=== PATIENT | female | born 1940 | race Caucasian/White ===

== ENCOUNTER → 2021-02-06 12:49 | Outpatient (CLI) | payer MEDICARE, SELFPAY ==
--- NOTE | 2021-02-06 12:55 | CT_ITS ---
STUDY: RIGHT LOWER EXTREMITY CT SCAN REASON FOR EXAM: Female, 80 years old. PRE OP RADIATION DOSAGE (If Supplied By Facility): CTDIvol = ( 18.76 ) mGy, DLP = ( 2234.48 ) mGycm. Individualized dose optimization techniques were used for this CT.? TECHNIQUE: Axial multidetector CT scan of the right lower extremity. Coronal and sagittal reformatted images. LINDSAY technique. COMPARISON: None. FINDINGS: Right hip: Moderate right hip osteoarthritis predominating superiolaterally. Moderate/severe pubic symphysis arthrosis. Mild sacroiliac joint arthrosis. Distended urinary bladder. Gluteus medius/minimus muscle atrophy. No significant soft tissue swelling. Right knee: Severe medial compartment arthrosis. Mild lateral compartment arthrosis. Mild/moderate patellofemoral arthrosis. Small volume joint effusion. Moderate-sized popliteal cyst. Mild anterior swelling. No muscle abnormality. Right ankle: Mild tibiotalar joint arthrosis. Minimal subtalar joint arthrosis. Moderate talonavicular arthrosis. Mild soft tissue swelling. No muscle abnormality. Vascular calcifications. CT/Extremity Lower without Contra IMPRESSION: Right knee moderate/severe osteoarthritis Right knee small joint effusion and popliteal cyst with mild swelling Right hip and ankle mild/moderate osteoarthritis Electronically Signed: Turner Marina DO at 12:05 EDT Tel , Service support ,
== END ==
PROVIDERS: PCP Internal Medicine; Referring Provider Specialist; Visit Provider Specialist
DX: M21.161 Varus deformity, not elsewhere classified, right knee (principal)
CPT/HCPCS: 73700

== ENCOUNTER 2021-02-20 15:22 | Observation (INO) | payer MEDICARE, SELFPAY ==
--- NOTE | 2021-01-30 21:55 | HP.PCM_ITS ---
History and Physical History and Physical [facility] Patient Name: Niki Castellanos : 1940 From: YOUNG GRIMALDO PA-C DATE OF SURGERY: 02/20/2021 SCHEDULED PROCEDURE: right unicompartmental knee replacement versus total knee arthroplasty HISTORY OF PRESENT ILLNESS: Preoperative history and physical exam was performed on January 30, 2021. This is a 80-year-old female who is had ongoing pain in the right knee for over 5 years. Patient has had pain in both knees but the right knee is greater than the left. Pain is located over the posterior and medial aspect of the knee. Her pain has been aching, sharp, stabbing, sore. Pain is increased with going up and down stairs and walking. Pain can reach his high as an 8-9/10. Patient has difficulty with activities of daily living including bathing/showering, housework, and shopping. She feels unsafe walking and shopping due to the pain. Patient has tried conservative measures including heat with no relief in symptoms. She has had minimal relief with rest, elevation, and previous corticosteroid injection. She has had previous Euflexxa injection with minimal relief. She has tried oral medications including Tylenol and Advil. She has been through physical therapy with minimal relief. Patient denies previous surgery on the right knee in the past. She has been using a cane over the past several weeks. Patient currently denies any chest pain, shortness of breath, fevers chills, recent infections. She has medical history pertinent for anxiety, sleep apnea, and hypertension. We are obtaining surgical clearance from the primary care physician Dr. Nguyen. After failing conservative measures and discussing treatment options with Dr. Rom Hampton, the patient does wish to proceed with a right unicompartmental knee replacement versus total knee arthroplasty. REVIEW OF SYSTEMS: ROS: Const: Denies anorexia, anxiety, change in appetite, fever and weight change,hard of hearing, and vision problems. Eyes: Wears glasses. CV: Denies chest pain, heart murmur, irregular heartbeat and peripheral vascular disease. Resp: Denies asthma, cough, pneumonia, sleep apnea, shortness of breath, tuberculosis and wheezing. GI: Reports heartburn, but denies constipation, diarrhea, nausea, bloody stools and vomiting, and difficulty swallowing. : Denies female genital problems. Denies incontinence. Musculo: Reports trouble walking and weakness, but denies leg swelling and limp. Skin: Denies Raynaud's, history of shingles and tattoo. Neuro: Denies ambulatory dysfunction, dizziness, numbness/tingling and tremor. Psych: Denies anxiety, depression, insomnia, mental illness and stress. Deejay/Lymph: Denies anemia, bleeding/bruising tendency and past transfusion. Reviewed, no changes. PAST MEDICAL HISTORY: Advance Care Plan: No Advance Directives Effective Date: 11/05/2018 PMH: Medical Problems: Arthritis, High Blood Pressure, Hypercholesterolemia, Anxiety, Reflux Accidents: None Surgical Hx: Foot Nerve Hip Replacement - (07/30/2006) LT THR, DR. HOPKINS, [facility] Anesthesia Complications: None Assistive Devices: None Reviewed and updated. SOCIAL HISTORY: SH: Marital: .Occupation: Retired - [employer].Work Status: Retired.Hand Dominance: Ambidextrous. Personal Habits: Tobacco Use: Patient has never smoked.Cigarette Use: Never.Alcohol: Denies use.Drug Use: Denies Use.Enjoy Exercising: Exercises 1-3 X/Week. Reviewed and updated. VITALS: Ht: 63.5 Wt: 181lb Wt k.102 BMI: 31.6 BP: 130/76 Pulse: 64 Resp: 14 T: 96.6 T: 35.9C Pain Level: 0 ALLERGIES: No Known Drug Allergy MEDICATIONS: Lisinopril 40 mg 1 po BID, Zyrtec 10 mg 1 po qday, Calcium daily, Multivitamin 1 po qdAY, Fluticasone Nasal [place] 2 sprays each nostril. one time a day., Advil 200 mg prn pain, Hydralazine HCL 50 mg take 1 tablet by mouth twice a day, Spironolactone 25 mg take 1 tablet by mouth once daily, Lorazepam 0.5 mg take 1/2 tablet by mouth once daily if needed for anxiety, Famotidine 40 mg 1po qday, Metoprolol Succinate ER 100 mg, Atorvastatin Calcium 20 mg take 1 tablet by mouth once daily PRE-OP EXAM: General appearance:NORMAL Other: Eyes: Conjunctivae and lids: NORMAL Pupils: ERR Ears, Nose, Mouth, and Throat: NORMAL Other: Inspection of lips, teeth and gums: NORMAL Other: Neck: Examination of neck: no masses noted. Respiratory: Assessment of respiratory effort: NORMAL Other: Auscultation of lungs: clear to auscultation no wheezes, rhonchi or rales. Cardiovascular: Auscultation of heart: regular rate and rhythm, no murmurs, gallops or rubs. PHYSICAL EXAMINATION: Patient does walk with an antalgic gait. Right knee is cool to touch without erythema or signs of infection. She does have moderate effusion. There is tenderness to palpation along the medial joint line. She has varus alignment which is correctable on exam. Range of motion: 0 extension 115 flexion. She does have increased pain with range of motion. Stable to varus/valgus stress test, stable to anterior/posterior drawer. IMAGING STUDIES: Previous x-rays of the right knee reveal varus alignment with medial joint space narrowing, subchondral sclerosis, osteophyte formation consistent with severe stage IV osteoarthritis IMPRESSION: 1. Severe right knee osteoarthritis 2. Severe left knee osteoarthritis 3. Hypertension 4. Hypercholesterolemia 5. Anxiety 6. Gastroesophageal reflux disease PLAN: Dr. Rom Hampton did discuss and review with the patient all treatment options including surgical versus nonsurgical options. Patient does wish to proceed with the above-stated procedure. Potential risks, benefits, and complications of the procedure were discussed in detail including but not limited to , infection, nerve and blood vessel damage, persistent pain, numbness, tingling, paresthesias, blood clot, pulmonary embolism, and requirement for possible further surgery. The patient expressed full understanding and has no further questions for the doctor. Patient does agree to proceed with the above-stated procedure and has signed the surgery consent form. We discussed the current risks associated with COVID 19. This does include the risk of exposure while in the hospital. Patient was reassured local hospitals have low infection rates and are taking all necessary precautions to avoid exposure to patients. In addition, we discussed strategies that can be used to help limit exposure including those that limit the patient's time in the hospital. Also using strategies to limit the patient's need for continued inpatient services after being discharged from the hospital. Patient was notified that we will need to comply with any screening or testing the hospital wishes to perform or that surgery may be delayed for any positive results. This dictation was created using voice recognition software. Phonetic and/or grammatical errors may exist. ___ I have re-examined the patient. There are no clinical changes since date of exam. ___ See progress notes for changes. ___ Dictated on admission Date: Time: Signature:
[2021-02-04 14:45] LABS: Absolute Lymphocyte Count 1.59 X10^3/uL (0.83-4.51); Absolute Neutrophil Count 5.5 X10^3/uL (2.0-7.7); Basophil# 0.04 X10^3/uL; Basophil% 0.5 % (0-1); Eosinophil# 0.17 X10^3/uL; Eosinophils% 2.1 % (0-5); Hematocrit 40.7 % (37-47); Hemoglobin 13.9 g/dL (12.0-15.0); Lymphocyte # 1.59 X10^3/ul (0.83-4.51); Lymphocyte % 19.6 % (19-41); Mean Corp Hgb Conc 34.2 g/dL (32-36); Mean Corpuscular Hgb 32.1 pg (27.0-32.0); Mean Platelet Vol. 10.6 fl (6.2-12.0); Monocyte# 0.78 X10^3/uL; Monocyte% 9.6 % (0-10); NRBC Flagged by Analyzer 0 % (0-5); Neutrophil # 5.51 X10^3/uL (2.7-7.7); Platelet Count 229 K/mm3 (150-450); RBC Distribution Width CV 12.2 % (11.6-14.6); RBC Distribution Width SD 42.1 fl (35.1-43.9); Red Blood Count 4.33 M/mm3 (4.2-5.4); White Blood Count 8.1 K/mm3 (4.4-11.0)
[2021-02-04 15:11] LABS: Albumin, Serum 3.7 g/dL (3.2-5.0); Anion Gap 8 (5-15); BUN 26 mg/dL (7-18); BUN/Creat Ratio 26.3 RATIO (10-20); Calcium,Total 9.3 mg/dL (8.5-10.1); Chloride 108 mmol/L (98-107); Creatinine, Serum 0.99 mg/dL (0.55-1.02); EST Glomerular Filtration Rate 57 mL/min (>60); Est Glom Filt Rate - Afr Amer 69 mL/min (>60); Glucose 99 mg/dL (74-106); Potassium 4.3 mmol/L (3.5-5.1); Sodium Level 141 mmol/L (136-145)
[2021-02-20] VITALS (15 sets, daily range): BP systolic 120–158; BP diastolic 47–108; PULSE 40–78; RESP 16–18; TEMP 35.8–36.6; O2SAT 92–100; BMI 31.4; BMI 32.5
--- NOTE | 2021-02-20 07:00 | RAD_ITS ---
STUDY: X-RAY - RIGHT KNEE REASON FOR EXAM: Female, 80 years old. Post op -- AP and Lateral xray of operative knee in PACU TECHNIQUE: 2 view(s) of the knee. COMPARISON: None. FINDINGS: The patient is status post medial hemiarthroplasty. There is good alignment. Postoperative soft tissue changes. RAD/Knee 1 or 2 Views IMPRESSION: Status post medial hemiarthroplasty. There is good alignment. Postoperative soft tissue changes. Electronically Signed: Pradeep Barba MD at 12:30 EDT , Service support ,
--- NOTE | 2021-02-20 07:03 | OP.PCM_ITS ---
Report of Operation Date of Procedure: 02/20/21 Pre-Operative Diagnosis: Right knee primary osteoarthritis Post-Operative Diagnosis: Right knee primary osteoarthritis Surgery/Procedure Performed:: Right medial unicompartmental knee replacement Description of Surgical Findings:: Patellofemoral and lateral compartments were appropriate with minimal wear. Stable knee. Surgeon: Rom Hampton cardroom drawing runner: Ralph Norman Type of Anesthesia: General Anesthesiologist: Tay Swenson Special Medications: 2 g Ancef, 1 g TXA at incision, 1 g TXA closure, 10 mg Decadron, joint cocktail (5 mg Duramorph, 30 mL of 0.5% Ropivicaine, 1000 units of epinephrine, 30 mg of Toradol) Specimen's removed: Bony cuts Estimated Blood Loss (mL): 45 Fluids Replaced: 1200 ml Description of Procedure: Implants used: 1. Josef size 4 femur 2. Josef size 3 tibia 3. Josef 10 mm polyethylene component Brief history operative indications: 80-year-old f with history of R knee anterior medial varus osteoarthritis with radiographic findings with loss of joint space, osteophyte formation and subchondral sclerosis. Failed conservative measures as mentioned in the H&P. Discussion of total knee arthroplasty as well as risk and benefits were discussed the patient including but not limited to blood loss, DVTs, PEs, neurovascular damage, general risk of anesthesia including loss of life, and stiffness or instability were discussed with patient. Patient demonstrated understanding and was able to sign informed consent. Procedure: On the date of procedure patient's R lower extremity was marked in the preope rative area. The patient was then taken back to the operating room where the patient was placed on the table in the supine position. All bony prominences were identified a well-padded. Anesthesia assumed control of the C-spine and airway and remained controlled throughout the remainder of the procedure. A tourniquet was placed on the R upper thigh and the leg was prepped in a sterile fashion. The surgeon then scrubbed at this time. Upon reentering the room R lower extremity was draped in a standard orthopedic fashion. A timeout was then called and everyone agreed upon the side, the site, the procedure to be performed, patient's identity and antibiotics given. Esmarch bandage was used to exsanguinate the extremity and the tourniquet was placed up to 250 mmHg with the knee in flexion. A midline skin incision was made and sharp dissection was taken down through skin subcutaneous tissue and fat. The standard medial parapatellar incision was made and the patella was subluxed medially. The standard minimal MCL release was done and a minimal fat pad for visualization. At this time we directed our attention towards the placement of the robotic navigation pins. 2 pins were placed in the tibia handbreadth below the tibial tubercle and 2 pins were placed in the femur with the patella in the trochlear groove 1 handbreadth above the patella. Bicortical fixation was obtained on all 4 pins. Once these pins were placed the arrays and checkpoints were placed and the femur and tibia were registered. After registering the bony landmarks bone spurs were removed and the soft tissues were tensioned and this intraoperative information was used to make intraoperative adjustments to implant position and balance the knee. The robotic arm was brought in and our attention was then directed towards the femur at this time based on our preoperative and intraoperative planning the size 4 femoral component was burred appropriately to the distal femur. Once we had appropriately burred the distal femur the pegs and he will were also burred. Next our attention was directed to the tibia. Where using our preoperative plan we buried the proximal tibia for a size 3 tibial component and then a ppropriately burred the pegs. Once we had burred the femur and the tibia all excess osteophytes were again removed. The trial components were placed in the tibial trial component was used to press the posterior keel. The knee was taken through range of motion and balancing was verified using the robotic navigation. Once we were happy with our components trial components were removed and the bone was repaired reaming the distal femur and using the toothbrush saw to slot the proximal tibia. Once the bone was adequately prepared the knee was scoped. Out normal saline and 40 mL of joint cocktail was injected in the posterior medial knee. The bone ends were appropriately dried and once the cement was ready the final components were cemented into place with the trial polyethylene and held at 20? flexion. Once the cement had adequately cured and all cement was removed and the final 10 millimeter polyethylene was put into place and the final knee showed is good patella tracking and well-balanced knee without overcorrection. It should be noted that throughout the procedure the MCL was protected during all bony cuts by my finance assistant. Once the final components were placed a the wound was copiously irrigated with 500 mL dilute Betadine solution followed by 1 L of normal saline solution and the periarticular injection was given. The wound was closed in a layer washburn fashion using #1 vicryl interrupted sutures for the arthrotomy, 2-0 interrupted Vicryl suture for the subcuticular layer and juan for final skin closure. A sterile compressive dressing was then placed. The patient was then awakened from anesthesia, transferred to the [facility] and transferred to the PACU for recovery. Post op plan DVT ppx: ASA 81mg BID for six weeks, thigh high compression stockings for 2 week s Follow up: in office in 2 weeks for wound check PT: to start POD #0 at hospital, outpatient PT should be arranged. During the course of the procedure the physician patient admitting representative (PE) played a vital ro le. Their intimate knowledge of my steps in the procedure aided in safe and expedient completion of the procedure. The PE played a vital rolls in positioning particularly in obtaining the appropriate positioning of the sacral bump. The PE was also vital in the retraction of soft tissues during the exposure and especially the femoral work as this is a vital part of the procedure to prevent complications and fractures. The PE was also vital and protecting soft tissues during times of bony cuts and reaming. He also played a vital role in closure with my direct supervision. The PE was also important during reduction and dislocation of the joint and trials intraoperatively. Admit VTE Documentation VTE Present on Admission: No VTE Mechan Device Prophylaxis: SCD's and Thigh High CALVIN Hose VTE Pharm Prophylaxis ordered?: Yes
[2021-02-20] MEDS: Lactated Ringers 1,000 ML 999 ML IV ×2 (08:31→11:57)
[2021-02-20] MEDS: Gabapentin 600 MG Tablet PO (08:31)
[2021-02-20] MEDS: Lactated Ringers 1,000 ML 75 ML IV (08:31)
[2021-02-20] MEDS: Celecoxib 200 MG Capsule 400 MG PO (08:32)
[2021-02-20 09:10] LABS: Bedside Glucose 112 mg/dL (70-110)
[2021-02-20] MEDS: Cefazolin 2 GM in 0.9% Normal Saline 100 ML IV (10:12)
[2021-02-20] MEDS: dexAMETHasone 10 MG/ML Vial IV (10:29)
[2021-02-20] MEDS: Lactated Ringers 1,000 ML 125 ML IV (11:57)
--- NOTE | 2021-02-20 14:18 | PCM.PN.HOSP ---
Subjective Subjective Mrs. Castellanos is an 80-year-old white female who presented to the [facility] on 02/20/2021 for a right medial unicompartmental knee replacement. The patient had unfortunately been having ongoing right knee pain for approximately 5 years. She has been complaining of bilateral knee pain but the right is greater than left. The pain was noted to be over the posterior and medial aspects of the right knee. She reports the pain as being aching, sharp, stabbing, and sore. The pain increases with going up and down stairs as well as walking. Her pain complaints are reported as 8-9 out of 10 and she has difficulties with ADLs and IADLs and feels unsafe walking and shopping due to her pain levels. She had tried conservative measures including heat, rest, steroid injections, Euflexxa injections, NSAIDs and Tylenol, as well as physical therapy without any lasting relief. We have been consulted in the postoperative management of her medical issues. The patient is currently denying any significant pain in despite having her nerve block not take appropriately. She appears well and had no postoperative issues thus far. Objective Data Objective Data Vital Signs: Vital Signs Temp Pulse Resp BP Pulse Ox 96.5 F L 77 16 147/47 H 95 02/20/21 14:03 02/20/21 14:03 02/20/21 14:03 02/20/21 14:03 02/20/21 14:03 Oxygen Flow Rate (L/min) 4 Oxygen Delivery Method Room Air Weight: 82.9 kg Body Mass Index (BMI) 31.4 Intake & Output: Intake and Output for Last 24 Hours 02/18/21 02/19/21 02/20/21 23:59 23:59 23:59 Intake Total 3435 / 3435 Balance 3435 / 3435 Lab / Micro Data Result Diagrams: 02/04/21 14:18 02/04/21 14:18 Labs: Laboratory Results - last 24 hr 02/20/21 08:14: POC Glucose 112 H Micro: Microbiology 02/04/21 14:18 Swab (Method) Nasal Screen MRSA/MSSA - Final Radiography Diagnostic Testing: Radiology Impression Knee X-Ray 02/20/21 07:00 IMPRESSION: Status post medial hemiarthroplasty. There is good alignment. Postoperative soft tissue changes. Electronically Signed: Pradeep Barba MD at 12:30 EDT , Service support , Physical Exam Const alert, oriented x3, no apparent distress and healthy appearing Constitutional Narrative: Elderly obese white female, sitting up in bed, nursing is at bedside, nontoxic, daughter at bedside, very pleasant Exam Limitations: no limitations Nutritional Appearance: obese HEENT head/scalp atraumatic Head and Scalp: normocephalic Mouth: dry mucous membranes Resp normal respiratory effort, no retractions, no use of accessory muscles and clear to auscultation bilaterally Auscultation: Negative for crackles, rales, rhonchi or wheezes Cardio regular rate, regular rhythm, S1 normal heart sound, S2 normal heart sound, no murmurs, no rub, no gallops, no clicks and no JVD GI normal to inspection, nondistended, normoactive bowel sounds, soft to palpation, non-tender and non-distended Extremity no clubbing, cyanosis or edema Extremity Narrative: Right lower extremity with CALVIN hose and polar ice in place, left lower extremity with CALVIN hose in place Peripheral Pulses: Yes pulses 2+ throughout Neuro oriented x3 and moves all extremities Sensorium / Orientation: awake and alert Speech: speech normal Assessment & Plan Assessment/Plan (1) Osteoarthritis: (2) Right knee pain: (3) Status post unicompartmental knee replacement: PLAN: Right knee pain secondary to osteoarthritis status post right unicompartmental knee replacement -Medial compartment replaced -Postop day 0 -Pain management per primary -Bowel regimen -PT/OT consultation Hypertension -Continue home lisinopril 20 mg twice daily -Continue metoprolol 100 mg daily -Continue Aldactone 12 point milligrams twice daily Hyperlipidemia -Continue atorvastatin 20 mg daily Generalized anxiety disorder -Continue home as needed Ativan 0.5 mg twice daily GERD -Continue famotidine 40 mg daily CKD stage II -Serum creatinine was at baseline on preoperative labs -Monitor closely -Avoid nephrotoxins as able Obesity -BMI is 31.4 -Recommend weight loss -Complicates treatment, prognosis, outcomes DVT prophylaxis -Per primary service with baby aspirin 81 mg twice daily -SCDs Charges/Coding Visit Charges OBSV E&M: 80909 Initial observation care L2
[2021-02-20] MEDS: Cefazolin 1 GM/50 ML BAG IV (17:29)
[2021-02-20] MEDS: Aspirin 81 MG TAB.CHEW PO (17:30)
--- NOTE | 2021-02-20 21:56 | EKG12_ITS ---
Test Reason : DYSRHYTHMIA Blood Pressure : / mmHG Vent. Rate : 041 BPM Atrial Rate : 041 BPM P-R Int : 256 ms QRS Dur : 088 ms QT Int : 480 ms P-R-T Axes : 000 -07 028 degrees QTc Int : 396 ms Sinus bradycardia with type I 3degree AV block Low voltage QRS Septal infarct (cited on or before 24-AUG-2015) Abnormal ECG When compared with ECG of 25-AUG-2015 05:55, MN interval has increased Vent. rate has decreased BY 33 BPM Questionable change in initial forces of Septal leads QT has shortened Confirmed by CHRISTOPHER MA, SUSAN ([id number]), commercial production editor KIRIT STRONG ([id number]) on 02/26/2021 12:31:44 P M Referred By: Rom Hampton Confirmed By:SAILAJA WHITE MD
[2021-02-20] MEDS: Senna/Docusate Sodium 1 Tablet 2 TABLET PO (22:01)
[2021-02-20] MEDS: Atorvastatin Calcium 20 MG Tablet PO (22:01)
[2021-02-20] MEDS: Acetaminophen 500 MG Tablet 1000 MG PO (22:02)
[2021-02-21] MEDS: Cefazolin 1 GM/50 ML BAG IV (01:56)
[2021-02-21 02:01] VITALS: BP 149/93; PULSE 51; RESP 18; TEMP 36.4; O2SAT 95
[2021-02-21] MEDS: Acetaminophen 500 MG Tablet 1000 MG PO ×2 (05:10→13:25)
[2021-02-21 05:45] LABS: Hematocrit 35.8 % (37-47); Hemoglobin 12.1 g/dL (12.0-15.0); Mean Corp Hgb Conc 33.8 g/dL (32-36); Mean Corpuscular Hgb 32.1 pg (27.0-32.0); Mean Platelet Vol. 10.4 fl (6.2-12.0); Platelet Count 212 K/mm3 (150-450); RBC Distribution Width CV 12.1 % (11.6-14.6); Red Blood Count 3.77 M/mm3 (4.2-5.4); White Blood Count 10.6 K/mm3 (4.4-11.0)
[2021-02-21 06:08] LABS: Anion Gap 8 (5-15); BUN 21 mg/dL (7-18); BUN/Creat Ratio 20.6 RATIO (10-20); Calcium,Total 8.8 mg/dL (8.5-10.1); Chloride 107 mmol/L (98-107); Creatinine, Serum 1.02 mg/dL (0.55-1.02); EST Glomerular Filtration Rate 55 mL/min (>60); Est Glom Filt Rate - Afr Amer 67 mL/min (>60); Estimated Creatinine Clearance 37.99 ml/min; Glucose 112 mg/dL (74-106); Potassium 4.4 mmol/L (3.5-5.1); Sodium Level 139 mmol/L (136-145)
[2021-02-21 08:13] VITALS: BP 141/55; PULSE 42; RESP 16; TEMP 36.4; O2SAT 95
[2021-02-21] MEDS: Aspirin 81 MG TAB.CHEW PO (08:43)
[2021-02-21] MEDS: Lisinopril 20 MG Tablet PO (08:44)
[2021-02-21] MEDS: Famotidine 20 MG Tablet 40 MG PO (08:44)
[2021-02-21] MEDS: Calcium Carb/Vitamin D 1 TABLET Tablet 2 TABLET PO (08:44)
[2021-02-21] MEDS: Senna/Docusate Sodium 1 Tablet 2 TABLET PO (08:44)
[2021-02-21] MEDS: Multivitamins,Therapeutic Tablet 1 TABLET PO (08:45)
[2021-02-21] MEDS: Spironolactone 25 MG Tablet 12.5 MG PO (08:45)
[2021-02-21] MEDS: Ensure Surgery 237 ML LIQUID PO ×2 (08:47→11:31)
--- NOTE | 2021-02-21 08:50 | PN.HOSP_ITS ---
Subjective Subjective Follow-up on postop medical management for right medial unicompartmental knee replacement: Patient was seen and examined. Her pain is fairly controlled. She was noted to be bradycardic. Heart rate was in the 40s. EKG shows sinus bradycardia with first-degree AV block. Patient blood pressure is fairly stable. Patient stated that she is always been bradycardic. She is asymptomatic from the bradycardia. Objective Data Objective Data Vital Signs: Vital Signs Temp Pulse Resp BP Pulse Ox 97.5 F L 42 L 16 141/55 H 95 02/21/21 08:13 02/21/21 08:13 02/21/21 08:13 02/21/21 08:13 02/21/21 08:13 Oxygen Flow Rate (L/min) 4 Oxygen Delivery Method Room Air Weight: 86 kg Body Mass Index (BMI) 32.5 Intake & Output: Intake and Output for Last 24 Hours 02/19/21 02/20/21 02/21/21 23:59 23:59 23:59 Intake Total 4591.08 / 4591.08 50 / 50 Balance 4591.08 / 4591.08 50 / 50 Lab / Micro Data Result Diagrams: 02/21/21 05:18 02/21/21 05:18 Labs: Laboratory Results - last 24 hr 02/20/21 08:14: POC Glucose 112 H 02/21/21 05:18: WBC 10.6, RBC 3.77 L, Hgb 12.1, Hct 35.8 L, MCV 95.0, MCH 32.1 H , MCHC 33.8, RDW Std Deviation 42.0, RDW Coeff of Mari 12.1, Plt Count 212, MPV 10.4 02/21/21 05:18: Sodium 139, Potassium 4.4, Chloride 107, Carbon Dioxide 24.0, Anion Gap 8, BUN 21 H, Creatinine 1.02, Estim Creat Clear Calc 37.99, Est GFR (MDRD) Af Amer 67, Est GFR (MDRD) Non-Af 55 L, BUN/Creatinine Ratio 20.6 H, Glucose 112 H, Calcium 8.8 Micro: Microbiology 02/04/21 14:18 Swab (Method) Nasal Screen MRSA/MSSA - Final Radiography Diagnostic Testing: Radiology Impression Knee X-Ray 02/20/21 07:00 IMPRESSION: Status post medial hemiarthroplasty. There is good alignment. Postoperative soft tissue changes. Electronically Signed: Pradeep Barba MD at 12:30 EDT , Service support , Physical Exam Narrative Physical exam: General: Alert, Oriented x3, Cooperative, No apparent distress, Well developed HEENT: Atraumatic Oral: Moist Mucosa Neck: Supple Lungs: Clear to auscultation Cardiovascular: HS I+II, regular, no murmurs Abdomen: Bowel Sounds Present, Soft, Non Tender Extremities: Bilateral CALVIN hoses, right anterior knee dressing in place, intact Assessment & Plan Assessment/Plan (1) Osteoarthritis: QUALIFIERS: Osteoarthritis location: knee Osteoarthritis type: p rimary Laterality: right Qualified Code(s): M17.11 - Unilateral primary osteoarthritis, right knee (2) Right knee pain: QUALIFIERS: Chronicity: chronic Qualified Code(s): M25.561 - Pain in right knee; G89.29 - Other chronic pain (3) Status post unicompartmental knee replacement: PLAN: 1. Postop day #1 status post right medial unicompartmental knee replacement Pain is controlled, PT and OT consulted Follow-up per orthopedics recommendations 2. Sinus bradycardia, EKG shows first-degree AV block, heart rate in the 40s Asymptomatic Patient is on metoprolol 100 mg daily, will decrease metoprolol to 50 mg daily, will recommend resumption of metoprolol from tomorrow Patient is recommended to follow-up with her primary care doctor within a week 3. Hypertension, fairly controlled for age, continue lisinopril 20 twice daily, Aldactone 12.5 mg twice daily Patient asked to keep a log of blood pressures At doctor may need to be increased 4. Rest of her chronic medical conditions including hyperlipidemia/generalized anxiety disorder/GERD/CKD stage II/obesity all remained stable Home meds reviewed Charges/Coding Visit Charges Inpatient E&M: 57811 Subs Hosp L2
--- NOTE | 2021-02-21 08:52 | PN.ORTHO_ITS ---
Subjective Subjective The patient was sitting in bedside chair upon examination. Patient denies any chest pain, shortness of breath, dizziness, lightheadedness, nausea or vomiting, or calf pain. Pain is controlled on medications. No adverse overnight events. Patient postoperatively has been bradycardic. She is currently asymptomatic. Patient does report her heart rate does run low normally. She is on blood pressure medications that have been held. She currently denies any chest pain, shortness of breath, dizziness, lightheadedness. She has been up walking with no difficulties. Orthopedically she is doing very well with very well pain control. Objective Data Objective Data Vital Signs: Vital Signs Temp Pulse Resp BP Pulse Ox 97.5 F L 42 L 16 141/55 H 95 02/21/21 08:13 02/21/21 08:13 02/21/21 08:13 02/21/21 08:13 02/21/21 08:13 Oxygen Flow Rate (L/min) 4 Oxygen Delivery Method Room Air Weight: 86 kg Body Mass Index (BMI) 32.5 Intake & Output: Intake and Output for Last 24 Hours 02/19/21 02/20/21 02/21/21 23:59 23:59 23:59 Intake Total 4591.08 / 4591.08 50 / 50 Balance 4591.08 / 4591.08 50 / 50 Lab / Micro Data Result Diagrams: 02/21/21 05:18 02/21/21 05:18 Labs: Laboratory Results - last 24 hr 02/20/21 08:14: POC Glucose 112 H 02/21/21 05:18: WBC 10.6, RBC 3.77 L, Hgb 12.1, Hct 35.8 L, MCV 95.0, MCH 32.1 H , MCHC 33.8, RDW Std Deviation 42.0, RDW Coeff of Mari 12.1, Plt Count 212, MPV 10.4 02/21/21 05:18: Sodium 139, Potassium 4.4, Chloride 107, Carbon Dioxide 24.0, Anion Gap 8, BUN 21 H, Creatinine 1.02, Estim Creat Clear Calc 37.99, Est GFR (MDRD) Af Amer 67, Est GFR (MDRD) Non-Af 55 L, BUN/Creatinine Ratio 20.6 H, Glucose 112 H, Calcium 8.8 Micro: Microbiology 02/04/21 14:18 Swab (Method) Nasal Screen MRSA/MSSA - Final Radiography Diagnostic Testing: Radiology Impression Knee X-Ray 02/20/21 07:00 IMPRESSION: Status post medial hemiarthroplasty. There is good alignment. Postoperative soft tissue changes. Electronically Signed: Pradeep Barba MD at 12:30 EDT , Service support , Physical Exam Narrative Vital signs stable and afebrile. Patient is able to plantarflex and dorsiflex actively. Sensation is intact to light touch to saphenous, sural, superficial and deep peroneal, and tibial distribution. Main dressing is clean dry and intact. Distal pin site dressing moderate discharge Negative Homans bilaterally, negative signs and symptoms of DVT. Const alert, oriented x3 and no apparent distress Assessment & Plan Assessment/Plan (1) Status post unicompartmental knee replacement: PLAN: 1. S/P right medial unicompartmental knee replacement POD #1 2. Continue Pain Medications: Tylenol, meloxicam, oxycodone 3. DVT Prophylaxis: Take 81 mg aspirin twice daily for 4 weeks postoperatively for DVT prophylaxis 4. PT/OT: Weightbearing as tolerated with walker 5. H & H: 12.1/35.8, asymptomatic. Postoperative anemia secondary to acute blood loss from surgery without any intra operative complications. 6. Encouraged Incentive Spirometry 7. Continue postoperative medical management per medicine: Case was discussed in detail with the hospitalist. Hospitalist has also talked with patient's primary care physician. At this time patient will hold the metoprolol today and begin tomorrow. They will decrease the metoprolol to 50 mg daily. She will follow-up with her primary care physician in 1 week. Continue to monitor her blood pressure and pulse when at home. Hospitalist is okay with discharge home today. 7. Disposition: Plan will be for discharge home today. Patient did have bradycardia postoperatively and plan is in place. This was discussed with the patient and hospitalist. Patient will continue with pain medications and DVT prophylaxis. Prescriptions will be E scribed to [facility] in [facility]. She will follow-up per postop instructions. Patient does have outpatient physical therapy established. Patient will also need follow-up in 1 week with her primary care physician. Continue to monitor her blood pressure and pulse when at home. I have reviewed the [place] Automated Rx Reporting System (OARRS) report for this patient for refill pattern and other prescriber involvement as part of the appropriate surveillance for the provision of acute and chronic controlled medications. The report was requested and reviewed on the date of this entry and was considered in the prescribing process.
[2021-02-21 08:53] VITALS: O2SAT 95
[2021-02-21 10:17] VITALS: O2SAT 98
--- NOTE | 2021-02-21 10:28 | DCINST_ITS ---
Discharge Instructions Diet Discharge Diet: No restrictions Activity Discharge Activity: May Not Drive (while taking narcotic pain medications.) May shower in (days): 1 (Please turn dressing away from water. Okay to get wet as long as dressing is intact to skin.) Ice area for (Minutes): 20 (Every 1-2 hours while awake[address] Please place barrier between the skin and ice pack.) Weight Bearing Status: Weight bearing as tolerated Keep extremity elevated above heart level: Operative Extremity Additional Activity Instructions:: No driving for 6 weeks postoperatively. Dressing / Incision Call your doctor if your incision/area has: Continuous Slow Oozing, Sudden Increased Bleeding, Increased Pain/ Swelling, Increased Redness and Foul Smelling Discharge Call your doctor if you observe: Fever of 101 or Higher, Coldness, Increased Pain, Numbness or Tingling, Change in Color, Shortness of breath, Chest pain, Calf discomfort and Uncontrolled pain Remove Dressing in: 4 days (Okay to remove dressing on February 25, 2021) Additional Dressing/Incision Instructions:: Follow [facility] Post-op Instructions. Once postoperative dressing has been removed only use gentle soap and water over the incision. Do not use any ointments, Neosporin, salves, alcohol pads over the incision for 6 weeks postoperatively. Do not submerge underwater for 6 weeks postoperatively. Continue with CALVIN hose/elastic stockings for 2 weeks postoperatively. May remove at nighttime but needs to be placed back on the leg during the day. Do NOT use alcohol with narcotic pain medication. Do NOT make important decisions while taking narcotic medication. If you have problems with taking your medication (rash, itching, nausea, etc.) call the office at once. Follow Up Care Test Results: Test results from this visit will be discussed in further detail at your follow-up appointment, if applicable. Discharge Plan Admission Admit Date/Time: 02/20/21 15:22 Attending Provider: Elizabeth Schultz Primary Care Provider: Tye Duncan Consulting Providers: Deena Calzada Instructions Additional Instructions / Restrictions: Take note of changes to your medications. Take your blood pressures 2 times a day?in the morning and at lunchtime and record them. Let your primary care doctor know if your blood pressures are persistently above 160/80s. Discharge Orders/Prescriptions Prescriptions: New metoprolol succinate 50 mg Tablet Extended Release 24 Hr 50 mg PO DAILY 30 Days Qty: 30 RF: 0 acetaminophen 500 mg Tablet 1,000 mg PO Q8 Qty: 100 RF: 0 aspirin [Adult Aspirin Regimen] 81 mg tablet,delayed release (DR/EC) 81 mg PO BIDCM Qty: 60 RF: 0 meloxicam 7.5 mg Tablet 7.5 mg PO BID Qty: 60 RF: 0 oxycodone 5 mg Tablet 2.5 mg PO Q4H PRN PRN (Reason: Pain Score 4-10) 7 Days Qty: 14 RF: 0 sennosides-docusate sodium [Stool Softener-Stimulant Laxat] 8.6-50 mg Tablet 2 tab PO BID Qty: 14 RF: 0 Continued atorvastatin 20 MG tablet 20 mg PO DAILY RF: 0 lisinopril 20 MG tablet 20 mg PO BID RF: 0 lorazepam 0.5 MG tablet 0.5 mg PO BID PRN PRN (Reason: Anxiety) RF: 0 multivitamin Tablet 1 tab PO DAILY RF: 0 famotidine 40 mg tablet 40 mg PO DAILY RF: 0 spironolactone 25 mg tablet 12.5 mg PO BID RF: 0 calcium carbonate-vitamin D3 500 mg(1,250mg) -125 unit Tablet 2 tab PO DAILY RF: 0 Discontinued metoprolol succinate 100 MG tablet 100 mg PO DAILY RF: 0 No Action zinc 50 mg Tablet 50 mg PO DAILY RF: 0 Referrals / Follow Up: Physical,Therapy [Other] - 02/25/21 5:30 pm Tye Duncan MD [Primary Care Provider] - Within 1 Week Ralph Norman PA-C [PHYSICIAN CHIROPRACTOR SOLE PRACTITIONER] - 03/07/21 4:00 pm Disposition Disposition (needs filled in before D/C Order can be placed): Home, Self Care
--- NOTE | 2021-02-21 11:30 | CASEMGMT ---
Addendum entered by Miguelina Rivera 02/21/21 12:49: [facility] form explained re: Observation status for treatment of right medial unicompartmental knee replacement. Explained hospitalization will be paid per her insurance policy for Outpatient billing and condition will continue to be evaluated for Inpt necessity. Also let pt know that [facility] sends paper in the billing packet with their phone number if questions arise. Discussed Pharmacy section of [facility] form and self administered medication guideline. Pt verbalizes understanding and does not have further questions. Form signed, copy made and placed in chart, and original given to pt. Original Note: RN CM ANESTHESIOLOGIST CM to room to meet with patient for initial transition planning/care coordination assessment. RN ROXY introduced self and role at [facility]. Pt voices understanding and consents to assessment at this time. Pt sitting up in chair in room in no distress at this time. Pt is A/O at this time and answers all questions appropriately. Care providers, pharmacy, and demographics verified/updated at this time. PCP: Dr Duncan Specialists: Dr Hampton--ortho Preferred Pharmacy: [facility] Retail Insurance:[employer] Prescription Benefit: Yes Living Will/HPOA: Pt does not currently have LW/HCPOA LNOK: Dtr, Laura Perez. Pt also has 60-yr-old son w/MRDD. Living Arrangements: Lives in a one-story home w/2 steps to enter w/handrails. Independent prior. Pt's 60-yr-old son w/MRDD lives w/her and pt helps to care of him. Son goes to [employer] [facility] [employer]. Dtr, Laura, is staying w/pt's son until pt returns home. Transportation: Pt drove prior to surgery. Dtr will take pt home @ d/c and will assist w/getting groceries for pt and take her to appts, when available. DME: States has the following DME: shower chair, cane, grab bars, walker, BP machine Pt states no need for further DME at this time. HHC/SNF:No hx of either. Pt wishes to return home and would like HHC, instead of OP therapy. Pt has an appt scheduled for OP PT @ [facility] for Feb 25. Pt voiced concern re: transportation to/from OP therapy. She states her daughter lives in [place] and works and would not be able to provide transportation. RN ROXY informed pt there is free van transportation services through [facility] for [employer], if she wishes to go there. Pt states she still wishes to do HHC instead of OP therapy. Pt was provided with list of HHC providers including quality and resource use data and consistent with the patient's preferred geographic region, medical needs, and insurance network. The pt's preferred provider is [facility]. FAVIO Quezada, in room w/pt and this RN ROXY during discussion re: therapy and he was made aware pt wishes to do HHC for therapy. Ralph informed pt he does recommended doing OP therapy vs HHC, but pt states she still wishes to do HHC initially and then may change to OP therapy later @ [facility] and would utilize [facility] van transportation at that time, if she is still unable to drive. DOTTY RAMSEY placed call to [facility] and appt cancelled per pt request. Pt has been scheduled to see COMMUNITY SERVICES OFFICER, Alanis Eric, @ Dr Duncan's office Mar 08. Per FAVIO Rosas, he would prefer pt be seen earlier for monitoring of BP and HR. DOTTY RAMSEY placed call to Dr Duncan's office and spoke w/Rebeca, nurse. She was made aware of bradycardia post-op and hypertension and request for pt to have f/u appt w/in a week of d/c from [facility]. She states she will submit request for same and someone from Dr Duncan's will contact pt if an earlier appt is available. Pt states has been wanting to switch to a different PCP. Pt offered/provided list of local PCP's. Pt's daughter, Laura, arrived while DOTTY RAMSEY talking w/pt. She was updated on HHC, option for OP therapy @ [employer] w/[facility] van transportation, and appt's as noted above. Recommended to pt to keep log of BP/HR to take to f/u appt @ PCP's office. CM to follow for any further discharge planning/needs. Pt/dtr voice no further concerns/needs at this time. Plan: Home w/[facility] HHC: PT Moshe ABBASI RN, CM
[2021-02-21 14:09] VITALS: BP 133/50; PULSE 42; RESP 16; TEMP 36.8; O2SAT 95
== END 2021-02-21 15:07 | disposition home health service (06) ==
LOC: SDC 15:22 → MS3 15:22
PROVIDERS: Admitting Provider Specialist; PCP Internal Medicine; Referring Provider Specialist; Visit Provider Internal Medicine
PROC: 0SRC0JZ Replacement of Right Knee Joint with Synthetic Substitute, Open Approach (ICD-10-PCS; CPT 27447; principal; 2021-02-20 09:30)
DX: M17.11 Unilateral primary osteoarthritis, right knee (principal); I12.9 Hypertensive chronic kidney disease with stage 1 through stage 4 chronic kidney disease, or unspecified chronic kidney disease; F41.1 Generalized anxiety disorder; G47.30 Sleep apnea, unspecified; K21.9 Gastro-esophageal reflux disease without esophagitis; N18.2 Chronic kidney disease, stage 2 (mild); E78.5 Hyperlipidemia, unspecified; Z79.899 Other long term (current) drug therapy; E66.9 Obesity, unspecified; Z68.31 Body mass index [BMI] 31.0-31.9, adult
CPT/HCPCS: 01400; 27446; 64447; S2900; 36415; 73560; 80048; 82040; 82962; 83735; 85025; 85027; 87081; 93005; 96365; 96366; 97110; 97162; 97166; 97530; 99218; 99251; C1776; J7120; A4216; G0378; G0463; J2405

== ENCOUNTER 2021-05-29 12:41 | Emergency (ER) | payer MEDICARE, SELFPAY ==
[2021-05-29] VITALS (10 sets, daily range): BP systolic 128–203; BP diastolic 50–158; PULSE 33–53; RESP 14–18; TEMP 36.5; O2SAT 25–99; BMI 33.9
--- NOTE | 2021-05-29 12:49 | EX.ED.DYSGE1 ---
HPI History of Present Illness Chief Complaint: Fall Informant: patient Narrative Narrative: 80-year-old female presenting to the emergency room with chief complaint of left hip dislocation. Patient states that it has been several decades since she had the replacement. She reports that the hip replacement was done by Dr. Carty. She did have a hip dislocation around 26 years ago but has been doing well since. She states that today she was cutting her toenails and bent over at a wrong angle. EMS administered fentanyl and Zofran. The patient denies any prior problems with anesthesia. She last ate approximately 4 to 5 hours ago. She does note significant nausea. [facility] Medical History (Updated 05/29/21 @ 15:[address] Fredo Carroll, DO) Ambulates with cane Anxiety disorder Arthritis High cholesterol Hip dislocation, left History of edema History of pain when walking History of stress test Hypertension Hypertension, essential Non-smoker Shortness of breath on exertion Wears glasses Home Medications atorvastatin 20 mg PO DAILY 08/24/15 [History Last Taken 02/19/21] lisinopril 20 mg PO BID 08/24/15 [History Last Taken 02/20/21 05:30] lorazepam 0.5 mg PO BID PRN PRN 08/24/15 [History Last Taken 02/19/21] calcium carbonate-vitamin D3 2 tab PO DAILY 02/01/21 [History Last Taken 02/19/21] famotidine 40 mg PO DAILY 02/01/21 [History Last Taken 02/19/21] multivitamin 1 tab PO DAILY 02/01/21 [History Last Taken 02/19/21] spironolactone 12.5 mg PO BID 02/01/21 [History Last Taken 02/19/21] zinc 50 mg PO DAILY 02/01/21 [History Last Taken Unknown] acetaminophen 1,000 mg PO Q8 #100 tab 02/21/21 [Rx Last Taken Unknown] aspirin [Adult Aspirin Regimen] 81 mg PO BIDCM #60 tab 02/21/21 [Rx Last Taken Unknown] meloxicam 7.5 mg PO BID #60 tab 02/21/21 [Rx Last Taken Unknown] metoprolol succinate 50 mg PO DAILY 30 Days #30 tab 02/21/21 [Rx Last Taken Unknown] oxycodone 2.5 mg PO Q4H PRN PRN 7 Days #14 tab 02/21/21 [Rx Last Taken Unknown] sennosides-docusate sodium [Stool Softener-Stimulant Laxat] 2 tab PO BID #14 tab 02/21/21 [Rx Last Taken Unknown] oxycodone-acetaminophen [Percocet] 1 tab PO Q6H PRN 3 Days #12 tab 05/29/21 [Rx Last Taken Unknown] Allergy/AdvReac Type Severity Reaction Status Date / Time No Known Allergies Allergy Verified 05/29/21 12:42 Surgical History (Updated 05/29/21 @ 14:[address] Fredo Carroll DO) History of right knee joint replacement Hx of colonoscopy Hx of foot surgery Hx of total hip arthroplasty Hx of tubal ligation Social History current gender identity: female Smoking Status: Never smoker substance use type: does not use ROS ROS ED Constitutional Constitutional ED: Denies chills, fever(s) or weight loss Eyes Eyes: Denies change in vision or diplopia ENT ENT ED: Denies ear pain, rhinorrhea or sore throat Cardiovascular Cardiovascular: Denies chest pain, orthopnea, palpitations or racing heartbeat Respiratory/Chest Respiratory/Chest: Denies cough, dyspnea or orthopnea Gastrointestinal Gastrointestinal: Reports nausea; Denies abdominal pain, diarrhea or vomiting Genitourinary Genitourinary ED: Denies dysuria, hematuria or urinary frequency Musculoskeletal Musculoskeletal: Reports other Details: Left hip pain ; Denies arthralgias or myalgias Integumentary Denies abscess or rash Neurologic Neurologic: Denies headache(s) or weakness Psychiatric Psychiatric: Denies anxiety, depression, suicidal ideation or suicidal thoughts Endocrine Endocrinology: Denies polydipsia, polyphagia or polyuria Allergic/Immunologic Allergic/Immunologic ED: Denies mouth swelling, tongue swelling or urticaria EXAM Physical Exam Const Vital Signs: 05/29/21 12:42 05/29/21 12:45 05/29/21 13:01 Temperature 97.7 F L Temperature Source Temporal Pulse Rate 43 L 43 L 42 L Pulse Rate [1 (Initial Baseline)] Pulse Rate [2] Respiratory Rate 16 16 14 Respiratory Rate [1 (Initial Baseline)] Respiratory Rate [2] Respiratory Effort Normal Respiratory Depth Normal Respiratory Pattern Normal Blood Pressure 178/158 H 178/158 H 179/50 H Blood Pressure [1 (Initial Baseline)] Blood Pressure [2] Blood Pressure Mean 164 164 Pulse Ox 95 95 95 Oxygen Delivery Method Room Air Room Air Room Air Oxygen Delivery Method [1 (Initial Baseline)] Oxygen Delivery Method [2] Oxygen Flow Rate (L/min) Oxygen Flow Rate (L/min) [1 (Initial Baseline)] Oxygen Flow Rate (L/min) [2] 05/29/21 13:43 05/29/21 13:55 05/29/21 14:00 Temperature Temperature Source Pulse Rate 45 L 41 L Pulse Rate [1 (Initial Baseline)] 41 L Pulse Rate [2] 53 L Respiratory Rate 15 17 Respiratory Rate [1 (Initial Baseline)] 14 Respiratory Rate [2] 18 Respiratory Effort Respiratory Depth Respiratory Pattern Blood Pressure 181/82 H 203/66 H Blood Pressure [1 (Initial Baseline)] 128/103 H Blood Pressure [2] 148/54 H Blood Pressure Mean Pulse Ox 99 95 Oxygen Delivery Method Non-Rebreather Nasal Cannula Oxygen Delivery Method [1 (Initial Baseline)] Nasal Cannula Oxygen Delivery Method [2] Non-Rebreather Oxygen Flow Rate (L/min) 15 Oxygen Flow Rate (L/min) [1 (Initial Baseline)] 2 Oxygen Flow Rate (L/min) [2] 15 05/29/21 14:03 05/29/21 14:05 05/29/21 15:15 Temperature Temperature Source Pulse Rate 41 L 37 L 33 L Pulse Rate [1 (Initial Baseline)] Pulse Rate [2] Respiratory Rate 18 17 14 Respiratory Rate [1 (Initial Baseline)] Respiratory Rate [2] Respiratory Effort Respiratory Depth Respiratory Pattern Blood Pressure 203/66 H 190/68 H 152/56 H Blood Pressure [1 (Initial Baseline)] Blood Pressure [2] Blood Pressure Mean 111 88 Pulse Ox 97 99 97 Oxygen Delivery Method Nasal Cannula Nasal Cannula Room Air Oxygen Delivery Method [1 (Initial Baseline)] Oxygen Delivery Method [2] Oxygen Flow Rate (L/min) 2 2 Oxygen Flow Rate (L/min) [1 (Initial Baseline)] Oxygen Flow Rate (L/min) [2] Positive well nourished, well developed and obese General Appearance ED: well developed Nutritional Appearance: obese HEENT Reports normocephalic, head/scalp atraumatic, TM's clear and moist mucous membranes Negative for trauma Tympanic Membrane ED: Yes TM's clear Eyes PERRL and EOMs intact bilaterally Neck no lymphadenopathy, supple and no JVD Resp normal respiratory effort and clear to auscultation bilaterally Cardio regular rate, regular rhythm and no murmurs GI normal to inspection, nondistended, normoactive bowel sounds and non-tender Palpation: soft Back/Spine no CVA tenderness and normal ROM Extremity Extremity Narrative: Tender palpation of the left hip. She is laying on her left side with her legs bent since difficult to assess leg length. Neurovascular she appears intact. General Extremety ED: Negative for edema General Extremity: Negative for edema Neuro oriented x3 and CN's II-XII intact bilaterally Sensorium / Orientation: alert Motor Exam: strength 5/5 throughout Psych mental status grossly normal Mood & Affect: Negative for depressed or tearful Skin no rashes or lesions noted and no wounds MDM MDM MDM Narrative Medical decision making narrative: EMS administered fentanyl and Zofran. Patient was very nauseous and still significant pain so we gave her additional Zofran and fentanyl. My interpretation of the plain films of the pelvis is a cephalad dislocation of the left hip. Patient provided informed consent for procedural sedation using etomidate for closed reduction of the hip dislocation. Patient was placed on the monitor and given supplemental oxygen. End-tidal CO2 was monitored. Etomidate 14 mg was administered by this physician. Myself and and another physician performed the reduction. Patient was allowed to recover. During the 9 minutes of procedural sedation she did have brief episode of hypoxemia. She recovered and was very nauseous afterwards of additional Zofran was given. She continued to be nauseated and Reglan was given and she felt significantly better. Postreduction films were obtained and on my interpretation shows satisfactory reduction of the hip. She was placed in a knee immobilizer. Patient was noted to be bradycardic in the 30s in the 40s. Patient states that that is not unusual for her. She is currently taking 50 mg of metoprolol once a day. I advised her that she should probably discontinue this and monitor her heart rate. She is to follow-up with her doctor for the bradycardia. She will follow up with [facility] for the hip dislocation. The patient's daughters come to the emergency room. She will be staying with her. 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 Electronically Signed: Pradeep Barba MD at 13:46 EST , Hip X-Ray 05/29/21 14:06 IMPRESSION: Satisfactory reduction of the prosthetic left hip joint. Electronically Signed: Pradeep Barba MD at 14:31 EST , Discharge Plan Triage Chief Complaint: Fall ED Provider: Fredo Carroll Dx/Rx/DC Orders Clinical Impression: Dislocation of left hip, Bradycardia, sinus Instructions: ED Hip Replace Dislocation Reduc Prescriptions: New oxycodone-acetaminophen [Percocet] 5-325 mg tablet 1 tab PO Q6H PRN (Reason: pain) 3 Days Qty: 12 RF: 0 No Action atorvastatin 20 MG tablet 20 mg PO DAILY RF: 0 lisinopril 20 MG tablet 20 mg PO BID RF: 0 lorazepam 0.5 MG tablet 0.5 mg PO BID PRN PRN (Reason: Anxiety) RF: 0 multivitamin Tablet 1 tab PO DAILY RF: 0 famotidine 40 mg tablet 40 mg PO DAILY RF: 0 spironolactone 25 mg tablet 12.5 mg PO BID RF: 0 zinc 50 mg Tablet 50 mg PO DAILY RF: 0 calcium carbonate-vitamin D3 500 mg(1,250mg) -125 unit Tablet 2 tab PO DAILY RF: 0 metoprolol succinate 50 mg Tablet Extended Release 24 Hr 50 mg PO DAILY 30 Days Qty: 30 RF: 0 acetaminophen 500 mg Tablet 1,000 mg PO Q8 Qty: 100 RF: 0 aspirin [Adult Aspirin Regimen] 81 mg tablet,delayed release (DR/EC) 81 mg PO BIDCM Qty: 60 RF: 0 meloxicam 7.5 mg Tablet 7.5 mg PO BID Qty: 60 RF: 0 oxycodone 5 mg Tablet 2.5 mg PO Q4H PRN PRN (Reason: Pain Score 4-10) 7 Days Qty: 14 RF: 0 sennosides-docusate sodium [Stool Softener-Stimulant Laxat] 8.6-50 mg Tablet 2 tab PO BID Qty: 14 RF: 0 Primary Care Provider: Tye Duncan Referrals: Doroteo Burr DO [STAFF PHYSICIAN] - As soon as possible Tye Duncan MD [Primary Care Provider] - Activity Restrictions/Additional Instructions: Please discontinue your metoprolol and follow-up with your primary care doctor regarding your heart rate. Please follow-up with [facility] regarding the hip dislocation. Disposition Disposition: Home, Self Care
[2021-05-29] MEDS: Ondansetron 4 MG/2 ML Vial IV ×2 (13:07→14:05)
[2021-05-29] MEDS: fentaNYL 100 MCG/2 ML Ampul 50 MCG IV (13:07)
--- NOTE | 2021-05-29 13:25 | RAD_ITS ---
STUDY: X-RAY - PELVIS REASON FOR EXAM: Female, 80 years old. Left hip dislocation TECHNIQUE: One view of the pelvis was obtained. COMPARISON: None. FINDINGS: The patient is status post left hip replacement. There is cranial dislocation of the left prosthetic hip joint. Normal visualized right femoral head. There is osteoarthritic spur formation of the right acetabular rim. There is mild articular joint space narrowing of the left hip. 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 Electronically Signed: Pradeep Barba MD at 13:46 EST ,
[2021-05-29] MEDS: Etomidate 20 MG/10 ML Vial 14 MG IV (13:46)
--- NOTE | 2021-05-29 14:06 | RAD_ITS ---
STUDY: X-RAY - PELVIS AND LEFT HIP REASON FOR EXAM: Female, 80 years old. Reduction TECHNIQUE: 2 views of the pelvis and hip. COMPARISON: Comparison is made with prior examination done earlier today. FINDINGS: There is satisfactory reduction of the prosthetic left hip joint. RAD/Hip Min 2 Views (Portable) IMPRESSION: Satisfactory reduction of the prosthetic left hip joint. Electronically Signed: Pradeep Barba MD at 14:31 EST ,
[2021-05-29] MEDS: Metoclopramide 10 MG/2 ML Vial 5 MG IV (15:10)
--- NOTE | 2021-05-29 15:25 | CM.ED ---
Social Work Consult: Resources Referral source: Nursing staff Met with patient and patient daughter in room. Introduced self and manager social services role. Patient agreeable to speak with this manager social services. Patient daughter with questions about medical alert system for patient. This manager social services provided list of medical alert systems as possible options for patient. Patient to discharge to home where patient daughter plans to stay with patient for the next few days. Patient/patient daughter deny any other concerns on returning to community. Lilli BUTLER, ELIZABETH-S
--- NOTE | 2021-05-29 16:02 | ED.RN ---
PT GIVEN WRITTEN AND VERBAL DISCHARGE INSTRUCTIONS AND HOME GOING PRESCRIPTIONS. PT DAUGHTER AT BEDSIDE ALSO EDUCATED ON D/C INSTRUCTIONS, TRANSFERRING, USE OF KNEE IMMOBILIZER AND WALKER AT HOME. PT AND DAUGHTER VERBALIZE UNDERSTANDING AND DENIES ANY FURTHER QUESTIONS. IV D/C AND COVERED WITH 2X2 GAUZE AND PAPER TAPE.
== END 2021-05-29 16:04 | disposition home or self-care (01) ==
PROVIDERS: Emergency Provider Emergency Medicine; PCP Internal Medicine; Visit Provider Emergency Medicine
DX: S73.005A Unspecified dislocation of left hip, initial encounter (principal); R00.1 Bradycardia, unspecified; E66.9 Obesity, unspecified; E78.00 Pure hypercholesterolemia, unspecified; I10 Essential (primary) hypertension; W19.XXXA Unspecified fall, initial encounter; Z79.899 Other long term (current) drug therapy
CPT/HCPCS: 72170; 73502; 96374; 96375; 96376; 99285; A4216; J2405

== ENCOUNTER 2021-08-03 16:14 | Emergency (ER) | payer MEDICARE, SELFPAY ==
[2021-08-03 16:15] VITALS: BP 167/82; PULSE 62; RESP 16; TEMP 36.3; O2SAT 96; BMI 31.3
--- NOTE | 2021-08-03 16:25 | EDS_ITS ---
HPI History of Present Illness Chief Complaint: Lower Extremity Injury Informant: patient Onset/Context/Timing Context: Sudden Onset Timing: Continuous Location: post R knee Worsened by: use, movement, touch Associated Symptoms Associated Symptoms: none Narrative Narrative: Patient was in her kitchen earlier today. Twisting and she felt something pop behind her right knee. She complains of pain to the area, worse with use, movement, and touch. No falls or injuries. No other pain. She has a history of an partial knee replacement to the right knee last year by Dr. Hampton. No blood thinners. No history of DVT or Aleman's cyst. Prior similar symptoms: No Recent Illness/Hospitalization: No PFSH PFS Medical History Ambulates with cane Anxiety disorder Arthritis High cholesterol Hip dislocation, left History of edema History of pain when walking History of stress test Hypertension Hypertension, essential Non-smoker Shortness of breath on exertion Wears glasses Home Medications atorvastatin 20 mg PO DAILY 08/24/15 [History Last Taken 02/19/21] lisinopril 20 mg PO BID 08/24/15 [History Last Taken 02/20/21 05:30] lorazepam 0.5 mg PO BID PRN PRN 08/24/15 [History Last Taken 02/19/21] calcium carbonate-vitamin D3 2 tab PO DAILY 02/01/21 [History Last Taken 02/19/21] famotidine 40 mg PO DAILY 02/01/21 [History Last Taken 02/19/21] multivitamin 1 tab PO DAILY 02/01/21 [History Last Taken 02/19/21] spironolactone 12.5 mg PO BID 02/01/21 [History Last Taken 02/19/21] zinc 50 mg PO DAILY 02/01/21 [History Last Taken Unknown] acetaminophen 1,000 mg PO Q8 #100 tab 02/21/21 [Rx Last Taken Unknown] meloxicam 7.5 mg PO BID #60 tab 02/21/21 [Rx Last Taken Unknown] metoprolol succinate 50 mg PO DAILY 30 Days #30 tab 02/21/21 [Rx Last Taken Unknown] oxycodone 2.5 mg PO Q4H PRN PRN 7 Days #14 tab 02/21/21 [Rx Last Taken Unknown] sennosides-docusate sodium [Stool Softener-Stimulant Laxat] 2 tab PO BID #14 tab 02/21/21 [Rx Last Taken Unknown] oxycodone-acetaminophen [Percocet] 1 tab PO Q6H PRN 3 Days #12 tab 05/29/21 [Rx Last Taken Unknown] oxycodone-acetaminophen [Percocet] 1 tab PO Q6H PRN 3 Days #12 tab 08/03/21 [Rx Last Taken Unknown] Allergy/AdvReac Type Severity Reaction Status Date / Time No Known Allergies Allergy Verified 08/03/21 16:19 Surgical History History of right knee joint replacement Hx of colonoscopy Hx of foot surgery Hx of total hip arthroplasty Hx of tubal ligation Social History Smoking Status: Never smoker substance use type: does not use ROS ROS ED Constitutional Constitutional ED: Denies fever(s) Eyes Eyes: Denies change in vision ENT ENT ED: Denies ear pain Cardiovascular Cardiovascular: Denies chest pain Respiratory/Chest Respiratory/Chest: Denies dyspnea Gastrointestinal Gastrointestinal: Denies abdominal pain Genitourinary Genitourinary ED: Denies dysuria Musculoskeletal Musculoskeletal: Reports arthralgias; Denies myalgias Integumentary Denies rash Neurologic Neurologic: Denies paresthesias or weakness Psychiatric Psychiatric: Denies depression Endocrine Endocrinology: Denies polyuria Allergic/Immunologic Allergic/Immunologic ED: Denies urticaria EXAM Physical Exam Const Vital Signs: 08/03/21 16:15 Temperature 97.4 F L Temperature Source Oral Pulse Rate 62 Respiratory Rate 16 Blood Pressure 167/82 H Blood Pressure Mean 110 Pulse Ox 96 Oxygen Delivery Method Room Air Positive well nourished and well developed General Appearance ED: well developed HEENT Negative for trauma Eyes EOMs intact bilaterally Neck supple Resp normal respiratory effort Cardio regular rate Extremity normal to inspection Extremity Narrative: Tenderness to palpation of the posterior right knee. No deformity or laxity. Skin is intact. Neurovascular intact distally. Range of motion intact. No swelling, edema, or redness General Extremety ED: Yes tenderness; Negative for edema General Extremity: Negative for edema Neuro oriented x3 and no sensory deficits noted Sensorium / Orientation: alert Motor Exam: strength 5/5 throughout Psych mental status grossly normal Skin no rashes or lesions noted MDM MDM MDM Narrative Medical decision making narrative: Patient was treated with pain medicine while awaiting results. X-rays were obtained. They were reviewed by myself and the radiologist. She has postoperative changes but no acute fracture or other abnormality. I suspect the patient has soft tissue/myofascial pain. Kenneth wrap was applied. Rest, ice, elevate. She has a walker at home. We did a trial ambulation with a walker here. She will follow-up with her orthopedist in 1 to 2 weeks for recheck. Impression #1 right knee pain Impression #2 postop right knee arthroplasty Disposition discharge home. Patient has some trouble bending her knee and is concerned that she may have difficulty getting around and using the restroom at home. I advised that we cannot get an MRI for this emergently. If she has concerns about functioning at home, we can admit her and have therapy see her. She may require placement and she still may not get an MRI emergently. Plus, there are risks of admission. After further consideration, the patient would like to try to go home and will return if worse. She will follow-up with her orthopedist. Radiography Diagnostic Testing: Clinical Impression(s) from Imaging Studies Knee X-Ray 08/03/21 16:33 IMPRESSION: Stable medial compartment hemiarthroplasty. Electronically Signed: Manuel Garica MD (Brooks) at 17:07 EDT Reading Location ID and State: [facility] / [place] , Service support , Discharge Plan Triage Chief Complaint: Lower Extremity Injury ED Provider: Fredo Gutierrez/Rx/DC Orders Instructions: ED Knee Pain of Uncertain Cause Prescriptions: New oxycodone-acetaminophen [Percocet] 5-325 mg tablet 1 tab PO Q6H PRN (Reason: pain) 3 Days Qty: 12 RF: 0 No Action atorvastatin 20 MG tablet 20 mg PO DAILY RF: 0 lisinopril 20 MG tablet 20 mg PO BID RF: 0 lorazepam 0.5 MG tablet 0.5 mg PO BID PRN PRN (Reason: Anxiety) RF: 0 multivitamin Tablet 1 tab PO DAILY RF: 0 famotidine 40 mg tablet 40 mg PO DAILY RF: 0 spironolactone 25 mg tablet 12.5 mg PO BID RF: 0 zinc 50 mg Tablet 50 mg PO DAILY RF: 0 calcium carbonate-vitamin D3 500 mg(1,250mg) -125 unit Tablet 2 tab PO DAILY RF: 0 metoprolol succinate 50 mg Tablet Extended Release 24 Hr 50 mg PO DAILY 30 Days Qty: 30 RF: 0 acetaminophen 500 mg Tablet 1,000 mg PO Q8 Qty: 100 RF: 0 meloxicam 7.5 mg Tablet 7.5 mg PO BID Qty: 60 RF: 0 oxycodone 5 mg Tablet 2.5 mg PO Q4H PRN PRN (Reason: Pain Score 4-10) 7 Days Qty: 14 RF: 0 sennosides-docusate sodium [Stool Softener-Stimulant Laxat] 8.6-50 mg Tablet 2 tab PO BID Qty: 14 RF: 0 oxycodone-acetaminophen [Percocet] 5-325 mg tablet 1 tab PO Q6H PRN (Reason: pain) 3 Days Qty: 12 RF: 0 Primary Care Provider: Tye Duncan Referrals: Rom Hampton MD [STAFF PHYSICIAN] - (1 week) Disposition Disposition: Home, Self Care
[2021-08-03] MEDS: HYDROcodone Bitartrate/Apap 5/325 Tablet PO (16:30)
--- NOTE | 2021-08-03 16:33 | RAD_ITS ---
STUDY: X-RAY - RIGHT KNEE REASON FOR EXAM: Female, 81 years old. pain TECHNIQUE: 4 view(s) of the knee. COMPARISON: 02/20/2021 FINDINGS: For lucent defects of the distal femur on AP view only stable. Normal visualized proximal tibia and fibula. Normal proximal tibiofibular articulation. Hemiarthroplasty of the medial femorotibial compartment. Normal lateral femorotibial compartment. Normal patellofemoral articulation. There is no demonstrated joint effusion. There are atherosclerotic calcifications. RAD/Knee 4 or More Views IMPRESSION: Stable medial compartment hemiarthroplasty. Electronically Signed: Manuel Garcia MD (Brooks) at 17:07 EDT Reading Location ID and State: [facility] / [place] , Service support ,
--- NOTE | 2021-08-03 17:45 | ED.RN ---
PT AMBULATED BY THIS RN WITH A STANDARD WHEELED WALKER THAT PT STATES SHE HAS SAME ONE AT HOME. PT ABLE TO SWING HER LEGS OUT OF BED INDEPENDENTLY BUT SLOWLY. PT AMBULATES INDEPENDENTLY WITH WALKER BUT STATES IT IS PAINFUL AND SHE IN UNABLE TO BEND HER KNEE. HAS CONCERNS TO HOW TO WILL USE THE BATHROOM AT HOME AND DAUGHTER EXPRESSES CONCERN TO HER BEING BY HERSELF WITH NOT BEING ABLE TO TOLERATE AMBULATION. THIS RN INFORMED OF PATIENT'S CONCERNS. BACK TO PATIENTS ROOM TO DISCUSS OPTIONS WITH PATIENT
[2021-08-03 17:54] VITALS: PULSE 60; RESP 16
== END 2021-08-03 17:54 | disposition home or self-care (01) ==
PROVIDERS: Emergency Provider Emergency Medicine; PCP Internal Medicine; Visit Provider Emergency Medicine
DX: M25.561 Pain in right knee (principal); I10 Essential (primary) hypertension; E78.00 Pure hypercholesterolemia, unspecified; Z96.651 Presence of right artificial knee joint; Z79.899 Other long term (current) drug therapy
CPT/HCPCS: 73564; 99284

== ENCOUNTER 2022-07-18 19:20 | Inpatient (IN) | payer MEDICARE, SELFPAY ==
[2022-07-18 19:22] VITALS: BP 222/73; PULSE 41; RESP 16; TEMP 36.8; O2SAT 98; BMI 34.3
--- NOTE | 2022-07-18 19:32 | EKG12_ITS ---
Test Reason : DYSRHYTHMIA Blood Pressure : / mmHG Vent. Rate : 039 BPM Atrial Rate : 039 BPM P-R Int : 256 ms QRS Dur : 092 ms QT Int : 496 ms P-R-T Axes : 078 012 072 degrees QTc Int : 399 ms Marked sinus bradycardia with 2:1 AV block Septal infarct (cited on or before 24-AUG-2015) Abnormal ECG Confirmed by KENDELL MA, NADEEM ([id number]), manager editorial KIRIT STRONG ([id number]) on 07/21/2022 2:19:53 PM Referred By: ELANA Confirmed By:NADEEM RDZ MD
--- NOTE | 2022-07-18 19:50 | RAD_ITS ---
STUDY: X-RAY CHEST REASON FOR EXAM: Female, 82 years old. Chest pain. Generalized weakness for 2 days. heart rate. TECHNIQUE: PA and lateral views of the chest. COMPARISON: August 24, 2015. FINDINGS: Lungs well expanded. There is chronic interstitial coarsening without new infiltrate or mass. There is no demonstrated pleural abnormality. Stable cardiomegaly. Normal mediastinum and tonja. Normal visualized pulmonary arteries. There is atherosclerotic calcification of the aortic arch with tortuosity. There is demineralization of the osseous structures. There is degenerative osteoarthritis of the bilateral shoulders. Retrocardiac hiatal hernia. RAD/Chest PA and Lateral IMPRESSION: 1. Stable cardiomegaly. There is no acute pulmonary disease or major interval change. Electronically Signed: Abiodun Velazquez DO at 20:08 EDT ,
[2022-07-18 19:52] LABS: Absolute Lymphocyte Count 1.65 X10^3/uL (0.83-4.51); Absolute Neutrophil Count 3.2 X10^3/uL (2.0-7.7); Basophil# 0.03 X10^3/uL; Basophil% 0.5 % (0-1); Eosinophil# 0.16 X10^3/uL; Eosinophils% 2.8 % (0-5); Hematocrit 38.6 % (37-47); Hemoglobin 12.3 g/dL (12.0-15.0); Lymphocyte # 1.65 X10^3/ul (0.83-4.51); Lymphocyte % 29.2 % (19-41); Mean Corp Hgb Conc 31.9 g/dL (32-36); Mean Corpuscular Hgb 32.5 pg (27.0-32.0); Mean Corpuscular Volume 101.8 fL (81-99); Mean Platelet Vol. 10.9 fl (6.2-12.0); Monocyte# 0.65 X10^3/uL; Monocyte% 11.5 % (0-10); NRBC Flagged by Analyzer 0 % (0-5); Neutrophil # 3.16 X10^3/uL (2.7-7.7); Neutrophil % 55.8 % (47-70); Platelet Count 181 K/mm3 (150-450); RBC Distribution Width CV 11.9 % (11.6-14.6); RBC Distribution Width SD 44.6 fl (35.1-43.9); Red Blood Count 3.79 M/mm3 (4.2-5.4); White Blood Count 5.7 K/mm3 (4.4-11.0)
[2022-07-18 20:12] LABS: ALB/GLOB Ratio 1.1 RATIO (0.9-2.4); AST(SGOT) 14 U/L (15-37); Alanine Aminotransfer ALT/SGPT 19 U/L (13-56); Albumin, Serum 3.5 g/dL (3.2-5.0); Alkaline Phosphatase 73 U/L (45-117); Anion Gap 9 (5-15); BNP,B-Type NATRIURETIC PEPTIDE 429.7 pg/mL (0-100); BUN 25 mg/dL (7-18); BUN/Creat Ratio 22.5 RATIO (10-20); Calcium,Total 8.8 mg/dL (8.5-10.1); Chloride 113 mmol/L (98-107); Creatinine, Serum 1.11 mg/dL (0.55-1.02); EST Glomerular Filtration Rate 50 mL/min (>60); Est Glom Filt Rate - Afr Amer 61 mL/min (>60); Estimated Creatinine Clearance 35.16 ml/min; Globulin 3.1 g/dL (2.2-4.2); Glucose 152 mg/dL (74-106); Potassium 4.1 mmol/L (3.5-5.1); Protein, Total 6.6 g/dL (6.4-8.2); Sodium Level 143 mmol/L (136-145); Troponin-I HS (w/2H Reflex) 9 pg/mL (3.0-54.0)
--- NOTE | 2022-07-18 20:37 | EDS_ITS ---
HPI History of Present Illness Chief Complaint: Chest Pain Informant: patient Narrative Narrative: Patient is an 82-year-old female with history of bradycardia, hypertension, anxiety and hyperlipidemia presenting for an episode of chest discomfort. Patient states she had a cold for the past few days and is has not been feeling well. She had a cough. She is been taking generic brand of Mucinex all-in-one as well as some type of cough syrup. She last had a dose around 430 this evening. She states she was washing dishes and sweaty and then had a pins and needle sensation. She thought maybe she was having a panic attack and took her lorazepam. She sat down. She states she just did not feel right and had a vague tightness in her chest. Her symptoms did not go away which normally would have occurred if she was having a panic attack and she came to the ER for further evaluation. She denies any fever. Denies any difficulty breathing. She is never had anything completely like this before. No other complaints at this time. Denies any swelling of her legs. [facility] Medical History (Updated 07/18/22 @ 23:[address] Blossom Trivedi, ) Ambulates with cane Anxiety disorder Arthritis Chronic sinus bradycardia High cholesterol Hip dislocation, left Hypertension Wears glasses Home Medications atorvastatin 20 mg tablet 20 mg PO DAILY 08/24/15 [History Last Taken 02/19/21] lisinopril 20 mg tablet 20 mg PO BID 08/24/15 [History Last Taken 02/20/21 05:30] lorazepam 0.5 mg tablet 0.5 mg PO BID PRN PRN Anxiety 08/24/15 [History Last Taken 02/19/21] calcium carbonate 500 mg-vitamin D3 3.125 mcg (125 unit) tablet 2 tab PO DAILY 02/01/21 [History Last Taken 02/19/21] famotidine 40 mg tablet 40 mg PO DAILY 02/01/21 [History Last Taken 02/19/21] multivitamin 1 tab PO DAILY 02/01/21 [History Last Taken 02/19/21] spironolactone 25 mg tablet 12.5 mg PO BID 02/01/21 [History Last Taken 02/19/21] zinc 50 mg tablet 50 mg PO DAILY 02/01/21 [History Last Taken Unknown] acetaminophen 500 mg tablet 1,000 mg PO Q8 #100 tabs 02/21/21 [Rx Last Taken Unknown] metoprolol succinate 50 mg tablet,extended release 24 hr 50 mg PO DAILY 30 days #30 tabs 02/21/21 [Rx Last Taken Unknown] oxycodone 5 mg tablet 2.5 mg PO Q4H PRN PRN Pain Score 4-10 7 days #14 tabs 02/21/21 [Rx Last Taken Unknown] sennosides 8.6 mg-docusate sodium 50 mg tablet (Stool Softener-Stimulant Laxative) 2 tab PO BID #14 tabs 02/21/21 [Rx Last Taken Unknown] oxycodone-acetaminophen 5 mg-325 mg tablet (Percocet) 1 tab PO Q6H PRN pain 3 days #12 tabs 05/29/21 [Rx Last Taken Unknown] oxycodone-acetaminophen 5 mg-325 mg tablet (Percocet) 1 tab PO Q6H PRN pain 3 days #12 tabs 08/03/21 [Rx Last Taken Unknown] doxazosin 1 mg tablet 1 mg PO QHS 07/18/22 [History Last Taken Unknown] Allergy/AdvReac Type Severity Reaction Status Date / Time No Known Allergies Allergy Verified 07/18/22 19:21 Family History (Updated 07/18/22 @ 23:[address] Harika Townsend MD) Mother Heart disease Surgical History History of right knee joint replacement Hx of colonoscopy Hx of foot surgery Hx of total hip arthroplasty Hx of tubal ligation Social History (Updated 07/18/22 @ 22:[address] Harika Townsend MD) household members: none Smoking Status: Never smoker alcohol intake: never substance use type: does not use ROS ROS ED Constitutional Constitutional ED: Reports sweats; Denies chills or fever(s) Eyes Eyes: Denies blurry vision or change in vision ENT ENT ED: Denies sore throat Cardiovascular Cardiovascular: Reports as per HPI and chest pain; Denies palpitations Respiratory/Chest Respiratory/Chest: Denies cough or dyspnea Gastrointestinal Gastrointestinal: Denies abdominal pain, nausea or vomiting Musculoskeletal Musculoskeletal: Denies arthralgias or myalgias Neurologic Neurologic: Reports paresthesias RUE and LUE; Denies headache(s) Psychiatric Psychiatric: Reports anxiety; Denies depression Hematologic/Lymphatic Hematologic/Lymphatic: Denies easy bleeding or easy bruising EXAM Physical Exam Const Vital Signs: 07/18/22 19:22 07/18/22 19:26 07/18/22 21:04 Temperature 98.3 F Temperature Source Temporal Pulse Rate 41 L 40 L Respiratory Rate 16 27 H Respiratory Effort Short of Breath Respiratory Depth Respiratory Pattern Blood Pressure 222/73 H 156/43 H Blood Pressure Mean 122 80 Pulse Ox 98 94 Oxygen Delivery Method Room Air Room Air 07/18/22 22:34 07/18/22 22:34 Temperature Temperature Source Pulse Rate 44 L Respiratory Rate 20 H 24 H Respiratory Effort Normal Non-Labored Short of Breath Respiratory Depth Shallow Respiratory Pattern Normal Tachypnea Blood Pressure Blood Pressure Mean Pulse Ox 94 Oxygen Delivery Method Room Air Positive well nourished and well developed General Appearance ED: well developed and NAD HEENT Reports dry mucous membranes normocephalic and atraumatic Mouth ED: Yes dry mucous membranes Mouth: dry mucous membranes Eyes PERRL and EOMs intact bilaterally Neck supple and no JVD Chest Wall inspection of chest normal and palpation of chest normal Resp normal respiratory effort and clear to auscultation bilaterally Auscultation: Negative for rhonchi or wheezes Cardio regular rhythm and no murmurs Rate: bradycardia Peripheral Pulses: pulses 2+ throughout GI normal to inspection, nondistended, normoactive bowel sounds and soft to palpat ion Back/Spine no CVA tenderness Extremity normal to inspection General Extremety ED: Yes edema General Extremity: edema bilateral Neuro oriented x3 Sensorium / Orientation: awake and alert Motor Exam: Negative for general weakness Psych mental status grossly normal Skin no rashes or lesions noted Skin Narrative: Mild erythema of the bilateral lower legs consistent with venous stasis MDM MDM MDM Narrative Medical decision making narrative: Patient is an 82-year-old female presenting with an episode of [id number] sensation and sweating in her hands and then chest discomfort. Patient notes she had some cold symptoms for the past few days and has been coughing and taking cold medicine. Upon arrival patient is quite hypertensive and bradycardic. Bradycardia is chronic. Cardiac work-up is largely negative including normal high-sensitivity troponins x2 and nonischemic EKG. Patient does not have a leukocytosis or fever while in the emergency room. Clinically she appears dehydrated is given a small fluid bolus. She does have a mildly elevated BNP but I do not have a comparison. She is some chronic leg edema however she does not feel it is any worse than normal. I really do not think this is an acute exacerbation of CHF based on her HPI. Patient is pretty dyspneic with minimal exertion and ambulated and dropped down to 88%. She feels that she needs a breathing treatment even though she is not wheezing on exam. She is given a DuoNeb for comfort. CT is added on as I do not have a good cause of her hypoxia and I do not want to miss a pulmonary emboli. This is negative we will clinically treat for pneumonia with Rocephin and azithromycin. Patient require admission for further evaluation of her hypoxia. Patient agreeable this plan of care. She remains hemodynamically stable in the ER. She does have mild improvement of her blood pressure without intervention in the emergency room Lab Data Attestation: I reviewed the patient's lab results. Labs: Laboratory Results - last 24 hr 07/18/22 07/18/22 07/18/22 19:30 19:30 19:30 WBC 5.7 RBC 3.79 L Hgb 12.3 Hct 38.6 MCV 101.8 H MCH 32.5 H MCHC 31.9 L RDW Std Deviation 44.6 H RDW Coeff of Mari 11.9 Plt Count 181 MPV 10.9 Immature Gran % (Auto) 0.200 Neut % (Auto) 55.8 Lymph % (Auto) 29.2 Gordon % (Auto) 11.5 H Eos % (Auto) 2.8 Baso % (Auto) 0.5 Absolute Neuts (auto) 3.2 Absolute Lymphs (auto) 1.65 Nucleated RBC % 0 Sodium 143 Potassium 4.1 Chloride 113 H Carbon Dioxide 21.0 Anion Gap 9 BUN 25 H Creatinine 1.11 H Estim Creat Clear Calc 35.16 Est GFR (MDRD) Af Amer 61 Est GFR (MDRD) Non-Af 50 L BUN/Creatinine Ratio 22.5 H Glucose 152 H Calcium 8.8 Total Bilirubin 0.70 AST 14 L ALT 19 Alkaline Phosphatase 73 Troponin I High Sens 9 B-Natriuretic Peptide 429.7 H Total Protein 6.6 Albumin 3.5 Globulin 3.1 Albumin/Globulin Ratio 1.1 Urine Color Urine Clarity Urine pH Ur Specific [place] Urine Protein Urine Glucose (UA) Urine Ketones Urine Occult Blood Urine Nitrite Urine Bilirubin Urine Urobilinogen Ur Leukocyte Esterase Urine RBC Urine WBC Ur Squamous Epith Cells Urine Bacteria Urine Mucus 07/18/22 07/18/22 21:05 21:59 WBC RBC Hgb Hct MCV MCH MCHC RDW Std Deviation RDW Coeff of Mari Plt Count MPV Immature Gran % (Auto) Neut % (Auto) Lymph % (Auto) Gordon % (Auto) Eos % (Auto) Baso % (Auto) Absolute Neuts (auto) Absolute Lymphs (auto) Nucleated RBC % Sodium Potassium Chloride Carbon Dioxide Anion Gap BUN Creatinine Estim Creat Clear Calc Est GFR (MDRD) Af Amer Est GFR (MDRD) Non-Af BUN/Creatinine Ratio Glucose Calcium Total Bilirubin AST ALT Alkaline Phosphatase Troponin I High Sens 12 B-Natriuretic Peptide Total Protein Albumin Globulin Albumin/Globulin Ratio Urine Color Yellow Urine Clarity Clear Urine pH 6.0 Ur Specific [place] 1.010 Urine Protein 15 H Urine Glucose (UA) Normal Urine Ketones Negative Urine Occult Blood Negative Urine Nitrite Negative Urine Bilirubin Negative Urine Urobilinogen Normal Ur Leukocyte Esterase 25 H Urine RBC 0 SEEN Urine WBC 0-5 SEEN Ur Squamous Epith Cells 0-5 SEEN Urine Bacteria 0 SEEN Urine Mucus 0 SEEN Radiography Chest X-Ray - ED: 2 View, Read by ED Physician, Read by Radiologist, No Acute Disease and Cardiomegaly Diagnostic Testing: Clinical Impression(s) from Imaging Studies Chest X-Ray 07/18/22 19:50 IMPRESSION: 1. Stable cardiomegaly. There is no acute pulmonary disease or major interval change. Electronically Signed: Abiodun Velazquez DO at 20:08 EDT Reading Location ID and State: [address] [place] [address] Tel [phone], Service support , Rhythm Strip Rhythm Strip: Bradycardia Rate: 39 Ectopy: None EKG Initial EKG: Attestation: I personally reviewed and interpreted this EKG as follows: Interpretation: Sinus Bradycardia Comments: Sinus bradycardia at a rate of 39 bpm with first-degree AV block OK interval 256 Normal axis Normal QRS and QTc Normal ST segments Prior EKG tracings: available for review Prior: Unchanged Management Discussion w/another healthcare provider: Hospitalist Discharge Plan Triage Chief Complaint: Chest Pain Other Complaint: General Illness ED Provider: Blossom Trivedi Dx/Rx/DC Orders Clinical Impression: Hypoxia, CAP (community acquired pneumonia) Prescriptions: No Action atorvastatin 20 MG tablet 20 mg PO DAILY Label Comments: cholesterol lowering lisinopril 20 MG tablet 20 mg PO BID Label Comments: BLOOD PRESSURE lorazepam 0.5 MG tablet 0.5 mg PO BID PRN PRN (Reason: Anxiety) Label Comments: anxiety multivitamin Tablet 1 tab PO DAILY famotidine 40 mg tablet 40 mg PO DAILY Label Comments: take 1 tablet by mouth once daily spironolactone 25 mg tablet 12.5 mg PO BID Label Comments: take 1 tablet by mouth once daily zinc 50 mg Tablet 50 mg PO DAILY calcium carbonate-vitamin D3 500 mg(1,250mg) -125 unit Tablet 2 tab PO DAILY metoprolol succinate 50 mg Tablet Extended Release 24 Hr 50 mg PO DAILY 30 Days Qty: 30 0RF acetaminophen 500 mg Tablet 1,000 mg PO Q8 Qty: 100 0RF Rx Instructions: Do not take more than 3000 mg Tylenol in a 24-hour period. oxycodone 5 mg Tablet 2.5 mg PO Q4H PRN PRN (Reason: Pain Score 4-10) 7 Days Qty: 14 0RF sennosides-docusate sodium [Stool Softener-Stimulant Laxat] 8.6-50 mg Tablet 2 tab PO BID Qty: 14 0RF Rx Instructions: Take until first bowel movement, then as needed oxycodone-acetaminophen [Percocet] 5-325 mg tablet 1 tab PO Q6H PRN (Reason: pain) 3 Days Qty: 12 0RF oxycodone-acetaminophen [Percocet] 5-325 mg tablet 1 tab PO Q6H PRN (Reason: pain) 3 Days Qty: 12 0RF doxazosin 1 mg tablet 1 mg PO QHS Primary Care Provider: Tye Duncan Referrals: Tye Duncan MD [Primary Care Provider] - Disposition Disposition: Acute Care Hospital [facility]
[2022-07-18 21:04] VITALS: BP 156/43; PULSE 40; RESP 27; O2SAT 94
[2022-07-18 21:14] LABS: Bacteria 0 SEEN /hpf (None Seen); Mucous, Urine 0 SEEN /hpf (<or=2+); Red Blood Cells-Urine 0 SEEN /hpf (0-5)
[2022-07-18 21:18] LABS: Color, Urine Yellow (Yellow); Glucose, Dipstick Normal (Normal); Ketone-Dipstick Negative (Negative); Leukocyte Esterase-Dipstick 25 /ul (Negative); Nitrite-Dipstick Negative (Negative); Occult Blood-Urine Negative /ul (Negative); Protein-Dipstick 15 mg/dl (Negative); Urine Bilirubin Dipstick Negative (Negative); Urine Clarity Clear (Clear); Urine Urobilinogen Normal (Normal)
[2022-07-18 21:27] LABS: Squamous Epithelial Cells - UA 0-5 SEEN /hpf (5-10); White Blood Cells 0-5 SEEN /hpf (0-5)
[2022-07-18 21:44] LABS: Reflex Troponin-HS? (from REC) Y
[2022-07-18 22:00] VITALS: BP 187/70; PULSE 42; RESP 19; O2SAT 94
[2022-07-18 22:06] VITALS: O2SAT 94
[2022-07-18 22:22] LABS: Troponin-I HS 12 pg/mL (3.0-54.0)
--- NOTE | 2022-07-18 22:22 | CT_ITS ---
STUDY: CTA CHEST REASON FOR EXAM: Female, 82 years old. Redness of breath. Hypoxia. RADIATION DOSAGE (If Supplied By Facility): CTDIvol = ( 14.29 ) mGy, DLP = ( 486.90 ) mGycm TECHNIQUE: The examination was performed with the intravenous administration of IV 100mL [id number]. Post-processing of the angiographic images was performed, with multiplanar reformation and 3D reconstruction. Individualized dose optimization techniques were used for this CT. COMPARISON: Chest, July 18, 2022. CTA of the chest, August 24, 2015. FINDINGS: Normal enhancement of the main pulmonary artery and right and left pulmonary arteries. Normal enhancement of the bilateral peripheral pulmonary arteries. There is no demonstrated pulmonary embolism. Atherosclerotic changes of the thoracic aorta without aneurysm. There is no demonstrated aortic dissection. The heart is enlarged. Normal pericardium. Mild coronary artery calcifications. Nonspecific subcentimeter mediastinal lymphadenopathy. Normal hilar regions. Normal visualized trachea and bronchi. The lungs are well expanded. Dependent changes at the left lung base with small pleural effusion. The lung are otherwise clear. Normal chest wall structures. There are degenerative changes of thoracic spine. Retrocardiac hiatal hernia. There is a cyst in the upper pole of the left kidney. The abdomen appears otherwise unremarkable CT/CTA Chest W/WO Contrast IMPRESSION: 1. No evidence of pulmonary embolus. 2. No aortic dissection or aneurysm. 3. Cardiomegaly. 4. Small right pleural effusion with subsegmental atelectasis. The lungs are otherwise clear. 5. Hiatal hernia. [employer] was utilized to assist in identifying pertinent positive findings in this case. Electronically Signed: Abiodun Velazquez DO at 23:16 EDT ,
[2022-07-18 22:34] VITALS: PULSE 44; RESP 20; RESP 24; O2SAT 94
[2022-07-18] MEDS: Ipratropium/Albuterol Sulfate 3 ML AMPUL.NEB INHALATION (22:34)
--- NOTE | 2022-07-18 22:43 | ED.RN ---
Pt walked back from bathroom and was extremely short of breath. Pt 86% on RA, placed on 3L NC. Dr. Trivedi aware. Pt received breathing treatment from respiratory and taken off oxygen. Resting at 95% on RA in bed.
[2022-07-18 23:00] VITALS: BP 170/57; PULSE 41; RESP 19; O2SAT 94
--- NOTE | 2022-07-18 23:45 | PCM.HP.STD ---
HPI - General General Date of Admission: 07/18/22 Date of Service: 07/18/22 Chief Complaint: Recent URI, diaphoresis, chest tightness. HPI Narrative The patient is an 82 y/o F w/ PMHx: CKD stage III unclear subtype, Chronic bradycardia, Obesity, OA, Anxiety/Panic attachs, HTN, HLD, OA who presents to the [facility] ED on 07/18/22 with history of increased fatigue, malaise with upper respiratory type infection over the last several days with self administration of Mucinex as well as cough syrup [id number] (does have phenylephrine) with last dose at approximately 4:30 pm on day of presentation and while she was in the kitchen washing dishes she became extremely diaphoretic with sensation of potentially a panic attack prompting her to self administer Ativan and rest but she felt unwell still with vague tightness in her chest without any resolution of the symptoms prompting ED evaluation. He states over the last 3 to 4 days she has had congestion, cough with nonproductive sputum, chills without any fevers, decreased appetite and dyspnea. She does state that several of her neighbors have recently been ill over the last couple weeks with COVID but she is attempted to stay away from these individuals. She notes her daughter dropped off groceries once weekly but she has not been ill. She denies any recent significant lower extremity swelling above her chronic baseline nor any orthopnea. Work-up in the ED included T98.3, heart rate 44, BP initially 222/73 with most recent repeat 156/43, respiratory rate 27, 94% on room air however upon walking back from the bathroom patient extremely dyspneic with oxygen assessment 86% on room air transition to 3 L nasal cannula and eventually improved when at rest and transition back to room air noted to be 95%, CBC with WBC 5.7, hemoglobin 12.3, platelet 181 without marked shift, CMP with chloride 113, BUN/creatinine 25/1.11, glucose 152, unremarkable hepatic profile, BNP 429.7, initial troponin 9 with repeat delta 12, respiratory SARS COVID and influenza antigens negative, chest x-ray with stable cardiomegaly with no acute cardiopulmonary finding, urinalysis unremarkable, EKG with SB without acute evidence of ischemia, CTPA obtained per ED physician and pending upon requested evaluation of patient. In the ED patient ministered DuoNeb therapy, rocephin, azithromycin. [facility]LY [facility] Medical History Ambulates with cane Anxiety disorder Arthritis Chronic sinus bradycardia High cholesterol Hip dislocation, left Hypertension Wears glasses Home Medications atorvastatin 20 mg tablet 20 mg PO DAILY 08/24/15 [History Last Taken 02/19/21] lisinopril 20 mg tablet 20 mg PO BID 08/24/15 [History Last Taken 02/20/21 05:30] lorazepam 0.5 mg tablet 0.5 mg PO BID PRN PRN Anxiety 08/24/15 [History Last Taken 02/19/21] calcium carbonate 500 mg-vitamin D3 3.125 mcg (125 unit) tablet 2 tab PO DAILY 02/01/21 [History Last Taken 02/19/21] famotidine 40 mg tablet 40 mg PO DAILY 02/01/21 [History Last Taken 02/19/21] multivitamin 1 tab PO DAILY 02/01/21 [History Last Taken 02/19/21] spironolactone 25 mg tablet 12.5 mg PO BID 02/01/21 [History Last Taken 02/19/21] zinc 50 mg tablet 50 mg PO DAILY 02/01/21 [History Last Taken Unknown] acetaminophen 500 mg tablet 1,000 mg PO Q8 #100 tabs 02/21/21 [Rx Last Taken Unknown] metoprolol succinate 50 mg tablet,extended release 24 hr 50 mg PO DAILY 30 days #30 tabs 02/21/21 [Rx Last Taken Unknown] oxycodone 5 mg tablet 2.5 mg PO Q4H PRN PRN Pain Score 4-10 7 days #14 tabs 02/21/21 [Rx Last Taken Unknown] sennosides 8.6 mg-docusate sodium 50 mg tablet (Stool Softener-Stimulant Laxative) 2 tab PO BID #14 tabs 02/21/21 [Rx Last Taken Unknown] oxycodone-acetaminophen 5 mg-325 mg tablet (Percocet) 1 tab PO Q6H PRN pain 3 days #12 tabs 05/29/21 [Rx Last Taken Unknown] oxycodone-acetaminophen 5 mg-325 mg tablet (Percocet) 1 tab PO Q6H PRN pain 3 days #12 tabs 08/03/21 [Rx Last Taken Unknown] doxazosin 1 mg tablet 1 mg PO QHS 07/18/22 [History Last Taken Unknown] Allergy/AdvReac Type Severity Reaction Status Date / Time No Known Allergies Allergy Verified 07/18/22 19:21 Family History (Updated 07/18/22 @ 23:[address] Harika Townsend MD) Mother Heart disease Hypertension Father CVA (cerebral vascular accident) Hypertension Surgical History History of right knee joint replacement Hx of colonoscopy Hx of foot surgery Hx of total hip arthroplasty Hx of tubal ligation Social History household members: none Smoking Status: Never smoker alcohol intake: never substance use type: does not use ROS ROS Narrative Admission Review of Systems: CONSTITUTIONAL: No weight loss, fever, + chills, weakness or fatigue. HEENT: + Congestion, rhinorrhea, mild sore throat. Eyes: No visual loss, blurred vision, double vision or yellow sclerae. Ears, Nose, Throat: No hearing loss, sneezing. SKIN: + BL LE chronic stasis skin changes. CARDIOVASCULAR: + Atypical chest tightness, discomfort, no palpitations, edema, orthopnea, syncopal events. RESPIRATORY: + shortness of breath, cough without marked sputum, wheezing, No hemoptysis. GASTROINTESTINAL: + anorexia, No nausea, vomiting or diarrhea, abdominal pain, melena, BRBPR. GENITOURINARY: No dysuria, frequency, urgency or retention. NEUROLOGICAL: No headache, dizziness, syncope, paralysis, ataxia, numbness or tingling in the extremities, focal weakness, change in bowel or bladder control, seizure. MUSCULOSKELETAL: + muscle, back pain, joint pain or stiffness. HEMATOLOGIC: + Easy bleeding or bruising. LYMPHATICS: No enlarged nodes. No history of splenectomy. PSYCHIATRIC: + history of anxiety. ENDOCRINOLOGIC: + reports of sweating, cold or heat intolerance. No polyuria or polydipsia. ALLERGIES: No history of asthma, hives, eczema or rhinitis. Vital Signs Vital Signs Vital Signs: 07/18/22 19:22 07/18/22 19:26 07/18/22 21:04 Temperature 98.3 F Temperature Source Temporal Pulse Rate 41 L 40 L Respiratory Rate 16 27 H Respiratory Effort Short of Breath Respiratory Depth Respiratory Pattern Blood Pressure 222/73 H 156/43 H Blood Pressure Mean 122 80 Pulse Ox 98 94 Oxygen Delivery Method Room Air Room Air 07/18/22 22:34 07/18/22 22:34 07/18/22 22:00 Temperature Temperature Source Pulse Rate 44 L 42 L Respiratory Rate 20 H 24 H 19 H Respiratory Effort Normal Non-Labored Short of Breath Respiratory Depth Shallow Respiratory Pattern Normal Tachypnea Blood Pressure 187/70 H Blood Pressure Mean 109 Pulse Ox 94 94 Oxygen Delivery Method Room Air Room Air 07/18/22 23:00 Temperature Temperature Source Pulse Rate 41 L Respiratory Rate 19 H Respiratory Effort Respiratory Depth Respiratory Pattern Blood Pressure 170/57 H Blood Pressure Mean 94 Pulse Ox 94 Oxygen Delivery Method Room Air Weight Weight: 206 lb 9.17 oz Body Mass Index (BMI) 34.3 Physical Exam Narrative Physical Examination: General: Awake, alert, oriented x 3 and cooperative, seated upright in the ED bed, fatigued appearing. Skin: Normal color, normal turgor, no icterus, no cyanosis except for notable bilateral lower extremities venous stasis skin changes HEENT: AT/NC, EOMI, PERRLA, dry MM, no carotid bruits or JVD noted. Lungs: Bilaterally diminished, greater bases, mildly increased respiratory rate but no distress, very decreased but no specific wheezing, no rales or rhonchi. Heart: Notable bradycardia with regular rhythm with patient reporting baseline heart rate often 30-40 range; no gallop, rub audible. Abdomen: Soft, obese, NTTP, ND, mildly hyperactive BS, no HSM. Extremities: No cyanosis, no clubbing, see skin, distal 1-2+ pitting edema which she reports is chronic Neurological: Patient awake, alert, oriented as noted, cognitive function intact; pupils equally reactive to light and accommodation, cranial nerves II-XII grossly normal, moving all 4 extremities, no focal deficits, strength moderately to severely global decrease secondary to acute presentation and illness. Psychiatric: Affect appears flat, fatigued, no acute evidence of depressive or anxiety feelings but does have underlying history of anxiety and panic attacks. Results Lab / Micro Data Result Diagrams: 07/18/22 19:30 07/18/22 19:30 Labs: Laboratory Results - last 24 hr 07/18/22 19:30: WBC 5.7, RBC 3.79 L, Hgb 12.3, Hct 38.6, MCV 101.8 H, MCH 32.5 H, MCHC 31.9 L, RDW Std Deviation 44.6 H, RDW Coeff of Mari 11.9, Plt Count 181, MPV 10.9, Immature Gran % (Auto) 0.200, Neut % (Auto) 55.8, Lymph % (Auto) 29.2, [place] % (Auto) 11.5 H, Eos % (Auto) 2.8, Baso % (Auto) 0.5, Absolute Neuts (auto) 3.2, Absolute Lymphs (auto) 1.65, Nucleated RBC % 0 07/18/22 19:30: Sodium 143, Potassium 4.1, Chloride 113 H, Carbon Dioxide 21.0, Anion Gap 9, BUN 25 H, Creatinine 1.11 H, Estim Creat Clear Calc 35.16, Est GFR (MDRD) Af Amer 61, Est GFR (MDRD) Non-Af 50 L, BUN/Creatinine Ratio 22.5 H, Glucose 152 H, Calcium 8.8, Total Bilirubin 0.70, AST 14 L, ALT 19, Alkaline Phosphatase 73, Troponin I High Sens 9, Total Protein 6.6, Albumin 3.5, Globulin 3.1, Albumin/Globulin Ratio 1.1 07/18/22 19:30: B-Natriuretic Peptide 429.7 H 07/18/22 21:05: Urine Color Yellow, Urine Clarity Clear, Urine pH 6.0, Ur Specific [place] 1.010, Urine Protein 15 H, Urine Glucose (UA) Normal, Urine Ketones Negative, Urine Occult Blood Negative, Urine Nitrite Negative, Urine Bilirubin Negative, Urine Urobilinogen Normal, Ur Leukocyte Esterase 25 H, Urine RBC 0 SEEN, Urine WBC 0-5 SEEN, Ur Squamous Epith Cells 0-5 SEEN, Urine Bacteria 0 SEEN, Urine Mucus 0 SEEN 07/18/22 21:59: Troponin I High Sens 12 Micro: Microbiology 07/18/22 19:37 Nasal Secretion SARS-CoV-2 & FLU Antigen (Rapid) - Final Radiology Impression Chest X-Ray 07/18/22 19:50 IMPRESSION: 1. Stable cardiomegaly. There is no acute pulmonary disease or major interval change. Electronically Signed: Abiodun Velazquez DO at 20:08 EDT Reading Location ID and State: [facility] / [place] Tel [phone], Service support , Assessment & Plan Assessment/Plan (1) Hypoxia: PLAN: Plan The patient is an 82 y/o F w/ PMHx: CKD stage III unclear subtype, Chronic bradycardia, Obesity, OA, Anxiety/Panic attachs, HTN, HLD, OA who presents to the [facility] ED on 07/18/22 with history of increased fatigue, malaise with upper respiratory type infection over the last several days with self administration of Mucinex as well as cough syrup [id number] (does have phenylephrine) with last dose at approximately 4:30 pm on day of presentation and while she was in the kitchen washing dishes she became extremely diaphoretic with sensation of potentially a panic attack prompting her to self administer Ativan and rest but she felt unwell still with vague tightness in her chest without any resolution of the symptoms prompting ED evaluation. #1. Acute Hypoxia secondary to Acute Viral Syndrome, possible Viral PNA, possible concurrent superimposed bacterial although lower suspicion: Of note CTPA is pending upon evaluation. Will admit to PCU given concurrent atypical chest pain but suspect is related to this presentation, will maintain on oxygen with wean as tolerated to room air, continue ATC budesonide, PRN albuterol, maintained on IV Rocephin and Azithromycin pending resp panel/COVID PCR/procalcitonin and de-escalate if appears primarily viral mediated, HOB, IS parameters w/ pending sputum cultures, full respiratory panel, COVID PCR and urine antigens, procalcitonin pending, if CTPA shows alternate etiology for presentation will alter treatment course as needed. PT/OT/case management consultation for discharge planning. #2. Atypical chest pain, suspected secondary to #1 w/ ischemia: EKG in ED with SB without acute evidence of ischemia, CXR w/ stable cardiomegaly with no acute cardiopulmonary findings, initial trop 9 with repeat delta 12. Will place on a monitored bed to assure no acute myocardial infarction with serial cardiac enzymes and AM repeat EKG given notable bradycardia with BB hold. Magnesium level requested. ASA, NG. #3. Hyperglycemia: Admission glucose 152, no diabetic history, will obtain hemoglobin A1c to be cautious. #4. Chronic bradycardia: Patient with significant chronic bradycardia although reports asymptomatic, heart rate in the 40s currently but has noted previously been in that same range, will continue to closely monitor on monitor, atropine if symptomatic. Given heart rate range we will hold metoprolol at this time although patient from review of prior notes has continued to take this despite her heart rate chronically in the low 30 in 40s. #5. Hypertension: Continue home regimen including lisinopril, spironolactone, PRN hydralazine. Holding metoprolol as noted. #6. Hyperlipidemia: Continue home statin regimen. #7. Chronic Kidney Disease Stage III, unclear subtype: Admission BUN/Cr 25/1.11, baseline renal function primarily 0.9-1.0, repeat BMP in AM. #8. Obesity: Weight loss and lifestyle changes encouraged. #9. Anxiety with history of panic attacks: We will continue patient home low-dose Ativan regimen. #10. GERD: We will continue patient on famotidine regimen. #11. DVT prophylaxis: Lovenox. #12. CODE status: Patient ZAHEER is her daughter Laura and living will is currently in place. Discussed CODE status at length including difference between FULL code, DNR-CCA and DNR-CC status. Following discussions about the differences in these status, requested Full Code status. Advanced Care Planning Face to Face Time: 16 minutes. Admission Evaluation Time spent evaluating chart, patient history, patient evaluation, care planning and discussion with specialists: 76 minutes. Charges/Coding Visit Charges Inpatient E&M: 83782 Init Hosp L3 Procedures Hospitalists Procedures: 22149 Advncd Care Plan 30 Min
[2022-07-18 23:51] LABS: Magnesium 1.9 mg/dL (1.6-2.6)
[2022-07-19] VITALS (18 sets, daily range): BP systolic 111–182; BP diastolic 37–87; PULSE 33–66; RESP 15–19; TEMP 36.3–37.2; O2SAT 93–97; BMI 35.2; BMI 34.9
[2022-07-19 00:15] LABS: Procalcitonin < 0.01 ng/mL (0.00-0.09)
--- NOTE | 2022-07-19 00:45 | NURSING ---
emergency documentation in place
[2022-07-19 02:15] LABS: Probe Check PASS; Specimen Processing Control PASS
[2022-07-19 02:39] LABS: Absolute Lymphocyte Count 1.26 X10^3/uL (0.83-4.51); Absolute Neutrophil Count 5.3 X10^3/uL (2.0-7.7); Basophil# 0.02 X10^3/uL; Basophil% 0.3 % (0-1); Eosinophil# 0.14 X10^3/uL; Eosinophils% 1.9 % (0-5); Hematocrit 35.5 % (37-47); Hemoglobin 11.4 g/dL (12.0-15.0); Lymphocyte # 1.26 X10^3/ul (0.83-4.51); Lymphocyte % 16.9 % (19-41); Mean Corp Hgb Conc 32.1 g/dL (32-36); Mean Corpuscular Hgb 32.9 pg (27.0-32.0); Mean Corpuscular Volume 102.3 fL (81-99); Mean Platelet Vol. 10.6 fl (6.2-12.0); Monocyte# 0.71 X10^3/uL; Monocyte% 9.5 % (0-10); NRBC Flagged by Analyzer 0 % (0-5); Platelet Count 175 K/mm3 (150-450); RBC Distribution Width CV 11.9 % (11.6-14.6); Red Blood Count 3.47 M/mm3 (4.2-5.4); White Blood Count 7.5 K/mm3 (4.4-11.0)
[2022-07-19 03:19] LABS: Troponin-I HS 14 pg/mL (3.0-54.0)
[2022-07-19 03:22] LABS: ALB/GLOB Ratio 1.2 RATIO (0.9-2.4); AST(SGOT) 16 U/L (15-37); Alanine Aminotransfer ALT/SGPT 16 U/L (13-56); Albumin, Serum 3.2 g/dL (3.2-5.0); Alkaline Phosphatase 65 U/L (45-117); Anion Gap 5 (5-15); BUN 19 mg/dL (7-18); BUN/Creat Ratio 19.1 RATIO (10-20); Calcium,Total 8.5 mg/dL (8.5-10.1); Chloride 115 mmol/L (98-107); EST Glomerular Filtration Rate 57 mL/min (>60); Est Glom Filt Rate - Afr Amer 69 mL/min (>60); Estimated Creatinine Clearance 37.45 ml/min; Globulin 2.6 g/dL (2.2-4.2); Glucose 116 mg/dL (74-106); Potassium 4.3 mmol/L (3.5-5.1); Protein, Total 5.8 g/dL (6.4-8.2); Sodium Level 143 mmol/L (136-145)
[2022-07-19] MEDS: guaiFENesin 10 ML UDC (200MG/10ML) 20 ML PO (03:28)
[2022-07-19] MEDS: Budesonide Respules 0.5 MG/2 ML AMPUL.NEB. INHALATION ×2 (07:12→19:12)
[2022-07-19] MEDS: Acetaminophen 325 MG Tablet 650 MG PO ×3 (07:41→23:05)
--- NOTE | 2022-07-19 08:00 | EKG12_ITS ---
Test Reason : MORNING EKG Blood Pressure : / mmHG Vent. Rate : 095 BPM Atrial Rate : 000 BPM P-R Int : 000 ms QRS Dur : 090 ms QT Int : 374 ms P-R-T Axes : 000 020 095 degrees QTc Int : 469 ms Atrial fibrillation with premature ventricular or aberrantly conducted complexes Low voltage QRS Septal infarct , age undetermined ST & T wave abnormality, consider lateral ischemia Abnormal ECG When compared with ECG of 20-JUL-2022 04:59, MANUAL COMPARISON REQUIRED, DATA IS UNCONFIRMED Confirmed by KENDELL MA, NADEEM ([id number]), supervising film or videotape editor KIRIT STRONG ([id number]) on 07/22/2022 9:03:49 AM Referred By: MARY LOU Confirmed By:NADEEM RDZ MD
--- NOTE | 2022-07-19 08:14 | PN.HOSP_ITS ---
Reason for Visit Reason for Visit: Diagnoses Hypoxemia (07/18/22) Follow-up for mild hypoxia along with symptoms of viral bronchitis. Objective Data Objective Data Vital Signs: Vital Signs Temp Pulse Resp BP Pulse Ox O2 Del Method 98.4 F 43 L 18 139/50 H 93 Room Air 07/19/22 04:06 07/19/22 04:06 07/19/22 04:06 07/19/22 04:06 07/19/22 04:06 07/19/22 07:32 Oxygen Delivery Method Room Air Weight: 204 lb 11.2 oz Body Mass Index (BMI) 34.9 Intake & Output: Intake and Output for Last 24 Hours 07/17/22 07/18/22 07/19/22 23:59 23:59 23:59 Intake Total 500 / 500 305 / 305 Balance 500 / 500 305 / 305 Lab / Micro Data Result Diagrams: 07/19/22 02:15 07/19/22 02:15 Labs: Laboratory Results - last 24 hr 07/18/22 19:30: WBC 5.7, RBC 3.79 L, Hgb 12.3, Hct 38.6, MCV 101.8 H, MCH 32.5 H , MCHC 31.9 L, RDW Std Deviation 44.6 H, RDW Coeff of Mari 11.9, Plt Count 181, MPV 10.9, Immature Gran % (Auto) 0.200, Neut % (Auto) 55.8, Lymph % (Auto) 29.2, [place] % (Auto) 11.5 H, Eos % (Auto) 2.8, Baso % (Auto) 0.5, Absolute Neuts (auto) 3.2, Absolute Lymphs (auto) 1.65, Nucleated RBC % 0 07/18/22 19:30: Sodium 143, Potassium 4.1, Chloride 113 H, Carbon Dioxide 21.0, Anion Gap 9, BUN 25 H, Creatinine 1.11 H, Estim Creat Clear Calc 35.16, Est GFR (MDRD) Af Amer 61, Est GFR (MDRD) Non-Af 50 L, BUN/Creatinine Ratio 22.5 H, Glucose 152 H, Calcium 8.8, Total Bilirubin 0.70, AST 14 L, ALT 19, Alkaline Phosphatase 73, Troponin I High Sens 9, Total Protein 6.6, Albumin 3.5, Globulin 3.1, Albumin/Globulin Ratio 1.1 07/18/22 19:30: B-Natriuretic Peptide 429.7 H 07/18/22 19:30: Procalcitonin < 0.01 07/18/22 21:05: Urine Color Yellow, Urine Clarity Clear, Urine pH 6.0, Ur Specific [place] 1.010, Urine Protein 15 H, Urine Glucose (UA) Normal, Urine Ketones Negative, Urine Occult Blood Negative, Urine Nitrite Negative, Urine Bilirubin Negative, Urine Urobilinogen Normal, Ur Leukocyte Esterase 25 H, Urine RBC 0 SEEN, Urine WBC 0-5 SEEN, Ur Squamous Epith Cells 0-5 SEEN, Urine Bacteria 0 SEEN, Urine Mucus 0 SEEN 07/18/22 21:59: Troponin I High Sens 12 07/18/22 21:59: Magnesium 1.9 07/18/22 23:30: COVID-19 (SERGO) Negative 07/19/22 02:15: WBC 7.5, RBC 3.47 L, Hgb 11.4 L, Hct 35.5 L, MCV 102.3 H, MCH 32.9 H, MCHC 32.1, RDW Std Deviation 45.0 H, RDW Coeff of Mari 11.9, Plt Count 175, MPV 10.6, Immature Gran % (Auto) 0.400, Neut % (Auto) 71.0 H, Lymph % (Auto) 16.9 L, [place] % (Auto) 9.5, Eos % (Auto) 1.9, Baso % (Auto) 0.3, Absolute Neuts (auto) 5.3, Absolute Lymphs (auto) 1.26, Nucleated RBC % 0 07/19/22 02:15: Sodium 143, Potassium 4.3, Chloride 115 H, Carbon Dioxide 23.0, Anion Gap 5, BUN 19 H, Creatinine 1.00, Estim Creat Clear Calc 37.45, Est GFR (MDRD) Af Amer 69, Est GFR (MDRD) Non-Af 57 L, BUN/Creatinine Ratio 19.1, Glucose 116 H, Calcium 8.5, Total Bilirubin 0.50, AST 16, ALT 16, Alkaline Phosphatase 65, Total Protein 5.8 L, Albumin 3.2, Globulin 2.6, Albumin/Globulin Ratio 1.2 07/19/22 02:15: Troponin I High Sens 14 Micro: Microbiology 07/19/22 05:30 Urine, Clean Catch Legionella Antigen - Final 07/19/22 05:30 Urine, Clean Catch Streptococcus pneumoniae Antigen (M - Final 07/18/22 23:30 Mucosa - Nasopharyngeal Respiratory Panel (PCR) - Final 07/18/22 19:37 Nasal Secretion SARS-CoV-2 & FLU Antigen (Rapid) - Final Radiography Diagnostic Testing: Radiology Impression Chest X-Ray 07/18/22 19:50 IMPRESSION: 1. Stable cardiomegaly. There is no acute pulmonary disease or major interval change. Electronically Signed: Abiodun Velazquez DO at 20:08 EDT Reading Location ID and State: [facility] / [place] Tel [phone], Service support , Chest CTA 07/18/22 22:22 IMPRESSION: 1. No evidence of pulmonary embolus. 2. No aortic dissection or aneurysm. 3. Cardiomegaly. 4. Small right pleural effusion with subsegmental atelectasis. The lungs are otherwise clear. 5. Hiatal hernia. AIDOC was utilized to assist in identifying pertinent positive findings in this case. Electronically Signed: Abiodun Velazquez DO at 23:16 EDT Reading Location ID and State: [facility] / [place] Tel [phone], Service support , Rhythm Strip Rhythm Strip: Bradycardia Rate: 39 Ectopy: None Physical Exam Narrative Seen and examined. No fever but dry cough for last few days along with wheezing. Physical exam General: Alert, Oriented x3, Cooperative HEENT: Atraumatic, PERRLA, EOMI, Normocephalic Oral: Oral mucosa dry. No Gingival or Mucosal Lesions/ Ulcerations Neck: Supple, No JVD, Negative Carotid Bruits Lungs: Air entry diminished in bilateral lung bases. Mild expiratory rhonchi and wheezing. Cardiovascular: Regular rate, Regular Rhythm, Normal S1, Normal S2, No murmurs Abdomen: Bowel Sounds Present, Soft, Non Tender, Non-Distended : No renal angle tenderness. No suprapubic tenderness. Extremities: No edema, Capillary Refill Less than 3 Seconds Skin: No rashes, No breakdown Musculoskeletal: No Tenderness to Palpation of Joints or Extremities ROM full and adequate. Neurological: Cranial nerves II-XII grossly intact, DTR 2+/4 and Symmetrical, Neuro grossly intact Psych/Mental Status: Normal Affect, Appropriate. Assessment & Plan Assessment/Plan (1) Hypoxia: PLAN: Plan The patient is an 82 y/o F is being admitted for further management of cough cold URI symptoms for the past few days along with chest tightness vague symptoms of pain and needles and sweating and hand. She has chronic bilateral lower leg edema and bradycardia. #1. Acute Hypoxia secondary to Acute Viral Syndrome, possible Viral PNA, low suspicion of bacterial superimposed pneumonia: CTPA was done which did not show PE or pneumonia but a small right effusion. Lungs are clear. Urinary antigens are negative. Respiratory panel negative. SARS-CoV-2 and rapid flu antigens are negative. Patient does not have history of COPD or on chronic inhalers. DuoNeb, incentive spirometry, Mucinex. Monitor clinically. #2. Atypical chest tightness, ACS ruled out: EKG in ED sinus bradycardia without acute evidence of ischemia. Scan as mentioned above. Serial troponins are negative therefore ACS ruled out. Might be from panic attack or acute bronchitis #3. Hyperglycemia: Admission glucose 152, no diabetic history, will obtain hemoglobin A1c #4. Chronic bradycardia: Patient with significant chronic bradycardia although reports asymptomatic, heart rate in the 40s currently #5. Hypertension: Continue home regimen including lisinopril, spironolactone, PRN hydralazine. Holding metoprolol as noted. #6. Hyperlipidemia: Continue home statin regimen. #7. Chronic Kidney Disease Stage III, unclear subtype: Admission BUN/Cr 25/1.11, baseline renal function primarily 0.9-1.0, repeat BMP in AM. #8. Obesity: Weight loss and lifestyle changes encouraged. #9. Anxiety with history of panic attacks: We will continue patient home low- dose Ativan regimen. #10. GERD: We will continue patient on famotidine regimen. #11. DVT prophylaxis: Lovenox. #12. CODE status: Patient ZAHEER is her daughter Laura and living will is currently in place. Discussed CODE status at length including difference between FULL code, DNR-CCA and DNR-CC status. Following discussions about the differences in these status, requested Full Code status. Charges/Coding Visit Charges Inpatient E&M: 20381 Subs Hosp L2
[2022-07-19] MEDS: Spironolactone 25 MG Tablet 12.5 MG PO (10:05)
[2022-07-19] MEDS: Enoxaparin 40 MG/0.4 ML Syringe SC (10:06)
[2022-07-19] MEDS: Multivitamins,Therapeutic Tablet 1 TABLET PO (10:06)
[2022-07-19] MEDS: guaiFENesin/D-Methorphan TAB.SR.12H 2 TABLET PO ×2 (10:06→23:01)
[2022-07-19] MEDS: Senna/Docusate Sodium 1 Tablet 2 TABLET PO ×2 (10:06→23:02)
[2022-07-19] MEDS: Famotidine 20 MG Tablet 40 MG PO (10:07)
[2022-07-19] MEDS: Aspirin 81 MG TAB.CHEW PO (10:07)
[2022-07-19] MEDS: Lisinopril 20 MG Tablet PO ×2 (10:07→23:02)
--- NOTE | 2022-07-19 11:33 | EKG12_ITS ---
Test Reason : AM EKG Blood Pressure : / mmHG Vent. Rate : 047 BPM Atrial Rate : 047 BPM P-R Int : 174 ms QRS Dur : 086 ms QT Int : 442 ms P-R-T Axes : -10 011 138 degrees QTc Int : 391 ms Sinus bradycardia with 2:1 AV block Low voltage QRS Septal infarct , age undetermined ST & T wave abnormality, consider lateral ischemia Abnormal ECG When compared with ECG of 19-JUL-2022 15:50, MANUAL COMPARISON REQUIRED, DATA IS UNCONFIRMED Confirmed by KENDELL MA, NADEEM ([id number]), food expeditor KIRIT STRONG ([id number]) on 07/22/2022 9:06:09 AM Referred By: Confirmed By:NADEEM RDZ MD
--- NOTE | 2022-07-19 14:32 | ECHOD_ITS ---
Reason For Study: Bradycardia, Heart block Procedure This was a 2D Doppler, Color Flow transthoracic echocardiogram. Exam performed portable in patient room. Left Ventricle Normal LV size. Mild concentric left ventricular hypertrophy. Left ventricular systolic function is normal. The estimated ejection fraction is 60 %. No regional wall motion abnormalities noted. Right Ventricle Normal RV size. Normal systolic function. Atria Normal left atrium. Normal right atrium. Mitral Valve Normal mitral valve. Tricuspid Valve Normal tricuspid valve. Aortic Valve Normal aortic valve. Trisinus/trileaflet aortic valve. Pulmonic Valve Normal pulmonic valve. Great Vessels Normal aortic root. The pulmonary artery is normal size. Normal inferior vena cava. Pericardium/Pleural No pericardial effusion. MMode/2D Measurements & Calculations LVIDd: 4.3 cm IVSd: 1.3 cm Ao root diam: 3.2 cm LVIDs: 2.6 cm LVPWd: 1.3 cm RVDd: 3.4 cm FS: 40.4 % LAV(MOD-sp4): 61.9 ml LVAd ap4: 28.0 cm2 LVAd ap2: 21.0 cm2 LVLd ap4: 7.6 cm LVLd ap2: 6.4 cm EDV(MOD-sp4): 83.3 ml EDV(MOD-sp2): 58.0 ml EDV(sp4-el): 87.3 ml EDV(sp2-el): 58.8 ml LVAs ap4: 12.4 cm2 LVAs ap2: 13.8 cm2 LVLs ap4: 6.3 cm LVLs ap2: 6.6 cm ESV(MOD-sp4): 21.9 ml ESV(MOD-sp2): 26.3 ml ESV(sp4-el): 20.6 ml ESV(sp2-el): 24.2 ml EF(MOD-sp4): 73.6 % EF(MOD-sp2): 54.7 % EF(sp4-el): 76.4 % SV(MOD-sp4): 61.3 ml SV(MOD-sp2): 31.7 ml SV(sp4-el): 66.7 ml LA dimension(2D): 3.6 cm LA A4 area: 24.4 cm2 RA A4 area: 15.3 cm2 Doppler Measurements & Calculations MV E max zaria: 125.3 cm/sec Ao V2 max: 183.4 cm/sec LV V1 max: 119.2 cm/sec Ao max P.6 mmHg LV V1 max P.7 mmHg Ao V2 mean: 128.4 cm/sec LV V1 mean P.2 mmHg Ao mean P.6 mmHg LV V1 mean: 83.2 cm/sec Ao V2 VTI: 36.2 cm LV V1 VTI: 25.2 cm AV (velocity ratio): 0.70 PA V2 max: 110.8 cm/sec PA V2 mean: 79.1 cm/sec ECHO/Echo Complete Interpretation Summary Normal LV size. Left ventricular systolic function is normal. The estimated ejection fraction is 60 %. Mild concentric left ventricular hypertrophy. Structurally normal valves. Ordering Physician: Aric Wray Referring Physician: Tye Duncan M.D. Performed By: Natalya Liao RCS
--- NOTE | 2022-07-19 14:35 | CASEMGMT ---
DOTTY RAMSEY DC Planning Assessment: Face to Face with patient for initial transition planning/care coordination assessment.?DOTTY RAMSEY introduced self and role at [facility], pt voices understanding and is agreeable to participating in assessment with swati Sanchez at bedside.? Care providers, pharmacy,?and demographics verified. ? Admitting dx: hypoxia, pneumonia, bradycardia PCP: [place] Specialists: Colton (pain) Preferred Pharm[facility]: [facility] Benef[facility]:?yes Living Will/HPOA: yes, HPOA swati Sanchez LNOK: swati Sanchez Living Arrangements: Pt lives alone in a single story home with a ramp entrance. Pt states she is independent with all ADLs including self care and household tasks such as cooking and laundry. Pt has a operations vice president for cleaning. Transportation: Pt drives and friends are able to assist if needed DME: cane, medical alert, shower chair, grab bars, hand held shower, raised toilet seat, lift chair. SNF/HHC: denies ? Plan: Pt states she plans to return home at discharge. Will continue to monitor and assist with DC needs as they are identified. Adan Clayton RN CM
[2022-07-19] MEDS: hydrALAZINE 20 MG/ML Vial 10 MG IV (15:08)
--- NOTE | 2022-07-19 15:22 | PCM.CONS.C ---
Assessment & Plan Assessment/Plan (1) CAP (community acquired pneumonia): (2) History of right knee joint replacement: (3) Osteoarthritis: QUALIFIERS: Osteoarthritis location: knee Osteoarthritis type: primary Laterality: right Qualified Code(s): M17.11 - Unilateral primary osteoarthritis, right knee (4) Hypoxia: (5) Mobitz (type) II atrioventricular block: PLAN: 82-year-old patient lives by herself And admitted with mild bronchitis and hypoxia Noted on quality assurance monitor chassis she had slow heart rate in the range of series and stable hemodynamically She has type II AV block On review of the chart in 2020 she had a similar Mobitz type II AV block Patient has been on beta-triny which is discontinued now. He had symptoms of lightheadedness and dizziness Denied any syncopal episode Cardiac exam essentially showed S1-S2 is irregular there is no systolic or diastolic murmur. Cardiac care plan recommendations; 1. Patient has a symptomatic bradycardia with type II AV block Underlying sick sinus syndrome 2. Beta-triny has been on hold 3. We will repeat EKG tomorrow and also will evaluate by echocardiogram on Thursday I did discuss the need for permanent pacemaker DDDR. due to symptomatic bradycardia patient having dizziness lightheadedness and risk of fall. I explained in detail the cardiac care plan to the patient as well as to her daughter,And nursing staff HPI Consult Data Date of Consult: 07/19/22 HPI Narrative Reason for Consultation: Symptomatic bradycardia with Mobitz type II AV block HPI Narrative: CAROLINA DOMINIQUE, is a 82 F who presents [facility] Medical History Ambulates with cane Anxiety disorder Arthritis Chronic sinus bradycardia High cholesterol Hip dislocation, left Hypertension Wears glasses Home Medications atorvastatin 20 mg tablet 20 mg PO DAILY 08/24/15 [History Last Taken 02/19/21] lisinopril 20 mg tablet 20 mg PO BID 08/24/15 [History Last Taken 02/20/21 05:30] lorazepam 0.5 mg tablet 0.5 mg PO BID PRN PRN Anxiety 08/24/15 [History Last Taken 02/19/21] calcium carbonate 500 mg-vitamin D3 3.125 mcg (125 unit) tablet 2 tab PO DAILY 02/01/21 [History Last Taken 02/19/21] famotidine 40 mg tablet 40 mg PO DAILY 02/01/21 [History Last Taken 02/19/21] multivitamin 1 tab PO DAILY 02/01/21 [History Last Taken 02/19/21] spironolactone 25 mg tablet 12.5 mg PO BID 02/01/21 [History Last Taken 02/19/21] zinc 50 mg tablet 50 mg PO DAILY 02/01/21 [History Last Taken Unknown] acetaminophen 500 mg tablet 1,000 mg PO Q8 #100 tabs 02/21/21 [Rx Last Taken Unknown] metoprolol succinate 50 mg tablet,extended release 24 hr 50 mg PO DAILY 30 days #30 tabs 02/21/21 [Rx Last Taken Unknown] oxycodone 5 mg tablet 2.5 mg PO Q4H PRN PRN Pain Score 4-10 7 days #14 tabs 02/21/21 [Rx Last Taken Unknown] sennosides 8.6 mg-docusate sodium 50 mg tablet (Stool Softener-Stimulant Laxative) 2 tab PO BID #14 tabs 02/21/21 [Rx Last Taken Unknown] oxycodone-acetaminophen 5 mg-325 mg tablet (Percocet) 1 tab PO Q6H PRN pain 3 days #12 tabs 05/29/21 [Rx Last Taken Unknown] oxycodone-acetaminophen 5 mg-325 mg tablet (Percocet) 1 tab PO Q6H PRN pain 3 days #12 tabs 08/03/21 [Rx Last Taken Unknown] doxazosin 1 mg tablet 1 mg PO QHS 07/18/22 [History Last Taken Unknown] Allergy/AdvReac Type Severity Reaction Status Date / Time No Known Allergies Allergy Verified 07/18/22 19:21 Family History (Updated 07/18/22 @ 23:[address] Harika Townsend MD) Mother Heart disease Hypertension Father CVA (cerebral vascular accident) Hypertension Surgical History History of right knee joint replacement Hx of colonoscopy Hx of foot surgery Hx of total hip arthroplasty Hx of tubal ligation Social History household members: none Smoking Status: Never smoker alcohol intake: never substance use type: does not use Physical Exam Cardio Cardio Narrative: Seen and evaluated today at bedside along with the nursing staff Daughter at bedside Patient sitting comfortably in chair does not have any active chest pain Review of the EKG on the cardiac telemetry showed evidence of Mobitz type II AV block She been stable hemodynamically Cardiovascular exam S1-S2 irregular Chest examination clear to auscultation bilateral Examination lower extremity no clubbing no cyanosis no lower extremity edema Risk Stratification Risk Stratification Applicable: No Objective Data Vital Signs: Vital Signs Temp Pulse Resp BP Pulse Ox O2 Del Method 97.4 F L 40 L 18 182/74 H 95 Room Air 07/19/22 15:04 07/19/22 15:08 07/19/22 15:04 07/19/22 15:08 07/19/22 15:04 07/19/22 15:04 Oxygen Delivery Method Room Air Weight: 204 lb 11.2 oz Body Mass Index (BMI) 34.9 Intake & Output: Intake and Output for Last 24 Hours 07/17/22 07/18/22 07/19/22 23:59 23:59 23:59 Intake Total 500 / 500 805 / 805 Balance 500 / 500 805 / 805 Lab / Micro Data Result Diagrams: 07/19/22 02:15 07/19/22 02:15 Labs: Laboratory Results - last 24 hr 07/18/22 19:30: WBC 5.7, RBC 3.79 L, Hgb 12.3, Hct 38.6, MCV 101.8 H, MCH 32.5 H, MCHC 31.9 L, RDW Std Deviation 44.6 H, RDW Coeff of Mari 11.9, Plt Count 181, MPV 10.9, Immature Gran % (Auto) 0.200, Neut % (Auto) 55.8, Lymph % (Auto) 29.2, [place] % (Auto) 11.5 H, Eos % (Auto) 2.8, Baso % (Auto) 0.5, Absolute Neuts (auto) 3.2, Absolute Lymphs (auto) 1.65, Nucleated RBC % 0 07/18/22 19:30: Sodium 143, Potassium 4.1, Chloride 113 H, Carbon Dioxide 21.0, Anion Gap 9, BUN 25 H, Creatinine 1.11 H, Estim Creat Clear Calc 35.16, Est GFR (MDRD) Af Amer 61, Est GFR (MDRD) Non-Af 50 L, BUN/Creatinine Ratio 22.5 H, Glucose 152 H, Calcium 8.8, Total Bilirubin 0.70, AST 14 L, ALT 19, Alkaline Phosphatase 73, Troponin I High Sens 9, Total Protein 6.6, Albumin 3.5, Globulin 3.1, Albumin/Globulin Ratio 1.1 07/18/22 19:30: B-Natriuretic Peptide 429.7 H 07/18/22 19:30: Procalcitonin < 0.01 07/18/22 21:05: Urine Color Yellow, Urine Clarity Clear, Urine pH 6.0, Ur Specific [place] 1.010, Urine Protein 15 H, Urine Glucose (UA) Normal, Urine Ketones Negative, Urine Occult Blood Negative, Urine Nitrite Negative, Urine Bilirubin Negative, Urine Urobilinogen Normal, Ur Leukocyte Esterase 25 H, Urine RBC 0 SEEN, Urine WBC 0-5 SEEN, Ur Squamous Epith Cells 0-5 SEEN, Urine Bacteria 0 SEEN, Urine Mucus 0 SEEN 07/18/22 21:59: Troponin I High Sens 12 07/18/22 21:59: Magnesium 1.9 07/18/22 23:30: COVID-19 (SERGO) Negative 07/19/22 02:15: WBC 7.5, RBC 3.47 L, Hgb 11.4 L, Hct 35.5 L, MCV 102.3 H, MCH 32.9 H, MCHC 32.1, RDW Std Deviation 45.0 H, RDW Coeff of Mari 11.9, Plt Count 175, MPV 10.6, Immature Gran % (Auto) 0.400, Neut % (Auto) 71.0 H, Lymph % (Auto) 16.9 L, [place] % (Auto) 9.5, Eos % (Auto) 1.9, Baso % (Auto) 0.3, Absolute Neuts (auto) 5.3, Absolute Lymphs (auto) 1.26, Nucleated RBC % 0 07/19/22 02:15: Sodium 143, Potassium 4.3, Chloride 115 H, Carbon Dioxide 23.0, Anion Gap 5, BUN 19 H, Creatinine 1.00, Estim Creat Clear Calc 37.45, Est GFR (MDRD) Af Amer 69, Est GFR (MDRD) Non-Af 57 L, BUN/Creatinine Ratio 19.1, Glucose 116 H, Calcium 8.5, Total Bilirubin 0.50, AST 16, ALT 16, Alkaline Phosphatase 65, Total Protein 5.8 L, Albumin 3.2, Globulin 2.6, Albumin/Globulin Ratio 1.2 07/19/22 02:15: Troponin I High Sens 14 Micro: Microbiology 07/19/22 05:30 Urine, Clean Catch Legionella Antigen - Final 07/19/22 05:30 Urine, Clean Catch Streptococcus pneumoniae Antigen (M - Final 07/18/22 23:30 Mucosa - Nasopharyngeal Respiratory Panel (PCR) - Final 07/18/22 19:37 Nasal Secretion SARS-CoV-2 & FLU Antigen (Rapid) - Final Rhythm Strip Rhythm Strip: Bradycardia Rate: 39 Ectopy: None Cardiology Labs/Tests 07/18/22 19:30: WBC 5.7, RBC 3.79 L, Hgb 12.3, Hct 38.6, MCV 101.8 H, MCH 32.5 H, MCHC 31.9 L, Plt Count 181, MPV 10.9, Immature Gran % (Auto) 0.200, Neut % (Auto) 55.8, Lymph % (Auto) 29.2, [place] % (Auto) 11.5 H, Eos % (Auto) 2.8, Baso % (Auto) 0.5, Absolute Neuts (auto) 3.2, Nucleated RBC % 0 07/18/22 19:30: Sodium 143, Potassium 4.1, Chloride 113 H, Carbon Dioxide 21.0, Anion Gap 9, BUN 25 H, Creatinine 1.11 H, Est GFR (MDRD) Af Amer 61, Est GFR (MDRD) Non-Af 50 L, BUN/Creatinine Ratio 22.5 H, Glucose 152 H, Calcium 8.8, Total Bilirubin 0.70 07/18/22 19:30: B-Natriuretic Peptide 429.7 H 07/18/22 21:05: Urine Color Yellow, Urine Clarity Clear, Urine pH 6.0, Ur Specific [place] 1.010, Urine Protein 15 H, Urine Glucose (UA) Normal, Urine Ketones Negative, Urine Occult Blood Negative, Urine Nitrite Negative, Urine Bilirubin Negative, Urine Urobilinogen Normal, Ur Leukocyte Esterase 25 H, Urine RBC 0 SEEN, Urine WBC 0-5 SEEN 07/18/22 21:59: Magnesium 1.9 07/19/22 02:15: WBC 7.5, RBC 3.47 L, Hgb 11.4 L, Hct 35.5 L, MCV 102.3 H, MCH 32.9 H, MCHC 32.1, Plt Count 175, MPV 10.6, Immature Gran % (Auto) 0.400, Neut % (Auto) 71.0 H, Lymph % (Auto) 16.9 L, [place] % (Auto) 9.5, Eos % (Auto) 1.9, Baso % (Auto) 0.3, Absolute Neuts (auto) 5.3, Nucleated RBC % 0 07/19/22 02:15: Sodium 143, Potassium 4.3, Chloride 115 H, Carbon Dioxide 23.0, Anion Gap 5, BUN 19 H, Creatinine 1.00, Est GFR (MDRD) Af Amer 69, Est GFR (MDRD) Non-Af 57 L, BUN/Creatinine Ratio 19.1, Glucose 116 H, Calcium 8.5, Total Bilirubin 0.50 Rhythm: EKG: ECHO: Stress Test: Cardiac Cath: PCI: CT Surgery: Holter monitor: EPS: PPM: CXR: Chest CT Scan: Radiography Diagnostic Testing: Radiology Impression Chest X-Ray 07/18/22 19:50 IMPRESSION: 1. Stable cardiomegaly. There is no acute pulmonary disease or major interval change. Electronically Signed: Abiodun Velazquez DO at 20:08 EDT Reading Location ID and State: [address] [place] [address] Tel [phone], Service support , Chest CTA 07/18/22 22:22 IMPRESSION: 1. No evidence of pulmonary embolus. 2. No aortic dissection or aneurysm. 3. Cardiomegaly. 4. Small right pleural effusion with subsegmental atelectasis. The lungs are otherwise clear. 5. Hiatal hernia. AIDOC was utilized to assist in identifying pertinent positive findings in this case. Electronically Signed: Abiodun Velazquez DO at 23:16 EDT Reading Location ID and State: [address] [place] [address] Tel [phone], Service support ,
--- NOTE | 2022-07-19 15:45 | EKG12_ITS ---
Test Reason : Blood Pressure : / mmHG Vent. Rate : 045 BPM Atrial Rate : 045 BPM P-R Int : 216 ms QRS Dur : 082 ms QT Int : 468 ms P-R-T Axes : 082 038 072 degrees QTc Int : 404 ms Sinus bradycardia with 2:1 AV block Septal infarct , age undetermined Abnormal ECG When compared with ECG of 19-JUL-2022 11:38, MANUAL COMPARISON REQUIRED, DATA IS UNCONFIRMED Confirmed by KENDELL MA, NADEEM ([id number]), manager editorial KIRIT STRONG ([id number]) on 07/22/2022 9:06:30 AM Referred By: SOTERO Confirmed By:NADEEM DRZ MD
[2022-07-19] MEDS: hydroCHLOROthiazide 25 MG Tablet PO (16:08)
[2022-07-19 16:52] LABS: Troponin-I HS 15 pg/mL (3.0-54.0)
[2022-07-19] MEDS: Nitroglycerin Infusion 250 ML 3 MG CONT INF (17:20)
[2022-07-19 18:36] LABS: Troponin-I HS 16 pg/mL (3.0-54.0)
[2022-07-19] MEDS: Ipratropium/Albuterol Sulfate 3 ML AMPUL.NEB INHALATION (19:12)
[2022-07-19] MEDS: Ceftriaxone 1 GM/50 ML BAG IV (22:59)
[2022-07-19] MEDS: Atorvastatin Calcium 20 MG Tablet PO (23:01)
[2022-07-20] VITALS (14 sets, daily range): BP systolic 150–204; BP diastolic 50–71; PULSE 39–76; RESP 16–18; TEMP 36.4–36.9; O2SAT 94–97; BMI 34.7
[2022-07-20] MEDS: 0.9% Saline Lock 10 ML Syringe IV ×2 (05:52→20:38)
[2022-07-20] MEDS: hydrALAZINE 20 MG/ML Vial 10 MG IV (05:52)
--- NOTE | 2022-07-20 06:00 | EKG12_ITS ---
Test Reason : Blood Pressure : / mmHG Vent. Rate : 038 BPM Atrial Rate : 038 BPM P-R Int : 240 ms QRS Dur : 088 ms QT Int : 516 ms P-R-T Axes : 047 000 068 degrees QTc Int : 410 ms Sinus bradycardia with 2:1 block Low voltage QRS Septal infarct , age undetermined Abnormal ECG When compared with ECG of 19-JUL-2022 07:48, MANUAL COMPARISON REQUIRED, DATA IS UNCONFIRMED Confirmed by KENDELL MA, NADEEM ([id number]), staff editor KIRIT STRONG ([id number]) on 07/22/2022 9:07:03 AM Referred By: SOTERO Confirmed By:NADEEM RDZ MD
[2022-07-20 06:36] LABS: Absolute Lymphocyte Count 1.27 X10^3/uL (0.83-4.51); Absolute Neutrophil Count 4.8 X10^3/uL (2.0-7.7); Basophil# 0.02 X10^3/uL; Basophil% 0.3 % (0-1); Eosinophil# 0.16 X10^3/uL; Eosinophils% 2.2 % (0-5); Hematocrit 36.6 % (37-47); Hemoglobin 12.1 g/dL (12.0-15.0); Lymphocyte # 1.27 X10^3/ul (0.83-4.51); Lymphocyte % 17.6 % (19-41); Mean Corp Hgb Conc 33.1 g/dL (32-36); Mean Corpuscular Volume 99.7 fL (81-99); Mean Platelet Vol. 10.2 fl (6.2-12.0); Monocyte# 0.89 X10^3/uL; Monocyte% 12.4 % (0-10); NRBC Flagged by Analyzer 0 % (0-5); Neutrophil # 4.84 X10^3/uL (2.7-7.7); Neutrophil % 67.2 % (47-70); Platelet Count 173 K/mm3 (150-450); RBC Distribution Width SD 43.9 fl (35.1-43.9); Red Blood Count 3.67 M/mm3 (4.2-5.4); White Blood Count 7.2 K/mm3 (4.4-11.0)
[2022-07-20] MEDS: Budesonide Respules 0.5 MG/2 ML AMPUL.NEB. INHALATION ×2 (07:02→19:07)
[2022-07-20] MEDS: Ipratropium/Albuterol Sulfate 3 ML AMPUL.NEB INHALATION ×3 (07:02→19:07)
[2022-07-20 07:06] LABS: Anion Gap 6 (5-15); BUN 14 mg/dL (7-18); BUN/Creat Ratio 16.1 RATIO (10-20); Calcium,Total 9.3 mg/dL (8.5-10.1); Chloride 113 mmol/L (98-107); Creatinine, Serum 0.87 mg/dL (0.55-1.02); EST Glomerular Filtration Rate 66 mL/min (>60); Est Glom Filt Rate - Afr Amer 80 mL/min (>60); Estimated Creatinine Clearance 43.05 ml/min; Glucose 105 mg/dL (74-106); Magnesium 1.6 mg/dL (1.6-2.6); Phosphorus 3.8 mg/dL (2.5-4.9); Potassium 3.7 mmol/L (3.5-5.1); Sodium Level 140 mmol/L (136-145)
--- NOTE | 2022-07-20 07:55 | PN.HOSP_ITS ---
Reason for Visit Reason for Visit: Diagnoses Atrioventricular block, second degree (07/18/22) Pneumonia, unspecified organism (07/18/22) Unilateral primary osteoarthritis, right knee (07/18/22) Hypoxemia (07/18/22) Presence of right artificial knee joint (07/18/22) Follow-up for hypertensive urgency and irregular heartbeat/severe bradycardia. Viral bronchitis. Objective Data Objective Data Vital Signs: Vital Signs Temp Pulse Resp BP Pulse Ox O2 Del Method 98.3 F 39 L 18 150/59 H 94 Room Air 07/20/22 04:00 07/20/22 05:56 07/20/22 04:00 07/20/22 06:35 07/20/22 04:00 07/20/22 04:00 Oxygen Delivery Method Room Air Weight: 203 lb 7.787 oz Body Mass Index (BMI) 34.7 Intake & Output: Intake and Output for Last 24 Hours 07/18/22 07/19/22 07/20/22 23:59 23:59 23:59 Intake Total 500 / 500 1429.50 / 1429.50 365 / 365 Balance 500 / 500 1429.50 / 1429.50 365 / 365 Lab / Micro Data Result Diagrams: 07/20/22 06:30 07/20/22 06:30 Labs: Laboratory Results - last 24 hr 07/19/22 16:20: Troponin I High Sens 15 07/19/22 17:58: Troponin I High Sens 16 07/20/22 06:30: WBC 7.2, RBC 3.67 L, Hgb 12.1, Hct 36.6 L, MCV 99.7 H, MCH 33.0 H, MCHC 33.1, RDW Std Deviation 43.9, RDW Coeff of Mari 12.0, Plt Count 173, MPV 10.2, Immature Gran % (Auto) 0.300, Neut % (Auto) 67.2, Lymph % (Auto) 17.6 L, [place] % (Auto) 12.4 H, Eos % (Auto) 2.2, Baso % (Auto) 0.3, Absolute Neuts (auto) 4.8, Absolute Lymphs (auto) 1.27, Nucleated RBC % 0 07/20/22 06:30: Sodium 140, Potassium 3.7, Chloride 113 H, Carbon Dioxide 21.0, Anion Gap 6, BUN 14, Creatinine 0.87, Estim Creat Clear Calc 43.05, Est GFR (MDRD) Af Amer 80, Est GFR (MDRD) Non-Af 66, BUN/Creatinine Ratio 16.1, Glucose 105, Calcium 9.3, Phosphorus 3.8, Magnesium 1.6 Micro: Microbiology 07/19/22 05:30 Urine, Clean Catch Legionella Antigen - Final 07/19/22 05:30 Urine, Clean Catch Streptococcus pneumoniae Antigen (M - Final 07/18/22 23:30 Mucosa - Nasopharyngeal Respiratory Panel (PCR) - Final 07/18/22 19:37 Nasal Secretion SARS-CoV-2 & FLU Antigen (Rapid) - Final Rhythm Strip Rhythm Strip: Bradycardia Rate: 39 Ectopy: None Physical Exam Narrative Seen and examined. Patient BP was very high yesterday, 200/70 and prior to that 180 and 190 systolic. Heart rate has been in 30s to 40s per med, irregular, PVCs and sometimes type II AV block Cough and wheezing is much improved. She felt shaking, dry, overall not good after HCTZ 25 mg therefore dose decreased. Physical exam General: Alert, Oriented x3, Cooperative HEENT: Atraumatic, PERRLA, EOMI, Normocephalic Oral: Oral mucosa No Gingival or Mucosal Lesions/ Ulcerations Neck: Supple, No JVD, Negative Carotid Bruits Lungs: Air entry diminished in bilateral lung bases. No crepitation/rhonchi. Cardiovascular: Irregular rhythm with PVCs, Mixtard., Severe bradycardia., Normal S1, Normal S2, No murmurs Abdomen: Bowel Sounds Present, Soft, Non Tender, Non-Distended : No renal angle tenderness. No suprapubic tenderness. Extremities: No edema, Capillary Refill Less than 3 Seconds Skin: No rashes, No breakdown Musculoskeletal: No Tenderness to Palpation of Joints or Extremities ROM full and adequate. Neurological: Cranial nerves II-XII grossly intact, DTR 2+/4 and Symmetrical, Neuro grossly intact Psych/Mental Status: Normal Affect, Appropriate. Assessment & Plan Assessment/Plan (1) Hypoxia: PLAN: Plan The patient is an 82 y/o F is being admitted for further management of cough cold URI symptoms for the past few days along with chest tightness vague symptoms of pain and needles and sweating and hand. She has chronic bilateral lower leg edema and bradycardia. #1. Acute Hypoxia secondary to Acute Viral Syndrome, possible Viral PNA, low suspicion of bacterial superimposed pneumonia: CTPA was done which did not show PE or pneumonia but a small right effusion. Lungs are clear. Urinary antigens are negative. Respiratory panel negative. SARS-CoV-2 and rapid flu antigens are negative. Patient does not have history of COPD or on chronic inhalers. DuoNeb, incentive spirometry, Mucinex. Monitor clinically. 07/20: Hypoxia has resolved. URI symptoms have improved. #2. Atypical chest tightness, ACS ruled out: EKG in ED sinus bradycardia without acute evidence of ischemia. Scan as mentioned above. Serial troponins are negative therefore ACS ruled out. Might be from panic attack or acute bronchitis 07/20: Patient yesterday had chest pain which seemed more like pleuritic in nature. 2 serial troponin was done and negative. EKG did not show any specific ST-T changes therefore ACS ruled out. #3. Hyperglycemia: Admission glucose 152, no diabetic history, #4. Chronic bradycardia with possible type II second-degree AV block: Patient with significant chronic bradycardia although reports asymptomatic, heart rate in the 40s currently 07/20: Possible type II second-degree AV block: cardiac monitor technician shows type II block with sometimes PVCs irregular heartbeat and missed heartbeat. Twelve-lead EKG type II, second-degree heart block.? Brand Recorder was consulted on 07/19. Discussed with cardiology and plan for loop recorder tomorrow and may be pacemaker in future. She will follow-up with Dr. Fowler. Serum magnesium 1.6, phosphorus 3.8. Magnesium 2 g IV ordered as patient has mild hypomagnesemia optimize magnesium around 2.0 and K4.0. Twelve-lead EKG ordered. #5. Hypertensive urgency: Continue home regimen including lisinopril, spironolactone, PRN hydralazine. Holding metoprolol as noted. 07/20: Started on HCTZ 25 mg daily yesterday decreased to 12.5 mg daily because of mild side effects. Started on oral hydralazine 25 mg 3 times daily. Monitor blood pressure. Blood pressure profile is better than yesterday. #6. Hyperlipidemia: Continue home statin regimen. #7. Chronic Kidney Disease Stage III, unclear subtype: Admission BUN/Cr 25/1.11, baseline renal function primarily 0.9-1.0, repeat BMP in AM. #8. Obesity: Weight loss and lifestyle changes encouraged. #9. Anxiety with history of panic attacks: We will continue patient home low- dose Ativan regimen. #10. GERD: We will continue patient on famotidine regimen. #11. DVT prophylaxis: Lovenox. #12. CODE status: Patient ZAHEER is her daughter Laura and living will is currently in place. Discussed CODE status at length including difference between FULL code, DNR-CCA and DNR-CC status. Following discussions about the differences in these status, requested Full Code status. Total time of the visit including total time spent in counseling or coordination of care, (more than 50% of the total time, spent in obtaining medical information from nurses and other ancillary care providers,explaining to the patient about labs, imaging, diagnosis and management of active complex medical conditions), question with will call order clerk, management of multiple active medical problems, review of labs and imaging is 50 minutes. Charges/Coding Visit Charges Inpatient E&M: 00022 Subs Hosp L3
--- NOTE | 2022-07-20 08:17 | PCM.PN.CARD ---
Subjective Subjective Patient seen and evaluated today at bedside Complaining of dry mouth and shakiness She does not have any active chest pain. Objective Data Vital Signs: Vital Signs Temp Pulse Resp BP Pulse Ox O2 Del Method 98.3 F 39 L 18 150/59 H 94 Room Air 07/20/22 04:00 07/20/22 05:56 07/20/22 04:00 07/20/22 06:35 07/20/22 04:00 07/20/22 04:00 Oxygen Delivery Method Room Air Weight: 203 lb 7.787 oz Body Mass Index (BMI) 34.7 Intake & Output: Intake and Output for Last 24 Hours 07/18/22 07/19/22 07/20/22 23:59 23:59 23:59 Intake Total 500 / 500 1429.50 / 1429.50 365 / 365 Balance 500 / 500 1429.50 / 1429.50 365 / 365 Lab / Micro Data Result Diagrams: 07/20/22 06:30 07/20/22 06:30 Labs: Laboratory Results - last 24 hr 07/19/22 16:20: Troponin I High Sens 15 07/19/22 17:58: Troponin I High Sens 16 07/20/22 06:30: WBC 7.2, RBC 3.67 L, Hgb 12.1, Hct 36.6 L, MCV 99.7 H, MCH 33.0 H, MCHC 33.1, RDW Std Deviation 43.9, RDW Coeff of Mari 12.0, Plt Count 173, MPV 10.2, Immature Gran % (Auto) 0.300, Neut % (Auto) 67.2, Lymph % (Auto) 17.6 L, Ralls % (Auto) 12.4 H, Eos % (Auto) 2.2, Baso % (Auto) 0.3, Absolute Neuts (auto) 4.8, Absolute Lymphs (auto) 1.27, Nucleated RBC % 0 07/20/22 06:30: Sodium 140, Potassium 3.7, Chloride 113 H, Carbon Dioxide 21.0, Anion Gap 6, BUN 14, Creatinine 0.87, Estim Creat Clear Calc 43.05, Est GFR (MDRD) Af Amer 80, Est GFR (MDRD) Non-Af 66, BUN/Creatinine Ratio 16.1, Glucose 105, Calcium 9.3, Phosphorus 3.8, Magnesium 1.6 Micro: Microbiology 07/19/22 05:30 Urine, Clean Catch Legionella Antigen - Final 07/19/22 05:30 Urine, Clean Catch Streptococcus pneumoniae Antigen (M - Final Rhythm Strip Rhythm Strip: Bradycardia Rate: 39 Ectopy: None Cardiology Labs/Tests 07/20/22 06:30: WBC 7.2, RBC 3.67 L, Hgb 12.1, Hct 36.6 L, MCV 99.7 H, MCH 33.0 H, MCHC 33.1, Plt Count 173, MPV 10.2, Immature Gran % (Auto) 0.300, Neut % (Auto) 67.2, Lymph % (Auto) 17.6 L, Ralls % (Auto) 12.4 H, Eos % (Auto) 2.2, Baso % (Auto) 0.3, Absolute Neuts (auto) 4.8, Nucleated RBC % 0 07/20/22 06:30: Sodium 140, Potassium 3.7, Chloride 113 H, Carbon Dioxide 21.0, Anion Gap 6, BUN 14, Creatinine 0.87, Est GFR (MDRD) Af Amer 80, Est GFR (MDRD) Non-Af 66, BUN/Creatinine Ratio 16.1, Glucose 105, Calcium 9.3, Phosphorus 3.8, Magnesium 1.6 Rhythm: EKG: ECHO: Stress Test: Cardiac Cath: PCI: CT Surgery: Holter monitor: EPS: PPM: CXR: Chest CT Scan: Physical Exam Cardio Cardio Narrative: Review of the color television console monitor showed Mobitz type I/type II AV block Stable hemodynamically Cardiac exam S1-S2 is irregular Chest exam is clear to auscultation bilateral. Assessment & Plan Assessment/Plan (1) CAP (community acquired pneumonia): (2) Osteoarthritis: QUALIFIERS: Osteoarthritis location: knee Osteoarthritis type: primary Laterality: right Qualified Code(s): M17.11 - Unilateral primary osteoarthritis, right knee (3) Mobitz (type) II atrioventricular block: (4) Hypoxia: PLAN: 82-year-old patient who was admitted with respiratory symptoms and cardiac consultation requested because she had a conduction abnormality with Mobitz type II AV block Today she was still have dry mouth shaking does not have any active chest pain She actually had 2 sets of cardiac enzymes with high sensitive troponin were negative And on color television console monitor she still had the AV conduction abnormality and she has been symptomatic according to history from patient and daughter she had lightheadedness dizziness but she did not have any syncopal episode Cardiac care plan; 1. Review all the current medication and beta-triny has been on hold 2. She is still having respiratory symptoms and we will wait for the pacemaker at this point we will plan for loop recorder implant . And monitor and follow-up clinically as an outpatient patient stable hemodynamically. I discussed cardiac care plan with the patient, daughter, nursing staff and the medical team
--- NOTE | 2022-07-20 08:32 | EKG12_ITS ---
Test Reason : Blood Pressure : / mmHG Vent. Rate : 044 BPM Atrial Rate : 080 BPM P-R Int : 000 ms QRS Dur : 082 ms QT Int : 500 ms P-R-T Axes : 084 031 067 degrees QTc Int : 427 ms Sinus rhythm with 2nd degree A-V block (Mobitz I) with 2:1 A-V conduction Low voltage QRS Abnormal ECG When compared with ECG of 18-JUL-2022 19:31, MANUAL COMPARISON REQUIRED, DATA IS UNCONFIRMED Confirmed by KENDELL MA, NADEEM ([id number]), multimedia editor KIRIT STRONG ([id number]) on 07/22/2022 9:08:06 AM Referred By: MARY LOU Confirmed By:NADEEM RDZ MD
[2022-07-20] MEDS: Famotidine 20 MG Tablet 40 MG PO (09:05)
[2022-07-20] MEDS: Aspirin 81 MG TAB.CHEW PO (09:05)
[2022-07-20] MEDS: Spironolactone 25 MG Tablet PO (09:06)
[2022-07-20] MEDS: guaiFENesin/D-Methorphan TAB.SR.12H 2 TABLET PO ×2 (09:06→20:34)
[2022-07-20] MEDS: Multivitamins,Therapeutic Tablet 1 TABLET PO (09:06)
[2022-07-20] MEDS: Lisinopril 20 MG Tablet PO ×2 (09:06→20:33)
[2022-07-20] MEDS: Enoxaparin 40 MG/0.4 ML Syringe SC (09:07)
[2022-07-20] MEDS: Calcium Carb/Vitamin D 1 TABLET Tablet 2 TABLET PO (09:09)
[2022-07-20] MEDS: hydroCHLOROthiazide 12.5mg 12.5 MG PO (09:38)
[2022-07-20] MEDS: Potassium Chloride Oral Tablet 20 MEQ 40 MEQ PO (09:38)
[2022-07-20] MEDS: hydrALAZINE 25 MG Tablet PO (15:24)
[2022-07-20] MEDS: Acetaminophen 325 MG Tablet 650 MG PO ×2 (15:25→21:52)
[2022-07-20 18:44] LABS: Hemoglobin A1c 5.1 % (3.8-5.6)
[2022-07-20] MEDS: Atorvastatin Calcium 20 MG Tablet PO (20:34)
[2022-07-20] MEDS: hydrALAZINE 50 MG Tablet PO (20:36)
[2022-07-20] MEDS: Ceftriaxone 1 GM/50 ML BAG IV (20:37)
[2022-07-21] VITALS (18 sets, daily range): BP systolic 94–172; BP diastolic 48–82; PULSE 62–117; RESP 14–22; TEMP 36.5–36.8; O2SAT 94–97; BMI 34.5
[2022-07-21] MEDS: 0.9% Normal Saline 1,000 ML 15 ML IV (05:12)
[2022-07-21] MEDS: hydrALAZINE 50 MG Tablet PO ×3 (05:14→22:21)
[2022-07-21 06:37] LABS: Anion Gap 8 (5-15); BUN 12 mg/dL (7-18); BUN/Creat Ratio 13.5 RATIO (10-20); Calcium,Total 9.4 mg/dL (8.5-10.1); Chloride 111 mmol/L (98-107); Creatinine, Serum 0.89 mg/dL (0.55-1.02); EST Glomerular Filtration Rate 65 mL/min (>60); Est Glom Filt Rate - Afr Amer 78 mL/min (>60); Estimated Creatinine Clearance 42.08 ml/min; Glucose 118 mg/dL (74-106); Magnesium 1.8 mg/dL (1.6-2.6); Sodium Level 140 mmol/L (136-145)
--- NOTE | 2022-07-21 07:04 | EKG12_ITS ---
Test Reason : CHANGE RHYTHM Blood Pressure : / mmHG Vent. Rate : 080 BPM Atrial Rate : 075 BPM P-R Int : 000 ms QRS Dur : 142 ms QT Int : 430 ms P-R-T Axes : 000 -79 097 degrees QTc Int : 495 ms Ventricular-paced rhythm Abnormal ECG When compared with ECG of 21-JUL-2022 08:04, Electronic ventricular pacemaker has replaced Atrial fibrillation Confirmed by KENDELL MA, NADEEM ([id number]), news videotape editor KIRIT STRONG ([id number]) on 07/24/2022 9:24:23 AM Referred By: Confirmed By:NADEEM RDZ MD
[2022-07-21] MEDS: Budesonide Respules 0.5 MG/2 ML AMPUL.NEB. INHALATION ×2 (07:06→18:58)
[2022-07-21] MEDS: Ipratropium/Albuterol Sulfate 3 ML AMPUL.NEB INHALATION (07:06)
--- NOTE | 2022-07-21 08:27 | PN.HOSP_ITS ---
Reason for Visit Reason for Visit: Diagnoses Atrioventricular block, second degree (07/18/22) Pneumonia, unspecified organism (07/18/22) Unilateral primary osteoarthritis, right knee (07/18/22) Hypoxemia (07/18/22) Presence of right artificial knee joint (07/18/22) Subjective Subjective Breathing ok. No events overnight. Objective Data Objective Data Vital Signs: Vital Signs Temp Pulse Resp BP Pulse Ox O2 Del Method 36.8 C 82 16 172/81 H 97 Room Air 07/21/22 02:20 07/21/22 07:08 07/21/22 07:08 07/21/22 05:14 07/21/22 07:08 07/21/22 07:08 Oxygen Delivery Method Room Air Weight: 91.3 kg Body Mass Index (BMI) 34.5 Intake & Output: Intake and Output for Last 24 Hours 07/19/22 07/20/22 07/21/22 23:59 23:59 23:59 Intake Total 1429.50 / 1429.50 1774 / 1774 Balance 1429.50 / 1429.50 1774 / 1774 Lab / Micro Data Result Diagrams: 07/20/22 06:30 07/21/22 05:40 Labs: Laboratory Results - last 24 hr 07/19/22 02:15: Hemoglobin A1c 5.1 07/21/22 05:40: Sodium 140, Potassium 4.0, Chloride 111 H, Carbon Dioxide 21.0, Anion Gap 8, BUN 12, Creatinine 0.89, Estim Creat Clear Calc 42.08, Est GFR (MDR D) Af Amer 78, Est GFR (MDRD) Non-Af 65, BUN/Creatinine Ratio 13.5, Glucose 118 H, Calcium 9.4, Magnesium 1.8 Micro: Microbiology 07/19/22 05:30 Urine, Clean Catch Legionella Antigen - Final 07/19/22 05:30 Urine, Clean Catch Streptococcus pneumoniae Antigen (M - Final 07/18/22 23:30 Mucosa - Nasopharyngeal Respiratory Panel (PCR) - Final 07/18/22 19:37 Nasal Secretion SARS-CoV-2 & FLU Antigen (Rapid) - Final Rhythm Strip Rhythm Strip: Bradycardia Rate: 39 Ectopy: None Physical Exam Narrative - Physical Exam General: Alert, Oriented x3, Cooperative HEENT: Atraumatic, PERRLA, EOMI, Normocephalic Oral: Moist Mucosa, No Gingival or Mucosal Lesions/ Ulcerations Neck: Supple, No JVD, Negative Carotid Bruits Lungs: Clear to auscultation, Normal air movement Cardiovascular: Regular rate, Normal S1, Normal S2, No murmurs Abdomen: Bowel Sounds Present, Soft, Non Tender, Non-Distended, No Hepato- splenomegaly Extremities: No clubbing, No cyanosis, No edema, Capillary Refill Less than 3 Seconds Skin: No rashes, No breakdown Musculoskeletal: No Tenderness to Palpation of Joints or Extremities Neurological: Neuro grossly intact Psych/Mental Status: Normal Affect, Appropriate Assessment & Plan Assessment/Plan (1) Hypoxia: PLAN: Acute Hypoxia secondary to Acute Viral Syndrome, possible Viral PNA, low suspicion of bacterial superimposed pneumonia: CTPA was done which did not show PE or pneumonia but a small right effusion. Lungs are clear. Urinary antigens are negative. Respiratory panel negative. SARS-CoV-2 and rapid flu antigens ar e negative. Patient does not have history of COPD or on chronic inhalers. DuoNeb, incentive spirometry, Mucinex. Monitor clinically. 07/20: Hypoxia has resolved. URI symptoms have improved. (2) Chest tightness: PLAN: Atypical chest tightness, ACS ruled out: EKG in ED sinus bradycardia without acute evidence of ischemia. Scan as mentioned above. Serial troponins are negative therefore ACS ruled out. Might be from panic attack or acute bronchitis 07/20: Patient yesterday had chest pain which seemed more like pleuritic in nature. 2 serial troponin was done and negative. EKG did not show any specific ST-T changes therefore ACS ruled out. (3) Bradycardia: PLAN: Chronic bradycardia with possible type II second-degree AV block: Patient with significant chronic bradycardia although reports asymptomatic, heart rate in the 40s currently 07/20: Possible type II second-degree AV block: unit manager shows type II block with sometimes PVCs irregular heartbeat and missed heartbeat. Twelve-lead EKG type II, second-degree heart block.? [employer] Service Director was consulted on 07/19. Discussed with cardiology and plan for loop recorder tomorrow and may be pacemaker in future. She will follow-up with Dr. Fowler. Serum magnesium 1.6, phosphorus 3.8. Magnesium 2 g IV ordered as patient has mild hypomagnesemia optimize magnesium around 2.0 and K4.0. Twelve-lead EKG ordered. (4) Hypertensive urgency: PLAN: #5. Hypertensive urgency: Continue home regimen including lisinopril, spironolactone, PRN hydralazine. Holding metoprolol as noted. 07/20: Started on HCTZ 25 mg daily yesterday decreased to 12.5 mg daily because of mild side effects. Started on oral hydralazine 25 mg 3 times daily. Monitor blood pressure. Blood pressure profile is better than yesterday. PLAN: Plan Hyperglycemia: Admission glucose 152, no diabetic history, a1c 5.1 Chronic conditions: * Hyperlipidemia: Continue home statin regimen. * Chronic Kidney Disease Stage III, unclear subtype: Admission BUN/Cr 25/1.11, baseline renal function primarily 0.9-1.0, repeat BMP in AM. * Obesity: Weight loss and lifestyle changes encouraged. * Anxiety with history of panic attacks: We will continue patient home low-dose Ativan regimen. * GERD: We will continue patient on famotidine regimen. DVT prophylaxis: Lovenox. CODE status: Full Charges/Coding Visit Charges Inpatient E&M: 93177 Subs Hosp L2
[2022-07-21] MEDS: Famotidine 20 MG Tablet 40 MG PO (08:40)
[2022-07-21] MEDS: hydroCHLOROthiazide 12.5mg 12.5 MG PO (08:41)
[2022-07-21] MEDS: Lisinopril 20 MG Tablet PO ×2 (08:42→22:21)
[2022-07-21] MEDS: guaiFENesin/D-Methorphan TAB.SR.12H 2 TABLET PO ×2 (08:42→22:21)
--- NOTE | 2022-07-21 14:19 | CL.IE_ITS ---
Patient: CAROLINA DOMINIQUE Study Date: 07/21/2022 Performing: Sudhir Fowler MD : 1940 Age: 82 Gender: female PROCEDURES PERFORMED [id number])INITIAL PACER INSERT+DUAL LEADS INDICATIONS Atrioventricular (AV) block PROCEDURE DETAILS The patient was brought to the Catheterization Lab in the postabsorptive nonsedated state. Informed consent was obtained prior to the procedure. Local anesthetic was given subcutaneously to the left upper chest area with Lidocaine 2%. Access was achieved and a guidewire was advanced into the left subclavian vein. Incision was made to the left upper chest. A peel-away sheath was inserted into the left subclavian vein. PPM ventricular lead was inserted / positioned to right ventricular. The sheath was then removed. PPM ventricular lead testing performed. PPM ventricular lead testing performed. A peel-away sheath was inserted into the left subclavian vein. PPM atrial lead was inserted / positioned to the right atrial appendage. The sheath was then removed. PPM atrial lead testing performed. The Atrial lead sutured in place with 2-0 Silk. The Ventricular PM lead sutured in place with 2-0 Silk. Device pocket was irrigated with antibiotic-ANCEF. PPM generator was attached to the lead(s) and inserted into the pocket. Subcutaneous closure was completed with 3-0 Vicryl. Skin closure was completed with 4-0 Vicryl. The patient tolerated the procedure well. Estimated Blood Loss: 20 ml's IMPLANTED / EX-PLANTED DEVICES IMPLANTED DEVICE(S): PPM Atrial lead - Moose Hunter: [employer], Model # [id number] , Serial # [id number] PPM Ventricular lead - [employer]ose Hunter: [employer], Model # 2088TC , Serial # [id number] PPM Generator - Moose Hunter: [employer], Model # [id number] , Serial # [id number] DEVICE PARAMETERS ATRIAL LEAD PARAMETERS: P wave- 2.2 (mV) threshold- 1.0 (V) impedence- 590 (OHMS) 10V test, no diaphragmatic capture VENTRICULAR LEAD PARAMETERS: R wave- 10 (mV) threshold- 1.4 (V) impedence- 1842 (OHMS) 10V test, no diaphragmatic capture DEVICE PARAMETERS: Mode- DDDR Lower rate- 60 Upper rate- 120 CONCLUSIONS / RECOMMENDATIONS Device Conclusions: Successful implantation of a dual chamber pacemaker Device Recommendations: Follow up with Primary Care Physician PROCEDURE MEDICATIONS Versed 1 mg IV Fentanyl 50 mcg IV Versed 1 mg IV Versed 1 mg IV Fentanyl 25 mcg IV Fentanyl 25 mcg IV Oxygen: 2 L/min via nasal cannula Antibiotic given in appropriate timeframe. Ancef 2 Gm IV @ 07/21/2022 12:39:57 Signed By Sudhir Fowler MD On 07/21/2022 14:19:18 Sudhir Fowler MD
[2022-07-21] MEDS: Ceftriaxone 1 GM/50 ML BAG IV (22:16)
[2022-07-21] MEDS: Atorvastatin Calcium 20 MG Tablet PO (22:20)
[2022-07-22] VITALS (11 sets, daily range): BP systolic 128–141; BP diastolic 64–91; PULSE 80–100; RESP 14–18; TEMP 36.7–36.9; O2SAT 95–97; BMI 34.8
[2022-07-22] MEDS: Acetaminophen 325 MG Tablet 650 MG PO (04:55)
[2022-07-22] MEDS: 0.9% Saline Lock 10 ML Syringe IV (04:56)
--- NOTE | 2022-07-22 05:55 | RAD_ITS ---
EXAM: XR CHEST, 3 VIEWS CLINICAL INDICATION: Post permanant ICD/Pacemaker -- inspiration/expiration. Arms Down. Wet read to MD Post permanant ICD/Pacemaker -- inspiration/expiration. Arms Down. Wet read to MD TECHNIQUE: Frontal, lateral and one additional view of the chest. This report was created using [employer] report generation technology. COMPARISON: CTA chest 07/18/2022. Chest x-ray 07/18/2022. FINDINGS: LUNGS AND PLEURAL SPACES: There are small bilateral pleural effusions with overlying atelectasis in the lung bases. No pneumothorax. HEART: The heart is enlarged. MEDIASTINUM: There is a large hiatal hernia. BONES/JOINTS: Unremarkable. SOFT TISSUES: Unremarkable. VASCULATURE: There is atherosclerotic calcification of the aortic arch. TUBES, LINES AND DEVICES: There is an atrioventricular pacemaker inserted via left subclavian approach. Wires appear to be intact. RAD/Chest 3 View IMPRESSION: 1. Status post AV pacemaker placement. No demonstrated pneumothorax. 2. Cardiomegaly. 3. Small pleural effusions with overlying atelectasis in the lung bases. Redemonstrated acute pulmonary infiltrates. 4. Large hiatal hernia. Electronically Signed: Esdras Edmonds MD at 5:04 EDT Reading Location ID and State: [facility] / [place] , Service support ,
--- NOTE | 2022-07-22 06:02 | PN.CARD_ITS ---
Subjective Subjective Patient seen and evaluated. Doing better this morning. No complaints. Objective Data Vital Signs: Vital Signs Temp Pulse Resp BP Pulse Ox O2 Del Method 98.1 F 94 18 141/78 H 97 Room Air 07/22/22 04:40 07/22/22 04:40 07/22/22 04:40 07/22/22 04:40 07/22/22 04:40 07/22/22 04:40 Oxygen Delivery Method Room Air Weight: 201 lb 4.513 oz Body Mass Index (BMI) 34.5 Intake & Output: Intake and Output for Last 24 Hours 07/20/22 07/21/22 07/22/22 23:59 23:59 23:59 Intake Total 1774 / 1774 371.5 / 371.5 310.75 / 310.75 Output Total 1900 / 1900 Balance 1774 / 1774 -1528.5 / -1528.5 310.75 / 310.75 Lab / Micro Data Result Diagrams: 07/20/22 06:30 07/21/22 05:40 Labs: Laboratory Results - last 24 hr 07/21/22 05:40: Sodium 140, Potassium 4.0, Chloride 111 H, Carbon Dioxide 21.0, Anion Gap 8, BUN 12, Creatinine 0.89, Estim Creat Clear Calc 42.08, Est GFR (MDRD) Af Amer 78, Est GFR (MDRD) Non-Af 65, BUN/Creatinine Ratio 13.5, Glucose 118 H, Calcium 9.4, Magnesium 1.8 Rhythm Strip Rhythm Strip: Bradycardia Rate: 39 Ectopy: None Cardiology Labs/Tests 07/21/22 05:40: Sodium 140, Potassium 4.0, Chloride 111 H, Carbon Dioxide 21.0, Anion Gap 8, BUN 12, Creatinine 0.89, Est GFR (MDRD) Af Amer 78, Est GFR (MDRD) Non-Af 65, BUN/Creatinine Ratio 13.5, Glucose 118 H, Calcium 9.4, Magnesium 1.8 Rhythm: EKG: ECHO: Stress Test: Cardiac Cath: PCI: CT Surgery: Holter monitor: EPS: PPM: CXR: Chest CT Scan: Radiography Diagnostic Testing: Radiology Impression Echocardiogram 07/19/22 14:32 Interpretation Summary Normal LV size. Left ventricular systolic function is normal. The estimated ejection fraction is 60 %. Mild concentric left ventricular hypertrophy. Structurally normal valves. Ordering Physician: Aric Wray Referring Physician: Tye Duncan M.D. Performed By: Natalya Liao RCS Chest X-Ray 07/22/22 05:55 IMPRESSION: 1. Status post AV pacemaker placement. No demonstrated pneumothorax. 2. Cardiomegaly. 3. Small pleural effusions with overlying atelectasis in the lung bases. Redemonstrated acute pulmonary infiltrates. 4. Large hiatal hernia. Electronically Signed: Esdras Edmonds MD at 5:04 EDT Reading Location ID and State: [facility] / [place] , Service support , Physical Exam Const alert, oriented x3 and no apparent distress General Appearance: cooperative HEENT hearing grossly normal bilaterally Head and Scalp: atraumatic Eyes EOMs intact bilaterally Neck General: normal visual inspection Chest inspection of chest normal and palpation of chest normal Resp normal respiratory effort Auscultation: clear to auscultation bilaterally Cardio regular rate, regular rhythm, S1 normal heart sound and S2 normal heart sound Jugular Venous Distention: JVD GI normal to inspection, nondistended, normoactive bowel sounds Extremity normal capillary refill and no pedal edema Peripheral Pulses: Yes pulses 2+ throughout and femoral pulses present Skin no rashes or lesions noted Neuro oriented x3 and CN's II-XII intact bilaterally Psych Appearance: grossly normal and appropriate Assessment & Plan Assessment/Plan (1) Mobitz (type) II atrioventricular block: PLAN: Patient is status post permanent pacemaker implantation for Mobitz type II AV block. Pacemaker will be interrogated today and if it is noted to be functioning well the plan was to discharge for outpatient follow-up. (2) Hypertensive urgency: PLAN: Blood pressure under much better control at this particular time I would not recommend we make any changes. Thank you for allowing me to participate in the care of your patient. Please don't hesitate to call if any issues arise.
[2022-07-22] MEDS: hydrALAZINE 50 MG Tablet PO ×3 (06:17→22:29)
[2022-07-22] MEDS: Budesonide Respules 0.5 MG/2 ML AMPUL.NEB. INHALATION (06:46)
[2022-07-22 06:52] LABS: Anion Gap 8 (5-15); BUN 12 mg/dL (7-18); BUN/Creat Ratio 14.1 RATIO (10-20); Calcium,Total 8.8 mg/dL (8.5-10.1); Chloride 110 mmol/L (98-107); Creatinine, Serum 0.85 mg/dL (0.55-1.02); EST Glomerular Filtration Rate 68 mL/min (>60); Est Glom Filt Rate - Afr Amer 82 mL/min (>60); Estimated Creatinine Clearance 44.06 ml/min; Glucose 105 mg/dL (74-106); Potassium 3.8 mmol/L (3.5-5.1); Sodium Level 139 mmol/L (136-145)
--- NOTE | 2022-07-22 08:03 | PN.HOSP_ITS ---
Reason for Visit Reason for Visit: Diagnoses Hypertensive urgency (07/18/22) Atrioventricular block, second degree (07/18/22) Pneumonia, unspecified organism (07/18/22) Unilateral primary osteoarthritis, right knee (07/18/22) Bradycardia, unspecified (07/18/22) Other chest pain (07/18/22) Hypoxemia (07/18/22) Presence of right artificial knee joint (07/18/22) Subjective Subjective Did not feel well after receiving her AM meds. Later, complained of left foot pain. Objective Data Objective Data Vital Signs: Vital Signs Temp Pulse Resp BP Pulse Ox O2 Del Method 36.7 C 100 18 141/78 H 95 Room Air 07/22/22 04:40 07/22/22 06:47 07/22/22 06:47 07/22/22 04:40 07/22/22 06:47 07/22/22 06:47 Oxygen Delivery Method Room Air Weight: 92.1 kg Body Mass Index (BMI) 34.8 Intake & Output: Intake and Output for Last 24 Hours 07/20/22 07/21/22 07/22/22 23:59 23:59 23:59 Intake Total 1774 / 1774 371.5 / 371.5 314.75 / 314.75 Output Total 1900 / 1900 0 / 0 Balance 1774 / 1774 -1528.5 / -1528.5 314.75 / 314.75 Lab / Micro Data Result Diagrams: 07/20/22 06:30 07/22/22 04:45 Labs: Laboratory Results - last 24 hr 07/22/22 04:45: Sodium 139, Potassium 3.8, Chloride 110 H, Carbon Dioxide 21.0, Anion Gap 8, BUN 12, Creatinine 0.85, Estim Creat Clear Calc 44.06, Est GFR (MDRD) Af Amer 82, Est GFR (MDRD) Non-Af 68, BUN/Creatinine Ratio 14.1, Glucose 105, Calcium 8.8 Micro: Microbiology 07/19/22 05:30 Urine, Clean Catch Legionella Antigen - Final 07/19/22 05:30 Urine, Clean Catch Streptococcus pneumoniae Antigen (M - Final 07/18/22 23:30 Mucosa - Nasopharyngeal Respiratory Panel (PCR) - Final 07/18/22 19:37 Nasal Secretion SARS-CoV-2 & FLU Antigen (Rapid) - Final Radiography Diagnostic Testing: Radiology Impression Echocardiogram 07/19/22 14:32 Interpretation Summary Normal LV size. Left ventricular systolic function is normal. The estimated ejection fraction is 60 %. Mild concentric left ventricular hypertrophy. Structurally normal valves. Ordering Physician: Aric Wray Referring Physician: Tye Duncan M.D. Performed By: Natalya Liao RCS Chest X-Ray 07/22/22 05:55 IMPRESSION: 1. Status post AV pacemaker placement. No demonstrated pneumothorax. 2. Cardiomegaly. 3. Small pleural effusions with overlying atelectasis in the lung bases. Redemonstrated acute pulmonary infiltrates. 4. Large hiatal hernia. Electronically Signed: Esdras Edmonds MD at 5:04 EDT Reading Location ID and State: [facility] / [place] , Service support , Rhythm Strip Rhythm Strip: Bradycardia Rate: 39 Ectopy: None Physical Exam Const alert and no apparent distress HEENT head/scalp atraumatic and moist oral mucous membranes Resp normal respiratory effort, no retractions, no use of accessory muscles and clear to auscultation bilaterally Cardio regular rate, regular rhythm, S1 normal heart sound and S2 normal heart sound GI normal to inspection, nondistended, normoactive bowel sounds, soft to palpation, non-tender and non-distended Extremity normal to inspection and full ROM Assessment & Plan Assessment/Plan (1) Hypoxia: PLAN: Acute Hypoxia secondary to Acute Viral Syndrome, possible Viral PNA, low suspicion of bacterial superimposed pneumonia: CTPA was done which did not show PE or pneumonia but a small right effusion. Lungs are clear. Urinary antigens are negative. Respiratory panel negative. SARS-CoV-2 and rapid flu antigens are negative. Patient does not have history of COPD or on chronic inhalers. Catie incentive spirometry, Mucinex. Monitor clinically. 07/20: Hypoxia has resolved. URI symptoms have improved. (2) Chest tightness: PLAN: Atypical chest tightness, ACS ruled out: EKG in ED sinus bradycardia without acute evidence of ischemia. Scan as mentioned above. Serial troponins are negative therefore ACS ruled out. Might be from panic attack or acute bronchitis 07/20: Patient yesterday had chest pain which seemed more like pleuritic in nature. 2 serial troponin was done and negative. EKG did not show any specific ST-T changes therefore ACS ruled out. (3) Bradycardia: PLAN: Chronic bradycardia with possible type II second-degree AV block: Patient with significant chronic bradycardia although reports asymptomatic, heart rate in the 40s currently 07/20: Possible type II second-degree AV block: cobol programmer shows type II block with sometimes PVCs irregular heartbeat and missed heartbeat. Twelve-lead EKG type II, second-degree heart block.? Collections Technician was consulted on 07/19. Discussed with cardiology and plan for loop recorder tomorrow and may be pacemaker in future. She will follow-up with Dr. Fowler. Serum magnesium 1.6, phosphorus 3.8. Magnesium 2 g IV ordered as patient has mild hypomagnesemia optimize magnesium around 2.0 and K4.0. Twelve-lead EKG ordered. Pacemaker placed 07/21. Follow up with cardiology (4) Hypertensive urgency: PLAN: Hypertensive urgency: Continue home regimen including lisinopril, spironolactone, PRN hydralazine. Holding metoprolol as noted. 07/20: Started on HCTZ 25 mg daily yesterday decreased to 12.5 mg daily because of mild side effects. Started on oral hydralazine 25 mg 3 times daily. Monitor blood pressure. Blood pressure profile is better than yesterday. PLAN: Plan Hyperglycemia: Admission glucose 152, no diabetic history, a1c 5.1 Chronic conditions: * Hyperlipidemia: Continue home statin regimen. * Chronic Kidney Disease Stage III, unclear subtype: Admission BUN/Cr 25/1.11, baseline renal function primarily 0.9-1.0, repeat BMP in AM. * Obesity: Weight loss and lifestyle changes encouraged. * Anxiety with history of panic attacks: We will continue patient home low-dose Ativan regimen. * GERD: We will continue patient on famotidine regimen. DVT prophylaxis: Lovenox. CODE status: Full Disposition: did not do well with PT. May need SNF. Reeval 07/23. Charges/Coding Visit Charges Inpatient E&M: 78862 Subs Hosp L2
--- NOTE | 2022-07-22 09:23 | DCINST_ITS ---
Discharge Instructions Diet Discharge Diet: No restrictions Activity Discharge Activity: May Not Drive Additional Activity Instructions:: May shower or bathe on [day 3]. Do not scrub the incision or soak in the tub. Just wash with soap and let the water run over the incision. Gently pat dry with towel. Medications: Take your pain medication as directed. Refer to your discharge instruction sheet for a list of medications you are to take. Dressing / Incision Call your doctor if your incision/area has: Continuous Slow Oozing, Sudden Increased Bleeding, Increased Pain/ Swelling, Increased Redness, Foul Smelling Discharge and Swelling at the incision site Call your doctor if you observe: Fever of 101 or Higher, Shortness of breath, Dizziness, Fainting spells, Swelling in the ankles, Chest pain, Prolonged hiccupping and Increased palpitations (irregular heartbeat) Suture Line Care: Avoid Pulling/Pushing and Avoid Pinching/Bending Additional Dressing/Incision Instructions:: When dressing is removed, wash and dry incision. Keep covered with a light bandage if it is rubbing against your clothing. Do not cover the incision with an airtight bandage. Change the bandage daily. Do not remove steri strips. The strips will fall off on their own. Follow Up Care Please Follow Up With: Sudhir Fowler MD When: Pacer follow up on July 28 at 10am Test Results: Test results from this visit will be discussed in further detail at your follow- up appointment, if applicable. Discharge Plan Admission Admit Date/Time: 07/18/22 23:12 Attending Provider: Turner Ga Primary Care Provider: Tye Duncan Consulting Providers: Harika Townsend ; María Villalobos ; Aric Wray Discharge Orders/Prescriptions Prescriptions: No Action atorvastatin 20 MG tablet 20 mg PO DAILY Label Comments: cholesterol lowering lisinopril 20 MG tablet 20 mg PO BID Label Comments: BLOOD PRESSURE lorazepam 0.5 MG tablet 0.5 mg PO BID PRN PRN (Reason: Anxiety) Label Comments: anxiety multivitamin Tablet 1 tab PO DAILY famotidine 40 mg tablet 40 mg PO DAILY Label Comments: take 1 tablet by mouth once daily spironolactone 25 mg tablet 12.5 mg PO BID Label Comments: take 1 tablet by mouth once daily zinc 50 mg Tablet 50 mg PO DAILY calcium carbonate-vitamin D3 500 mg(1,250mg) -125 unit Tablet 2 tab PO DAILY metoprolol succinate 50 mg Tablet Extended Release 24 Hr 50 mg PO DAILY 30 Days Qty: 30 0RF acetaminophen 500 mg Tablet 1,000 mg PO Q8 Qty: 100 0RF Rx Instructions: Do not take more than 3000 mg Tylenol in a 24-hour period. oxycodone 5 mg Tablet 2.5 mg PO Q4H PRN PRN (Reason: Pain Score 4-10) 7 Days Qty: 14 0RF sennosides-docusate sodium [Stool Softener-Stimulant Laxat] 8.6-50 mg Tablet 2 tab PO BID Qty: 14 0RF Rx Instructions: Take until first bowel movement, then as needed oxycodone-acetaminophen [Percocet] 5-325 mg tablet 1 tab PO Q6H PRN (Reason: pain) 3 Days Qty: 12 0RF oxycodone-acetaminophen [Percocet] 5-325 mg tablet 1 tab PO Q6H PRN (Reason: pain) 3 Days Qty: 12 0RF doxazosin 1 mg tablet 1 mg PO QHS Referrals / Follow Up: Sabine Lipscomb [Registered Nurse] - 07/28/22 10:00 am (Wound Check with Pina STORM. ) Tye Duncan MD [Primary Care Provider] -
[2022-07-22] MEDS: Calcium Carb/Vitamin D 1 TABLET Tablet 2 TABLET PO (09:32)
[2022-07-22] MEDS: Aspirin 81 MG TAB.CHEW PO (09:32)
[2022-07-22] MEDS: guaiFENesin/D-Methorphan TAB.SR.12H 2 TABLET PO ×2 (09:32→22:29)
[2022-07-22] MEDS: Famotidine 20 MG Tablet 40 MG PO (09:32)
[2022-07-22] MEDS: hydroCHLOROthiazide 12.5mg 12.5 MG PO (09:33)
[2022-07-22] MEDS: Multivitamins,Therapeutic Tablet 1 TABLET PO (09:33)
[2022-07-22] MEDS: Spironolactone 25 MG Tablet PO (09:33)
[2022-07-22] MEDS: Enoxaparin 40 MG/0.4 ML Syringe SC (09:34)
[2022-07-22] MEDS: Lisinopril 20 MG Tablet PO ×2 (09:34→22:29)
--- NOTE | 2022-07-22 15:32 | CASEMGMT ---
SW gave patient a list of SNF providers including quality and resource use data and consistent with patient?s preferred geographic region, medical needs, and insurance network were provided from the [facility] Guide. Serena Daniel MSW, CUSTOMER RELATIONS ADVISOR
[2022-07-22] MEDS: Metoprolol(XL)Succ 50 MG Tablet PO (17:36)
[2022-07-22] MEDS: Ceftriaxone 1 GM/50 ML BAG IV (22:27)
[2022-07-22] MEDS: Atorvastatin Calcium 20 MG Tablet PO (22:29)
[2022-07-23] VITALS (10 sets, daily range): BP systolic 111–142; BP diastolic 50–64; PULSE 61–72; RESP 16–18; TEMP 36.8–36.9; O2SAT 94–97; BMI 34.8
[2022-07-23] MEDS: Acetaminophen 325 MG Tablet 650 MG PO (00:24)
[2022-07-23] MEDS: hydrALAZINE 50 MG Tablet PO ×3 (06:14→21:43)
--- NOTE | 2022-07-23 07:51 | PN.HOSP_ITS ---
Reason for Visit Reason for Visit: Diagnoses Hypertensive urgency (07/18/22) Atrioventricular block, second degree (07/18/22) Pneumonia, unspecified organism (07/18/22) Unilateral primary osteoarthritis, right knee (07/18/22) Bradycardia, unspecified (07/18/22) Other chest pain (07/18/22) Hypoxemia (07/18/22) Presence of right artificial knee joint (07/18/22) Subjective Subjective No new events. Objective Data Objective Data Vital Signs: Vital Signs Temp Pulse Resp BP Pulse Ox O2 Del Method 36.9 C 72 16 124/59 H 96 Room Air 07/23/22 06:09 07/23/22 06:14 07/23/22 06:09 07/23/22 06:14 07/23/22 06:09 07/23/22 06:15 Oxygen Delivery Method Room Air Weight: 92 kg Body Mass Index (BMI) 34.8 Intake & Output: Intake and Output for Last 24 Hours 07/21/22 07/22/22 07/23/22 23:59 23:59 23:59 Intake Total 371.5 / 371.5 1197.25 / 1597.25 782.5 / 782.5 Output Total 1900 / 1900 0 / 0 Balance -1528.5 / -1528.5 1197.25 / 1597.25 782.5 / 782.5 Lab / Micro Data Result Diagrams: 07/20/22 06:30 07/22/22 04:45 Micro: Microbiology 07/19/22 05:30 Urine, Clean Catch Legionella Antigen - Final 07/19/22 05:30 Urine, Clean Catch Streptococcus pneumoniae Antigen (M - Final 07/18/22 23:30 Mucosa - Nasopharyngeal Respiratory Panel (PCR) - Final 07/18/22 19:37 Nasal Secretion SARS-CoV-2 & FLU Antigen (Rapid) - Final Rhythm Strip Rhythm Strip: Bradycardia Rate: 39 Ectopy: None Physical Exam Const alert and no apparent distress HEENT head/scalp atraumatic, moist oral mucous membranes and oropharynx normal Resp normal respiratory effort, no retractions, no use of accessory muscles and clear to auscultation bilaterally Cardio regular rate, regular rhythm, S1 normal heart sound and S2 normal heart sound GI normal to inspection, nondistended, normoactive bowel sounds, soft to palpation, non-tender and non-distended Extremity Extremity Narrative: left arm in sling. Assessment & Plan Assessment/Plan (1) Hypoxia: PLAN: Acute Hypoxia secondary to Acute Viral Syndrome, possible Viral PNA, low suspicion of bacterial superimposed pneumonia: CTPA was done which did not show PE or pneumonia but a small right effusion. Lungs are clear. Urinary antigens are negative. Respiratory panel negative. SARS-CoV-2 and rapid flu antigens are negative. Patient does not have history of COPD or on chronic inhalers. DuoNeb, incentive spirometry, Mucinex. Monitor clinically. 07/20: Hypoxia has resolved. URI symptoms have improved. (2) Chest tightness: PLAN: Atypical chest tightness, ACS ruled out: EKG in ED sinus bradycardia without acute evidence of ischemia. Scan as mentioned above. Serial troponins are negative therefore ACS ruled out. Might be from panic attack or acute bronchitis 07/20: Patient yesterday had chest pain which seemed more like pleuritic in nature. 2 serial troponin was done and negative. EKG did not show any specific ST-T changes therefore ACS ruled out. 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 Twelve-lead EKG type II, second-degree heart block.? Mattress Finisher was consulted on 07/19. Discussed with cardiology and plan for loop recorder tomorrow and may be p acemaker in future. She will follow-up with Dr. Fowler. Serum magnesium 1.6, phosphorus 3.8. Magnesium 2 g IV ordered as patient has mild hypomagnesemia optimize magnesium around 2.0 and K4.0. Twelve-lead EKG ordered. Pacemaker placed 07/21. Follow up with cardiology (4) Hypertensive urgency: PLAN: Hypertensive urgency: Continue home regimen including lisinopril, spirono lactone, PRN hydralazine. Holding metoprolol as noted. 07/20: Started on HCTZ 25 mg daily yesterday decreased to 12.5 mg daily because of mild side effects. Started on oral hydralazine 25 mg 3 times daily. Monitor blood pressure. Blood pressure profile is better than yesterday. (5) Atrial flutter: PLAN: [id number] PLAN: Plan Hyperglycemia: Admission glucose 152, no diabetic history, a1c 5.1 Chronic conditions: * Hyperlipidemia: Continue home statin regimen. * Chronic Kidney Disease Stage III, unclear subtype: Admission BUN/Cr 25/1.11, baseline renal function primarily 0.9-1.0, repeat BMP in AM. * Obesity: Weight loss and lifestyle changes encouraged. * Anxiety with history of panic attacks: We will continue patient home low-dose Ativan regimen. * GERD: We will continue patient on famotidine regimen. DVT prophylaxis: Lovenox. CODE status: Full Disposition: did not do well with PT. May need SNF. Reeval 07/23. Charges/Coding Visit Charges Inpatient E&M: 28254 Subs Hosp L2
[2022-07-23] MEDS: Multivitamins,Therapeutic Tablet 1 TABLET PO (09:19)
[2022-07-23] MEDS: Calcium Carb/Vitamin D 1 TABLET Tablet 2 TABLET PO (09:19)
[2022-07-23] MEDS: Spironolactone 25 MG Tablet PO (09:19)
[2022-07-23] MEDS: Famotidine 20 MG Tablet 40 MG PO (09:20)
[2022-07-23] MEDS: Enoxaparin 40 MG/0.4 ML Syringe SC (09:20)
[2022-07-23] MEDS: hydroCHLOROthiazide 12.5mg 12.5 MG PO (09:20)
[2022-07-23] MEDS: Aspirin 81 MG TAB.CHEW PO (09:20)
[2022-07-23] MEDS: guaiFENesin/D-Methorphan TAB.SR.12H 2 TABLET PO ×2 (09:20→21:43)
[2022-07-23] MEDS: Metoprolol(XL)Succ 50 MG Tablet PO (09:21)
[2022-07-23] MEDS: Lisinopril 20 MG Tablet PO ×2 (09:21→21:47)
--- NOTE | 2022-07-23 10:25 | CASEMGMT ---
SW spoke with patient and her choices for residential would be [facility]. Referrals were sent via [facility]. Ashley JOHNSON
--- NOTE | 2022-07-23 12:20 | CASEMGMT ---
[facility] said they can take patient. Ashley Gardiner CONSTRUCTION TRADES CONTRACTOR ELIZABETH
--- NOTE | 2022-07-23 13:15 | CASEMGMT ---
This MARGE and MARGE Lyons met with patient to discuss placement. Patient asked if she could go to [facility]. MARGE told her we can check on bed availability, but if TCU cannot take her [facility] is able to take patient. SW checked with TCU and they would be able to take patient. MARGE Lyons notified patient that TCU can take her at discharge. Radha started the pre-cert process. MARGE notified [facility] that patient was going to a different facility. Plan: d/c to [facility]. Ashley JOHNSON
[2022-07-23] MEDS: Acetaminophen 325 MG Tablet PO (19:44)
[2022-07-23] MEDS: Ceftriaxone 1 GM/50 ML BAG IV (21:38)
[2022-07-23] MEDS: 0.9% Saline Lock 10 ML Syringe IV (21:42)
[2022-07-23] MEDS: Atorvastatin Calcium 20 MG Tablet PO (21:44)
[2022-07-23] MEDS: Senna/Docusate Sodium 1 Tablet 2 TABLET PO (21:46)
[2022-07-24] VITALS (13 sets, daily range): BP systolic 126–157; BP diastolic 50–114; PULSE 61–77; RESP 16–18; TEMP 36.6–36.7; O2SAT 95–97; BMI 34.9
[2022-07-24] MEDS: hydrALAZINE 50 MG Tablet PO ×3 (06:26→23:02)
[2022-07-24] MEDS: Aspirin 81 MG TAB.CHEW PO (08:11)
[2022-07-24] MEDS: Famotidine 20 MG Tablet 40 MG PO (08:11)
[2022-07-24] MEDS: Acetaminophen 325 MG Tablet 650 MG PO (08:11)
[2022-07-24] MEDS: Spironolactone 25 MG Tablet PO (08:12)
[2022-07-24] MEDS: Calcium Carb/Vitamin D 1 TABLET Tablet 2 TABLET PO (08:12)
[2022-07-24] MEDS: Metoprolol(XL)Succ 50 MG Tablet PO (08:12)
[2022-07-24] MEDS: Multivitamins,Therapeutic Tablet 1 TABLET PO (08:12)
[2022-07-24] MEDS: Lisinopril 20 MG Tablet PO ×2 (08:12→23:03)
[2022-07-24] MEDS: guaiFENesin/D-Methorphan TAB.SR.12H 2 TABLET PO ×2 (08:13→23:03)
[2022-07-24] MEDS: hydroCHLOROthiazide 12.5mg 12.5 MG PO (08:13)
--- NOTE | 2022-07-24 08:42 | PN.HOSP_ITS ---
Reason for Visit Reason for Visit: Diagnoses Hypertensive urgency (07/18/22) Atrioventricular block, second degree (07/18/22) Unspecified atrial flutter (07/18/22) Pneumonia, unspecified organism (07/18/22) Unilateral primary osteoarthritis, right knee (07/18/22) Bradycardia, unspecified (07/18/22) Other chest pain (07/18/22) Hypoxemia (07/18/22) Presence of right artificial knee joint (07/18/22) Subjective Subjective Last night, patient saw tubing on blood pressure machine and thought it was a snake. She turn on lights and saw that it was just simply tubing but was very concerned as snakes could be anywhere. Acknowledges that she has a long-term fear of snakes. Complains of watery eye, dry mouth, numbness in her right hand and feeling swelling on the bottom of her left foot. Objective Data Objective Data Vital Signs: Vital Signs Temp Pulse Resp BP Pulse Ox O2 Del Method 36.7 C 67 16 128/50 H 95 Room Air 07/24/22 08:10 07/24/22 08:12 07/24/22 08:10 07/24/22 08:12 07/24/22 08:19 07/24/22 08:19 Oxygen Delivery Method Room Air Weight: 92.5 kg Body Mass Index (BMI) 34.9 Intake & Output: Intake and Output for Last 24 Hours 07/22/22 07/23/22 07/24/22 23:59 23:59 23:59 Intake Total 1197.25 / 1597.25 1687.5 / 1687.5 Output Total 0 / 0 Balance 1197.25 / 1597.25 1687.5 / 1687.5 Lab / Micro Data Result Diagrams: 07/20/22 06:30 07/22/22 04:45 Micro: Microbiology 07/19/22 05:30 Urine, Clean Catch Legionella Antigen - Final 07/19/22 05:30 Urine, Clean Catch Streptococcus pneumoniae Antigen (M - Final 07/18/22 23:30 Mucosa - Nasopharyngeal Respiratory Panel (PCR) - Final 07/18/22 19:37 Nasal Secretion SARS-CoV-2 & FLU Antigen (Rapid) - Final Rhythm Strip Rhythm Strip: Bradycardia Rate: 39 Ectopy: None Physical Exam Const Constitutional Narrative: Up in chair. Anxious. Afebrile. No respiratory distress. No conversational dyspnea. HEENT head/scalp atraumatic and moist oral mucous membranes Extremity Extremity Narrative: Lower extremity edema Neuro oriented x3, moves all extremities, no focal motor deficits and no sensory deficits noted Sensorium / Orientation: awake and alert Assessment & Plan Assessment/Plan (1) Hypoxia: PLAN: Acute Hypoxia secondary to Acute Viral Syndrome, possible Viral PNA, low suspicion of bacterial superimposed pneumonia: CTPA was done which did not show PE or pneumonia but a small right effusion. Lungs are clear. Urinary antigens are negative. Respiratory panel negative. SARS-CoV-2 and rapid flu antigens are negative. Patient does not have history of COPD or on chronic inhalers. DuoNeb, incentive spirometry, Mucinex. Monitor clinically. 07/20: Hypoxia has resolved. URI symptoms have improved. (2) Chest tightness: PLAN: Atypical chest tightness, ACS ruled out: EKG in ED sinus bradycardia without acute evidence of ischemia. Scan as mentioned above. Serial troponins are negative therefore ACS ruled out. Might be from panic attack or acute bronchitis 07/20: Patient yesterday had chest pain which seemed more like pleuritic in nature. 2 serial troponin was done and negative. EKG did not show any specific ST-T changes therefore ACS ruled out. 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 Twelve-lead EKG type II, second-degree heart block.? Senior Merchandiser was consulted on 07/19. Discussed with cardiology and plan for loop recorder tomorrow and may be pacemaker in future. She will follow-up with Dr. Fowler. Serum magnesium 1.6, phosphorus 3.8. Magnesium 2 g IV ordered as patient has mild hypomagnesemia optimize magnesium around 2.0 and K4.0. Twelve-lead EKG ordered. Pacemaker placed 07/21. Follow up with cardiology (4) Hypertensive urgency: PLAN: Hypertensive urgency: Continue home regimen including lisinopril, spironolactone, PRN hydralazine. Holding metoprolol as noted. 07/20: Started on HCTZ 25 mg daily yesterday decreased to 12.5 mg daily because of mild side effects. Started on oral hydralazine 25 mg 3 times daily. Monitor blood pressure. Blood pressure profile is better than yesterday. (5) Atrial flutter: PLAN: [id number] (6) Paresthesias: PLAN: Patient also complains of nikko to other symptoms regards to the left-sided paresthesias including dry mouth, watery eye and dizziness amongst also being very concerned about snakes even though stakes can be everywhere according to her. Seems more anxiety induced but will check head CT to rule out any other obvious etiology. Patient likely require reassurance particularly if the head CT is negative. PLAN: Plan Hyperglycemia: Admission glucose 152, no diabetic history, a1c 5.1 Chronic conditions: * Hyperlipidemia: Continue home statin regimen. * Chronic Kidney Disease Stage III, unclear subtype: Admission BUN/Cr 25/1.11, baseline renal function primarily 0.9-1.0, repeat BMP in AM. * Obesity: Weight loss and lifestyle changes encouraged. * Anxiety with history of panic attacks: We will continue patient home low-dose Ativan regimen. * GERD: We will continue patient on famotidine regimen. DVT prophylaxis: Lovenox. CODE status: Full Disposition: to SNF pending insurance authorization. Charges/Coding Visit Charges Inpatient E&M: 16513 Subs Hosp L2
--- NOTE | 2022-07-24 12:07 | CT_ITS ---
STUDY: CT BRAIN WITHOUT CONTRAST REASON FOR EXAM: Female, 82 years old. Paresthesia. Dizziness and hypertension. RADIATION DOSAGE (If Supplied By Facility): CTDIvol = ( 44.99 ) mGy, DLP = ( 829.85 ) mGycm TECHNIQUE: Transaxial CT imaging of the brain was performed without administration of intravenous contrast material. Individualized dose optimization techniques were used for this CT. COMPARISON: No relevant priors. FINDINGS: Normal soft tissue structures. There is hyperostosis frontalis internus. There is mild cerebral atrophy with widening of the extra-axial spaces and ventricular dilatation. Normal white matter tracts of the cerebral hemispheres. Normal basal ganglia and thalami. Normal brainstem. Normal cerebellum. There is no intracranial hemorrhage. There are no findings of an acute ischemic infarction. Atherosclerotic calcification of the cavernous portions of the internal carotid arteries bilaterally. Normal visualized paranasal sinuses. CT/Brain/Head without Contrast IMPRESSION: Chronic involutional changes of the brain. Electronically Signed: Pradeep Barba MD at 14:53 EDT ,
[2022-07-24] MEDS: Enoxaparin 40 MG/0.4 ML Syringe SC (14:47)
--- NOTE | 2022-07-24 16:44 | CASEMGMT ---
Still waiting on insurance to authorize patient to go to TCU. Ashley Gardiner NURSE CLINICIAN ELIZABETH
[2022-07-24] MEDS: Atorvastatin Calcium 20 MG Tablet PO (23:02)
--- NOTE | 2022-07-25 00:28 | PCM.PN.BLA ---
Progress Note Nurse reported that patient is on IV Zithromax and Rocephin and patient is complaining of pain at IV. Reportedly new IV has been placed but patient still continues of pain. Patient is requesting p.o. antibiotics. Reportedly patient received part of Zithromax IV. From review of charts patient likely has acute viral syndrome, possible viral pneumonia with low suspicion of bacterial superimposed pneumonia. Will discontinue IV antibiotics. We will get procalcitonin a.m.
[2022-07-25 04:02] LABS: Procalcitonin 0.07 ng/mL (0.00-0.09)
[2022-07-25 04:10] VITALS: BP 144/57; PULSE 62; RESP 18; TEMP 36.8; O2SAT 95
[2022-07-25] MEDS: 0.9% Saline Lock 10 ML Syringe IV (05:29)
[2022-07-25 05:30] VITALS: BP 144/57; PULSE 62
[2022-07-25] MEDS: hydrALAZINE 50 MG Tablet PO (05:30)
[2022-07-25 06:00] VITALS: BMI 34.9
[2022-07-25 07:10] VITALS: O2SAT 95
--- NOTE | 2022-07-25 07:10 | CPS ---
Pt continues to refuse aerosols, R.T. will contact
--- NOTE | 2022-07-25 07:58 | PN.HOSP_ITS ---
Reason for Visit Reason for Visit: Diagnoses Hypertensive urgency (07/18/22) Atrioventricular block, second degree (07/18/22) Unspecified atrial flutter (07/18/22) Pneumonia, unspecified organism (07/18/22) Unilateral primary osteoarthritis, right knee (07/18/22) Bradycardia, unspecified (07/18/22) Other chest pain (07/18/22) Hypoxemia (07/18/22) Paresthesia of skin (07/18/22) Presence of right artificial knee joint (07/18/22) Subjective Subjective No further hallucinations. Objective Data Objective Data Vital Signs: Vital Signs Temp Pulse Resp BP Pulse Ox O2 Del Method 36.8 C 62 18 144/57 H 95 Room Air 07/25/22 04:10 07/25/22 05:30 07/25/22 04:10 07/25/22 05:30 07/25/22 04:10 07/25/22 04:10 Oxygen Delivery Method Room Air Weight: 92.5 kg Body Mass Index (BMI) 34.9 Intake & Output: Intake and Output for Last 24 Hours 07/23/22 07/24/22 07/25/22 23:59 23:59 23:59 Intake Total 1687.5 / 1687.5 680 / 680 Balance 1687.5 / 1687.5 680 / 680 Lab / Micro Data Result Diagrams: 07/20/22 06:30 07/22/22 04:45 Labs: Laboratory Results - last 24 hr 07/25/22 03:30: Procalcitonin 0.07 Micro: Microbiology 07/19/22 05:30 Urine, Clean Catch Legionella Antigen - Final 07/19/22 05:30 Urine, Clean Catch Streptococcus pneumoniae Antigen (M - Final 07/18/22 23:30 Mucosa - Nasopharyngeal Respiratory Panel (PCR) - Final 07/18/22 19:37 Nasal Secretion SARS-CoV-2 & FLU Antigen (Rapid) - Final Radiography Diagnostic Testing: Radiology Impression Brain CT 07/24/22 12:07 IMPRESSION: Chronic involutional changes of the brain. Electronically Signed: Pradeep Barba MD at 14:53 EDT , Rhythm Strip Rhythm Strip: Bradycardia Rate: 39 Ectopy: None Physical Exam Const alert and no apparent distress Resp normal respiratory effort, no retractions, no use of accessory muscles and clear to auscultation bilaterally Cardio regular rate, regular rhythm, S1 normal heart sound and S2 normal heart sound GI normal to inspection, nondistended, normoactive bowel sounds, soft to palpation, non-tender and non-distended Assessment & Plan Assessment/Plan (1) Hypoxia: PLAN: Acute Hypoxia secondary to Acute Viral Syndrome, possible Viral PNA, low suspicion of bacterial superimposed pneumonia: CTPA was done which did not show PE or pneumonia but a small right effusion. Lungs are clear. Urinary antigens are negative. Respiratory panel negative. SARS-CoV-2 and rapid flu antigens are negative. Patient does not have history of COPD or on chronic inhalers. DuoNeb, incentive spirometry, Mucinex. Monitor clinically. 07/20: Hypoxia has resolved. URI symptoms have improved. (2) Chest tightness: PLAN: Atypical chest tightness, ACS ruled out: EKG in ED sinus bradycardia without acute evidence of ischemia. Scan as mentioned above. Serial troponins are negative therefore ACS ruled out. Might be from panic attack or acute bronchitis 07/20: Patient yesterday had chest pain which seemed more like pleuritic in nature. 2 serial troponin was done and negative. EKG did not show any specific ST-T changes therefore ACS ruled out. 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 Twelve-lead EKG type II, second-degree heart block.? Yard Motor Operator was consulted on 07/19. Discussed with cardiology and plan for loop recorder tomorrow and may be pacemaker in future. She will follow-up with Dr. Fowler. Serum magnesium 1.6, phosphorus 3.8. Magnesium 2 g IV ordered as patient has mild hypomagnesemia optimize magnesium around 2.0 and K4.0. Twelve-lead EKG ordered. Pacemaker placed 07/21. Follow up with cardiology (4) Hypertensive urgency: PLAN: Hypertensive urgency: Continue home regimen including lisinopril, spironolactone, PRN hydralazine. Holding metoprolol as noted. 07/20: Started on HCTZ 25 mg daily yesterday decreased to 12.5 mg daily because of mild side effects. Started on oral hydralazine 25 mg 3 times daily. Monitor blood pressure. Blood pressure profile is better than yesterday. (5) Atrial flutter: PLAN: [id number] (6) Paresthesias: PLAN: Patient also complains of myriad of other symptoms regards to the left- sided paresthesias including dry mouth, watery eye and dizziness amongst also being very concerned about snakes even though stakes can be everywhere according to her. Seems more anxiety induced but will check head CT to rule out any other obvious etiology. Head CT negativePatient likely require reassurance particularly if the head CT is negative. PLAN: Plan Hyperglycemia: Admission glucose 152, no diabetic history, a1c 5.1 Chronic conditions: * Hyperlipidemia: Continue home statin regimen. * Chronic Kidney Disease Stage III, unclear subtype: Admission BUN/Cr 25/1.11, baseline renal function primarily 0.9-1.0, repeat BMP in AM. * Obesity: Weight loss and lifestyle changes encouraged. * Anxiety with history of panic attacks: We will continue patient home low-dose Ativan regimen. * GERD: We will continue patient on famotidine regimen. DVT prophylaxis: Lovenox. CODE status: Full Disposition: to SNF pending. Explained concern in [id number], that although the patient can ambulate w little assistance, she is limited in regards to how far she goes. She is also limited because of the sling that she has for the pacemaker on her left side and also that the family support though present would not be to the level that she would require in addition to home care.
[2022-07-25 09:00] VITALS: BP 129/80; PULSE 61; RESP 18; TEMP 36.4; O2SAT 96
[2022-07-25] MEDS: Spironolactone 25 MG Tablet PO (09:40)
[2022-07-25] MEDS: Enoxaparin 40 MG/0.4 ML Syringe SC (09:40)
[2022-07-25] MEDS: Famotidine 20 MG Tablet 40 MG PO (09:41)
[2022-07-25] MEDS: Senna/Docusate Sodium 1 Tablet 2 TABLET PO (09:41)
[2022-07-25] MEDS: Aspirin 81 MG TAB.CHEW PO (09:41)
[2022-07-25] MEDS: hydroCHLOROthiazide 12.5mg 12.5 MG PO (09:42)
[2022-07-25] MEDS: Calcium Carb/Vitamin D 1 TABLET Tablet 2 TABLET PO (09:42)
[2022-07-25] MEDS: guaiFENesin/D-Methorphan TAB.SR.12H 2 TABLET PO (09:42)
[2022-07-25] MEDS: Multivitamins,Therapeutic Tablet 1 TABLET PO (09:42)
[2022-07-25] MEDS: Lisinopril 20 MG Tablet PO (09:42)
[2022-07-25 09:43] VITALS: PULSE 61
[2022-07-25] MEDS: Metoprolol(XL)Succ 50 MG Tablet PO (09:43)
--- NOTE | 2022-07-25 11:00 | CASEMGMT ---
Patient's insurance denied TCU. SW spoke with patient and she would like physician to do peer to peer. SW told patient she should talk with her daughter in case insurance still denies TCU. Patient is nervous about going home. SW spoke with physician and he will complete peer to peer. SW called insurance and scheduled peer to peer. Ashley Gardiner TURN DOWN WORKER ELIZABETH
--- NOTE | 2022-07-25 11:30 | CASEMGMT ---
Physician did peer to peer and patient was approved. SW notified patient, Radha in TCU, and racing secretary. SW assisted patient in calling her daughter to notify her of the approval. Plan: d/c to [facility] under skilled level of care. Ashley JOHNSON
--- NOTE | 2022-07-25 11:35 | TREXTCAR_ITS ---
Diet Diet Order/Speech Therapy: 07/21/22 Dinner Diet: Cardiac - Heart Healthy Is pt able to select menu?: Yes Wound(s) Left Chest: Wound Type: Surgical Incision Therapies Weight Bearing: Non weight bearing (left upper extremity. sling to LUE when up until cleared by cardiology. ) Physical Therapy: Eval and Treat Occupational Therapy: Eval and Treat Problem/Diagnosis (1) Hypoxia: Status: Acute Code(s): R09.02 - Hypoxemia Plan: Acute Hypoxia secondary to Acute Viral Syndrome, possible Viral PNA, low suspicion of bacterial superimposed pneumonia: CTPA was done which did not show PE or pneumonia but a small right effusion. Lungs are clear. Urinary antigens are negative. Respiratory panel negative. SARS-CoV-2 and rapid flu antigens are negative. Patient does not have history of COPD or on chronic inhalers. DuoNeb, incentive spirometry, Mucinex. Monitor clinically. 07/20: Hypoxia has resolved. URI symptoms have improved. (2) Chest tightness: Status: Acute Code(s): R07.89 - Other chest pain Plan: Atypical chest tightness, ACS ruled out: EKG in ED sinus bradycardia without acute evidence of ischemia. Scan as mentioned above. Serial troponins are negative therefore ACS ruled out. Might be from panic attack or acute bronchitis 07/20: Patient yesterday had chest pain which seemed more like pleuritic in nature. 2 serial troponin was done and negative. EKG did not show any specific ST-T changes therefore ACS ruled out. 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 Twelve-lead EKG type II, second-degree heart block.? Numerical Control Machine Machinist was consulted on 07/19. Discussed with cardiology and plan for loop recorder tomorrow and may be pacemaker in future. She will follow-up with Dr. Fowler. Serum magnesium 1.6, phosphorus 3.8. Magnesium 2 g IV ordered as patient has mild hypomagnesemia optimize magnesium around 2.0 and K4.0. Twelve-lead EKG ordered. Pacemaker placed 07/21. Follow up with cardiology (4) Hypertensive urgency: Status: Acute Code(s): I16.0 - Hypertensive urgency Plan: Hypertensive urgency: Continue home regimen including lisinopril, spironolactone, PRN hydralazine. Holding metoprolol as noted. 07/20: Started on HCTZ 25 mg daily yesterday decreased to 12.5 mg daily because of mild side effects. Started on oral hydralazine 25 mg 3 times daily. Monitor blood pressure. Blood pressure profile is better than yesterday. (5) Atrial flutter: Status: Acute Code(s): I48.92 - Unspecified atrial flutter Plan: [id number] 4 (6) Paresthesias: Status: Acute Code(s): R20.2 - Paresthesia of skin Plan: Patient also complains of myriad of other symptoms regards to the left-sided paresthesias including dry mouth, watery eye and dizziness amongst also being very concerned about snakes even though stakes can be everywhere according to her. Seems more anxiety induced but will check head CT to rule out any other obvious etiology. Head CT negativePatient likely require reassurance particularly if the head CT is negative. Plan Hyperglycemia: Admission glucose 152, no diabetic history, a1c 5.1 Chronic conditions: * Hyperlipidemia: Continue home statin regimen. * Chronic Kidney Disease Stage III, unclear subtype: Admission BUN/Cr 25/1.11, baseline renal function primarily 0.9-1.0, repeat BMP in AM. * Obesity: Weight loss and lifestyle changes encouraged. * Anxiety with history of panic attacks: We will continue patient home low-dose Ativan regimen. * GERD: We will continue patient on famotidine regimen. DVT prophylaxis: Lovenox. CODE status: Full Disposition: to SNF pending. Explained concern in [id number], that although the patient can ambulate w little assistance, she is limited in regards to how far she goes. She is also limited because of the sling that she has for the pacemaker on her left side and also that the family support though present would not be to the level that she would require in addition to home care. Allergies/Procedures Done in Hospital Allergies No Known Allergies Allergy (Verified 07/18/22 19:21) Procedures: - (pacemaker) Type of Care/Length of Stay Estimated LOS: Convalescent Care Less Than 30 days Type of Care Needed: Skilled Rehab Potential: Fair Prognosis: Fair Additional Orders/Day of Discharge Day of Discharge: 07/25/22 Dietary and Speech Recommendations Dietitian Recommendations/Changes: Continue cardiac diet and encourage improved PO at meals. ONS if appetite does not improve; pt declines currently. Follow Up Care Please Follow Up With: Sudhir Fowler MD Discharge Plan Admission Admit Date/Time: 07/18/22 23:12 Primary Reason for Your Visit: bradycardia Attending Provider: Turner Ga Primary Care Provider: Tye Duncan Consulting Providers: Harika Townsend ; María Villalobos ; Aric Wray Discharge Orders/Prescriptions Prescriptions: New acetaminophen 325 mg Tablet 650 mg PO Q4H PRN PRN (Reason: Fever, pain -02/03) Qty: 0 0RF hydrochlorothiazide 12.5 mg Capsule 12.5 mg PO DAILY Qty: 0 0RF aspirin 81 mg Tablet,Chewable 81 mg PO BREAKFAST Qty: 0 0RF diltiazem HCl 180 mg capsule,extended release 24 hr 180 mg PO DAILY Qty: 30 0RF Continued atorvastatin 20 MG tablet 20 mg PO DAILY Label Comments: cholesterol lowering lisinopril 20 MG tablet 20 mg PO BID Label Comments: BLOOD PRESSURE multivitamin Tablet 1 tab PO DAILY famotidine 40 mg tablet 40 mg PO DAILY Label Comments: take 1 tablet by mouth once daily spironolactone 25 mg tablet 12.5 mg PO BID Label Comments: take 1 tablet by mouth once daily zinc 50 mg Tablet 50 mg PO DAILY calcium carbonate-vitamin D3 500 mg(1,250mg) -125 unit Tablet 2 tab PO DAILY sennosides-docusate sodium [Stool Softener-Stimulant Laxat] 8.6-50 mg Tablet 2 tab PO BID Qty: 14 0RF Rx Instructions: Take until first bowel movement, then as needed doxazosin 1 mg tablet 1 mg PO QHS lorazepam 0.5 MG tablet 0.5 mg PO BID PRN PRN (Reason: Anxiety) 3 Days Qty: 6 0RF Discontinued metoprolol succinate 50 mg Tablet Extended Release 24 Hr 50 mg PO DAILY 30 Days Qty: 30 0RF acetaminophen 500 mg Tablet 1,000 mg PO Q8 Qty: 100 0RF Rx Instructions: Do not take more than 3000 mg Tylenol in a 24-hour period. oxycodone 5 mg Tablet 2.5 mg PO Q4H PRN PRN (Reason: Pain Score 4-10) 7 Days Qty: 14 0RF oxycodone-acetaminophen [Percocet] 5-325 mg tablet 1 tab PO Q6H PRN (Reason: pain) 3 Days Qty: 12 0RF oxycodone-acetaminophen [Percocet] 5-325 mg tablet 1 tab PO Q6H PRN (Reason: pain) 3 Days Qty: 12 0RF Referrals / Follow Up: Sabine Lipscomb [Registered Nurse] - 07/28/22 10:00 am (Wound Check with Pina MENDOZA ) Tye Duncan MD [Primary Care Provider] - 07/28/22 2:40 pm Bay Smith NP, PRODUCTION CONTROL PEGBOARD CLERK-C [Med Staff - Adv Practice Prof] - 08/04/22 10:00 am Disposition Disposition (needs filled in before D/C Order can be placed): Custodial Facility
--- NOTE | 2022-07-25 11:46 | DS.PCM_ITS ---
Providers Date of Admission: 07/18/22 Primary Care Physician: Dr. Tye Duncan MD Consultations 07/19/22 12:06 Consult: Cardiology Routine Consulting Provider: María Villalobos Reason for Consult: Type 2 AV Block,2nd degree severe bradycardia EMERGENT Consult: No MD Notified: Yes Date Notified: 07/19/22 Time Notified: 12:06 Method of Notification: Verbal Reason For Visit: SUSPECTED VIRAL PNA/SYNDROME, HYPOXIA Diagnosis Discharge Diagnosis (1) Hypoxia: Status: Acute Code(s): R09.02 - Hypoxemia Plan: Acute Hypoxia secondary to Acute Viral Syndrome, possible Viral PNA, low suspicion of bacterial superimposed pneumonia: CTPA was done which did not show PE or pneumonia but a small right effusion. Lungs are clear. Urinary antigens are negative. Respiratory panel negative. SARS-CoV-2 and rapid flu antigens are negative. Patient does not have history of COPD or on chronic inhalers. DuoNeb, incentive spirometry, Mucinex. Monitor clinically. 07/20: Hypoxia has resolved. URI symptoms have improved. (2) Chest tightness: Status: Acute Code(s): R07.89 - Other chest pain Plan: Atypical chest tightness, ACS ruled out: EKG in ED sinus bradycardia without acute evidence of ischemia. Scan as mentioned above. Serial troponins are negative therefore ACS ruled out. Might be from panic attack or acute bronchitis 07/20: Patient yesterday had chest pain which seemed more like pleuritic in nature. 2 serial troponin was done and negative. EKG did not show any specific ST-T changes therefore ACS ruled out. 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 Twelve-lead EKG type II, second-degree heart block.? Digital Account Manager was consulted on 07/19. Discussed with cardiology and plan for loop recorder tomorrow and may be pacemaker in future. She will follow-up with Dr. Fowler. Serum magnesium 1.6, phosphorus 3.8. Magnesium 2 g IV ordered as patient has mild hypomagnesemia optimize magnesium around 2.0 and K4.0. Twelve-lead EKG ordered. Pacemaker placed 07/21. Follow up with cardiology (4) Hypertensive urgency: Status: Acute Code(s): I16.0 - Hypertensive urgency Plan: Hypertensive urgency: Continue home regimen including lisinopril, spi ronolactone, PRN hydralazine. Holding metoprolol as noted. 07/20: Started on HCTZ 25 mg daily yesterday decreased to 12.5 mg daily because of mild side effects. Started on oral hydralazine 25 mg 3 times daily. Monitor blood pressure. Blood pressure profile is better than yesterday. (5) Atrial flutter: Status: Acute Code(s): I48.92 - Unspecified atrial flutter Plan: [id number] 4 (6) Paresthesias: Status: Acute Code(s): R20.2 - Paresthesia of skin Plan: Patient also complains of myriad of other symptoms regards to the left-sided paresthesias including dry mouth, watery eye and dizziness amongst also being very concerned about snakes even though stakes can be everywhere according to h er. Seems more anxiety induced but will check head CT to rule out any other obvious etiology. Head CT negativePatient likely require reassurance particularly if the head CT is negative. Plan Hyperglycemia: Admission glucose 152, no diabetic history, a1c 5.1 Chronic conditions: * Hyperlipidemia: Continue home statin regimen. * Chronic Kidney Disease Stage III, unclear subtype: Admission BUN/Cr 25/1.11, baseline renal function primarily 0.9-1.0, repeat BMP in AM. * Obesity: Weight loss and lifestyle changes encouraged. * Anxiety with history of panic attacks: We will continue patient home low-dose Ativan regimen. * GERD: We will continue patient on famotidine regimen. DVT prophylaxis: Lovenox. CODE status: Full Disposition: to SNF pending. Explained concern in [id number], that although the patient can ambulate w little assistance, she is limited in regards to how far she goes. She is also limited because of the sling that she has for the pacemaker on her left side and also that the family support though present would not be to the level that she would require in addition to home care. Medications at Discharge Home Medications atorvastatin 20 mg tablet 20 mg PO DAILY 08/24/15 lisinopril 20 mg tablet 20 mg PO BID 08/24/15 calcium carbonate 500 mg-vitamin D3 3.125 mcg (125 unit) tablet 2 tab PO DAILY 02/01/21 famotidine 40 mg tablet 40 mg PO DAILY 02/01/21 multivitamin 1 tab PO DAILY 02/01/21 spironolactone 25 mg tablet 12.5 mg PO BID 02/01/21 zinc 50 mg tablet 50 mg PO DAILY 02/01/21 sennosides 8.6 mg-docusate sodium 50 mg tablet (Stool Softener-Stimulant Laxative) 2 tab PO BID #14 tabs 02/21/21 doxazosin 1 mg tablet 1 mg PO QHS 07/18/22 acetaminophen 325 mg tablet 650 mg PO Q4H PRN PRN Fever, pain -02/03 #0 tabs 07/25/22 aspirin 81 mg chewable tablet 81 mg PO BREAKFAST #0 tabs 07/25/22 diltiazem HCl 180 mg capsule,24 hr,extended release 180 mg PO DAILY #30 caps 07/25/22 hydrochlorothiazide 12.5 mg capsule 12.5 mg PO DAILY #0 caps 07/25/22 lorazepam 0.5 mg tablet 0.5 mg PO BID PRN PRN Anxiety 3 days #6 tabs 07/25/22 Hospital Course Procedures - (pacemaker) Summary of Care Provided Minutes Spent on Discharge: 45 Hospital Course: Patient with symptomatic bradycardia. Patient had a primary pacemaker placed on . Patient tolerated that well. Patient was having issues regards to mobil ity and getting around. Patient was appropriate for intermediate facility though she was walking, patient did require assistance as she could not walk very far and was limited because her left arm be in a sling and she would become weak. Patient did have a period where there was concern that she may have been hallucinating though I think it was the patient woke up in a deep sleep and was out of sorts and thought she saw tubing of blood pressure cuff being a snake but when she turned the lights she quickly realized it was not a snake. Daughter is concerned that this could be hallucinations and from her Internet research thought it could be due to the metoprolol. I told her that them seem to be unlikely but I did run the case with Dr. Adan who was unfamiliar with that side effect with metoprolol but recommended changing over to diltiazem 180 mg daily. Patient be going to the transitional care unit in stable condition. Weight / BMI Weight Weight: 92.5 kg Body Mass Index (BMI) 34.9 ABG / Lab / Microbiology Data Result Diagrams: 07/20/22 06:30 07/22/22 04:45 Laboratory: Laboratory Results - last 24 hr 07/25/22 03:30: Procalcitonin 0.07 Microbiology: Microbiology 07/19/22 05:30 Urine, Clean Catch Legionella Antigen - Final 07/19/22 05:30 Urine, Clean Catch Streptococcus pneumoniae Antigen (M - Final 07/18/22 23:30 Mucosa - Nasopharyngeal Respiratory Panel (PCR) - Final 07/18/22 19:37 Nasal Secretion SARS-CoV-2 & FLU Antigen (Rapid) - Final Radiography Diagnostic Testing: Radiology Impression Brain CT 07/24/22 12:07 IMPRESSION: Chronic involutional changes of the brain. Electronically Signed: Pradeep Barba MD at 14:53 EDT , D/C Instructions Discharge Diet: No restrictions Additional Activity Instructions: May shower or bathe on [day 3]. Do not scrub the incision or soak in the tub. Just wash with soap and let the water run over the incision. Gently pat dry with towel. Medications: Take your pain medication as directed. Refer to your discharge instruction sheet for a list of medications you are to take. Call your doctor if your incision/area has: Continuous Slow Oozing, Sudden Increased Bleeding, Increased Pain/ Swelling, Increased Redness, Foul Smelling Discharge and Swelling at the incision site Call your doctor if you observe: Fever of 101 or Higher, Shortness of breath, Dizziness, Fainting spells, Swelling in the ankles, Chest pain, Prolonged hiccupping and Increased palpitations (irregular heartbeat) Suture Line Care: Avoid Pulling/Pushing and Avoid Pinching/Bending Additional Dressing/Incision Instructions: When dressing is removed, wash and dry incision. Keep covered with a light bandage if it is rubbing against your clothing. Do not cover the incision with an airtight bandage. Change the bandage daily. Do not remove steri strips. The strips will fall off on their own. Please Follow Up With: Sudhir Fowler MD When: Pacer follow up on July 28 at 10am Meaningful Use Info Meaningful Use Diagnoses (Choose all that apply): None applicable Discharge Plan Admission Admit Date/Time: 07/18/22 23:12 Primary Reason for Your Visit: bradycardia Attending Provider: Turner Ga Primary Care Provider: Tye Duncan Consulting Providers: Harika Townsend ; María Villalobos ; Aric Wray Discharge Orders/Prescriptions Prescriptions: New acetaminophen 325 mg Tablet 650 mg PO Q4H PRN PRN (Reason: Fever, pain 1-02/03) Qty: 0 0RF hydrochlorothiazide 12.5 mg Capsule 12.5 mg PO DAILY Qty: 0 0RF aspirin 81 mg Tablet,Chewable 81 mg PO BREAKFAST Qty: 0 0RF diltiazem HCl 180 mg capsule,extended release 24 hr 180 mg PO DAILY Qty: 30 0RF Continued atorvastatin 20 MG tablet 20 mg PO DAILY Label Comments: cholesterol lowering lisinopril 20 MG tablet 20 mg PO BID Label Comments: BLOOD PRESSURE multivitamin Tablet 1 tab PO DAILY famotidine 40 mg tablet 40 mg PO DAILY Label Comments: take 1 tablet by mouth once daily spironolactone 25 mg tablet 12.5 mg PO BID Label Comments: take 1 tablet by mouth once daily zinc 50 mg Tablet 50 mg PO DAILY calcium carbonate-vitamin D3 500 mg(1,250mg) -125 unit Tablet 2 tab PO DAILY sennosides-docusate sodium [Stool Softener-Stimulant Laxat] 8.6-50 mg Tablet 2 tab PO BID Qty: 14 0RF Rx Instructions: Take until first bowel movement, then as needed doxazosin 1 mg tablet 1 mg PO QHS lorazepam 0.5 MG tablet 0.5 mg PO BID PRN PRN (Reason: Anxiety) 3 Days Qty: 6 0RF Discontinued metoprolol succinate 50 mg Tablet Extended Release 24 Hr 50 mg PO DAILY 30 Days Qty: 30 0RF acetaminophen 500 mg Tablet 1,000 mg PO Q8 Qty: 100 0RF Rx Instructions: Do not take more than 3000 mg Tylenol in a 24-hour period. oxycodone 5 mg Tablet 2.5 mg PO Q4H PRN PRN (Reason: Pain Score 4-10) 7 Days Qty: 14 0RF oxycodone-acetaminophen [Percocet] 5-325 mg tablet 1 tab PO Q6H PRN (Reason: pain) 3 Days Qty: 12 0RF oxycodone-acetaminophen [Percocet] 5-325 mg tablet 1 tab PO Q6H PRN (Reason: pain) 3 Days Qty: 12 0RF Referrals / Follow Up: Sabine Lipscomb [Registered Nurse] - 07/28/22 10:00 am (Wound Check with Pina MENDOZA ) Tye Duncan MD [Primary Care Provider] - 07/28/22 2:40 pm Bay Smith NP, MANUFACTURING TECHNOLOGY ANALYST-C [Med Staff - Adv Practice Prof] - 08/04/22 10:00 am Disposition Disposition (needs filled in before D/C Order can be placed): Care Home Facility Charges/Coding Visit Charges Inpatient E&M: 41276 Disch Hosp >30min
--- NOTE | 2022-07-25 12:00 | PHA.DC.MR ---
Pharmacy Service has performed discharge medication reconciliation for this patient upon transfer to [facility]. Home Medications atorvastatin 20 mg tablet 20 mg PO DAILY 08/24/15 lisinopril 20 mg tablet 20 mg PO BID 08/24/15 calcium carbonate 500 mg-vitamin D3 3.125 mcg (125 unit) tablet 2 tab PO DAILY 02/01/21 famotidine 40 mg tablet 40 mg PO DAILY 02/01/21 multivitamin 1 tab PO DAILY 02/01/21 spironolactone 25 mg tablet 12.5 mg PO BID 02/01/21 zinc 50 mg tablet 50 mg PO DAILY 02/01/21 sennosides 8.6 mg-docusate sodium 50 mg tablet (Stool Softener-Stimulant Laxative) 2 tab PO BID #14 tabs 02/21/21 doxazosin 1 mg tablet 1 mg PO QHS 07/18/22 acetaminophen 325 mg tablet 650 mg PO Q4H PRN PRN Fever, pain 1-02/03 #0 tabs 07/25/22 aspirin 81 mg chewable tablet 81 mg PO BREAKFAST #0 tabs 07/25/22 diltiazem HCl 180 mg capsule,24 hr,extended release 180 mg PO DAILY #30 caps 07/25/22 hydrochlorothiazide 12.5 mg capsule 12.5 mg PO DAILY #0 caps 07/25/22 lorazepam 0.5 mg tablet 0.5 mg PO BID PRN PRN Anxiety 3 days #6 tabs 07/25/22 The patient's discharge medication list was reviewed for discrepancies and discrepancies were resolved.
== END 2022-07-25 13:30 | disposition skilled nursing facility (03) | DRG 243 ==
LOC: ED 23:14 → MS3 23:35 → PCU 23:49
PROVIDERS: Hospitalist; Internal Medicine; Admitting Provider Family Medicine; Emergency Provider Emergency Medicine; PCP Internal Medicine
DX: I49.5 Sick sinus syndrome (principal); I48.92 Unspecified atrial flutter; I44.1 Atrioventricular block, second degree; N18.30 Chronic kidney disease, stage 3 unspecified; R00.1 Bradycardia, unspecified; M17.11 Unilateral primary osteoarthritis, right knee; J20.9 Acute bronchitis, unspecified; K21.9 Gastro-esophageal reflux disease without esophagitis; E78.00 Pure hypercholesterolemia, unspecified; I16.0 Hypertensive urgency; I12.9 Hypertensive chronic kidney disease with stage 1 through stage 4 chronic kidney disease, or unspecified chronic kidney disease; E86.0 Dehydration; E83.42 Hypomagnesemia; E66.9 Obesity, unspecified; F41.0 Panic disorder [episodic paroxysmal anxiety]; R09.02 Hypoxemia; I49.3 Ventricular premature depolarization; R73.9 Hyperglycemia, unspecified; Z20.822 Contact with and (suspected) exposure to COVID-19; Z79.891 Long term (current) use of opiate analgesic; Z96.651 Presence of right artificial knee joint; Z68.34 Body mass index [BMI] 34.0-34.9, adult
CPT/HCPCS: 33208; 36415; 70450; 71046; 71047; 71275; 80048; 80053; 81001; 83036; 83735; 83880; 84100; 84145; 84484; 85025; 87426; 87428; 87449; 87633; 87635; 93005; 93306; 94640; 94668; 97110; 97116; 97162; 97166; 97530; 97535; 99152; 99153; 99252; 99285; J7030; J7040; J7050; Q9957; Q9967; A4216; C1894; G0463; J0696; U0003; U0005

== ENCOUNTER 2022-07-25 13:45 | Inpatient (IN) | payer MEDICARE, SELFPAY ==
[2022-07-25 13:59] VITALS: BP 143/55; PULSE 60; RESP 16; TEMP 36.2; O2SAT 95; BMI 33.5
--- NOTE | 2022-07-25 15:29 | HP.PCM_ITS ---
HPI - General General Date of Admission: 07/25/22 Date of Service: 07/25/22 Chief Complaint: Here for rehabilitation. HPI Narrative 07/18/2022 CAROLINA DOMINIQUE, is a 82 Female who presents to [facility] with chest pain. Cold, cough x few days, taking Mucinex, OTC cough syrup. Sweaty, pins and needles sensation, took Lorazepam for panic disorder, did not feel better. Vague chest tightness. EKG okay, Troponin negative x 2. IV fluids for dehydration, pulsox 88% on room air with exertion. CT chest ordered to ruled out pulmonary embolism. Rocephin, Zithromax IV given for pneumonia. 07/18/2022 Admit to Hospital. Rocephin, Zithromax IV for pneumonia. Monitor bradycardia. 07/19/2022 CT chest showed small right pleural effusion. Urine antigens negative, Respiratory panel negative, covid19 negative, influenza negative. Heart rate 40's. 07/19/2022 Echo Normal LV size. Left ventricular systolic function normal. EF 60%. Mild concentric LVH. 07/20/2022 Hypoxia resolved, URI symptoms improved. Chest pain pleuritic, ACS ruled out. Cardiology recommends loop recorder, pacemaker in future. Magnesium replaced. HCTZ 12.5mg daily, Hydralazine 25mg tid for hypertension. 07/21/2022 Dr. Fowler implanted dual chamber pacemaker. 07/22/2022 Left foot pain. Consider SNF. 07/24/2022 Saw snakes at night, CT head ordered. 07/25/2022 Hallucinations resolved. 07/25/2022 Admit to TCU with debility, here for rehabilitation, strengthening, prior to discharge home alone. PENDING SALE TO [facility] Medical History (Updated 07/25/22 @ 15:[address] Philipp Boogie MD) Ambulates with cane Anxiety disorder Arthritis Chronic sinus bradycardia High cholesterol Hip dislocation, left Hypertension Presence of cardiac pacemaker Wears glasses Home Medications atorvastatin 20 mg tablet 20 mg PO DAILY cholesterol 08/24/15 [History Last Taken 02/19/21] lisinopril 20 mg tablet 20 mg PO BID BP 08/24/15 [History Last Taken 02/20/21 05 :30] calcium carbonate 500 mg-vitamin D3 3.125 mcg (125 unit) tablet 2 tab PO DAILY supplement 02/01/21 [History Last Taken 02/19/21] famotidine 40 mg tablet 40 mg PO DAILY acid reflux 02/01/21 [History Last Taken 02/19/21] multivitamin 1 tab PO DAILY supplement 02/01/21 [History Last Taken 02/19/21] spironolactone 25 mg tablet 12.5 mg PO BID fluid pill 02/01/21 [History Last Taken 02/19/21] zinc 50 mg tablet 50 mg PO DAILY supplement 02/01/21 [History Last Taken Unknown] doxazosin 1 mg tablet 1 mg PO QHS BP 07/18/22 [History Last Taken Unknown] acetaminophen 325 mg tablet 650 mg PO Q4H PRN PRN Fever, pain -02/03 #0 tabs 07/25/22 [Rx Last Taken Unknown] aspirin 81 mg chewable tablet 81 mg PO BREAKFAST heart 07/25/22 [History Last Taken Unknown] diltiazem HCl 180 mg capsule,24 hr,extended release 180 mg PO DAILY BP 07/25/22 [History Last Taken Unknown] hydrochlorothiazide 12.5 mg capsule 12.5 mg PO DAILY BP/fluid pill 07/25/22 [History Last Taken Unknown] lorazepam 0.5 mg tablet 0.5 mg PO BID PRN PRN Anxiety 3 days #6 tabs 07/25/22 [Rx Last Taken Unknown] sennosides 8.6 mg-docusate sodium 50 mg tablet (Stool Softener-Stimulant Laxative) 2 tab PO BID bowels 07/25/22 [History Last Taken Unknown] Allergy/AdvReac Type Severity Reaction Status Date / Time No Known Allergies Allergy Verified 07/18/22 19:21 Family History Mother Heart disease Hypertension Father CVA (cerebral vascular accident) Hypertension Surgical History (Updated 07/25/22 @ 15:[address] Philipp Boogie MD) History of permanent cardiac pacemaker placement History of right knee joint replacement Hx of colonoscopy Hx of foot surgery Hx of total hip arthroplasty Hx of tubal ligation Social History household members: none Smoking Status: Never smoker alcohol intake: never substance use type: does not use ROS Constitutional Constitutional: Denies chills, fever(s) or weight gain ENT HEENT: Denies headache(s), nasal congestion or nasal discharge Cardiovascular Cardiovascular: Denies chest pain or palpitations Respiratory/Chest Respiratory/Chest: Denies cough, excessive phlegm production or shortness of breath with exertion Gastrointestinal Gastrointestinal: Denies abdominal pain, nausea or vomiting Genitourinary Genitourinary: Denies dysuria Musculoskeletal Musculoskeletal: Denies joint pain or joint swelling Integumentary Integumentary: Denies rash or wounds Neurologic Neurologic: Denies focal weakness, numbness or tingling Psychiatric Psychiatric: Denies anxiety, auditory hallucinations, depression, homicidal ideation or suicidal ideation Vital Signs Vital Signs Vital Signs: 07/25/22 13:59 Temperature 97.1 F L Temperature Source Temporal Pulse Rate 60 Respiratory Rate 16 Blood Pressure 143/55 H Blood Pressure Mean 84 Blood Pressure Source Monitor Blood Pressure Position Sitting Blood Pressure Location Right Arm Pulse Ox 95 Oxygen Delivery Method Room Air Weight Weight: 91.399 kg Body Mass Index (BMI) 33.5 Physical Exam Const alert General Appearance: cooperative HEENT normocephalic Eyes PERRL and EOMs intact bilaterally Neck supple, no JVD and no carotid bruits Resp normal respiratory effort, normal air movement and clear to auscultation bilaterally Cardio regular rate and regular rhythm Cardio Narrative: Left upper chest pacemaker. GI normal to inspection, nondistended, normoactive bowel sounds, non-tender and non-distended Extremity normal capillary refill General Extremity: Negative for edema Skin no rashes or lesions noted General Skin Exam: no breakdown Psych affect normal Appearance: appropriate Assessment & Plan Assessment/Plan (1) Debility: (2) Chest pain: (3) Acute respiratory failure with hypoxia: (4) Viral bronchitis: (5) Bradycardia: (6) Hypertension: (7) Anxiety: (8) Hyperlipidemia: (9) GERD (gastroesophageal reflux disease): PLAN: Plan 82 year old female with below past medical history hospitalized for acute respiratory failure with hypoxia secondary to viral bronchitis, acute coronary syndrome ruled out, complicated by bradycardia requiring pacemaker implantation, admitted to TCU with debility, here for rehabilitation, strengthening, prior to discharge home alone. * Debility - PT/OT. * Pain - Tylenol 1000mg q6h prn pain (1-10). * Bowel - senna/colace 2 tablets bid, MOM 30ml po x 1 prn. * Adult immunization - Administer pneumonia vaccine, covid19 vaccine, flu vaccine as appropriate. * DVT prophylaxis - Hold, monitor. * Bradycardia - s/p pacemaker implantation. * CV prophylaxis - Aspirin 81mg daily. * Hyperlipidemia - Atorvastatin 20mg qhs. * Calcium deficiency - Calcium D 2 tablets daily. * Hypertension - Diltiazem 180mg daily, Doxazosin 1mg qhs, Lisinopril 20mg bid, HCTZ 12.5mg daily, Aldactone 12.5mg bid. * GERD - Famotidine 40mg daily. * Anxiety - Lorazepam 0.5mg bid prn, chronic stable [facility] use, GDR not recommended. * Nutrition - MVI 1 tablet daily. * Zinc deficiency - Zinc 220mg daily.
[2022-07-25] MEDS: Senna/Docusate Sodium 1 Tablet 2 TABLET PO (18:19)
[2022-07-25] MEDS: Spironolactone 25 MG Tablet 12.5 MG PO (18:19)
[2022-07-25] MEDS: Lisinopril 20 MG Tablet PO (18:19)
[2022-07-25] MEDS: Acetaminophen 500 MG Tablet 1000 MG PO (22:08)
[2022-07-25] MEDS: Doxazosin 1 MG Tablet PO (22:08)
[2022-07-25] MEDS: Atorvastatin Calcium 20 MG Tablet PO (22:08)
[2022-07-25] MEDS: LORazepam 0.5 MG Tablet PO (22:08)
[2022-07-26] MEDS: Famotidine 20 MG Tablet 40 MG PO (06:04)
[2022-07-26] MEDS: Lisinopril 20 MG Tablet PO ×2 (06:05→17:41)
[2022-07-26] MEDS: Senna/Docusate Sodium 1 Tablet 2 TABLET PO ×2 (06:05→17:41)
[2022-07-26] MEDS: dilTIAZem CD 180 MG Capsule PO (06:05)
[2022-07-26] MEDS: hydroCHLOROthiazide 12.5mg 12.5 MG PO (06:05)
[2022-07-26] MEDS: Spironolactone 25 MG Tablet 12.5 MG PO ×2 (06:06→17:41)
[2022-07-26 07:16] LABS: Basophil# 0.03 X10^3/uL; Basophil% 0.6 % (0-1); Eosinophil# 0.23 X10^3/uL; Eosinophils% 4.5 % (0-5); Hematocrit 32.6 % (37-47); Hemoglobin 10.6 g/dL (12.0-15.0); Lymphocyte % 19.6 % (19-41); Mean Corp Hgb Conc 32.5 g/dL (32-36); Mean Corpuscular Hgb 32.4 pg (27.0-32.0); Mean Corpuscular Volume 99.7 fL (81-99); Mean Platelet Vol. 9.4 fl (6.2-12.0); Monocyte# 0.79 X10^3/uL; Monocyte% 15.5 % (0-10); NRBC Flagged by Analyzer 0 % (0-5); Neutrophil # 3.02 X10^3/uL (2.7-7.7); Neutrophil % 59.2 % (47-70); Platelet Count 223 K/mm3 (150-450); RBC Distribution Width CV 11.9 % (11.6-14.6); RBC Distribution Width SD 43.4 fl (35.1-43.9); Red Blood Count 3.27 M/mm3 (4.2-5.4); White Blood Count 5.1 K/mm3 (4.4-11.0)
[2022-07-26 07:42] LABS: Anion Gap 5 (5-15); BUN 26 mg/dL (7-18); Calcium,Total 9.3 mg/dL (8.5-10.1); Chloride 107 mmol/L (98-107); Creatinine, Serum 1.18 mg/dL (0.55-1.02); EST Glomerular Filtration Rate 47 mL/min (>60); Est Glom Filt Rate - Afr Amer 56 mL/min (>60); Estimated Creatinine Clearance 33.08 ml/min; Glucose 103 mg/dL (74-106); Sodium Level 137 mmol/L (136-145)
[2022-07-26] MEDS: Acetaminophen 500 MG Tablet 1000 MG PO ×2 (08:26→20:00)
[2022-07-26] MEDS: Aspirin 81 MG TAB.CHEW PO (08:27)
[2022-07-26] MEDS: Multivitamins,Therapeutic Tablet 1 TABLET PO (08:27)
[2022-07-26] MEDS: Calcium Carb/Vitamin D 1 TABLET Tablet 2 TABLET PO (08:27)
[2022-07-26 09:54] VITALS: PULSE 67; RESP 18; O2SAT 97
[2022-07-26] MEDS: Tuberculin,Purif.prot.deriv. 50 TU/ML Vial 0.1 ML ID (10:52)
[2022-07-26 15:12] VITALS: BP 119/68; PULSE 61; RESP 16; TEMP 36.9; O2SAT 95
[2022-07-26 17:43] VITALS: BP 141/56; PULSE 61
[2022-07-26] MEDS: Atorvastatin Calcium 20 MG Tablet PO (20:00)
[2022-07-26] MEDS: Doxazosin 1 MG Tablet PO (20:00)
[2022-07-26] MEDS: LORazepam 0.5 MG Tablet PO (23:54)
[2022-07-27] MEDS: hydroCHLOROthiazide 12.5mg 12.5 MG PO (05:30)
[2022-07-27] MEDS: Lisinopril 20 MG Tablet PO ×2 (05:30→17:22)
[2022-07-27] MEDS: Senna/Docusate Sodium 1 Tablet 2 TABLET PO ×2 (05:30→17:22)
[2022-07-27] MEDS: dilTIAZem CD 180 MG Capsule PO (05:30)
[2022-07-27] MEDS: Spironolactone 25 MG Tablet 12.5 MG PO ×2 (05:30→17:22)
[2022-07-27] MEDS: Famotidine 20 MG Tablet 40 MG PO (05:30)
[2022-07-27 05:58] VITALS: BP 134/57; PULSE 77; RESP 18
[2022-07-27] MEDS: Calcium Carb/Vitamin D 1 TABLET Tablet 2 TABLET PO (08:18)
[2022-07-27] MEDS: Aspirin 81 MG TAB.CHEW PO (08:19)
[2022-07-27] MEDS: Multivitamins,Therapeutic Tablet 1 TABLET PO (08:19)
[2022-07-27 14:56] VITALS: BP 113/59; PULSE 81; RESP 16; TEMP 36.8; O2SAT 97
[2022-07-27] MEDS: Doxazosin 1 MG Tablet PO (20:51)
[2022-07-27] MEDS: Atorvastatin Calcium 20 MG Tablet PO (20:51)
[2022-07-27] MEDS: Acetaminophen 500 MG Tablet 1000 MG PO (21:05)
[2022-07-27 21:10] VITALS: PULSE 74; RESP 16; O2SAT 96
--- NOTE | 2022-07-27 23:08 | NURSING ---
Patient woke up, yelling help. Was disoriented, stated she didn't know where she was at at first and didn't see anyone. Assured her that she was safe, and there are people here to help her. She stated she didn't feel right and was very hot. Removed one blanket, socks from feet and set thermostat back. Does have Ativan available for anxiety, but did not want it at this time. Will continue to monitor.
[2022-07-28] MEDS: Senna/Docusate Sodium 1 Tablet 2 TABLET PO (06:10)
[2022-07-28] MEDS: Lisinopril 20 MG Tablet PO ×2 (06:10→16:45)
[2022-07-28] MEDS: Spironolactone 25 MG Tablet 12.5 MG PO ×2 (06:11→18:21)
[2022-07-28] MEDS: hydroCHLOROthiazide 12.5mg 12.5 MG PO (06:11)
[2022-07-28] MEDS: dilTIAZem CD 180 MG Capsule PO (06:11)
[2022-07-28] MEDS: Famotidine 20 MG Tablet 40 MG PO (06:11)
[2022-07-28] MEDS: Acetaminophen 500 MG Tablet 1000 MG PO ×3 (06:13→21:07)
[2022-07-28] MEDS: Aspirin 81 MG TAB.CHEW PO (08:01)
[2022-07-28] MEDS: Multivitamins,Therapeutic Tablet 1 TABLET PO (08:03)
[2022-07-28] MEDS: Calcium Carb/Vitamin D 1 TABLET Tablet 2 TABLET PO (08:03)
[2022-07-28 10:44] VITALS: O2SAT 95
--- NOTE | 2022-07-28 10:44 | NURSING ---
Patient offered Covid bivalent booster, education provided. She reports that after having her first booster she decided she didn't want anymore and refuses vaccine at this time.
--- NOTE | 2022-07-28 11:30 | NURSING ---
Car Distributor Note; Activity Asset: Anneamrie Prince is independent in her choice of daily activities. She stated she also likes to be called Jen. She will watch tv, read and stated she enjoys the pet and [place] visits. She is not interested in group activities at this time, will continue to do social visit and encourage small group activities for social well-being.
--- NOTE | 2022-07-28 12:51 | NURSING ---
Return from [facility]. Office calls and reports that patient has new onset a-fib since pacer placed and would like order for Eliquis placed.
[2022-07-28 14:36] VITALS: BP 131/55; PULSE 68; RESP 16; TEMP 36.8; O2SAT 96
--- NOTE | 2022-07-28 14:46 | PHA.CONS_ITS ---
TCU RX Drug Regimen Review Subjective: TCU Admission. 82 YOF presented to the ER with chest pain. Hospitalized for acute respiratory failure with hypoxia secondary to viral bronchitis, acute coronary syndrome ruled out, complicated by bradycardia requiring pacemaker implantation. Admitted to TCU with debility for strengthening and rehabilitation. Objective: Allergies No Known Allergies Allergy (Verified 07/18/22 19:21) Current Medications Generic Name Dose Route Start Last Admin Trade Name Freq PRN Reason Stop Dose Admin Acetaminophen 1,000 mg 07/25/22 15:58 07/28/22 06:13 Acetaminophen 500 Mg Tablet PO 1,000 mg Q6H PRN PRN Administration Pain Score 1-10 Apixaban 5 mg 07/28/22 18:00 Apixaban 5 Mg Tablet PO BID AUGUST Aspirin 81 mg 07/26/22 08:00 07/28/22 08:01 Aspirin 81 Mg Tab.Chew PO 81 mg BREAKFAST AUGUST Administration Atorvastatin Calcium 20 mg 07/25/22 22:00 07/27/22 20:51 Atorvastatin Calcium 20 Mg Tablet PO 20 mg QHS AUGUST Administration Calcium/Vitamin D 2 tablet 07/26/22 08:00 07/28/22 08:03 Calcium Carb/Vitamin D 1 Tablet Tablet PO 2 tablet DAILYCM AUGUST Administration Diltiazem HCl 180 mg 07/26/22 06:00 07/28/22 06:11 Diltiazem Cd 180 Mg Capsule PO 180 mg DAILY AUGUST Administration Doxazosin Mesylate 1 mg 07/25/22 22:00 07/27/22 20:51 Doxazosin 1 Mg Tablet PO 1 mg QHS AUGUST Administration Famotidine 40 mg 07/26/22 06:00 07/28/22 06:11 Famotidine 20 Mg Tablet PO 40 mg DAILY AUGUST Administration Hydrochlorothiazide 12.5 mg 07/26/22 06:00 07/28/22 06:11 Hydrochlorothiazide 12.5mg PO 12.5 mg DAILY AUGUST Administration Lisinopril 20 mg 07/25/22 18:00 07/28/22 06:10 Lisinopril 20 Mg Tablet PO 20 mg BID AUGUST Administration Lorazepam 0.5 mg 07/25/22 14:04 07/26/22 23:54 Lorazepam 0.5 Mg Tablet PO 0.5 mg BID PRN PRN Administration ANXIETY Magnesium Hydroxide 30 ml 07/25/22 15:58 Magnesium Hydroxide 30 Ml Udc PO X1 PRN Constipation Multivitamins 1 tablet 07/26/22 08:00 07/28/22 08:03 Multivitamins,Therapeutic Tablet PO 1 tablet DAILYCM AUGUST Administration Senna/Docusate Sodium 2 tablet 07/25/22 18:00 07/28/22 06:10 Senna/Docusate Sodium 1 Tablet PO 1 tablet BID AUGUST Administration Spironolactone 12.5 mg 07/25/22 18:00 07/28/22 06:11 Spironolactone 25 Mg Tablet PO 12.5 mg BID AUGUST Administration Tuberculin PPD 0.1 ml 08/02/22 10:00 Tuberculin,Purif.Prot.Deriv. 50 Tu/Ml Vial ID 08/02/22 10:01 X1 ONE Zinc Sulfate 220 mg 07/26/22 08:00 07/28/22 08:03 Zinc Sulfate (50mg Elemental) 220 Mg Capsule PO 220 mg DAILYCM AUGUST Administration Problem List (Last Updated 07/28/22 @ 12:49 by Brooke Graham PA, PA) GERD (gastroesophageal reflux disease) (Acute) Hyperlipidemia (Acute) Anxiety (Acute) Hypertension (Chronic) Viral bronchitis (Acute) Acute respiratory failure with hypoxia (Acute) Chest pain (Acute) Debility (Acute) Bradycardia (Acute) Vital Signs Temp Pulse Resp BP Pulse Ox O2 Del Method 98.3 F 68 16 131/55 H 96 Room Air 07/28/22 14:36 07/28/22 14:36 07/28/22 14:36 07/28/22 14:36 07/28/22 14:36 07/28/22 14:36 Oxygen Delivery Method Room Air Weight: 91.399 kg Body Mass Index (BMI) 33.5 Sodium 137 mmol/L (136-145) 07/26/22 06:50 Potassium 4.0 mmol/L (3.5-5.1) 07/26/22 06:50 Chloride 107 mmol/L (98-107) 07/26/22 06:50 Carbon Dioxide 25.0 mmol/L (21.0-32.0) 07/26/22 06:50 Anion Gap 5 (5-15) 07/26/22 06:50 BUN 26 mg/dL (7-18) H 07/26/22 06:50 Creatinine 1.18 mg/dL (0.55-1.02) H 07/26/22 06:50 Est GFR (MDRD) Af Amer 56 mL/min (>60) L 07/26/22 06:50 Est GFR (MDRD) Non-Af 47 mL/min (>60) L 07/26/22 06:50 BUN/Creatinine Ratio 22.0 RATIO (10-20) H 07/26/22 06:50 Glucose 103 mg/dL (74-106) 07/26/22 06:50 Assessment/Plan: 1. Pain: acetaminophen 1000mg PO Q6H PRN pain 1-10. Resident has had 5 doses for pain of 3-6 in the shoulder/arm/back/wrist/hand. Please continue to monitor for increased pain and PRN usage. 2. Bowel: senna/docusate 2T PO BID and MOM 30mL PO x1 PRN constipation. Resident has not used any PRN doses. Please continue to monitor for constipation and PRN usage. Last documented bowel movement from 07/23. 3. CV prophylaxis: aspirin 81mg PO daily. Please continue to monitor for S/S of bleeding and hemoglobin (last 10.6g/dL). 4. Hypertension/atrial fibrillation (per nursing note): diltiazem CD 180mg PO daily, doxazosin 1mg PO QHS, lisinopril 20mg PO BID, hydrochlorothiazide 12.5mg PO daily, spironolactone 12.5mg PO BID and apixaban 5mg PO BID. Please continue to monitor BP (last 131/55), HR (last 68), potassium (last 4mmol/L), sodium (last 137mmol/L), S/S of bleeding/stroke, hemoglobin (last 10.6g/dL), renal func tion and syncope (BEER criteria for doxazosin, increased risk of orthostatic hypotension). 5. Hyperlipidemia: atorvastatin 20mg PO QHS. Please consider ordering a lipid panel if clinically appropriate (last level from 12/2016). Thanks. Please continue to monitor LFTs (last 07/19/22) and muscle pain. 6. GERD: famotidine 20mg PO daily. Dose decreased due to renal function. Please continue to monitor for S/S of GERD and renal function. 7. Calcium deficiency/zinc deficiency/nutrition: calcium/vitamin D 2T PO daily, multivitamin 1T PO daily and zinc 220mg PO daily. Please consider ordering a vitamin D level as there is no level in the chart. Thanks. Please continue to monitor calcium (last 9.3mg/dL). Assessment/Plan for indications treated with psychotropic medications: 1. Anxiety: lorazepam 0.5mg PO BID PRN anxiety. Resident has had 2 doses so far. Please see physician note regarding GDR. Please continue to monitor for PRN usage, anxiety, falls/fractures (BEERs medication) and delirium/dementia (BEERs medication). Medical chart and medication regimen reviewed. The following medication irregularities or issues were identified: *1. Atorvastatin 20mg PO QHS. Please consider ordering a lipid panel if clinically appropriate (last level from 12/2016). Thanks. Date of Note:: 07/28/22
[2022-07-28] MEDS: APIXABAN 5 MG TABLET PO (16:44)
[2022-07-28] MEDS: LORazepam 0.5 MG Tablet PO (20:58)
[2022-07-28 21:00] VITALS: PULSE 73; RESP 16; O2SAT 96
[2022-07-28] MEDS: Doxazosin 1 MG Tablet PO (21:01)
[2022-07-28] MEDS: Atorvastatin Calcium 20 MG Tablet PO (21:01)
[2022-07-29] MEDS: dilTIAZem CD 180 MG Capsule PO (05:19)
[2022-07-29] MEDS: hydroCHLOROthiazide 12.5mg 12.5 MG PO (05:20)
[2022-07-29] MEDS: Lisinopril 20 MG Tablet PO ×2 (05:20→17:36)
[2022-07-29] MEDS: Famotidine 20 MG Tablet PO (05:20)
[2022-07-29] MEDS: Spironolactone 25 MG Tablet 12.5 MG PO ×2 (05:20→17:36)
[2022-07-29] MEDS: APIXABAN 5 MG TABLET PO ×2 (05:20→17:36)
[2022-07-29] MEDS: Multivitamins,Therapeutic Tablet 1 TABLET PO (08:04)
[2022-07-29] MEDS: Calcium Carb/Vitamin D 1 TABLET Tablet 2 TABLET PO (08:04)
[2022-07-29] MEDS: Doxycycline 100 MG CAPSULE PO ×2 (08:27→17:37)
[2022-07-29] MEDS: Cephalexin 500 MG Capsule PO ×2 (08:27→17:36)
[2022-07-29 08:33] LABS: Absolute Lymphocyte Count 1.41 X10^3/uL (0.83-4.51); Absolute Neutrophil Count 4.1 X10^3/uL (2.0-7.7); Basophil# 0.06 X10^3/uL; Basophil% 0.9 % (0-1); Eosinophil# 0.36 X10^3/uL; Eosinophils% 5.5 % (0-5); Hematocrit 37.6 % (37-47); Hemoglobin 12.3 g/dL (12.0-15.0); Lymphocyte # 1.41 X10^3/ul (0.83-4.51); Lymphocyte % 21.5 % (19-41); Mean Corp Hgb Conc 32.7 g/dL (32-36); Mean Corpuscular Hgb 32.7 pg (27.0-32.0); Mean Platelet Vol. 9.5 fl (6.2-12.0); Monocyte# 0.57 X10^3/uL; Monocyte% 8.7 % (0-10); NRBC Flagged by Analyzer 0 % (0-5); Neutrophil # 4.13 X10^3/uL (2.7-7.7); Neutrophil % 62.9 % (47-70); Platelet Count 289 K/mm3 (150-450); RBC Distribution Width CV 11.9 % (11.6-14.6); RBC Distribution Width SD 43.6 fl (35.1-43.9); Red Blood Count 3.76 M/mm3 (4.2-5.4); White Blood Count 6.6 K/mm3 (4.4-11.0)
[2022-07-29] MEDS: 0.9% Normal Saline 1,000 ML 999 ML IV (08:39)
[2022-07-29 08:43] LABS: Anion Gap 5 (5-15); BUN 24 mg/dL (7-18); BUN/Creat Ratio 23.3 RATIO (10-20); Chloride 110 mmol/L (98-107); Creatinine, Serum 1.03 mg/dL (0.55-1.02); EST Glomerular Filtration Rate 55 mL/min (>60); Est Glom Filt Rate - Afr Amer 66 mL/min (>60); Estimated Creatinine Clearance 37.89 ml/min; Glucose 140 mg/dL (74-106); Potassium 4.2 mmol/L (3.5-5.1); Sodium Level 138 mmol/L (136-145)
[2022-07-29 10:16] LABS: Bacteria 0 SEEN /hpf (None Seen); Mucous, Urine 0 SEEN /hpf (<or=2+); Red Blood Cells-Urine 0 SEEN /hpf (0-5); White Blood Cells 0 SEEN /hpf (0-5)
[2022-07-29 10:22] LABS: Color, Urine Yellow (Yellow); Glucose, Dipstick Normal (Normal); Ketone-Dipstick Negative (Negative); Leukocyte Esterase-Dipstick Negative /ul (Negative); Nitrite-Dipstick Negative (Negative); Occult Blood-Urine Negative /ul (Negative); Protein-Dipstick Negative (Negative); Urine Bilirubin Dipstick Negative (Negative); Urine Clarity Clear (Clear); Urine Urobilinogen Normal (Normal)
[2022-07-29 10:29] LABS: Squamous Epithelial Cells - UA 0-5 SEEN /hpf (5-10)
[2022-07-29 10:31] VITALS: BMI 32.7
[2022-07-29 16:38] VITALS: BP 143/63; PULSE 71; RESP 18; O2SAT 97
--- NOTE | 2022-07-29 16:40 | CASEMGMT ---
Social Work Met with patient to complete initial assessment. Introduced self and role. Educated to [facility] insurance with NRD 08/01 and continued stay is not guaranteed with each review. Pt's goal is to return home alone with ramp entrance and walk-in tub. Pt's daughter is a support but does work hollow handle knife assembler and lives about 35 minutes away. Discussed code status and MOLST form. Explained code status options at length. Pt having difficulty deciding, however, concluded with full code, trial period. MOLST completed and placed on chart. SW to continue to follow for DC planning. nishant pappas, [employer] ACCOUNT EXECUTIVE ASSISTANT PROFESSOR OF [employer]
[2022-07-29] MEDS: Senna/Docusate Sodium 1 Tablet 2 TABLET PO (17:36)
[2022-07-29 22:00] VITALS: PULSE 72; RESP 16; O2SAT 95
[2022-07-29] MEDS: Doxazosin 1 MG Tablet PO (22:31)
[2022-07-29] MEDS: Atorvastatin Calcium 20 MG Tablet PO (22:31)
[2022-07-29] MEDS: LORazepam 0.5 MG Tablet PO (22:31)
[2022-07-30] MEDS: Famotidine 20 MG Tablet PO (06:22)
[2022-07-30] MEDS: Spironolactone 25 MG Tablet 12.5 MG PO ×2 (06:22→17:04)
[2022-07-30] MEDS: Doxycycline 100 MG CAPSULE PO ×2 (06:22→17:05)
[2022-07-30] MEDS: Cephalexin 500 MG Capsule PO ×2 (06:22→17:05)
[2022-07-30] MEDS: Lisinopril 20 MG Tablet PO ×2 (06:22→17:05)
[2022-07-30] MEDS: APIXABAN 5 MG TABLET PO ×2 (06:22→17:05)
[2022-07-30] MEDS: hydroCHLOROthiazide 12.5mg 12.5 MG PO (06:22)
[2022-07-30] MEDS: dilTIAZem CD 180 MG Capsule PO (06:23)
[2022-07-30] MEDS: 0.9% Saline Lock 10 ML Syringe IV ×2 (06:24→17:06)
[2022-07-30] MEDS: Calcium Carb/Vitamin D 1 TABLET Tablet 2 TABLET PO (08:04)
[2022-07-30] MEDS: Multivitamins,Therapeutic Tablet 1 TABLET PO (08:04)
--- NOTE | 2022-07-30 09:40 | CASEMGMT ---
Social Work IDT met with patient and dtr via conference call for care plan meeting. Discussed patient's progress in PT/OT/SN. Educated to [facility] insurance with NRD 08/01 and continued stay is not guaranteed with each review. Pt's goal is to return home alone. Dtr can assist with IADLs but works full-time and lives about 35 minutes away. Pt needs to return to [facility] to return home safely. SW to continue to follow for DC planning. Luci Akbar MSW J2EE ENGINEER
[2022-07-30 13:49] VITALS: BP 111/55; PULSE 102; RESP 20; TEMP 36.7; O2SAT 95
[2022-07-30] MEDS: Senna/Docusate Sodium 1 Tablet 2 TABLET PO (17:05)
[2022-07-30] MEDS: Acetaminophen 500 MG Tablet 1000 MG PO (19:51)
[2022-07-30] MEDS: LORazepam 0.5 MG Tablet PO (19:51)
[2022-07-30] MEDS: Atorvastatin Calcium 20 MG Tablet PO (19:52)
[2022-07-30] MEDS: Doxazosin 1 MG Tablet PO (19:52)
[2022-07-30 20:00] VITALS: BP 136/64; PULSE 84
[2022-07-31] MEDS: dilTIAZem CD 180 MG Capsule PO (05:45)
[2022-07-31] MEDS: APIXABAN 5 MG TABLET PO ×2 (05:45→17:20)
[2022-07-31] MEDS: Spironolactone 25 MG Tablet 12.5 MG PO ×2 (05:45→17:20)
[2022-07-31] MEDS: Famotidine 20 MG Tablet PO (05:45)
[2022-07-31] MEDS: Senna/Docusate Sodium 1 Tablet 2 TABLET PO ×2 (05:45→17:20)
[2022-07-31] MEDS: Lisinopril 20 MG Tablet PO ×2 (05:45→17:20)
[2022-07-31] MEDS: hydroCHLOROthiazide 12.5mg 12.5 MG PO (05:45)
[2022-07-31] MEDS: Doxycycline 100 MG CAPSULE PO ×2 (05:45→17:20)
[2022-07-31] MEDS: Cephalexin 500 MG Capsule PO ×2 (05:45→17:20)
[2022-07-31] MEDS: Multivitamins,Therapeutic Tablet 1 TABLET PO (07:55)
[2022-07-31] MEDS: Calcium Carb/Vitamin D 1 TABLET Tablet 2 TABLET PO (07:55)
--- NOTE | 2022-07-31 09:12 | NURSING ---
Dr Londono notified of general foot care consult
--- NOTE | 2022-07-31 12:16 | CASEMGMT ---
Social Work BIMS () and PHQ-9 (07/21) completed for MDS assessment. Luci Akbar MSW METAL GAUGE MAKER
--- NOTE | 2022-07-31 13:24 | MDS.RN ---
Pain interview for [facility] 08/01/22
[2022-07-31 15:15] VITALS: BP 121/67; PULSE 82; RESP 16; TEMP 36.1; O2SAT 96
[2022-07-31] MEDS: Doxazosin 1 MG Tablet PO (20:31)
[2022-07-31] MEDS: Atorvastatin Calcium 20 MG Tablet PO (20:31)
[2022-07-31] MEDS: Acetaminophen 500 MG Tablet 1000 MG PO (20:32)
[2022-07-31] MEDS: LORazepam 0.5 MG Tablet PO (20:38)
[2022-07-31 20:41] VITALS: BP 127/66; PULSE 78; RESP 16
[2022-08-01] MEDS: Acetaminophen 500 MG Tablet 1000 MG PO ×2 (05:53→21:07)
[2022-08-01] MEDS: Senna/Docusate Sodium 1 Tablet 2 TABLET PO (05:54)
[2022-08-01] MEDS: Lisinopril 20 MG Tablet PO ×2 (05:54→17:41)
[2022-08-01] MEDS: Spironolactone 25 MG Tablet 12.5 MG PO ×2 (05:54→17:40)
[2022-08-01] MEDS: Famotidine 20 MG Tablet PO (05:55)
[2022-08-01] MEDS: hydroCHLOROthiazide 12.5mg 12.5 MG PO (05:55)
[2022-08-01] MEDS: Cephalexin 500 MG Capsule PO ×2 (05:55→17:40)
[2022-08-01] MEDS: dilTIAZem CD 180 MG Capsule PO (05:55)
[2022-08-01] MEDS: APIXABAN 5 MG TABLET PO ×2 (05:55→17:41)
[2022-08-01] MEDS: Doxycycline 100 MG CAPSULE PO ×2 (05:55→17:40)
[2022-08-01 06:03] VITALS: BP 128/61; PULSE 71; RESP 16
[2022-08-01] MEDS: Multivitamins,Therapeutic Tablet 1 TABLET PO (08:34)
[2022-08-01] MEDS: Calcium Carb/Vitamin D 1 TABLET Tablet 2 TABLET PO (08:34)
--- NOTE | 2022-08-01 09:21 | NURSING ---
Delivery Room Supervisor Note; MDs Complete
--- NOTE | 2022-08-01 11:03 | CASEMGMT ---
Addendum entered by Luci Akbar 08/01/22 11:58: Dtr present in room. SW spoke with pt and dtr. After some discussion, pt and dtr are electing for DC home. Provided [facility] and [facility] as choices. SW made referral to both agencies via [facility]. Plan: DC 08/04 home alone, HHC PT/OT/SN/SW Original Note: Social Work Insurance issued LCD 08/03, DC 08/04. SW spoke with pt to update. Pt unsure if she is ready to go home. SW suggested staying with dtr. Pt denied, stating dtr's house is a two story, has steps and has dtr is on crutches for three weeks now. SW reminded pt this worker will coordinate skilled HHC services, but offered AL placement. pt would like to go home, but dtr is visiting this afternoon and pt will discuss with pt. SW educated to appeal rights. Pt expressed understanding. SW provided skilled HHC list with quality and resource data via [facility]Port Guide. Will continue to follow. Plan: DC 08/04, pending pt decision Luci Akbar, LUKE WANG
--- NOTE | 2022-08-01 13:53 | DS.PCM_ITS ---
Providers Date of Admission: 07/25/22 Primary Care Physician: Dr. Tye Duncan MD Consultations 07/30/22 17:35 Consult: Podiatry Routine Consulting Provider: Tom Londono Reason for Consult: General foot care. EMERGENT Consult: No MD Notified: Yes Date Notified: 07/31/22 Time Notified: 09:12 Method of Notification: Verbal Reason For Visit: SUSPECTED VIRAL PNA SYNDROME,HYPOXIA Diagnosis Discharge Diagnosis (1) Debility: Status: Acute Code(s): R53.81 - Other malaise (2) Chest pain: Status: Acute Code(s): R07.9 - Chest pain, unspecified (3) Acute respiratory failure with hypoxia: Status: Acute Code(s): J96.01 - Acute respiratory failure with hypoxia (4) Viral bronchitis: Status: Acute Code(s): J20.8 - Acute bronchitis due to other specified organisms (5) Bradycardia: Status: Resolved Code(s): R00.1 - Bradycardia, unspecified (6) Hypertension: Status: Chronic Code(s): I10 - Essential (primary) hypertension (7) Anxiety: Status: Acute Code(s): F41.9 - Anxiety disorder, unspecified (8) Hyperlipidemia: Status: Acute Code(s): E78.5 - Hyperlipidemia, unspecified (9) GERD (gastroesophageal reflux disease): Status: Acute Code(s): K21.9 - Gastro-esophageal reflux disease without esophagitis Plan 82 year old female with below past medical history hospitalized for acute respiratory failure with hypoxia secondary to viral bronchitis, acute coronary syndrome ruled out, complicated by bradycardia requiring pacemaker implantation, admitted to TCU with debility, here for rehabilitation, strengthening, prior to discharge home alone. * Debility - PT/OT. * Pain - Tylenol 1000mg q6h prn pain (1-10). * Bowel - senna/colace 2 tablets bid, MOM 30ml po x 1 prn. * Adult immunization - Administer pneumonia vaccine, covid19 vaccine, flu vaccine as appropriate. * DVT prophylaxis - Hold, monitor. * Bradycardia - s/p pacemaker implantation. * CV prophylaxis - Aspirin 81mg daily. * Hyperlipidemia - Atorvastatin 20mg qhs. * Calcium deficiency - Calcium D 2 tablets daily. * Hypertension - Diltiazem 180mg daily, Doxazosin 1mg qhs, Lisinopril 20mg bid, HCTZ 12.5mg daily, Aldactone 12.5mg bid. * GERD - Famotidine 40mg daily. 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 * Nutrition - MVI 1 tablet daily. * Zinc deficiency - Zinc 220mg daily. Medications at Discharge Home Medications atorvastatin 20 mg tablet 20 mg PO DAILY cholesterol 08/24/15 lisinopril 20 mg tablet 20 mg PO BID BP 08/24/15 calcium carbonate 500 mg-vitamin D3 3.125 mcg (125 unit) tablet 2 tab PO DAILY supplement 02/01/21 famotidine 40 mg tablet 40 mg PO DAILY acid reflux 02/01/21 multivitamin 1 tab PO DAILY supplement 02/01/21 spironolactone 25 mg tablet 12.5 mg PO BID fluid pill 02/01/21 zinc 50 mg tablet 50 mg PO DAILY supplement 02/01/21 doxazosin 1 mg tablet 1 mg PO QHS BP 07/18/22 lorazepam 0.5 mg tablet 0.5 mg PO BID PRN PRN Anxiety 3 days #6 tabs 07/25/22 acetaminophen 500 mg tablet 1,000 mg PO Q6H PRN PRN Pain Score 1-10 #0 tabs 08/01/22 apixaban 5 mg tablet (Eliquis) 5 mg PO BID 30 days #60 tabs 08/01/22 diltiazem HCl 180 mg capsule,extended release 24 hr 180 mg PO DAILY 30 days #30 caps 08/01/22 hydrochlorothiazide 12.5 mg capsule 12.5 mg PO DAILY 30 days #30 caps 08/01/22 Hospital Course Operations None Procedures - (Pacemaker implantation.) Summary of Care Provided Minutes Spent on Discharge: 35 Hospital Course: 82 year old female with below past medical history hospitalized for acute respiratory failure with hypoxia secondary to viral bronchitis, acute coronary syndrome ruled out, complicated by bradycardia requiring pacemaker implantation, admitted to TCU with debility, here for rehabilitation, strengthening, prior to discharge home alone. Discharge home alone 08/04/2022, Home Health Care PT/OT/SN/SW. Physical Exam Const alert General Appearance: cooperative HEENT normocephalic Eyes PERRL and EOMs intact bilaterally Neck supple, no JVD and no carotid bruits Resp normal respiratory effort, normal air movement and clear to auscultation bilaterally Cardio regular rate and regular rhythm GI normal to inspection, nondistended, normoactive bowel sounds, non-tender and non-distended Extremity normal capillary refill General Extremity: Negative for edema Skin no rashes or lesions noted General Skin Exam: no breakdown Psych affect normal Appearance: appropriate Weight / BMI Weight Weight: 89.131 kg Body Mass Index (BMI) 32.7 ABG / Lab / Microbiology Data Result Diagrams: 07/29/22 08:16 07/29/22 08:16 Microbiology: Microbiology 07/29/22 10:08 Urine, Clean Catch Urine Culture - Final Mixed Gram Positive Organisms 07/29/22 15:15 Mucosa - Nasopharyngeal Respiratory Panel (PCR) - Final 07/29/22 06:48 Nasal Secretion SARS-CoV-2 Antigen (Rapid) - Final 07/27/22 06:45 Nasal Secretion SARS-CoV-2 Antigen (Rapid) - Final D/C Instructions Discharge Diet: No restrictions Discharge Activity: Return to Normal Activity, May Shower and Use Walker Weight Bearing Status: Weight bearing as tolerated Call your doctor if you observe: Fever of 101 or Higher, Inability to urinate, Inability to have a bowel movement, Shortness of breath, Dizziness, Fainting spells, Swelling in the ankles, Chest pain and Uncontrolled pain Additional Instructions: Discharge home alone 08/04/2022, Home Health Care PT/OT/SN/SW. Please Follow Up With: Sudhir Fowler MD When: As scheduled. Meaningful Use Info Meaningful Use Diagnoses (Choose all that apply): None applicable Discharge Plan Admission Admit Date/Time: 07/25/22 13:45 Primary Reason for Your Visit: Debility. Attending Provider: Philipp Boogie Chi Primary Care Provider: Tye Duncan Consulting Providers: Tom Londono Instructions Additional Instructions / Restrictions: Discharge home alone 08/04/2022, Home Health Care PT/OT/SN/SW. Discharge Orders/Prescriptions Prescriptions: New diltiazem HCl 180 mg Capsule,Extended Release 24hr 180 mg PO DAILY 30 Days Qty: 30 0RF acetaminophen 500 mg Tablet 1,000 mg PO Q6H PRN PRN (Reason: Pain Score 1-10) Qty: 0 0RF hydrochlorothiazide 12.5 mg Capsule 12.5 mg PO DAILY 30 Days Qty: 30 0RF Eliquis 5 mg Tablet 5 mg PO BID 30 Days Qty: 60 0RF Continued atorvastatin 20 MG tablet 20 mg PO DAILY Label Comments: cholesterol lowering lisinopril 20 MG tablet 20 mg PO BID Label Comments: BLOOD PRESSURE multivitamin Tablet 1 tab PO DAILY famotidine 40 mg tablet 40 mg PO DAILY Label Comments: take 1 tablet by mouth once daily spironolactone 25 mg tablet 12.5 mg PO BID Label Comments: take 1 tablet by mouth once daily zinc 50 mg Tablet 50 mg PO DAILY calcium carbonate-vitamin D3 500 mg(1,250mg) -125 unit Tablet 2 tab PO DAILY doxazosin 1 mg tablet 1 mg PO QHS lorazepam 0.5 MG tablet 0.5 mg PO BID PRN PRN (Reason: Anxiety) 3 Days Qty: 6 0RF Discontinued Eliquis 5 mg tablet 5 mg PO BID Qty: 1 0RF acetaminophen 325 mg Tablet 650 mg PO Q4H PRN PRN (Reason: Fever, pain 1-02/03) Qty: 0 0RF diltiazem HCl 180 mg capsule,extended release 24 hr 180 mg PO DAILY sennosides-docusate sodium [Stool Softener-Stimulant Laxat] 8.6-50 mg tablet 2 tab PO BID Rx Instructions: Take until first bowel movement, then as needed hydrochlorothiazide 12.5 mg capsule 12.5 mg PO DAILY aspirin 81 mg tablet,chewable 81 mg PO BREAKFAST Referrals / Follow Up: Sudhir Fowler MD [Med Staff - Active Staff] - 09/08/22 3:00 pm (6 week follow up) Tye Duncan MD [Primary Care Provider] - Disposition Disposition (needs filled in before D/C Order can be placed): Home Health Service
--- NOTE | 2022-08-01 15:46 | PCM.CONS.GEN ---
Assessment & Plan Assessment/Plan (1) Ingrowing nail: (2) Nail dystrophy: PLAN: Plan Evaluation performed. Reviewed conditions and treatment options. Reviewed proper foot care. Debrided toenails 1-5 bilateral using a nail nipper, removing bulk. This was done without incident. Patient will follow up with Podiatry as needed. Thank you for consultation. HPI Consult Data Date of Consult: 08/01/22 HPI Narrative Reason for Consultation: Feet HPI Narrative: CAROLINA DOMINIQUE, is a 82 F who presents with complaints with issues with her toes. She has ingrown, long, thick, painful toenails. She is unable to manage them herself. She has dry skin to feet. She has no other complaints. [facility] Medical History (Updated 08/01/22 @ 15:[address] Tom Londono, DPHector) Ambulates with cane Anxiety disorder Arthritis Atrial flutter Chronic sinus bradycardia High cholesterol Hip dislocation, left Hypertension Osteoarthritis PAF (paroxysmal atrial fibrillation) Presence of cardiac pacemaker Right knee pain Wears glasses Home Medications atorvastatin 20 mg tablet 20 mg PO DAILY cholesterol 08/24/15 [History Last Taken 02/19/21] lisinopril 20 mg tablet 20 mg PO BID BP 08/24/15 [History Last Taken 02/20/21 05:30] calcium carbonate 500 mg-vitamin D3 3.125 mcg (125 unit) tablet 2 tab PO DAILY supplement 02/01/21 [History Last Taken 02/19/21] famotidine 40 mg tablet 40 mg PO DAILY acid reflux 02/01/21 [History Last Taken 02/19/21] multivitamin 1 tab PO DAILY supplement 02/01/21 [History Last Taken 02/19/21] spironolactone 25 mg tablet 12.5 mg PO BID fluid pill 02/01/21 [History Last Taken 02/19/21] zinc 50 mg tablet 50 mg PO DAILY supplement 02/01/21 [History Last Taken Unknown] doxazosin 1 mg tablet 1 mg PO QHS BP 07/18/22 [History Last Taken Unknown] lorazepam 0.5 mg tablet 0.5 mg PO BID PRN PRN Anxiety 3 days #6 tabs 07/25/22 [Rx Last Taken Unknown] acetaminophen 500 mg tablet 1,000 mg PO Q6H PRN PRN Pain Score 1-10 #0 tabs 04/07/23 [Rx Last Taken Unknown] apixaban 5 mg tablet (Eliquis) 5 mg PO BID 30 days #60 tabs 08/01/22 [Rx Last Taken Unknown] diltiazem HCl 180 mg capsule,extended release 24 hr 180 mg PO DAILY 30 days #30 caps 08/01/22 [Rx Last Taken Unknown] hydrochlorothiazide 12.5 mg capsule 12.5 mg PO DAILY 30 days #30 caps 08/01/22 [Rx Last Taken Unknown] Allergy/AdvReac Type Severity Reaction Status Date / Time No Known Allergies Allergy Verified 07/18/22 19:21 Family History Mother Heart disease Hypertension Father CVA (cerebral vascular accident) Hypertension Surgical History (Updated 07/30/22 @ 00:02 by Background Daemon) History of permanent cardiac pacemaker placement History of right knee joint replacement Hx of colonoscopy Hx of foot surgery Hx of total hip arthroplasty Hx of tubal ligation Status post unicompartmental knee replacement Social History household members: none Smoking Status: Never smoker alcohol intake: never substance use type: does not use Physical Exam Narrative Toenails 1-5 bilateral are long, thick, dystrophic, yellow, ingrown, painful with subungual debris. Diffuse dry skin to feet bilateral. No open lesions, no erythema, no ecchymosis bilateral foot. CFT < 2 seconds to all toes bilateral, pedal pulses intact bilateral, there is diffuse edema bilateral foot/ankle. No m/s POP or pain on ROM to the foot or ankle bilateral. Sensation intact to light touch bilateral foot. Const alert, oriented x3 and no apparent distress Lab / Micro Data Result Diagrams: 07/29/22 08:16 07/29/22 08:16
[2022-08-01 16:00] VITALS: BP 122/58; PULSE 78; RESP 16; TEMP 36.4; O2SAT 95
[2022-08-01 20:43] VITALS: PULSE 88; RESP 18; O2SAT 98
[2022-08-01 21:00] VITALS: BP 119/56; PULSE 71
[2022-08-01] MEDS: Atorvastatin Calcium 20 MG Tablet PO (21:07)
[2022-08-01] MEDS: LORazepam 0.5 MG Tablet PO (21:07)
[2022-08-01] MEDS: Doxazosin 1 MG Tablet PO (21:07)
[2022-08-02] MEDS: Lisinopril 20 MG Tablet PO ×2 (05:02→16:46)
[2022-08-02] MEDS: Spironolactone 25 MG Tablet 12.5 MG PO ×2 (05:02→16:45)
[2022-08-02] MEDS: Cephalexin 500 MG Capsule PO ×2 (05:03→16:46)
[2022-08-02] MEDS: hydroCHLOROthiazide 12.5mg 12.5 MG PO (05:03)
[2022-08-02] MEDS: Famotidine 20 MG Tablet PO (05:03)
[2022-08-02] MEDS: Doxycycline 100 MG CAPSULE PO ×2 (05:03→16:45)
[2022-08-02] MEDS: APIXABAN 5 MG TABLET PO ×2 (05:03→16:46)
[2022-08-02] MEDS: dilTIAZem CD 180 MG Capsule PO (05:04)
[2022-08-02 05:09] VITALS: BP 125/58; PULSE 76; RESP 16
[2022-08-02 07:44] LABS: Absolute Lymphocyte Count 2.33 X10^3/uL (0.83-4.51); Absolute Neutrophil Count 5.8 X10^3/uL (2.0-7.7); Basophil% 1.1 % (0-1); Eosinophil# 0.51 X10^3/uL; Eosinophils% 5.4 % (0-5); Hematocrit 36.5 % (37-47); Hemoglobin 12.3 g/dL (12.0-15.0); Lymphocyte # 2.33 X10^3/ul (0.83-4.51); Lymphocyte % 24.6 % (19-41); Mean Corp Hgb Conc 33.7 g/dL (32-36); Mean Corpuscular Hgb 33.2 pg (27.0-32.0); Mean Corpuscular Volume 98.4 fL (81-99); Mean Platelet Vol. 9.3 fl (6.2-12.0); Monocyte# 0.71 X10^3/uL; Monocyte% 7.5 % (0-10); NRBC Flagged by Analyzer 0 % (0-5); Neutrophil # 5.77 X10^3/uL (2.7-7.7); Neutrophil % 60.9 % (47-70); Platelet Count 327 K/mm3 (150-450); RBC Distribution Width CV 11.9 % (11.6-14.6); RBC Distribution Width SD 42.7 fl (35.1-43.9); Red Blood Count 3.71 M/mm3 (4.2-5.4); White Blood Count 9.5 K/mm3 (4.4-11.0)
[2022-08-02] MEDS: Calcium Carb/Vitamin D 1 TABLET Tablet 2 TABLET PO (07:54)
[2022-08-02] MEDS: Multivitamins,Therapeutic Tablet 1 TABLET PO (07:54)
[2022-08-02 08:12] LABS: Anion Gap 6 (5-15); BUN 19 mg/dL (7-18); BUN/Creat Ratio 16.4 RATIO (10-20); Calcium,Total 9.5 mg/dL (8.5-10.1); Chloride 108 mmol/L (98-107); Creatinine, Serum 1.16 mg/dL (0.55-1.02); EST Glomerular Filtration Rate 48 mL/min (>60); Est Glom Filt Rate - Afr Amer 58 mL/min (>60); Estimated Creatinine Clearance 33.65 ml/min; Glucose 109 mg/dL (74-106); Potassium 4.4 mmol/L (3.5-5.1); Sodium Level 136 mmol/L (136-145)
[2022-08-02 10:00] VITALS: O2SAT 97
[2022-08-02] MEDS: Tuberculin,Purif.prot.deriv. 50 TU/ML Vial 0.1 ML ID (13:48)
--- NOTE | 2022-08-02 14:08 | NURSING ---
Pacemaker monitor set up in room per Dr. Fowler office.
[2022-08-02 14:52] VITALS: BP 125/54; PULSE 58; RESP 18; TEMP 36.1; O2SAT 96
[2022-08-02] MEDS: Acetaminophen 500 MG Tablet 1000 MG PO (21:52)
[2022-08-02] MEDS: LORazepam 0.5 MG Tablet PO (21:53)
[2022-08-02] MEDS: Atorvastatin Calcium 20 MG Tablet PO (21:53)
[2022-08-02] MEDS: Doxazosin 1 MG Tablet PO (21:53)
[2022-08-03] MEDS: Doxycycline 100 MG CAPSULE PO ×2 (05:10→16:53)
[2022-08-03] MEDS: dilTIAZem CD 180 MG Capsule PO (05:10)
[2022-08-03] MEDS: Spironolactone 25 MG Tablet 12.5 MG PO ×2 (05:10→16:52)
[2022-08-03] MEDS: APIXABAN 5 MG TABLET PO ×2 (05:10→16:52)
[2022-08-03] MEDS: Famotidine 20 MG Tablet PO (05:11)
[2022-08-03] MEDS: Cephalexin 500 MG Capsule PO ×2 (05:11→16:53)
[2022-08-03] MEDS: Lisinopril 20 MG Tablet PO ×2 (05:11→16:53)
[2022-08-03] MEDS: hydroCHLOROthiazide 12.5mg 12.5 MG PO (05:11)
[2022-08-03 05:27] VITALS: BP 123/50; PULSE 72
[2022-08-03] MEDS: Calcium Carb/Vitamin D 1 TABLET Tablet 2 TABLET PO (08:10)
[2022-08-03] MEDS: Multivitamins,Therapeutic Tablet 1 TABLET PO (08:11)
[2022-08-03 14:52] VITALS: BP 118/58; PULSE 77; RESP 16; TEMP 36.1; O2SAT 92
[2022-08-03] MEDS: Doxazosin 1 MG Tablet PO (20:55)
[2022-08-03] MEDS: Acetaminophen 500 MG Tablet 1000 MG PO (20:56)
[2022-08-03] MEDS: Atorvastatin Calcium 20 MG Tablet PO (20:56)
[2022-08-04] MEDS: hydroCHLOROthiazide 12.5mg 12.5 MG PO (05:03)
[2022-08-04] MEDS: Famotidine 20 MG Tablet PO (05:03)
[2022-08-04] MEDS: Lisinopril 20 MG Tablet PO (05:03)
[2022-08-04] MEDS: APIXABAN 5 MG TABLET PO (05:03)
[2022-08-04] MEDS: Cephalexin 500 MG Capsule PO (05:03)
[2022-08-04] MEDS: Doxycycline 100 MG CAPSULE PO (05:04)
[2022-08-04] MEDS: dilTIAZem CD 180 MG Capsule PO (05:04)
[2022-08-04] MEDS: Spironolactone 25 MG Tablet 12.5 MG PO (05:04)
[2022-08-04 05:18] VITALS: BP 126/60; PULSE 70
[2022-08-04] MEDS: Calcium Carb/Vitamin D 1 TABLET Tablet 2 TABLET PO (07:47)
[2022-08-04] MEDS: Multivitamins,Therapeutic Tablet 1 TABLET PO (07:47)
[2022-08-04] MEDS: Acetaminophen 500 MG Tablet 1000 MG PO (08:14)
[2022-08-04 13:27] VITALS: BP 125/56; PULSE 76; RESP 14; TEMP 36.4; O2SAT 97
--- NOTE | 2022-08-06 07:28 | MDS.RN ---
Information for the mds was obtained from review of the medical record, interview of resident, staff, and direct observation of resident's care.
== END 2022-08-04 13:30 | disposition home health service (06) | DRG 189 ==
PROVIDERS: Admitting Provider Family Medicine Geriatric Medicine; PCP Internal Medicine; Visit Provider Family Medicine Geriatric Medicine
DX: J96.01 Acute respiratory failure with hypoxia (principal); E78.00 Pure hypercholesterolemia, unspecified; I48.0 Paroxysmal atrial fibrillation; K21.9 Gastro-esophageal reflux disease without esophagitis; F41.9 Anxiety disorder, unspecified; I10 Essential (primary) hypertension; J20.8 Acute bronchitis due to other specified organisms; L60.0 Ingrowing nail; Z95.0 Presence of cardiac pacemaker; Z79.82 Long term (current) use of aspirin; Z79.899 Other long term (current) drug therapy; Z79.01 Long term (current) use of anticoagulants
CPT/HCPCS: 36415; 80048; 81001; 85025; 87086; 87088; 87633; 87811; 97110; 97116; 97162; 97165; 97530; 97535; 97802; J7030; A4216

== ENCOUNTER → 2022-08-04 | Outpatient (CLI) | payer MEDICARE, SELFPAY ==
[2022-08-04 17:45] LABS: Absolute Lymphocyte Count 1.25 X10^3/uL (0.83-4.51); Absolute Neutrophil Count 6.3 X10^3/uL (2.0-7.7); Basophil# 0.07 X10^3/uL; Basophil% 0.8 % (0-1); Eosinophil# 0.31 X10^3/uL; Eosinophils% 3.6 % (0-5); Hematocrit 36.3 % (37-47); Hemoglobin 11.7 g/dL (12.0-15.0); Lymphocyte # 1.25 X10^3/ul (0.83-4.51); Lymphocyte % 14.4 % (19-41); Mean Corp Hgb Conc 32.2 g/dL (32-36); Mean Corpuscular Hgb 32.3 pg (27.0-32.0); Mean Corpuscular Volume 100.3 fL (81-99); Monocyte# 0.72 X10^3/uL; Monocyte% 8.3 % (0-10); NRBC Flagged by Analyzer 0 % (0-5); Neutrophil # 6.31 X10^3/uL (2.7-7.7); Neutrophil % 72.6 % (47-70); Platelet Count 336 K/mm3 (150-450); RBC Distribution Width CV 11.8 % (11.6-14.6); RBC Distribution Width SD 44.2 fl (35.1-43.9); Red Blood Count 3.62 M/mm3 (4.2-5.4); White Blood Count 8.7 K/mm3 (4.4-11.0)
[2022-08-04 18:20] LABS: ALB/GLOB Ratio 1.2 RATIO (0.9-2.4); AST(SGOT) 15 U/L (15-37); Alanine Aminotransfer ALT/SGPT 27 U/L (13-56); Albumin, Serum 3.6 g/dL (3.2-5.0); Alkaline Phosphatase 85 U/L (45-117); Anion Gap 6 (5-15); BUN 27 mg/dL (7-18); BUN/Creat Ratio 21.1 RATIO (10-20); Calcium,Total 9.4 mg/dL (8.5-10.1); Chloride 104 mmol/L (98-107); Creatinine, Serum 1.28 mg/dL (0.55-1.02); EST Glomerular Filtration Rate 42 mL/min (>60); Est Glom Filt Rate - Afr Amer 51 mL/min (>60); Globulin 3.1 g/dL (2.2-4.2); Glucose 148 mg/dL (74-106); Potassium 4.1 mmol/L (3.5-5.1); Protein, Total 6.7 g/dL (6.4-8.2); Sodium Level 134 mmol/L (136-145); Thyroid Stim Hormone (TSH) 3.08 uIU/mL (0.358-3.74)
[2022-08-04 18:34] LABS: Hepatitis C Antibody Non-Reactive (Nonreactive); Vitamin D,25 Hydroxy 48.9 ng/mL
== END | disposition home or self-care (01) ==
LOC: POLAB3 14:49
PROVIDERS: PCP Family Medicine Geriatric Medicine; Visit Provider Family Medicine Geriatric Medicine
DX: I10 Essential (primary) hypertension (principal); Z13.89 Encounter for screening for other disorder
CPT/HCPCS: 36415; 80053; 82306; 84443; 85025; 86803

== ENCOUNTER → 2022-08-07 | Outpatient (CLI) | payer MEDICARE, SELFPAY ==
--- NOTE | 2022-08-07 10:08 | RAD_ITS ---
HISTORY: SOB. TECHNIQUE: XR Chest 2 Views. COMPARISON: 07/22/2022. FINDINGS: CARDIOMEDIASTINAL BORDERS: Unchanged cardiomegaly with pacemaker. Calcification of the aorta and moderate retrocardiac hiatal hernia again seen. LUNGS: Mild linear opacities in the mid to lower lungs. PLEURA: No pleural effusion or pneumothorax seen. OSSEOUS STRUCTURES: Degenerative change. Small peripheral sclerosis in the right scapula again seen. RAD/Chest PA and Lateral IMPRESSION: Mild bibasilar atelectasis and scarring. Moderate hiatal hernia. Electronically Signed: Yeni Alfredo MD at 10:49 EDT ,
[2022-08-07 13:24] LABS: Anion Gap 7 (5-15); BUN 28 mg/dL (7-18); BUN/Creat Ratio 23.3 RATIO (10-20); Calcium,Total 9.6 mg/dL (8.5-10.1); Chloride 108 mmol/L (98-107); EST Glomerular Filtration Rate 46 mL/min (>60); Est Glom Filt Rate - Afr Amer 55 mL/min (>60); Glucose 98 mg/dL (74-106); Potassium 4.6 mmol/L (3.5-5.1); Sodium Level 140 mmol/L (136-145)
== END | disposition home or self-care (01) ==
PROVIDERS: PCP Family Medicine Geriatric Medicine; Referring Provider Family Medicine Geriatric Medicine; Visit Provider Family Medicine Geriatric Medicine
DX: R06.02 Shortness of breath (principal)
CPT/HCPCS: 36415; 71046; 80048

== ENCOUNTER → 2022-08-27 | Outpatient (CLI) | payer MEDICARE, SELFPAY ==
--- NOTE | 2022-08-27 13:39 | ECHOL_ITS ---
Reason For Study: sob Procedure This was a limited 2D transthoracic echocardiogram. Exam performed in department. Left Ventricle Normal size and thickness. The left ventricular ejection fraction is 65 %. Unable to assess diastolic function based on available data. Right Ventricle Normal right ventricle. Atria The left atrium is severely enlarged. Normal right atrium. Mitral Valve The mitral valve is structurally normal. No prolapse or stenosis seen. Tricuspid Valve Normal tricuspid valve. Aortic Valve Trisinus/trileaflet aortic valve. Pulmonic Valve The pulmonic valve is not well visualized. Great Vessels Normal sized aortic root. Pericardium/Pleural Small pericardial effusion. MMode/2D Measurements & Calculations LVIDd: 5.8 cm IVSd: 1.1 cm Ao root diam: 3.5 cm LVIDs: 4.8 cm LVPWd: 1.1 cm FS: 17.8 % LAV(MOD-bp): 67.3 ml LVAd ap4: 32.1 cm2 SV(MOD-sp4): 64.5 ml LAV(MOD-bp) Indexed: 34.6 ml/m2 LVLd ap4: 7.7 cm LAV(MOD-sp2): 40.3 ml EDV(MOD-sp4): 110.9 ml LAV(MOD-sp4): 79.0 ml EDV(sp4-el): 113.9 ml LVAs ap4: 19.7 cm2 LVLs ap4: 6.7 cm ESV(MOD-sp4): 46.5 ml ESV(sp4-el): 49.2 ml EF(MOD-sp4): 58.1 % EF(sp4-el): 56.8 % SV(sp4-el): 64.7 ml LA A4 area: 27.7 cm2 LA dimension(2D): 4.5 cm RA A4 area: 16.4 cm2 ECHO/Echo, Limited Study Interpretation Summary The left ventricular ejection fraction is 65 %. Unable to assess diastolic function based on available data. The left atrium is severely enlarged. Small pericardial effusion. Ordering Physician: Philipp Boogie Chi Referring Physician: Philipp Boogie Chi Performed By: Natalya Liao RCS
== END | disposition home or self-care (01) ==
LOC: CVS 13:37
PROVIDERS: PCP Family Medicine Geriatric Medicine; Referring Provider Family Medicine Geriatric Medicine; Visit Provider Family Medicine Geriatric Medicine
DX: R06.02 Shortness of breath (principal)
CPT/HCPCS: 93306; 93308

== ENCOUNTER 2022-09-24 12:16 | Emergency (ER) | payer MEDICARE, SELFPAY ==
[2022-09-24 12:18] VITALS: BP 160/77; PULSE 68; RESP 14; TEMP 35.8; O2SAT 97; BMI 36.4
[2022-09-24 12:21] VITALS: PULSE 68
--- NOTE | 2022-09-24 12:22 | ED.VIS.CHEST ---
HPI History of Present Illness Chief Complaint: Chest Other [facility] Medical History Ambulates with cane Anxiety disorder Arthritis Atrial flutter Chronic sinus bradycardia High cholesterol Hip dislocation, left Hypertension Osteoarthritis PAF (paroxysmal atrial fibrillation) Presence of cardiac pacemaker Right knee pain Wears glasses Home Medications atorvastatin 20 mg tablet 20 mg PO DAILY cholesterol 08/24/15 [History Last Taken 02/19/21] lisinopril 20 mg tablet 20 mg PO BID BP 08/24/15 [History Last Taken 02/20/21 05:30] calcium carbonate 500 mg-vitamin D3 3.125 mcg (125 unit) tablet 2 tab PO DAILY supplement 02/01/21 [History Last Taken 02/19/21] famotidine 40 mg tablet 40 mg PO DAILY acid reflux 02/01/21 [History Last Taken 02/19/21] multivitamin 1 tab PO DAILY supplement 02/01/21 [History Last Taken 02/19/21] spironolactone 25 mg tablet 12.5 mg PO BID fluid pill 02/01/21 [History Last Taken 02/19/21] zinc 50 mg tablet 50 mg PO DAILY supplement 02/01/21 [History Last Taken Unknown] doxazosin 1 mg tablet 1 mg PO QHS BP 07/18/22 [History Last Taken Unknown] lorazepam 0.5 mg tablet 0.5 mg PO BID PRN PRN Anxiety 3 days #6 tabs 07/25/22 [Rx Last Taken Unknown] acetaminophen 500 mg tablet 1,000 mg PO Q6H PRN PRN Pain Score 1-10 #0 tabs 08/01/22 [Rx Last Taken Unknown] apixaban 5 mg tablet (Eliquis) 5 mg PO BID 30 days #60 tabs 08/01/22 [Rx Last Taken Unknown] diltiazem HCl 180 mg capsule,extended release 24 hr 180 mg PO DAILY 30 days #30 caps 08/01/22 [Rx Last Taken Unknown] hydrochlorothiazide 12.5 mg capsule 12.5 mg PO DAILY 30 days #30 caps 08/01/22 [Rx Last Taken Unknown] Allergy/AdvReac Type Severity Reaction Status Date / Time No Known Allergies Allergy Verified 09/24/22 12:18 Family History Mother Heart disease Hypertension Father CVA (cerebral vascular accident) Hypertension Surgical History (Updated 09/24/22 @ 13:[address] Miller Tinajero DO) History of permanent cardiac pacemaker placement (~07/21/22) History of right knee joint replacement Hx of colonoscopy Hx of foot surgery Hx of total hip arthroplasty Hx of tubal ligation Status post unicompartmental knee replacement Social History household members: none Smoking Status: Never smoker alcohol intake: never substance use type: does not use EXAM Physical Exam Const Vital Signs: 09/24/22 12:18 09/24/22 12:20 09/24/22 12:21 Temperature 96.4 F L Temperature Source Temporal Pulse Rate 68 68 Respiratory Rate 14 Respiratory Effort Normal Non-Labored Blood Pressure 160/77 H Blood Pressure Mean 104 Pulse Ox 97 Oxygen Delivery Method Room Air 09/24/22 13:08 Temperature Temperature Source Pulse Rate Respiratory Rate Respiratory Effort Blood Pressure Blood Pressure Mean Pulse Ox Oxygen Delivery Method Room Air MDM MDM MDM Narrative Medical decision making narrative: HISTORY OF PRESENT ILLNESS: 82-year-old female here with concern for pacemaker alarm going off. States pacemaker was placed in July. States REVIEW OF SYSTEMS: Pertinent positives: Pertinent negatives: PHYSICAL EXAM: Nursing triage notes reviewed, Vital signs reviewed Constitutional: please see mdm HENT: MMM Eyes: Pupils equal round and reactive to light, Extraocular muscles intact Neck: No stridor, no JVD, full neck ROM Lungs: Clear to auscultation, No wheezing or rales. No increased work of breathing, no conversational dyspnea, no accessory muscle use, no nasal flaring. No respiratory distress noted Heart: Regular rate and rhythm, No murmurs, No rubs and No gallops, 2+ distal pulses (radial, femoral, posterior tibial) in all extremities Abdomen: Soft, there is no tenderness, rigidity, rebound or guarding, no obvious peritoneal signs, no palpable pulsatile abdominal masses, no auscultated abdominal bruit : No CVAT Extremities: No edema Neuro: No focal neurological deficits, cranial nerves II through XII intact, 5/5 strength in all extremities. Intact sensation to light touch in all extremities, 2+ reflexes bilateral patella tendons. Normal gait. No ataxia. Skin: No rash or lesions noted MEDICAL DECISION MAKING: Chief Complaint: Pacemaker malfunction, fatigue External records reviewed: Pacemaker placed on July 20, [address] Fowler Factors affecting care: History of pacemaker Social determinants of health: Elderly History obtained from others: None Consults: Cardiology ALL IMAGES HAVE BEEN PERSONALLY REVIEWED AND INTERPRETED BY MYSELF. MDM Narrative: The patient was hemodynamically stable, afebrile, nontoxic-appearing. No focal cardiopulmonary normalities. Pacemaker. Within normal position on exam I considered the following differential diagnosis: Pacemaker malfunction, arrhythmia, myocardial ischemia, anemia, electrolyte abnormalities I obtained a broad lab and imaging work-up to further elucidate the etiology of the patient's complaints. Specifically I obtained a pacemaker interrogation, EKG, labs to rule out the after mentioned differential diagnoses. Initial EKG showed atrial sensed ventricular paced rhythm, no STEMI, similar to prior. The patient's pacemaker was interrogated and showed no new alerts today. Patient's troponin was negative. She had no evidence of significant electrolyte abnormalities, significant anemia. Patient's chest x-ray showed appropriate pacemaker placement with leads intact and appropriate. X-ray was read by radiologist as having a left lower lobe pneumonia however patient had no fever, no cough, no leukocytosis. Clinically this is not consistent with pneumonia. By my read x-ray looks similar to prior x-ray in June. No indication for antibiotics at this time. Given no obvious arrhythmia, life-threatening pacemaker malfunction there is no indication for further evaluation. Did speak to Dr. Jorge (cardiology) who suggested if the pacemaker check was normal there is no indication for further evaluation at this time and encourage patient follow-up as an outpatient with her primary cattyman Dr. Fowler. Total critical care time today provided was at least 0 minutes. This excludes separately billable procedures. There was a high probability of clinically significant/life threatening deterioration in the patient's condition which required my urgent intervention. Shared decision making: I will have a discussion with the patient and or visitors regarding risk/benefits of further testing or admission. They will be made aware of of the risk/benefits inherent in this decision they will be given the opportunity to voice understanding. Lab Data Attestation: I reviewed the patient's lab results. Lab results narrative: CBC without leukocytosis, severe anemia, no thrombocytopenia. EKG with paced rhythm, left axis deviation, prolonged IL interval, no STEMI Troponin is negative, no evidence of myocardial ischemia BMP without evidence of significant electrolyte abnormalities, no anion gap, no acute kidney injury. Labs: Laboratory Results - last 24 hr 09/24/22 09/24/22 12:33 12:33 WBC 7.6 RBC 4.03 L Hgb 12.8 Hct 38.8 MCV 96.3 MCH 31.8 MCHC 33.0 RDW Std Deviation 42.5 RDW Coeff of Mari 11.9 Plt Count 248 MPV 9.8 Immature Gran % (Auto) 0.300 Neut % (Auto) 66.4 Lymph % (Auto) 19.9 [place] % (Auto) 10.0 Eos % (Auto) 2.9 Baso % (Auto) 0.5 Absolute Neuts (auto) 5.1 Absolute Lymphs (auto) 1.52 Nucleated RBC % 0 Sodium 138 Potassium 4.7 Chloride 106 Carbon Dioxide 25.0 Anion Gap 7 BUN 16 Creatinine 1.14 H Estim Creat Clear Calc 32.85 Est GFR (MDRD) Af Amer 59 L Est GFR (MDRD) Non-Af 49 L BUN/Creatinine Ratio 14.0 Glucose 121 H Calcium 9.8 Troponin I High Sens 7 Radiography Chest X-Ray - ED: Read by ED Physician Diagnostic Testing: Clinical Impression(s) from Imaging Studies Chest X-Ray 09/24/22 13:05 IMPRESSION: Cardiomegaly. Mild degree of vascular congestion. Increased density in the left lower lobe suggestive of possible left lower lobe infiltrate. Electronically Signed: Pradeep Barba MD at 13:21 EDT Reading Location ID and State: [facility] / [place] , Service support , Chest x-ray by my read shows no evidence of focal consolidation, pneumothorax or significant pulmonary vascular ingestion when compared to prior x-ray on 07/18/2022 Discharge Plan Triage Chief Complaint: Chest Other ED Provider: Miller Tinajero Dx/Rx/DC Orders Clinical Impression: History of permanent cardiac pacemaker placement Instructions: Living with a Pacemaker Prescriptions: No Action atorvastatin 20 MG tablet 20 mg PO DAILY Label Comments: cholesterol lowering lisinopril 20 MG tablet 20 mg PO BID Label Comments: BLOOD PRESSURE multivitamin Tablet 1 tab PO DAILY famotidine 40 mg tablet 40 mg PO DAILY Label Comments: take 1 tablet by mouth once daily spironolactone 25 mg tablet 12.5 mg PO BID Label Comments: take 1 tablet by mouth once daily zinc 50 mg Tablet 50 mg PO DAILY calcium carbonate-vitamin D3 500 mg(1,250mg) -125 unit Tablet 2 tab PO DAILY doxazosin 1 mg tablet 1 mg PO QHS lorazepam 0.5 MG tablet 0.5 mg PO BID PRN PRN (Reason: Anxiety) 3 Days Qty: 6 0RF diltiazem HCl 180 mg Capsule,Extended Release 24hr 180 mg PO DAILY 30 Days Qty: 30 0RF acetaminophen 500 mg Tablet 1,000 mg PO Q6H PRN PRN (Reason: Pain Score 1-10) Qty: 0 0RF hydrochlorothiazide 12.5 mg Capsule 12.5 mg PO DAILY 30 Days Qty: 30 0RF Eliquis 5 mg Tablet 5 mg PO BID 30 Days Qty: 60 0RF Primary Care Provider: Philipp Boogie Chi Referrals: Sudhir Fowler MD [Med Staff - Active Staff] - Activity Restrictions/Additional Instructions: Thank you for trusting us with your care today! Please return to the emergency department if your symptoms change or worsen. Specifically if you feel your pacemaker fire, you lose consciousness, you develop chest pain or shortness of breath. Please follow with your cattyman (Dr. Fowler) for further outpatient evaluation and management. Disposition Disposition: Home, Self Care
[2022-09-24 12:43] LABS: Absolute Lymphocyte Count 1.52 X10^3/uL (0.83-4.51); Absolute Neutrophil Count 5.1 X10^3/uL (2.0-7.7); Basophil# 0.04 X10^3/uL; Basophil% 0.5 % (0-1); Eosinophil# 0.22 X10^3/uL; Eosinophils% 2.9 % (0-5); Hematocrit 38.8 % (37-47); Hemoglobin 12.8 g/dL (12.0-15.0); Lymphocyte # 1.52 X10^3/ul (0.83-4.51); Lymphocyte % 19.9 % (19-41); Mean Corpuscular Hgb 31.8 pg (27.0-32.0); Mean Corpuscular Volume 96.3 fL (81-99); Mean Platelet Vol. 9.8 fl (6.2-12.0); Monocyte# 0.76 X10^3/uL; NRBC Flagged by Analyzer 0 % (0-5); Neutrophil # 5.06 X10^3/uL (2.7-7.7); Neutrophil % 66.4 % (47-70); Platelet Count 248 K/mm3 (150-450); RBC Distribution Width CV 11.9 % (11.6-14.6); RBC Distribution Width SD 42.5 fl (35.1-43.9); Red Blood Count 4.03 M/mm3 (4.2-5.4); White Blood Count 7.6 K/mm3 (4.4-11.0)
[2022-09-24 13:01] LABS: Anion Gap 7 (5-15); BUN 16 mg/dL (7-18); Calcium,Total 9.8 mg/dL (8.5-10.1); Chloride 106 mmol/L (98-107); Creatinine, Serum 1.14 mg/dL (0.55-1.02); EST Glomerular Filtration Rate 49 mL/min (>60); Est Glom Filt Rate - Afr Amer 59 mL/min (>60); Estimated Creatinine Clearance 32.85 ml/min; Glucose 121 mg/dL (74-106); Potassium 4.7 mmol/L (3.5-5.1); Sodium Level 138 mmol/L (136-145); Troponin-I HS 7 pg/mL (3.0-54.0)
--- NOTE | 2022-09-24 13:05 | RAD_ITS ---
STUDY: X-RAY CHEST REASON FOR EXAM: Female, 82 years old. Chest pain. Lightheadedness. TECHNIQUE: Single AP portable view of the chest. COMPARISON: Comparison is made with prior study dated August 07, 2022. FINDINGS: EKG electrodes are seen. Findings suggestive of a infiltration in the left lower lobe. Mild degree of vascular congestion. There is blunting of the left costophrenic angle. A left-sided dual-chamber pacemaker is seen. Cardiomegaly. Normal mediastinum and tonja. Normal visualized pulmonary arteries. There is atherosclerotic calcification of the aortic arch with tortuosity. There are diffuse degenerative changes of the visualized thoracic spine. Normal visualized ribs, clavicles, and shoulders. There is no demonstrated abnormality of the visualized soft tissue structures of the upper abdomen. RAD/Chest 1 View (Portable) IMPRESSION: Cardiomegaly. Mild degree of vascular congestion. Increased density in the left lower lobe suggestive of possible left lower lobe infiltrate. Electronically Signed: Pradeep Barba MD at 13:21 EDT ,
== END 2022-09-24 14:22 | disposition home or self-care (01) ==
PROVIDERS: Emergency Provider Emergency Medicine; PCP Family Medicine Geriatric Medicine; Visit Provider Emergency Medicine
DX: Z03.89 Encounter for observation for other suspected diseases and conditions ruled out (principal); Z95.0 Presence of cardiac pacemaker; E78.00 Pure hypercholesterolemia, unspecified; I10 Essential (primary) hypertension
CPT/HCPCS: 71045; 80048; 84484; 85025; 93005; 99285; A4216

== ENCOUNTER 2022-09-27 20:56 | Emergency (ER) | payer MEDICARE, SELFPAY ==
[2022-09-27 20:57] VITALS: BP 173/81; PULSE 87; RESP 18; TEMP 36.4; O2SAT 97; BMI 34.9
--- NOTE | 2022-09-27 21:24 | EKG12_ITS ---
Test Reason : DYSRHYTHMIA Blood Pressure : / mmHG Vent. Rate : 069 BPM Atrial Rate : 069 BPM P-R Int : 000 ms QRS Dur : 162 ms QT Int : 468 ms P-R-T Axes : 081 -76 076 degrees QTc Int : 501 ms Ventricular-paced rhythm Abnormal ECG Confirmed by KENDELL MA, NADEEM ([id number]), scientific editor KIRIT STRONG ([id number]) on 09/30/2022 8:40:18 AM Referred By: JONO Confirmed By:NADEEM RDZ MD
--- NOTE | 2022-09-27 21:25 | ED.VIS.CHEST ---
HPI History of Present Illness Chief Complaint: Pacer/ICD Detail of Chief Complaint: Elevated blood pressure. Pacemaker monitor alarming. Informant: patient and friend Onset/Context/Timing Onset: Today and Hours Activity at onset: gradual Associated Symptoms: Negative for Nausea, Vomiting, Diaphoresis, Dyspnea, Cough, Fever, Lightheadedness, Acid Reflux or Palpitations Narrative Narrative: 82-year-old female who had a chronic history of bradycardia and A-fib she is on Eliquis. A pacemaker placed in July here by Dr. Sudhir Fowler. A week or so ago she had issues with it alarming. And had it evaluated which is unremarkable. Today she has had issues with her blood pressure being elevated. And again the monitor for her pacemaker has alarmed. She denies any chest pain. No shortness of breath. No syncopal or near syncopal episodes. Denies recent illness. Prior Similar Symptoms: Yes Recent Illness/Hospitalization: No CVD Risk Factors: Negative for Diabetes PE Risk Factors: Positive for Recent Immobilization; Negative for Recent Travel/Surgery or Prior DVT or PE TAD Risk Factors: Negative for Marfan's Syndrome [facility] Medical History Ambulates with cane Anxiety disorder Arthritis Atrial flutter Chronic sinus bradycardia High cholesterol Hip dislocation, left Hypertension Osteoarthritis PAF (paroxysmal atrial fibrillation) Presence of cardiac pacemaker Right knee pain Wears glasses Home Medications atorvastatin 20 mg tablet 20 mg PO DAILY cholesterol 08/24/15 [History Last Taken 02/19/21] lisinopril 20 mg tablet 20 mg PO BID BP 08/24/15 [History Last Taken 02/20/21 05:30] calcium carbonate 500 mg-vitamin D3 3.125 mcg (125 unit) tablet 2 tab PO DAILY supplement 02/01/21 [History Last Taken 02/19/21] famotidine 40 mg tablet 40 mg PO DAILY acid reflux 02/01/21 [History Last Taken 02/19/21] multivitamin 1 tab PO DAILY supplement 02/01/21 [History Last Taken 02/19/21] spironolactone 25 mg tablet 12.5 mg PO BID fluid pill 02/01/21 [History Last Taken 02/19/21] zinc 50 mg tablet 50 mg PO DAILY supplement 02/01/21 [History Last Taken Unknown] doxazosin 1 mg tablet 1 mg PO QHS BP 07/18/22 [History Last Taken Unknown] lorazepam 0.5 mg tablet 0.5 mg PO BID PRN PRN Anxiety 3 days #6 tabs 07/25/22 [Rx Last Taken Unknown] acetaminophen 500 mg tablet 1,000 mg PO Q6H PRN PRN Pain Score 1-10 #0 tabs 08/01/22 [Rx Last Taken Unknown] apixaban 5 mg tablet (Eliquis) 5 mg PO BID 30 days #60 tabs 08/01/22 [Rx Last Taken Unknown] diltiazem HCl 180 mg capsule,extended release 24 hr 180 mg PO DAILY 30 days #30 caps 08/01/22 [Rx Last Taken Unknown] hydrochlorothiazide 12.5 mg capsule 12.5 mg PO DAILY 30 days #30 caps 08/01/22 [Rx Last Taken Unknown] Allergy/AdvReac Type Severity Reaction Status Date / Time No Known Allergies Allergy Verified 09/27/22 20:59 Family History Mother Heart disease Hypertension Father CVA (cerebral vascular accident) Hypertension Surgical History History of permanent cardiac pacemaker placement (~07/21/22) History of right knee joint replacement Hx of colonoscopy Hx of foot surgery Hx of total hip arthroplasty Hx of tubal ligation Status post unicompartmental knee replacement Social History household members: none Smoking Status: Never smoker alcohol intake: never substance use type: does not use ROS ROS ED ROS Narrative Denies recent illness. Review of Systems ROS Unobtainable: Denies due to encephalopathy Constitutional Constitutional ED: Denies chills or fever(s) Eyes Eyes: Reports none ENT ENT ED: Denies ear pain Cardiovascular Cardiovascular: Denies as per HPI, chest pain, palpitations or racing heartbeat Respiratory/Chest Respiratory/Chest: Denies cough or dyspnea Gastrointestinal Gastrointestinal: Denies abdominal pain Genitourinary Genitourinary ED: Denies dysuria or hematuria Musculoskeletal Musculoskeletal: Denies arthralgias Integumentary Denies abscess Neurologic Neurologic: Denies headache(s) Psychiatric Psychiatric: Denies anxiety Endocrine Endocrinology: Denies cold intolerance Hematologic/Lymphatic Hematologic/Lymphatic: Denies easy bleeding or easy bruising Allergic/Immunologic Allergic/Immunologic ED: Denies mouth swelling or tongue swelling EXAM Physical Exam Narrative Exam Narrative: Well-appearing 82-year-old female. Vital signs stable afebrile. Blood pressure elevated 173/81. Pulse ox 97% on room air no signs hypoxia. She is in no distress. Friend at bedside. H EENT exam unremarkable. Neck nontender no JVD. Lungs clear to auscultation bilaterally. Heart regular rhythm rate about 85 no murmur. Chest wall nontender. Abdomen soft nontender. Moving all 4 extremities. Trace edema both lower extremities. Neurologically she is awake and alert with no focal motor deficits. Answering questions and following commands. Const Vital Signs: 09/27/22 20:57 09/27/22 21:44 09/27/22 21:24 Temperature 97.5 F L Temperature Source Temporal Pulse Rate 87 68 Respiratory Rate 18 18 Blood Pressure 173/81 H 157/85 H Blood Pressure Mean 111 109 Pulse Ox 97 97 Oxygen Delivery Method Room Air Room Air Room Air 09/27/22 23:07 Temperature Temperature Source Pulse Rate 69 Respiratory Rate 20 H Blood Pressure 151/79 H Blood Pressure Mean 103 Pulse Ox Oxygen Delivery Method Positive well nourished and well developed; Negative for cachectic, contractures or unkempt General Appearance ED: well developed and NAD; Negative for unkempt, cachectic, contractures or pallor Nutritional Appearance: Negative for cachectic HEENT Reports moist mucous membranes atraumatic; Negative for trauma or tenderness Eyes PERRL and EOMs intact bilaterally General Eye ED: Negative for pale conjunctiva or scleral icterus Neck no lymphadenopathy, supple and no JVD General: Negative for tenderness Chest Wall inspection of chest normal and palpation of chest normal Chest: Negative for tenderness Resp normal respiratory effort and clear to auscultation bilaterally Effort and Inspection: Negative for respiratory distress Auscultation: Negative for rales, rhonchi or wheezes Cardio regular rhythm, S1 normal heart sound, S2 normal heart sound and no murmurs GI normal to inspection, nondistended, normoactive bowel sounds, soft to palpation, non-tender, non-distended and no masses Back/Spine no CVA tenderness and no thoracic nor lumbar tenderness General Back: Negative for CVA tenderness Extremity Negative for normal to inspection General Extremety ED: Yes edema General Extremity: edema Neuro oriented x3 Sensorium / Orientation: awake, alert, oriented to person, oriented to place and oriented to time; Negative for confused, lethargic or stuporous Motor Exam: strength 5/5 throughout Psych mental status grossly normal Appearance: Negative for unkempt Attitude: No agitated Mood & Affect: Negative for depressed, anxious or tearful Skin no rashes or lesions noted and no wounds General Skin Exam: Negative for jaundice or pallor Rashes: No rashes noted Trauma: Negative for abrasion or laceration MDM MDM MDM Narrative Medical decision making narrative: 82-year-old pacemaker placed in July. Tonight concerned because her alarm went off twice. And she has had elevated blood pressures. Clinically she looks well. She had a similar episode a week or so ago. She has had no readmission since her pacemaker was placed. She is on a chronic blood thinner Eliquis. Screening labs will be obtained. EKG. We will have the pacemaker interrogated. Repeat exam the pt is doing well at 11:40 p.m. Blood pressure is 149/72. We discussed her test results and need to follow up with the pacemaker clinic to have her monitor checked. They may need to change the parameters for when it alarms. History & Record Review Discussion w/independent historian: Patient and Family Additional record(s) reviewed:: Prior inpatient record, Prior outpatient record, Prior ED visit and Prior labs Lab Data Attestation: I reviewed the patient's lab results. Lab results narrative: CBC unremarkable white count 8.5. H&H 12 and 35. Platelets 235. Electrolytes unremarkable gap of 6. Normal BUN and creatinine. Glucose 102. Labs: Laboratory Results - last 24 hr 09/27/22 09/27/22 22:05 22:05 WBC 8.5 RBC 3.79 L Hgb 12.2 Hct 35.8 L MCV 94.5 MCH 32.2 H MCHC 34.1 RDW Std Deviation 41.8 RDW Coeff of Mari 12.0 Plt Count 235 MPV 9.4 Immature Gran % (Auto) 0.200 Neut % (Auto) 70.6 H Lymph % (Auto) 15.4 L Piatt % (Auto) 11.2 H Eos % (Auto) 2.0 Baso % (Auto) 0.6 Absolute Neuts (auto) 6.0 Absolute Lymphs (auto) 1.31 Nucleated RBC % 0 Sodium 140 Potassium 4.1 Chloride 106 Carbon Dioxide 28.0 Anion Gap 6 BUN 18 Creatinine 0.94 Estim Creat Clear Calc 39.85 Est GFR (MDRD) Af Amer 73 Est GFR (MDRD) Non-Af 61 BUN/Creatinine Ratio 19.1 Glucose 102 Calcium 9.5 Radiography Chest X-Ray - ED: 1 View, Read by ED Physician, Read by Radiologist, Lungs, Mediastinum, Bony Structures, No Acute Disease, Chronic Changes and Cardiomegaly Diagnostic Testing: Clinical Impression(s) from Imaging Studies Chest X-Ray 09/27/22 21:38 IMPRESSION: 1. Cardiomegaly with no evidence of acute pulmonary disease. 2. Large hiatal hernia. Electronically Signed: Tom Whaley DO at 22:37 EDT , Chest x-ray, portable, single view interpreted both by myself and the radiologist shows cardiomegaly. No acute abnormality. No infiltrate. No significant effusions. Rhythm Strip Rhythm Strip: paced Rate: 69 Ectopy: None EKG Initial EKG: Attestation: I personally reviewed and interpreted this EKG as follows: Interpretation: No Acute Injury Pattern and Paced Comments: Paced rhythm at 69. Discharge Plan Triage Chief Complaint: Pacer/ICD ED Provider: Deonte Mcknight Dx/Rx/DC Orders Clinical Impression: Hypertension Instructions: ED Hypertension, Established Prescriptions: No Action atorvastatin 20 MG tablet 20 mg PO DAILY Label Comments: cholesterol lowering lisinopril 20 MG tablet 20 mg PO BID Label Comments: BLOOD PRESSURE multivitamin Tablet 1 tab PO DAILY famotidine 40 mg tablet 40 mg PO DAILY Label Comments: take 1 tablet by mouth once daily spironolactone 25 mg tablet 12.5 mg PO BID Label Comments: take 1 tablet by mouth once daily zinc 50 mg Tablet 50 mg PO DAILY calcium carbonate-vitamin D3 500 mg(1,250mg) -125 unit Tablet 2 tab PO DAILY doxazosin 1 mg tablet 1 mg PO QHS lorazepam 0.5 MG tablet 0.5 mg PO BID PRN PRN (Reason: Anxiety) 3 Days Qty: 6 0RF diltiazem HCl 180 mg Capsule,Extended Release 24hr 180 mg PO DAILY 30 Days Qty: 30 0RF acetaminophen 500 mg Tablet 1,000 mg PO Q6H PRN PRN (Reason: Pain Score 1-10) Qty: 0 0RF hydrochlorothiazide 12.5 mg Capsule 12.5 mg PO DAILY 30 Days Qty: 30 0RF Eliquis 5 mg Tablet 5 mg PO BID 30 Days Qty: 60 0RF Primary Care Provider: Philipp Boogie Chi Referrals: Sudhir Fowler MD [Med Staff - Active Staff] - As soon as possible Philipp Boogie Chi, MD [Primary Care Provider] - Activity Restrictions/Additional Instructions: Continue your current medications. Follow up with your pacemaker clinic. Labs were normal and Pacemaker functioning well Disposition Disposition: Home, Self Care
--- NOTE | 2022-09-27 21:38 | RAD_ITS ---
INDICATION: chest pain EXAMINATION/TECHNIQUE: X-RAY - XR Chest 1 View COMPARISON: 09/24/2022. FINDINGS: LINES/DEVICES: Cardiac pacer and leads are stable. LUNGS: No consolidation or evidence of an effusion. No evidence of edema or a pneumothorax. MEDIASTINUM AND CARDIOVASCULAR STRUCTURES: Large hiatal hernia. Cardiac megaly. Mediastinum is unremarkable. BONES AND SOFT TISSUES: No acute abnormality. RAD/Chest 1 View (Portable) IMPRESSION: 1. Cardiomegaly with no evidence of acute pulmonary disease. 2. Large hiatal hernia. Electronically Signed: Tom Whaley DO at 22:37 EDT ,
[2022-09-27 21:44] VITALS: BP 157/85; PULSE 68; RESP 18; O2SAT 97
[2022-09-27 22:14] LABS: Absolute Lymphocyte Count 1.31 X10^3/uL (0.83-4.51); Basophil# 0.05 X10^3/uL; Basophil% 0.6 % (0-1); Eosinophil# 0.17 X10^3/uL; Hematocrit 35.8 % (37-47); Hemoglobin 12.2 g/dL (12.0-15.0); Lymphocyte # 1.31 X10^3/ul (0.83-4.51); Lymphocyte % 15.4 % (19-41); Mean Corp Hgb Conc 34.1 g/dL (32-36); Mean Corpuscular Hgb 32.2 pg (27.0-32.0); Mean Corpuscular Volume 94.5 fL (81-99); Mean Platelet Vol. 9.4 fl (6.2-12.0); Monocyte# 0.95 X10^3/uL; Monocyte% 11.2 % (0-10); NRBC Flagged by Analyzer 0 % (0-5); Neutrophil % 70.6 % (47-70); Platelet Count 235 K/mm3 (150-450); RBC Distribution Width SD 41.8 fl (35.1-43.9); Red Blood Count 3.79 M/mm3 (4.2-5.4); White Blood Count 8.5 K/mm3 (4.4-11.0)
[2022-09-27 22:30] LABS: Anion Gap 6 (5-15); BUN 18 mg/dL (7-18); BUN/Creat Ratio 19.1 RATIO (10-20); Calcium,Total 9.5 mg/dL (8.5-10.1); Chloride 106 mmol/L (98-107); Creatinine, Serum 0.94 mg/dL (0.55-1.02); EST Glomerular Filtration Rate 61 mL/min (>60); Est Glom Filt Rate - Afr Amer 73 mL/min (>60); Estimated Creatinine Clearance 39.85 ml/min; Glucose 102 mg/dL (74-106); Potassium 4.1 mmol/L (3.5-5.1); Sodium Level 140 mmol/L (136-145)
[2022-09-27 23:07] VITALS: BP 151/79; PULSE 69; RESP 20
[2022-09-27 23:58] VITALS: BP 145/68
== END 2022-09-28 | disposition home or self-care (01) ==
PROVIDERS: Emergency Provider Emergency Medicine; PCP Family Medicine Geriatric Medicine; Visit Provider Emergency Medicine
DX: I10 Essential (primary) hypertension (principal); I48.0 Paroxysmal atrial fibrillation; Z79.01 Long term (current) use of anticoagulants; Z95.0 Presence of cardiac pacemaker; E78.00 Pure hypercholesterolemia, unspecified
CPT/HCPCS: 71045; 80048; 85025; 93005; 99283; A4216

== ENCOUNTER 2022-11-01 19:20 | Emergency (ER) | payer MEDICARE, SELFPAY ==
[2022-11-01 19:21] VITALS: BP 166/100; PULSE 87; RESP 15; TEMP 36.7; O2SAT 96; BMI 35.6
[2022-11-01 19:41] VITALS: BP 189/90; PULSE 85; RESP 18; O2SAT 97
[2022-11-01 19:43] VITALS: O2SAT 97
--- NOTE | 2022-11-01 19:44 | EKG12_ITS ---
Test Reason : SOB Blood Pressure : / mmHG Vent. Rate : 076 BPM Atrial Rate : 076 BPM P-R Int : 204 ms QRS Dur : 166 ms QT Int : 436 ms P-R-T Axes : 050 -73 087 degrees QTc Int : 490 ms Atrial-sensed ventricular-paced rhythm Abnormal ECG Confirmed by CHRISTOPHER MA, SUSAN ([id number]), newspaper managing editor KIRIT STRONG ([id number]) on 11/03/2022 11:29:29 A M Referred By: Confirmed By:SAILAJA WHITE MD
--- NOTE | 2022-11-01 19:44 | EX.ED.DYSGE1 ---
HPI History of Present Illness Chief Complaint: Shortness of Breath Narrative Narrative: 82-year-old female past medical history of atrial flutter/fibrillation, hyperlipidemia, anxiety, and hypertension presents after accidental overdose of her medications. She states that she usually takes half of a 25 mg metoprolol tablet in the morning, then in the evening, along with her Eliquis once in the morning 5 mg then 5 mg at night. She also takes diltiazem 240 mg orally just before bedtime. This evening, she did not refill her pillboxes and had her bottles on the countertop and had taken her medication at 1600. She could not remember if she had taken her afternoon medication so she took another dose of 1/2 mg tablet of the metoprolol, and of the Eliquis. She realized that she had already taken her afternoon medications and became panicked. She started hyperventilating and may have felt short of breath. She now has a dry mouth. She saw on her paperwork that she was told to call her doctor or go to the emergency department in the event of overdose. She denies any chest pain or other symptoms but was concerned because she had taken extra doses of these medications, mainly the metoprolol and Eliquis. She had not taken her diltiazem yet. [facility] Medical History Ambulates with cane Anxiety disorder Arthritis Atrial flutter Chronic sinus bradycardia High cholesterol Hip dislocation, left Hypertension Osteoarthritis PAF (paroxysmal atrial fibrillation) Presence of cardiac pacemaker Right knee pain Wears glasses Home Medications atorvastatin 20 mg tablet 20 mg PO DAILY cholesterol 08/24/15 [History Last Taken 02/19/21] lisinopril 20 mg tablet 20 mg PO BID BP 08/24/15 [History Last Taken 02/20/21 05:30] calcium carbonate 500 mg-vitamin D3 3.125 mcg (125 unit) tablet 2 tab PO DAILY supplement 02/01/21 [History Last Taken 02/19/21] famotidine 40 mg tablet 40 mg PO DAILY acid reflux 02/01/21 [History Last Taken 02/19/21] multivitamin 1 tab PO DAILY supplement 02/01/21 [History Last Taken 02/19/21] spironolactone 25 mg tablet 12.5 mg PO BID fluid pill 02/01/21 [History Last Taken 02/19/21] zinc 50 mg tablet 50 mg PO DAILY supplement 02/01/21 [History Last Taken Unknown] doxazosin 1 mg tablet 1 mg PO QHS BP 07/18/22 [History Last Taken Unknown] lorazepam 0.5 mg tablet 0.5 mg PO BID PRN PRN Anxiety 3 days #6 tabs 07/25/22 [Rx Last Taken Unknown] acetaminophen 500 mg tablet 1,000 mg (2 x 500 mg) PO Q6H PRN PRN Pain Score 1-10 #0 tabs 08/01/22 [Rx Last Taken Unknown] apixaban 5 mg tablet (Eliquis) 5 mg PO BID 30 days #60 tabs 08/01/22 [Rx Last Taken Unknown] diltiazem HCl 180 mg capsule,extended release 24 hr 180 mg PO DAILY 30 days #30 caps 08/01/22 [Rx Last Taken Unknown] hydrochlorothiazide 12.5 mg capsule 12.5 mg PO DAILY 30 days #30 caps 08/01/22 [Rx Last Taken Unknown] Allergy/AdvReac Type Severity Reaction Status Date / Time No Known Allergies Allergy Verified 11/01/22 19:26 Family History Mother Heart disease Hypertension Father CVA (cerebral vascular accident) Hypertension Surgical History History of permanent cardiac pacemaker placement (~07/21/22) History of right knee joint replacement Hx of colonoscopy Hx of foot surgery Hx of total hip arthroplasty Hx of tubal ligation Status post unicompartmental knee replacement Social History household members: none Smoking Status: Never smoker alcohol intake: never substance use type: does not use ROS ROS ED ROS Narrative Constitutional: No fever, no chills. HEENT: No sore throat. No neck pain. No loss of vision. No rhinorrhea. Dry mouth. Cardiovascular: No chest pain. No palpitations. No pedal edema. Respiratory: No cough, possible shortness of breath. Abdominal: No abdominal pain. No nausea. No vomiting. Genitourinary: No dysuria. No hematuria. Musculoskeletal: No myalgias. No arthralgias. Neurologic: No headaches. No dizziness. No lightheadedness. Skin: No rash. No change in color. Psychiatric: No depression. Mild anxiety regarding accidental overdose. EXAM Physical Exam Narrative Exam Narrative: Afebrile. Vital signs noted. HEENT: Normocephalic. Atraumatic. PERRL, EOMI. Neck soft and supple. No point tenderness or step off. Cardiovascular: Regular rate and rhythm. No murmurs, rubs, or gallops appreciated. Respiratory: No tachypnea. Lungs clear to auscultation bilaterally. Gastrointestinal: Abdomen soft, nontender, with normoactive bowel sounds. No rebound or guarding. Neurological: Awake. Alert. Nonfocal, nonlateralizing. Skin: No rash. Normal color. No pallor. Musculoskeletal: No pedal edema. Full range of motion extremities. Const Vital Signs: 11/01/22 19:21 11/01/22 19:41 11/01/22 19:43 Temperature 98.1 F Temperature Source Temporal Pulse Rate 87 85 Respiratory Rate 15 18 Respiratory Effort Normal Non-Labored Respiratory Depth Normal Respiratory Pattern Normal Blood Pressure 166/100 H 189/90 H Blood Pressure Mean 122 123 Pulse Ox 96 97 Oxygen Delivery Method Room Air Room Air Room Air 11/01/22 20:32 Temperature Temperature Source Pulse Rate 75 Respiratory Rate 18 Respiratory Effort Respiratory Depth Respiratory Pattern Blood Pressure 160/72 H Blood Pressure Mean 101 Pulse Ox 98 Oxygen Delivery Method Room Air MDM MDM MDM Narrative Medical decision making narrative: I reviewed the records. In her problem list she does have a permanent cardiac pacemaker that was placed in June of this year. She was reassured. I did see the bottles of her medication and she is only taking 25 mg of metoprolol half a tablet so she has only taken an extra 12.5 mg. Additionally, although she has taken an extra dose of her Eliquis, she was told that it is an actual loading dose of 10 mg and she is not having any acute bleeding. She was told that she may have more of a propensity to bleed, but she should restart her medications as scheduled tomorrow. I do feel this is more preferable than having her skipping her morning dose. I see no evidence of beta-triny toxicity currently as her heart rate is 85. Additionally she has a pacemaker in place. I will obtain an EKG. I do not feel a chest x-ray is indicated as she is satting 97% on room air without evidence of hypoxia. I do think her dry mouth may be secondary to hyperventilation and anxiety. She was able to tolerate oral fluids here. Upon repeat examination at approximately 2039, she is resting comfortably. She states she no longer has dry mouth. EKG was obtained and interpreted by myself independently as atrial sensed ventricular paced rhythm at [address] changes, no significant change from September 27, 2022. She was reassured. Additionally she has a pacemaker so she was told that her pacemaker would work if she became extremely bradycardic. At this point in time, I feel she be discharged safely home with follow-up. She states she will place her pills in her pillboxes and take them appropriately. Return instructions to the emergency department were reviewed. Disposition is discharged home in stable condition. Discharge Plan Triage Chief Complaint: Shortness of Breath ED Provider: Fidel Ta Dx/Rx/DC Orders Clinical Impression: Accidental medication overdose, History of permanent cardiac pacemaker placement, Accidental overdose of beta-adrenergic blocking drug Instructions: ED Accidental Ingestion ... Prescriptions: No Action atorvastatin 20 MG tablet 20 mg PO DAILY Patient Comments: cholesterol lowering lisinopril 20 MG tablet 20 mg PO BID Patient Comments: BLOOD PRESSURE multivitamin Tablet 1 tab PO DAILY famotidine 40 mg tablet 40 mg PO DAILY Patient Comments: take 1 tablet by mouth once daily spironolactone 25 mg tablet 12.5 mg PO BID Patient Comments: take 1 tablet by mouth once daily zinc 50 mg Tablet 50 mg PO DAILY calcium carbonate-vitamin D3 500 mg(1,250mg) -125 unit Tablet 2 tab PO DAILY doxazosin 1 mg tablet 1 mg PO QHS lorazepam 0.5 MG tablet 0.5 mg PO BID PRN PRN (Reason: Anxiety) 3 Days Qty: 6 0RF diltiazem HCl 180 mg Capsule,Extended Release 24hr 180 mg PO DAILY 30 Days Qty: 30 0RF acetaminophen 500 mg Tablet 1,000 mg PO Q6H PRN PRN (Reason: Pain Score 1-10) Qty: 0 0RF hydrochlorothiazide 12.5 mg Capsule 12.5 mg PO DAILY 30 Days Qty: 30 0RF Eliquis 5 mg Tablet 5 mg PO BID 30 Days Qty: 60 0RF Primary Care Provider: Philipp Boogie Chi Referrals: Philipp Boogie Chi, MD [Primary Care Provider] - 3-5 Days if not improving Activity Restrictions/Additional Instructions: Continue your medications as previously instructed and directed. Disposition Disposition: Home, Self Care
[2022-11-01 20:32] VITALS: BP 160/72; PULSE 75; RESP 18; O2SAT 98
[2022-11-01 21:00] VITALS: BP 142/76; TEMP -7.7; TEMP 18; O2SAT 96
== END 2022-11-01 21:07 | disposition home or self-care (01) ==
PROVIDERS: Emergency Provider Emergency Medicine; PCP Family Medicine Geriatric Medicine; Visit Provider Emergency Medicine
DX: R06.02 Shortness of breath (principal); I48.91 Unspecified atrial fibrillation; R68.2 Dry mouth, unspecified; T44.7X1A Poisoning by beta-adrenoreceptor antagonists, accidental (unintentional), initial encounter; E78.00 Pure hypercholesterolemia, unspecified; F41.9 Anxiety disorder, unspecified; Z95.0 Presence of cardiac pacemaker; I10 Essential (primary) hypertension; Z79.01 Long term (current) use of anticoagulants; Z79.899 Other long term (current) drug therapy
CPT/HCPCS: 93005; 99283

== ENCOUNTER → 2022-11-06 | Outpatient (CLI) | payer MEDICARE, SELFPAY ==
[2022-11-06 17:52] LABS: Absolute Lymphocyte Count 1.48 X10^3/uL (0.83-4.51); Absolute Neutrophil Count 4.8 X10^3/uL (2.0-7.7); Basophil# 0.05 X10^3/uL; Basophil% 0.7 % (0-1); Eosinophil# 0.17 X10^3/uL; Eosinophils% 2.3 % (0-5); Hematocrit 37.9 % (37-47); Hemoglobin 12.2 g/dL (12.0-15.0); Lymphocyte # 1.48 X10^3/ul (0.83-4.51); Lymphocyte % 20.2 % (19-41); Mean Corp Hgb Conc 32.2 g/dL (32-36); Mean Corpuscular Volume 96.4 fL (81-99); Mean Platelet Vol. 10.3 fl (6.2-12.0); Monocyte# 0.82 X10^3/uL; Monocyte% 11.2 % (0-10); NRBC Flagged by Analyzer 0 % (0-5); Neutrophil # 4.78 X10^3/uL (2.7-7.7); Neutrophil % 65.2 % (47-70); Platelet Count 271 K/mm3 (150-450); RBC Distribution Width CV 12.3 % (11.6-14.6); RBC Distribution Width SD 43.5 fl (35.1-43.9); Red Blood Count 3.93 M/mm3 (4.2-5.4); White Blood Count 7.3 K/mm3 (4.4-11.0)
[2022-11-06 18:04] LABS: Vitamin D,25 Hydroxy 48.5 ng/mL
[2022-11-06 18:55] LABS: AST(SGOT) 15 U/L (15-37); Alanine Aminotransfer ALT/SGPT 17 U/L (13-56); Albumin, Serum 3.5 g/dL (3.2-5.0); Alkaline Phosphatase 93 U/L (45-117); Anion Gap 7 (5-15); BUN 21 mg/dL (7-18); BUN/Creat Ratio 19.8 RATIO (10-20); Chloride 109 mmol/L (98-107); Creatinine, Serum 1.06 mg/dL (0.55-1.02); EST Glomerular Filtration Rate 53 mL/min (>60); Est Glom Filt Rate - Afr Amer 64 mL/min (>60); Globulin 3.6 g/dL (2.2-4.2); Glucose 103 mg/dL (74-106); Potassium 4.2 mmol/L (3.5-5.1); Protein, Total 7.1 g/dL (6.4-8.2); Sodium Level 140 mmol/L (136-145); Thyroid Stim Hormone (TSH) 2.78 uIU/mL (0.358-3.74)
== END | disposition home or self-care (01) ==
LOC: POLAB3 14:49
PROVIDERS: PCP Family Medicine Geriatric Medicine; Visit Provider Family Medicine Geriatric Medicine
DX: I10 Essential (primary) hypertension (principal); E55.9 Vitamin D deficiency, unspecified
CPT/HCPCS: 36415; 80053; 82306; 84443; 85025

== ENCOUNTER → 2022-12-25 | Outpatient (CLI) | payer MEDICARE, SELFPAY ==
[2022-12-25 16:57] LABS: Absolute Lymphocyte Count 1.14 X10^3/uL (0.83-4.51); Absolute Neutrophil Count 7.7 X10^3/uL (2.0-7.7); Basophil# 0.04 X10^3/uL; Basophil% 0.4 % (0-1); Eosinophil# 0.14 X10^3/uL; Eosinophils% 1.4 % (0-5); Hemoglobin 9.6 g/dL (12.0-15.0); Lymphocyte # 1.14 X10^3/ul (0.83-4.51); Mean Corpuscular Hgb 28.7 pg (27.0-32.0); Mean Corpuscular Volume 92.8 fL (81-99); Mean Platelet Vol. 10.4 fl (6.2-12.0); Monocyte# 1.23 X10^3/uL; Monocyte% 11.9 % (0-10); NRBC Flagged by Analyzer 0 % (0-5); Neutrophil # 7.74 X10^3/uL (2.7-7.7); Neutrophil % 74.9 % (47-70); Platelet Count 285 K/mm3 (150-450); RBC Distribution Width CV 12.8 % (11.6-14.6); RBC Distribution Width SD 43.2 fl (35.1-43.9); Red Blood Count 3.34 M/mm3 (4.2-5.4); White Blood Count 10.3 K/mm3 (4.4-11.0)
[2022-12-25 17:21] LABS: AST(SGOT) 12 U/L (15-37); Alanine Aminotransfer ALT/SGPT 14 U/L (13-56); Albumin, Serum 3.5 g/dL (3.2-5.0); Alkaline Phosphatase 104 U/L (45-117); Anion Gap 6 (5-15); BUN 25 mg/dL (7-18); BUN/Creat Ratio 23.6 RATIO (10-20); Calcium,Total 9.3 mg/dL (8.5-10.1); Chloride 104 mmol/L (98-107); Creatinine, Serum 1.06 mg/dL (0.55-1.02); EST Glomerular Filtration Rate 53 mL/min (>60); Est Glom Filt Rate - Afr Amer 64 mL/min (>60); Globulin 3.5 g/dL (2.2-4.2); Glucose 97 mg/dL (74-106); Sodium Level 135 mmol/L (136-145); Thyroid Stim Hormone (TSH) 1.94 uIU/mL (0.358-3.74)
== END | disposition home or self-care (01) ==
LOC: POLAB3 14:39
PROVIDERS: PCP Family Medicine Geriatric Medicine; Visit Provider Family Medicine Geriatric Medicine
DX: I10 Essential (primary) hypertension (principal)
CPT/HCPCS: 36415; 80053; 84443; 85025

== ENCOUNTER → 2022-12-25 | Outpatient (CLI) | payer MEDICARE, SELFPAY ==
--- NOTE | 2022-12-25 14:57 | VDLE_ITS ---
Reason For Study: RLE Edema RIGHT LEFT GSV is normal. CFV is patent and compressible. CFV is compressible, spontaneous, phasic, FV is compressible, spontaneous, phasic, competent and demonstrates normal competent and demonstrates normal augmentation. augmentation. FV is compressible, spontaneous, phasic, competent and demonstrates normal augmentation. POP V is compressible, spontaneous, phasic, competent and demonstrates normal augmentation. T/P Trunk is compressible. PTV is compressible. RT PerV is compressible. Enlarged vascularized lymph node measuring approximately 3.69cm x 0.93cm seen in hunters canal. Calf vessels visualized in segments due to swelling and edema. Procedure This is a venous duplex using B-mode, color flow and spectral Doppler. Exam performed in department. The exam was diagnostic. The study was technically difficult. A preliminary report was called and/or faxed to Dr. Boogie's office. VL/Venous Duplex US, Unilateral Interpretation Summary Deep veins of the right lower extremity are patent and compressible segmentally . There is no evidence of right lower extremity deep vein thrombosis. The right great sapheno us vein appears patent and compressible segmentally. Enlarged vascularized lymph node measuring approximately 3.69cm x 0.93cm seen i n medial thigh Limited study below knee due to edema Ordering Physician: Philipp Boogie Chi Referring Physician: Philipp Boogie Chi Performed By: Gary Swan, RVT
== END | disposition home or self-care (01) ==
LOC: CVS 14:54
PROVIDERS: PCP Family Medicine Geriatric Medicine; Referring Provider Family Medicine Geriatric Medicine; Visit Provider Family Medicine Geriatric Medicine
DX: R60.0 Localized edema (principal); I10 Essential (primary) hypertension
CPT/HCPCS: 36415; 80053; 84443; 85025; 93971

== ENCOUNTER → 2022-12-30 | Outpatient (CLI) | payer MEDICARE, SELFPAY ==
[2022-12-30 16:58] LABS: Absolute Lymphocyte Count 1.38 X10^3/uL (0.83-4.51); Absolute Neutrophil Count 5.8 X10^3/uL (2.0-7.7); Basophil# 0.06 X10^3/uL; Basophil% 0.7 % (0-1); Eosinophils% 4.6 % (0-5); Hematocrit 29.2 % (37-47); Hemoglobin 8.9 g/dL (12.0-15.0); Lymphocyte # 1.38 X10^3/ul (0.83-4.51); Lymphocyte % 15.8 % (19-41); Mean Corp Hgb Conc 30.5 g/dL (32-36); Mean Corpuscular Hgb 28.2 pg (27.0-32.0); Mean Corpuscular Volume 92.4 fL (81-99); Mean Platelet Vol. 9.9 fl (6.2-12.0); Monocyte# 0.99 X10^3/uL; Monocyte% 11.4 % (0-10); NRBC Flagged by Analyzer 0 % (0-5); Neutrophil # 5.84 X10^3/uL (2.7-7.7); Neutrophil % 66.9 % (47-70); Platelet Count 315 K/mm3 (150-450); RBC Distribution Width CV 13.1 % (11.6-14.6); RET-HE 28.4 pg (30-35); Red Blood Count 3.16 M/mm3 (4.2-5.4); Reticulocyte Count 3.51 % (0.5-1.5); White Blood Count 8.7 K/mm3 (4.4-11.0)
[2022-12-30 17:01] LABS: POSITIVE COUNT NO; POSITIVE DIFFERENTIAL NO; POSITIVE MORPHOLOGY NO
[2022-12-30 17:32] LABS: Iron 21 ug/dL (50-170); Iron Binding Capacity,Total 387 ug/dL (250-450); PERCENT IRON SATURATION 5.4 % (15.0-55.0)
[2022-12-30 19:15] LABS: Vitamin B12 > 2000 pg/mL (211-911)
[2022-12-30 20:04] LABS: M R Staph aureus DNA By PCR Negative (Negative); Probe Check PASS; Specimen Processing Control PASS; Staph aureus DNA By PCR NEGATIVE (Negative)
== END | disposition home or self-care (01) ==
LOC: LABSPEC 16:09
PROVIDERS: PCP Family Medicine Geriatric Medicine; Visit Provider Family Medicine Geriatric Medicine
DX: D64.9 Anemia, unspecified (principal)
CPT/HCPCS: 36415; 82607; 82746; 83540; 83550; 85025; 85045; 87070; 87077; 87186; 87205; 87640

== ENCOUNTER → 2023-01-02 | Outpatient (CLI) | payer MEDICARE, SELFPAY ==
[2023-01-02 12:40] LABS: Absolute Lymphocyte Count 1.01 X10^3/uL (0.83-4.51); Basophil# 0.05 X10^3/uL; Basophil% 0.6 % (0-1); Eosinophil# 0.32 X10^3/uL; Eosinophils% 3.9 % (0-5); Hematocrit 30.1 % (37-47); Lymphocyte # 1.01 X10^3/ul (0.83-4.51); Lymphocyte % 12.2 % (19-41); Mean Corp Hgb Conc 29.9 g/dL (32-36); Mean Corpuscular Hgb 28.1 pg (27.0-32.0); Mean Corpuscular Volume 94.1 fL (81-99); Mean Platelet Vol. 9.4 fl (6.2-12.0); Monocyte# 0.87 X10^3/uL; Monocyte% 10.5 % (0-10); NRBC Flagged by Analyzer 0 % (0-5); Neutrophil # 5.99 X10^3/uL (2.7-7.7); Neutrophil % 72.2 % (47-70); Platelet Count 355 K/mm3 (150-450); RBC Distribution Width CV 13.2 % (11.6-14.6); RBC Distribution Width SD 45.6 fl (35.1-43.9); White Blood Count 8.3 K/mm3 (4.4-11.0)
== END | disposition home or self-care (01) ==
LOC: POLAB3 12:00
PROVIDERS: PCP Family Medicine Geriatric Medicine; Visit Provider Family Medicine Geriatric Medicine
DX: E87.6 Hypokalemia (principal)
CPT/HCPCS: 36415; 85025

== ENCOUNTER → 2023-01-03 | Outpatient (CLI) | payer MEDICARE, SELFPAY | END | disposition home or self-care (01) | LOC: LABSPEC 09:29 | PROVIDERS: PCP Family Medicine Geriatric Medicine; Referring Provider Family Medicine Geriatric Medicine; Visit Provider Family Medicine Geriatric Medicine | DX: D64.9 Anemia, unspecified (principal) | CPT/HCPCS: 82274 ==

== ENCOUNTER → 2023-01-07 | Outpatient (CLI) | payer MEDICARE, SELFPAY ==
[2023-01-07 18:08] LABS: Absolute Lymphocyte Count 1.46 X10^3/uL (0.83-4.51); Absolute Neutrophil Count 5.9 X10^3/uL (2.0-7.7); Basophil# 0.06 X10^3/uL; Basophil% 0.7 % (0-1); Eosinophil# 0.35 X10^3/uL; Eosinophils% 4.1 % (0-5); Hematocrit 30.3 % (37-47); Hemoglobin 9.2 g/dL (12.0-15.0); Lymphocyte # 1.46 X10^3/ul (0.83-4.51); Mean Corp Hgb Conc 30.4 g/dL (32-36); Mean Corpuscular Hgb 27.8 pg (27.0-32.0); Mean Corpuscular Volume 91.5 fL (81-99); Mean Platelet Vol. 9.6 fl (6.2-12.0); Monocyte# 0.82 X10^3/uL; Monocyte% 9.5 % (0-10); NRBC Flagged by Analyzer 0 % (0-5); Neutrophil # 5.89 X10^3/uL (2.7-7.7); Neutrophil % 68.4 % (47-70); Platelet Count 398 K/mm3 (150-450); RBC Distribution Width SD 43.6 fl (35.1-43.9); Red Blood Count 3.31 M/mm3 (4.2-5.4); White Blood Count 8.6 K/mm3 (4.4-11.0)
[2023-01-07 18:34] LABS: Anion Gap 6 (5-15); BUN 18 mg/dL (7-18); BUN/Creat Ratio 18.6 RATIO (10-20); Calcium,Total 9.2 mg/dL (8.5-10.1); Chloride 106 mmol/L (98-107); Creatinine, Serum 0.97 mg/dL (0.55-1.02); EST Glomerular Filtration Rate 59 mL/min (>60); Est Glom Filt Rate - Afr Amer 71 mL/min (>60); Glucose 104 mg/dL (74-106); Sodium Level 139 mmol/L (136-145)
== END | disposition home or self-care (01) ==
LOC: POLAB3 17:38
PROVIDERS: PCP Family Medicine Geriatric Medicine; Visit Provider Family Medicine Geriatric Medicine
DX: I48.91 Unspecified atrial fibrillation (principal)
CPT/HCPCS: 36415; 80048; 85025

== ENCOUNTER → 2023-02-09 | Outpatient (CLI) | payer MEDICARE, SELFPAY ==
[2023-02-09 14:19] LABS: Basophil# 0.08 X10^3/uL; Basophil% 0.7 % (0-1); Eosinophils% 2.7 % (0-5); Hematocrit 30.9 % (37-47); Hemoglobin 9.1 g/dL (12.0-15.0); Lymphocyte % 13.6 % (19-41); Mean Corp Hgb Conc 29.4 g/dL (32-36); Mean Corpuscular Hgb 25.9 pg (27.0-32.0); Mean Platelet Vol. 9.8 fl (6.2-12.0); Monocyte# 1.05 X10^3/uL; Monocyte% 9.5 % (0-10); NRBC Flagged by Analyzer 0 % (0-5); Neutrophil # 8.03 X10^3/uL (2.7-7.7); Neutrophil % 73.1 % (47-70); Platelet Count 295 K/mm3 (150-450); RBC Distribution Width CV 13.4 % (11.6-14.6); RBC Distribution Width SD 43.3 fl (35.1-43.9); Red Blood Count 3.51 M/mm3 (4.2-5.4)
[2023-02-09 14:35] LABS: Vitamin D,25 Hydroxy 38.5 ng/mL
[2023-02-09 14:44] LABS: ALB/GLOB Ratio 0.9 RATIO (0.9-2.4); AST(SGOT) 12 U/L (15-37); Alanine Aminotransfer ALT/SGPT 19 U/L (13-56); Albumin, Serum 3.4 g/dL (3.2-5.0); Alkaline Phosphatase 98 U/L (45-117); Anion Gap 8 (5-15); BUN 20 mg/dL (7-18); BUN/Creat Ratio 18.3 RATIO (10-20); Calcium,Total 8.9 mg/dL (8.5-10.1); Chloride 106 mmol/L (98-107); Creatinine, Serum 1.09 mg/dL (0.55-1.02); EST Glomerular Filtration Rate 51 mL/min (>60); Est Glom Filt Rate - Afr Amer 62 mL/min (>60); Globulin 3.8 g/dL (2.2-4.2); Glucose 111 mg/dL (74-106); Protein, Total 7.2 g/dL (6.4-8.2); Sodium Level 139 mmol/L (136-145); Thyroid Stim Hormone (TSH) 2.97 uIU/mL (0.358-3.74)
== END | disposition home or self-care (01) ==
LOC: POLAB3 13:34
PROVIDERS: PCP Family Medicine Geriatric Medicine; Visit Provider Family Medicine Geriatric Medicine
DX: I10 Essential (primary) hypertension (principal); E55.9 Vitamin D deficiency, unspecified
CPT/HCPCS: 36415; 80053; 82306; 84443; 85025

== ENCOUNTER 2023-02-18 09:13 | Day surgery (SDC) | payer MEDICARE, SELFPAY ==
[2023-02-18] VITALS (7 sets, daily range): BP systolic 117–150; BP diastolic 53–80; PULSE 74–82; RESP 16–18; TEMP 36.9–37.1; O2SAT 94–98; BMI 33.7
--- NOTE | 2023-02-18 09:20 | PCM.HP.BLA ---
History and Physical Date of Admission: 02/18/23 Date of Service: 01/23/23 MR#: [id number] Acct: [id number] Name: CAROLINA DOMINIQUE Rep #: [id number] : 1940 Provider: Dr. Kori Phoenix MD Age/Sex: 82/F Location: [facility] Status: Signed Intake Vital Signs 11/01/2318:21 01/23/2313:16 Height 5 ft 4 in 5 ft 4 in Weight: 202 lb 6 oz BMI 34.7 BP 156/76 H Blood Pressure Location Rt brachial Position Sitting Respiration 17 Pulse 95 Pulse Source NIBP Temp 97.4 F L Temp Source Temporal Pulse Oximetry (%) 94 Oxygen Delivery Method room air Intake Visit Reasons: MELENA AND ANEMIA Chief Complaint: melena/anemia Deputy Clerk Required: No Is patient in pain?: No Allergies valsartan Allergy (Mild, Verified 01/23/23 13:00) Rash Medications calcium carbonate 500 mg-vitamin D3 3.125 mcg (125 unit) tablet 2 tab PO DAILY supplement 02/01/21 [History Confirmed 01/23/23] famotidine 40 mg tablet 40 mg PO DAILY acid reflux 02/01/21 [History Confirmed 01/23/23] multivitamin 1 tab PO DAILY supplement 02/01/21 [History Confirmed 01/23/23] spironolactone 25 mg tablet 12.5 mg PO BID fluid pill 02/01/21 [History Confirmed 01/23/23] zinc 50 mg tablet 50 mg PO DAILY supplement 02/01/21 [History Confirmed 01/23/23] lorazepam 0.5 mg tablet 0.5 mg PO BID PRN PRN Anxiety 3 days #6 tabs 07/25/22 [Rx Confirmed 01/23/23] acetaminophen 500 mg tablet 1,000 mg (2 x 500 mg) PO Q6H PRN PRN Pain Score 1-10 #0 tabs 08/01/22 [Rx Confirmed 01/23/23] apixaban 5 mg tablet (Eliquis) 5 mg PO BID 30 days #60 tabs 08/01/22 [Rx Confirmed 01/23/23] diltiazem HCl 180 mg capsule,extended release 24 hr 180 mg PO DAILY 30 days #30 caps 08/01/22 [Rx Confirmed 01/23/23] ammonium lactate 12 % topical cream applic topical 01/23/23 [History Confirmed 01/23/23] diltiazem HCl 240 mg tablet,extended release 24 hr 240 mg PO DAILY 01/23/23 [History Confirmed 01/23/23] metoprolol succinate 100 mg tablet,extended release 24 hr mg PO 01/23/23 [History Confirmed 01/23/23] Is last menstrual period known: No Post menopausal: Yes Patient : No PFSH Medical History (Updated 01/24/23 @ 09:[address] Kori Phoenix MD) Ambulates with cane Anxiety disorder Arthritis Atrial flutter Chronic sinus bradycardia High cholesterol Hip dislocation, left History of colitis History of colon polyps Hypertension Iron deficiency anemia, unspecified Osteoarthritis PAF (paroxysmal atrial fibrillation) Presence of cardiac pacemaker Right knee pain Wears glasses Surgical History (Updated 01/23/23 @ 13:18 by Nasima Conner) History of permanent cardiac pacemaker placement (~07/21/22) History of right knee joint replacement Hx of colonoscopy (~2020) Hx of foot surgery Hx of total hip arthroplasty Hx of tubal ligation Status post unicompartmental knee replacement Family History Mother Heart disease HypertensionFather CVA (cerebral vascular accident) Hypertension Social History household members: none Smoking Status: Never smoker alcohol intake: never substance use type: does not use HPI HPI HPI: 82-year-old female presents due to positive fecal occult blood and anemia. Patient states that she is currently on Eliquis And recently has had a pacer placed in July 2022. Patient did have a fecal occult test which was positive as in October her hemoglobin was 12 and since then it is dropped to be more in the 9 range. Patient denies any obvious melena or bright red blood per rectum. Patient has never had previous EGD her last colonoscopy was in 2020 she did have a serrated adenoma as well as a tubular adenoma at that time by Dr. Prescott. Patient currently denies any abdominal pain. Patient does take Pepcid daily and has for about 10 years will occasionally get reflux if she eats too much food but that does not happen very often. ROS General General: No weight change, appetite, fatigue, colon cancer, breast cancer or weakness HEENT HEENT: No difficulty swallowing, eye injury, eye surgery, swollen glands or hoarseness Endo Endocrine: No thyroid disease, diabetes mellitus, thyroid cancer, Hair loss, heat intolerance or cold intolerance Musc Musculoskeletal: Yes back problems and arthritis; No rheumatoid arthritis, gout or joint pain Cardio Cardiovascular: Yes pacemaker; No murmur, heart disease, atrial fibrillation, high blood pressure, heart attack, heart stent, palpitations, shortness of breat with exertion or chest pain Psych Psychiatric: No depression, anxiety or hearing voices Resp Respiratory: Yes shortness of breath, No sleep apnea, No cough, No COPD, No asthma, No emphysema and No wheezing Gastro Gastrointestinal: No abdominal pain, No nausea or vomiting, No diarrhea, Yes constipation, Yes blood in stool, No acid reflux, Yes hemorrhoids, No ulcers, No gallbladder problem and No black,tarry stools Deejay Hematologic: Yes blood thinners, No blood disorders, No bleeding, Yes anemia and No blood clots Neuro Neurologic: No weakness Exam Const General: cooperative, healthy appearing, comfortable and no acute distress [facility] Head: normocephalic and atraumatic Neck Neck: supple Resp Effort & Inspection: normal respiratory effort Cardio Rate: regular rate GI Inspection: non-distended Palpation: soft and nontender Skin General: no rashes or lesions noted Neuro General: CN's II-XI intact bilaterally Extrem General: normal to inspection Psych Mental Status: mental status grossly normal Attitude: cooperative Assessment and Plan Assessment and Plan (1) Anemia: Status: Acute Plan Plan for an EGD and colonoscopy and patient will hold Eliquis for 3 days. Patient and her daughter are agreeable with plan. I have discussed the above with the patient. I have offered the patient EGD and colonoscopy for evaluation. I have explained the risks/benefits of the procedure and described the procedure. I have discussed the risks with the patient, including but not limited to: infection, bleeding, perforation of the GI tract requiring emergency surgery, inability to complete the procedure, injury to any internal organs, complications of anesthesia, etc. - the patient understands and agrees to proceed. I have answered all the patient's questions to the patient's satisfaction and the patient has no further questions. The patient has been given instructions for the colon cleansing preparation. 1 day of clears, MiraLAX Dulcolax split prep. Kori Phoenix M.D. Pager: [phone] [facility] [address] [place] [address], [facility], [address] [place] [address] Office: [phone] Coding Level of Care Code Off vis,new,level 3 Diagnoses Anemia D64.9 01/24/23 0926 <Electronically signed by Kori Phoenix MD> Date Kori Phoenix MD
[2023-02-18] MEDS: Lactated Ringers 1,000 ML 15 ML IV (09:37)
--- NOTE | 2023-02-18 10:15 | GASB_PTH ---
PATIENT: CAROLINA DOMINIQUE LOC: EN U#:[id number] AGE/SX: 82/F ROOM: RE02/18/[address]: Dr. Kori Phoenix MD : 1940 BED: DIS: 02/18/2023 SPEC #: [id number] RECD: 02/18/23 13:52 STATUS: FUNMILAYO REWilman #: [id number] NILO: 02/18/23 10:[address]: Kori Phoenix DEPT: SURGICAL PATHOLOGY RECD BY: Kendrick Strange ENTERED: 02/18/23 13:53 SP TYPE: Gastric Bx OTHR DR: Dr. Philipp Boogie MD Tissues: A - Gastric mucous membrane B - Cecum, NOS C - Ascending colon D - Sigmoid colon biopsy Procedures: Surgery Specimen Level IV HEADER OPERATION: Colonoscopy, EGD, biopsy PRE-OP DIAGNOSIS: Anemia TISSUE SUBMITTED: A - Antrum biopsy for histo and H. pylori, B - Cecum polyps (snare and biopsy) x4, C - Proximal ascending polyps (x3) biopsy, D - Sigmoid polyp biopsy MICROSCOPIC DIAGNOSIS A. Gastric antrum, biopsy: Mild chronic gastritis. See comment. B. Cecum polyps, biopsy: Fragments of tubular adenoma. C. Proximal ascending colon polyps, biopsy: Fragments of tubular adenoma. D. Sigmoid colon polyp, biopsy: Polypoid fragment of benign colonic mucosa. See comment. AM:arley 02/19/2023 COMMENT A. The results of immunohistochemistry for Helicobacter pylori will be reported separately ([id number]). D. Neither hyperplastic nor adenomatous change is identified. Clinical correlation is suggested. MICROSCOPIC DESCRIPTION Slides are reviewed. GROSS DESCRIPTION A - Received in fixative is one container labeled with the patient's name and designated antrum biopsy. The specimen consists of one irregular fragment of light sargent soft tissue that measures 0.3 x 0.3 x 0.1 cm. The specimen is totally submitted in one cassette. B - Received in fixative is one container labeled with the patient's name and designated cecum polyps. The specimen consists of multiple irregular fragments of light sargent soft tissue that in aggregate measure 2.5 x 0.8 x 0.1 cm. The specimen is totally submitted in one cassette. C - Received in fixative is one container labeled with the patient's name and designated proximal ascending polyps biopsy x3. The specimen consists of multiple irregular fragments of light sargent soft tissue that in aggregate measure 1.0 x 0.5 x 0.1 cm. The specimen is totally submitted in one cassette. D - Received in fixative is one container labeled with the patient's name and designated sigmoid polyp biopsy. The specimen consists of one irregular fragment of light sargent soft tissue that measures 0.3 x 0.3 x 0.1 cm. The specimen is totally submitted in one cassette. / SJ:rg 02/18/2023 TC:5 CPT: 04742 x4
--- NOTE | 2023-02-18 10:15 | IMM_PTH ---
PATIENT: CAROLINA DOMINIQUE LOC: EN U#:[id number] AGE/SX: 82/F ROOM: RE02/18/[address]: Dr. Kori Phoenix MD : 1940 BED: DIS: 02/18/2023 SPEC #: [id number] RECD: 02/18/23 14:14 STATUS: FUNMILAYO REQ #: [id number] NILO: 02/18/23 10:[address]: Kori Phoenix DEPT: IMMUNOHISTOCHEMISTRY RECD BY: Hattie Barnett ENTERED: 02/18/23 14:15 SP TYPE: IMMUNO OTHR DR: Dr. Philipp Boogie MD Tissues: A - Stomach, NOS Procedures: H Pylori (initial) PHYSICIAN & INSTITUTION [place] [id number] SPECIMEN INFORMATION: Tissue Source: A - Antrum Clinical Info: Anemia Specimen Number: [id number] CPT code: 87385 METHODOLOGY: Deparaffinized sections of prefer/formalin-fixed tissue or PAP/DQ stained slides are incubated with monoclonal/polyclonal antibodies/oligonucleotide probes. Localization is made via biotin free immunoperoxidase method. Appropriate controls are performed and reacted as expected. Results on target cell population are indicated in the following table: RESULTS: ANTIBODY / CLONE RESULT Block A H Pylori (polyclonal) negative These tests were developed and their performance characteristics determined by [facility]. They may not have been cleared or approved by the U.S. Food and Drug Administration. The FDA has determined that such clearance or approval is not necessary. The above immunohistochemical/dualISH markers are ordered and reviewed by the Pathologist. INTERPRETATION: A. Antrum, biopsy: Negative for Helicobacter pylori organisms. AM:arley 02/19/2023
--- NOTE | 2023-02-18 10:35 | OP.EGD_ITS ---
Patient Name: Niki Castellanos Procedure Date: 02/18/2023 9:26 AM Date of : 1940 Age: 82 Procedure: Upper GI endoscopy Indications: Iron deficiency anemia Providers: Kori Phoenix MD Referring MD: Philipp Boogie MD Medicines: Monitored Anesthesia Care Patient Profile: This is an 82 year old female. Complications: No immediate complications. Procedure: Pre-Anesthesia Assessment: - Prior to the procedure, a History and Physical was performed, and patient medications and allergies were reviewed. The patient's tolerance of previous anesthesia was also reviewed. The risks and benefits of the procedure and the sedation options and risks were discussed with the patient. All questions were answered, and informed consent was obtained. Prior Anticoagulants: The patient has taken Eliquis (apixaban), last dose was 3 days prior to procedure. ASA Grade Assessment: Per anesthesia. After reviewing the risks and benefits, the patient was deemed in satisfactory condition to undergo the procedure. After obtaining informed consent, the endoscope was passed under direct vision. Throughout the procedure, the patient's blood pressure, pulse, and oxygen saturations were monitored continuously. The pediatric colonoscope was introduced through the mouth, and advanced to the second part of duodenum. The upper GI endoscopy was accomplished without difficulty. The patient tolerated the procedure well. Scope In: 9:56:59 AM Scope Out: 10:00:09 AM Total Procedure Duration Time 0 hours 3 minutes 10 seconds Findings: The Z-line was regular and was found 33 cm from the incisors. A medium-sized hiatal hernia was present. A single localized less than 1 mm erosion with stigmata of recent bleeding was found in the gastric antrum. Biopsies were taken with a cold forceps for histology. Biopsies were taken with a cold forceps for Helicobacter pylori cultures. Moderately erythematous mucosa without bleeding was found in the gastric antrum. The examined duodenum was normal. Impression: - Z-line regular, 33 cm from the incisors. - Medium-sized hiatal hernia. - Erosive gastropathy with stigmata of recent bleeding. Biopsied. - Erythematous mucosa in the antrum. - Normal examined duodenum. Recommendation: - Await pathology results. - Discharge patient to home. - Resume previous diet. - Resume Eliquis (apixaban) at prior dose tomorrow. - Await pathology results. - Use Protonix (pantoprazole) 40 mg PO daily. Procedure Code(s): --- Professional --- 20680, PT, Esophagogastroduodenoscopy, flexible, transoral; with biopsy, single or multiple Diagnosis Code(s): --- Professional --- K44.9, Diaphragmatic hernia without obstruction or gangrene K92.2, Gastrointestinal hemorrhage, unspecified K31.89, Other diseases of stomach and duodenum D50.9, Iron deficiency anemia, unspecified CPT copyright 2021 [employer]. All rights reserved. The codes documented in this report are preliminary and upon single stroke preformer review may be revised to meet current compliance requirements. MD Kori Cheng MD 02/18/2023 10:35:18 AM This report has been signed electronically. Number of Addenda: 0 Note Initiated On: 02/18/2023 9:26 AM
--- NOTE | 2023-02-18 10:36 | OP.CCLET_ITS ---
02/18/2023 Philipp Boogie MD [address] [place] [address] Re : Upper GI endoscopy procedure for Niki Castellanos Dear Dr. Boogie This procedure was performed on Saturday, February 18, 2023. My impressions and recommendations are as follows: Impressions : - Z-line regular, 33 cm from the incisors. - Medium-sized hiatal hernia. - Erosive gastropathy with stigmata of recent bleeding. Biopsied. - Erythematous mucosa in the antrum. - Normal examined duodenum. Recommendations : - Await pathology results. - Discharge patient to home. - Resume previous diet. - Resume Eliquis (apixaban) at prior dose tomorrow. - Await pathology results. - Use Protonix (pantoprazole) 40 mg PO daily. My findings are described in the full procedure note, which is enclosed. If I can be of further assistance, please feel free to contact me at Doctor phone number(s): , Work: . Sincerely, MD Kori Cheng MD 02/18/2023 10:35:18 AM This report has been signed electronically.
--- NOTE | 2023-02-18 10:44 | OP.CCLET_ITS ---
02/18/2023 Philipp Boogie MD [address] [place] [address] Re : Colonoscopy procedure for Niki Castellanos Dear Dr. Boogie This procedure was performed on Saturday, February 18, 2023. My impressions and recommendations are as follows: Impressions : - Hemorrhoids found on perianal exam. - Non-bleeding internal hemorrhoids. - Four less than 5 mm polyps in the cecum, removed with a cold snare. Resected and retrieved. - Four less than 5 mm polyps in the sigmoid colon and in the proximal ascending colon, removed with a cold biopsy forceps. Resected and retrieved. - The examination was otherwise normal. - Diverticulosis in the sigmoid colon. Recommendations : - Discharge patient to home. - Resume previous diet. - Resume Eliquis (apixaban) at prior dose tomorrow. - Await pathology results. - Repeat colonoscopy for surveillance based on pathology results. My findings are described in the full procedure note, which is enclosed. If I can be of further assistance, please feel free to contact me at Doctor phone number(s): , Work: . Sincerely, MD Kori Cheng MD 02/18/2023 10:44:05 AM This report has been signed electronically.
--- NOTE | 2023-02-18 10:44 | OP.COLON_ITS ---
Patient Name: Niki Castellanos Procedure Date: 02/18/2023 10:00 AM Date of : 1940 Age: 82 Procedure: Colonoscopy Indications: Iron deficiency anemia Providers: Kori Phoenix MD Referring MD: Philipp Boogie MD Medicines: Monitored Anesthesia Care Patient Profile: This is an 82 year old female. Last Colonoscopy: 2020. Complications: No immediate complications. Procedure: Pre-Anesthesia Assessment: - Prior to the procedure, a History and Physical was performed, and patient medications and allergies were reviewed. The patient's tolerance of previous anesthesia was also reviewed. The risks and benefits of the procedure and the sedation options and risks were discussed with the patient. All questions were answered, and informed consent was obtained. Prior Anticoagulants: The patient has taken Eliquis (apixaban), last dose was 3 days prior to procedure. ASA Grade Assessment: Per anesthesia. After reviewing the risks and benefits, the patient was deemed in satisfactory condition to undergo the procedure. After I obtained informed consent, the scope was passed under direct vision. Throughout the procedure, the patient's blood pressure, pulse, and oxygen saturations were monitored continuously. The pediatric colonoscope was introduced through the anus and advanced to the cecum, identified by appendiceal orifice and ileocecal valve. The colonoscopy was performed without difficulty. The patient tolerated the procedure well. The quality of the bowel preparation was good. Scope In: 10:01:46 AM Scope Withdrawal Time 0 hours 18 minutes 23 seconds Scope Out: 10:27:39 AM Total Procedure Duration Time 0 hours 25 minutes 53 seconds Findings: Hemorrhoids were found on perianal exam. Non-bleeding internal hemorrhoids were found. The hemorrhoids were Grade II (internal hemorrhoids that prolapse but reduce spontaneously). Four sessile and semi-pedunculated polyps were found in the cecum. The polyps were less than 5 mm in size. These polyps were removed with a cold snare. Resection and retrieval were complete. Four sessile polyps were found in the sigmoid colon and proximal ascending colon. The polyps were less than 5 mm in size. These polyps were removed with a cold biopsy forceps. Resection and retrieval were complete. The exam was otherwise without abnormality. Multiple small-mouthed diverticula were found in the sigmoid colon. Impression: - Hemorrhoids found on perianal exam. - Non-bleeding internal hemorrhoids. - Four less than 5 mm polyps in the cecum, removed with a cold snare. Resected and retrieved. - Four less than 5 mm polyps in the sigmoid colon and in the proximal ascending colon, removed with a cold biopsy forceps. Resected and retrieved. - The examination was otherwise normal. - Diverticulosis in the sigmoid colon. Recommendation: - Discharge patient to home. - Resume previous diet. - Resume Eliquis (apixaban) at prior dose tomorrow. - Await pathology results. - Repeat colonoscopy for surveillance based on pathology results. Procedure Code(s): --- Professional --- 72417, Colonoscopy, flexible; with removal of tumor(s), polyp(s), or other lesion(s) by snare technique 84364, 59, Colonoscopy, flexible; with biopsy, single or multiple Diagnosis Code(s): --- Professional --- K64.1, Second degree hemorrhoids D12.0, Benign neoplasm of cecum D12.5, Benign neoplasm of sigmoid colon D12.2, Benign neoplasm of ascending colon D50.9, Iron deficiency anemia, unspecified CPT copyright 2021 [employer]. All rights reserved. The codes documented in this report are preliminary and upon slip bridge operator review may be revised to meet current compliance requirements. MD Kori Cheng MD 02/18/2023 10:44:05 AM This report has been signed electronically. Number of Addenda: 0 Note Initiated On: 02/18/2023 10:00 AM
== END 2023-02-18 11:32 | disposition home or self-care (01) ==
LOC: EN 09:13 → AC 09:14
PROVIDERS: PCP Family Medicine Geriatric Medicine; Referring Provider Family Medicine Geriatric Medicine; Visit Provider Surgery
PROC: 0DJD8ZZ Inspection of Lower Intestinal Tract, Via Natural or Artificial Opening Endoscopic (ICD-10-PCS; CPT 45378; principal; 2023-02-18 10:10)
DX: K44.9 Diaphragmatic hernia without obstruction or gangrene (principal); I48.0 Paroxysmal atrial fibrillation; D50.9 Iron deficiency anemia, unspecified; E78.00 Pure hypercholesterolemia, unspecified; I10 Essential (primary) hypertension; K64.1 Second degree hemorrhoids; K57.30 Diverticulosis of large intestine without perforation or abscess without bleeding; Z79.01 Long term (current) use of anticoagulants; K25.4 Chronic or unspecified gastric ulcer with hemorrhage; K29.50 Unspecified chronic gastritis without bleeding; D12.2 Benign neoplasm of ascending colon; D12.0 Benign neoplasm of cecum; Z79.899 Other long term (current) drug therapy; K21.9 Gastro-esophageal reflux disease without esophagitis
CPT/HCPCS: 45385; 43239; 45380; 88305; 88342; J7120; J2405

== ENCOUNTER → 2023-03-30 | Outpatient (CLI) | payer MEDICARE, SELFPAY ==
--- NOTE | 2023-03-30 10:41 | STRESSREP ---
Stress Test Report Pharmacologic myocardial perfusion stress test. 82-year-old lady for preoperative evaluation send status post pacemaker placement. Resting EKG demonstrates sinus rhythm with a rate of 71 bpm. Resting blood pressure is 132/80 mmHg. 0.4 mg of regadenoson was infused per usual protocol followed by rapid intravenous saline flush injection. Continuous EKG monitoring was performed. The maximum heart rate was 86 bpm which was 62% of max impacted heart rate the maximum workload was 1 metabolic equivalent. At rest there were no ST or T wave changes noted to suggest ischemia and at peak infusion nonspecific ST changes were noted which did not meet the criteria for ischemia. No clinical angina is noted. The final blood pressure was 148/70 mmHg. Myocardial perfusion protocol. 7.9 mCi of technetium 99m sestamibi was injected at rest. 0.4 mg of regadenoson was infused per usual protocol. At peak infusion 34.2 mCi of technetium 99m sestamibi was injected stress images were obtained stress and rest images were reconstructed and compared in the short axis vertical long and horizontal long axis. Gated images were also obtained. Perfusion SPECT analysis: Review of the stress images demonstrate normal uptake of tracer noted in all areas of the myocardium. The resting images similar demonstrated normal uptake of tracer noted in all areas of the myocardium. No areas of reversibility are noted to suggest ischemia and no previous infarct is noted. Gated SPECT analysis: The gated ejection fraction is 57%. Conclusion: Normal pharmacologic myocardial perfusion stress test. Preserved ejection fraction.
== END | disposition home or self-care (01) ==
PROVIDERS: PCP Family Medicine Geriatric Medicine; Referring Provider Nurse Practitioner Family; Visit Provider Nurse Practitioner Family
DX: Z01.818 Encounter for other preprocedural examination (principal); I48.0 Paroxysmal atrial fibrillation; R06.2 Wheezing; E78.5 Hyperlipidemia, unspecified; I10 Essential (primary) hypertension; Z95.0 Presence of cardiac pacemaker; Z01.810 Encounter for preprocedural cardiovascular examination; Z79.899 Other long term (current) drug therapy
CPT/HCPCS: 78452; 93017; A9500; A4216; J2785

== ENCOUNTER → 2023-04-02 | Outpatient (CLI) | payer MEDICARE, SELFPAY ==
[2023-04-02 15:55] LABS: Absolute Lymphocyte Count 1.49 X10^3/uL (0.83-4.51); Absolute Neutrophil Count 5.5 X10^3/uL (2.0-7.7); Basophil# 0.04 X10^3/uL; Basophil% 0.5 % (0-1); Eosinophil# 0.18 X10^3/uL; Eosinophils% 2.2 % (0-5); Hematocrit 32.8 % (37-47); Hemoglobin 9.7 g/dL (12.0-15.0); Lymphocyte # 1.49 X10^3/ul (0.83-4.51); Lymphocyte % 18.4 % (19-41); Mean Corp Hgb Conc 29.6 g/dL (32-36); Mean Corpuscular Hgb 25.3 pg (27.0-32.0); Mean Corpuscular Volume 85.4 fL (81-99); Mean Platelet Vol. 9.9 fl (6.2-12.0); Monocyte# 0.91 X10^3/uL; Monocyte% 11.2 % (0-10); NRBC Flagged by Analyzer 0 % (0-5); Neutrophil # 5.45 X10^3/uL (2.7-7.7); Neutrophil % 67.5 % (47-70); Platelet Count 308 K/mm3 (150-450); RBC Distribution Width CV 15.9 % (11.6-14.6); RBC Distribution Width SD 49.4 fl (35.1-43.9); Red Blood Count 3.84 M/mm3 (4.2-5.4); White Blood Count 8.1 K/mm3 (4.4-11.0)
[2023-04-02 16:30] LABS: Albumin, Serum 3.5 g/dL (3.2-5.0); Anion Gap 5 (5-15); BUN 17 mg/dL (7-18); Chloride 108 mmol/L (98-107); EST Glomerular Filtration Rate 56 mL/min (>60); Est Glom Filt Rate - Afr Amer 68 mL/min (>60); Glucose 80 mg/dL (74-106); Magnesium 2.3 mg/dL (1.6-2.6); Potassium 4.3 mmol/L (3.5-5.1); Sodium Level 139 mmol/L (136-145)
[2023-04-16 12:40] LABS: Absolute Lymphocyte Count 1.62 X10^3/uL (0.83-4.51); Absolute Neutrophil Count 6.2 X10^3/uL (2.0-7.7); Basophil# 0.05 X10^3/uL; Basophil% 0.6 % (0-1); Eosinophil# 0.27 X10^3/uL; Hematocrit 33.1 % (37-47); Hemoglobin 9.6 g/dL (12.0-15.0); Lymphocyte # 1.62 X10^3/ul (0.83-4.51); Lymphocyte % 17.9 % (19-41); Mean Corpuscular Hgb 24.6 pg (27.0-32.0); Mean Corpuscular Volume 84.9 fL (81-99); Mean Platelet Vol. 10.4 fl (6.2-12.0); NRBC Flagged by Analyzer 0 % (0-5); Neutrophil # 6.16 X10^3/uL (2.7-7.7); Neutrophil % 68.2 % (47-70); Platelet Count 306 K/mm3 (150-450); RBC Distribution Width CV 16.2 % (11.6-14.6); RBC Distribution Width SD 50.7 fl (35.1-43.9)
[2023-04-16 12:50] LABS: International Normalized Ratio 1.5; Prothrombin Time (Protime)PT. 18.3 SECONDS (11.7-14.9)
[2023-04-16 13:22] LABS: ALB/GLOB Ratio 0.9 RATIO (0.9-2.4); AST(SGOT) 15 U/L (15-37); Alanine Aminotransfer ALT/SGPT 17 U/L (13-56); Albumin, Serum 3.4 g/dL (3.2-5.0); Alkaline Phosphatase 91 U/L (45-117); Anion Gap 6 (5-15); BUN 23 mg/dL (7-18); BUN/Creat Ratio 19.8 RATIO (10-20); Calcium,Total 8.8 mg/dL (8.5-10.1); Chloride 111 mmol/L (98-107); Creatinine, Serum 1.16 mg/dL (0.55-1.02); EST Glomerular Filtration Rate 47 mL/min (>60); Est Glom Filt Rate - Afr Amer 57 mL/min (>60); Globulin 3.7 g/dL (2.2-4.2); Glucose 159 mg/dL (74-106); Potassium 4.1 mmol/L (3.5-5.1); Protein, Total 7.1 g/dL (6.4-8.2); Sodium Level 140 mmol/L (136-145)
[2023-04-17 18:07] LABS: Thrombin Time 16.5 sec (0.0-23.0)
== END | disposition home or self-care (01) ==
LOC: PAT 05-08 14:45
PROVIDERS: PCP Family Medicine Geriatric Medicine; Referring Provider Specialist; Visit Provider Specialist
DX: I82.401 Acute embolism and thrombosis of unspecified deep veins of right lower extremity (principal); I48.91 Unspecified atrial fibrillation; I10 Essential (primary) hypertension; D64.9 Anemia, unspecified
CPT/HCPCS: 36415; 80048; 80053; 82040; 83735; 85025; 85610; 85670; 87081; 93005

== ENCOUNTER → 2023-04-03 | Outpatient (CLI) | payer MEDICARE, SELFPAY ==
--- NOTE | 2023-04-03 12:52 | CT_ITS ---
CT LEFT LOWER EXTREMITY WITH 3-D IMAGING CLINICAL INDICATION: PRE-OP TECHNIQUE: Axial CT images of the left lower extremity (including left hip, left knee, and left ankle) was performed without IV contrast material. Coronal and sagittal reformats were provided. RADIATION DOSAGE (If Supplied By Facility): CTDIvol = ( 19.73 ) mGy, DLP = ( 1374.71 ) mGycm COMPARISON: No relevant prior comparison study available FINDINGS: Bones: There is a left hip arthroplasty in place, without a periprosthetic fracture. 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 There is tricompartment degenerative arthrosis of the left knee with marginal osteophyte formation, most pronounced in the lateral femorotibial compartment. There is slight lateral patellar subluxation. There is degenerative arthrosis at the navicular-cuneiform articulations. Otherwise, normal left ankle. Osseous structures are intact without evidence of fracture or dislocation. No lytic or blastic osseous masses. Soft Tissues: There is a small left knee joint effusion. There are atherosclerotic calcifications. There is mild to moderate subcutaneous soft tissue edema around the left thigh, knee, calf, and ankle. The deep soft tissue structures are unremarkable. 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 Slight lateral patellar subluxation. Small left knee joint effusion. Electronically Signed: Paul Calzada MD at 15:23 EST Reading Location ID and State: [facility] / [place] , Service support ,
== END | disposition home or self-care (01) ==
PROVIDERS: PCP Family Medicine Geriatric Medicine; Referring Provider Specialist; Visit Provider Specialist
DX: M21.062 Valgus deformity, not elsewhere classified, left knee (principal); G89.29 Other chronic pain
CPT/HCPCS: 73700

== ENCOUNTER → 2023-04-08 | Outpatient (CLI) | payer MEDICARE, SELFPAY ==
[2023-04-08 17:39] LABS: Absolute Lymphocyte Count 1.44 X10^3/uL (0.83-4.51); Absolute Neutrophil Count 6.7 X10^3/uL (2.0-7.7); Basophil# 0.05 X10^3/uL; Basophil% 0.5 % (0-1); Eosinophils% 2.1 % (0-5); Hematocrit 33.4 % (37-47); Hemoglobin 9.6 g/dL (12.0-15.0); Lymphocyte # 1.44 X10^3/ul (0.83-4.51); Lymphocyte % 15.3 % (19-41); Mean Corp Hgb Conc 28.7 g/dL (32-36); Mean Corpuscular Hgb 24.4 pg (27.0-32.0); Mean Platelet Vol. 9.7 fl (6.2-12.0); Monocyte# 0.96 X10^3/uL; Monocyte% 10.2 % (0-10); NRBC Flagged by Analyzer 0 % (0-5); Neutrophil # 6.71 X10^3/uL (2.7-7.7); Neutrophil % 71.6 % (47-70); Platelet Count 284 K/mm3 (150-450); RBC Distribution Width CV 15.9 % (11.6-14.6); RBC Distribution Width SD 49.4 fl (35.1-43.9); Red Blood Count 3.93 M/mm3 (4.2-5.4); White Blood Count 9.4 K/mm3 (4.4-11.0)
== END | disposition home or self-care (01) ==
LOC: POLAB3 17:09
PROVIDERS: PCP Family Medicine Geriatric Medicine; Visit Provider Family Medicine Geriatric Medicine
DX: D50.9 Iron deficiency anemia, unspecified (principal)
CPT/HCPCS: 36415; 85025

== ENCOUNTER 2023-04-29 19:48 | Emergency (ER) | payer MEDICARE, SELFPAY ==
[2023-04-29 19:48] VITALS: BP 186/93; PULSE 96; RESP 18; TEMP 36.6; O2SAT 98; BMI 34.9
[2023-04-29 20:40] VITALS: BP 151/84; PULSE 87; RESP 23; O2SAT 97
[2023-04-29 21:16] VITALS: BP 149/80; PULSE 90; RESP 20; O2SAT 96
[2023-04-29 21:26] LABS: Bacteria 0 SEEN /hpf (None Seen); Mucous, Urine 0 SEEN /hpf (<or=2+); Red Blood Cells-Urine 0 SEEN /hpf (0-5); Squamous Epithelial Cells - UA 0 SEEN /hpf (5-10); White Blood Cells 0 SEEN /hpf (0-5)
[2023-04-29 21:27] LABS: Absolute Lymphocyte Count 1.42 X10^3/uL (0.83-4.51); Absolute Neutrophil Count 6.7 X10^3/uL (2.0-7.7); Basophil# 0.05 X10^3/uL; Basophil% 0.5 % (0-1); Eosinophil# 0.24 X10^3/uL; Eosinophils% 2.5 % (0-5); Hematocrit 33.3 % (37-47); Lymphocyte # 1.42 X10^3/ul (0.83-4.51); Mean Corpuscular Hgb 25.1 pg (27.0-32.0); Mean Corpuscular Volume 83.5 fL (81-99); Mean Platelet Vol. 9.7 fl (6.2-12.0); Monocyte% 10.5 % (0-10); NRBC Flagged by Analyzer 0 % (0-5); Neutrophil # 6.73 X10^3/uL (2.7-7.7); Neutrophil % 71.1 % (47-70); Platelet Count 269 K/mm3 (150-450); RBC Distribution Width CV 16.5 % (11.6-14.6); RBC Distribution Width SD 50.6 fl (35.1-43.9); Red Blood Count 3.99 M/mm3 (4.2-5.4); White Blood Count 9.5 K/mm3 (4.4-11.0)
[2023-04-29 21:40] LABS: Color, Urine Yellow (Yellow); Glucose, Dipstick Normal (Normal); Ketone-Dipstick Negative (Negative); Leukocyte Esterase-Dipstick Negative /ul (Negative); Nitrite-Dipstick Negative (Negative); Occult Blood-Urine Negative /ul (Negative); Protein-Dipstick Negative (Negative); Specific Gravity, Urine 1.005 (1.002-1.030); Urine Bilirubin Dipstick Negative (Negative); Urine Clarity Clear (Clear); Urine Urobilinogen Normal (Normal); Urine pH 6.5 (5.0 - 8.0)
[2023-04-29 21:50] LABS: Anion Gap 1 (5-15); BUN 19 mg/dL (7-18); BUN/Creat Ratio 21.2 RATIO (10-20); Calcium,Total 9.1 mg/dL (8.5-10.1); Chloride 112 mmol/L (98-107); EST Glomerular Filtration Rate 64 mL/min (>60); Est Glom Filt Rate - Afr Amer 77 mL/min (>60); Estimated Creatinine Clearance 43.37 ml/min; Glucose 103 mg/dL (74-106); Potassium 4.4 mmol/L (3.5-5.1); Sodium Level 141 mmol/L (136-145)
--- NOTE | 2023-04-29 22:19 | EX.ED.DYSGE1 ---
HPI History of Present Illness Chief Complaint: Hypertension Detail of Chief Complaint: Presents because of elevated blood pressure of 193 systolic at home Informant: patient Onset/Context/Timing Onset: Hours Context: - (Unknown) Timing: Continuous Quality: Elevated blood pressure with no specific symptoms Location: Cardiovascular Current Severity: Moderate Maximum Severity: Moderate Worsened by: Nothing per patient Relieved by: Nothing Associated Symptoms Associated Symptoms: Not her normal self. 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 She denied headache. Denied double vision, blurred vision or loss of vision. Denies ringing or ears or decreased hearing. Denies difficulty with her speech or swallowing. She denies chest discomfort or back pain. She denies dyspnea, dyspnea exertion orthopnea. She denies paresthesia, anesthesia or motor weakness upper or lower extremity. She denies problems with balance. She denies history of TIA or stroke. She reports compliance with her medication. She reports compliance with her diet. Prior similar symptoms: No Recent Illness/Hospitalization: No PFSH PFS Medical History Ambulates with cane Anxiety disorder Arthritis Atrial flutter Cardiology follow-up encounter Cellulitis Chronic sinus bradycardia High cholesterol Hip dislocation, left History of colitis History of colon polyps History of echocardiogram History of pacemaker Hypertension Iron deficiency anemia, unspecified Non-smoker Osteoarthritis PAF (paroxysmal atrial fibrillation) Presence of cardiac pacemaker Right knee pain Shortness of breath on exertion Walker as ambulation aid Wears glasses Home Medications calcium carbonate 500 mg-vitamin D3 3.125 mcg (125 unit) tablet 2 tab PO DAILY supplement 02/01/21 [History Last Taken 02/19/21] multivitamin 1 tab PO DAILY supplement 02/01/21 [History Last Taken 02/19/21] acetaminophen 500 mg tablet 1,000 mg (2 x 500 mg) PO Q6H PRN PRN Pain Score 1-10 #0 tabs 08/01/22 [Rx Last Taken Unknown] apixaban 5 mg tablet (Eliquis) 5 mg PO BID BLOOD THINNER 30 days #60 tabs 08/01/22 [Rx Last Taken Unknown] diltiazem HCl 240 mg tablet,extended release 24 hr 240 mg PO DAILY HEART 01/23/23 [History Last Taken Unknown] furosemide 40 mg tablet 20 mg PO DAILY PRN PRN edema 02/27/23 [History Last Taken Unknown] metoprolol tartrate 25 mg tablet 12.5 mg PO BID HTN 02/27/23 [History Last Taken Unknown] famotidine 40 mg tablet 40 mg PO DAILY GERD 04/01/23 [History Last Taken Unknown] hydrochlorothiazide 12.5 mg capsule 12.5 mg PO DAILY #30 caps 04/29/23 [Rx Last Taken Unknown] Allergy/AdvReac Type Severity Reaction Status Date / Time valsartan Allergy Mild Rash Verified 04/29/23 19:50 Family History Mother Heart disease Hypertension Father CVA (cerebral vascular accident) Hypertension Surgical History History of esophagogastroduodenoscopy (EGD) History of permanent cardiac pacemaker placement (~07/21/22) History of right knee joint replacement Hx of colonoscopy (~2020) Hx of foot surgery Hx of total hip arthroplasty Hx of tubal ligation Status post unicompartmental knee replacement Social History household members: none Smoking Status: Never smoker alcohol intake: never substance use type: does not use ROS ROS ED Constitutional Constitutional ED: Denies chills, fever(s), subjective, sweats or weight loss Eyes Eyes: Denies blurry vision, change in vision or diplopia ENT ENT ED: Denies ear pain, rhinorrhea or sore throat Cardiovascular Cardiovascular: Denies chest pain, orthopnea, palpitations, paroxysmal nocturnal dyspnea or racing heartbeat Respiratory/Chest Respiratory/Chest: Denies cough, dyspnea, dyspnea on exertion, orthopnea or paroxysmal nocturnal dyspnea Gastrointestinal Gastrointestinal: Denies abdominal pain, nausea or vomiting Musculoskeletal Musculoskeletal: Denies back pain or neck pain Neurologic Neurologic: Denies headache(s), paresthesias or weakness Hematologic/Lymphatic Hematologic/Lymphatic: Denies systems reviewed and no addt'l complaints, except as documented EXAM Physical Exam Const Vital Signs: 04/29/23 19:48 04/29/23 20:40 04/29/23 20:40 Temperature 97.9 F Temperature Source Temporal Pulse Rate 96 87 Respiratory Rate 18 23 H Respiratory Effort Normal Respiratory Pattern Normal Blood Pressure 186/93 H 151/84 H Blood Pressure Mean 124 106 Pulse Ox 98 97 Oxygen Delivery Method Room Air Room Air 04/29/23 21:16 Temperature Temperature Source Pulse Rate 90 Respiratory Rate 20 H Respiratory Effort Respiratory Pattern Blood Pressure 149/80 H Blood Pressure Mean 103 Pulse Ox 96 Oxygen Delivery Method Room Air Positive well nourished, well developed and obese General Appearance ED: well developed and NAD; Negative for cyanotic, diaphoretic or pallor Nutritional Appearance: obese HEENT Reports moist mucous membranes HEENT Narrative: Head is atraumatic normocephalic. Ears normal. Nares patent. Uvula midline. No deviation with protrusion. Posterior pharynx is normal. Eyes PERRL and EOMs intact bilaterally Eyes Narrative: There is no nystagmus. There is no visual field cut. Neck no lymphadenopathy, supple and no JVD Chest Wall inspection of chest normal Resp normal respiratory effort and clear to auscultation bilaterally Cardio regular rate, regular rhythm, S1 normal heart sound, S2 normal heart sound and no murmurs GI normal to inspection, nondistended, normoactive bowel sounds, non-tender, non-distended and no masses; Negative for hepatosplenomegaly Back/Spine no CVA tenderness Extremity Negative for normal to inspection Extremity Narrative: Venous stasis dermatitis with pitting edema, which is chronic. Neuro oriented x3, CN's II-XII intact bilaterally and no sensory deficits noted Neuro Narrative: There is no dysmetria. There is no clonus or Babinski sign. Sensorium / Orientation: alert Motor Exam: strength 5/5 throughout Psych mental status grossly normal Skin no rashes or lesions noted, no wounds and skin turgor normal General Skin Exam: elasticity normal; Negative for jaundice or pallor MDM MDM MDM Narrative Medical decision making narrative: Since patient presents with high blood pressure states she does not feel well will obtain blood work and urine to assess for endorgan dysfunction. Will also observe patient. Prior records were reviewed. Patient's not had a history of TIA or CVA. Patient's blood pressure improved from 186/93 to 149/80 without treatment. History & Record Review Additional record(s) reviewed:: Prior outpatient record, Prior ED visit and Prior labs Lab Data Attestation: I reviewed the patient's lab results. Lab results narrative: CBC reveals mild anemia with normal indices. Urine is negative with no proteinuria or hematuria. Renal function is normal. Labs: Laboratory Results - last 24 hr 04/29/23 21:20 WBC 9.5 RBC 3.99 L Hgb 10.0 L Hct 33.3 L MCV 83.5 MCH 25.1 L MCHC 30.0 L RDW Std Deviation 50.6 H RDW Coeff of Mari 16.5 H Plt Count 269 MPV 9.7 Immature Gran % (Auto) 0.400 Neut % (Auto) 71.1 H Lymph % (Auto) 15.0 L [place] % (Auto) 10.5 H Eos % (Auto) 2.5 Baso % (Auto) 0.5 Absolute Neuts (auto) 6.7 Absolute Lymphs (auto) 1.42 Nucleated RBC % 0 Sodium 141 Potassium 4.4 Chloride 112 H Carbon Dioxide 28.0 Anion Gap 1 L BUN 19 H Creatinine 0.90 Estim Creat Clear Calc 43.37 Est GFR (MDRD) Af Amer 77 Est GFR (MDRD) Non-Af 64 BUN/Creatinine Ratio 21.2 H Glucose 103 Calcium 9.1 Urine Color Yellow Urine Clarity Clear Urine pH 6.5 Ur Specific [place] 1.005 Urine Protein Negative Urine Glucose (UA) Normal Urine Ketones Negative Urine Occult Blood Negative Urine Nitrite Negative Urine Bilirubin Negative Urine Urobilinogen Normal Ur Leukocyte Esterase Negative Urine RBC 0 SEEN Urine WBC 0 SEEN Ur Squamous Epith Cells 0 SEEN Urine Bacteria 0 SEEN Urine Mucus 0 SEEN Treatment and Re-Evaluation :: At the time of exit interview patient's systolic pressure was 168 with a diastolic of 97. Plan is to place patient on 12.5 mg of hydrochlorothiazide. She was instructed to follow-up with her doctor in 1 to 2 weeks to have blood pressure rechecked. Discharge Plan Triage Chief Complaint: Hypertension ED Provider: Jose Curry Dx/Rx/DC Orders Clinical Impression: Accelerated essential hypertension, Hyperlipidemia, History of permanent cardiac pacemaker placement, Chronic venous stasis dermatitis, GERD (gastroesophageal reflux disease) Instructions: ED High Blood Pressure Hypertension Prescriptions: New hydrochlorothiazide 12.5 mg capsule 12.5 mg PO DAILY Qty: 30 0RF No Action furosemide 40 mg tablet 20 mg PO DAILY PRN PRN (Reason: edema) Patient Comments: take 1 tablet by mouth once daily metoprolol tartrate 25 mg tablet 12.5 mg PO BID diltiazem HCl 240 mg tablet extended release 24 hr 240 mg PO DAILY Patient Comments: take 1 tablet by mouth at bedtime multivitamin Tablet 1 tab PO DAILY calcium carbonate-vitamin D3 500 mg(1,250mg) -125 unit Tablet 2 tab PO DAILY acetaminophen 500 mg Tablet 1,000 mg PO Q6H PRN PRN (Reason: Pain Score 1-10) Qty: 0 0RF Eliquis 5 mg Tablet 5 mg PO BID 30 Days Qty: 60 0RF Hold Instructions: Resume on 02/19/23. famotidine 40 mg tablet 40 mg PO DAILY Patient Comments: take 1 tablet by mouth once daily Primary Care Provider: Philipp Boogie Chi Referrals: Philipp Boogie Chi, MD [Primary Care Provider] - 1-2 Weeks Disposition Disposition: Home, Self Care
[2023-04-29 22:25] VITALS: BP 168/76; PULSE 89; RESP 22; O2SAT 94
--- OUTSIDE RECORDS SUMMARY | 2023-04-29 22:25 | XMS RPT_ITS | CCD ---
Author Name Unknown Address [address] [place] [address] Organization [facility] Care Team Providers Care 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 Name Role Phone Dakota MA, Tye Crespo Primary Care Provider [facility], Keti Unavailable [facility], Keti Unavailable Philipp Boogie Chi Primary Care Provider OLDER, ZAHRA Referring Unavailable FAULKNER, DMITRIY Primary Care Unavailable OLDER, ZAHRA Attending Unavailable OLDER, ZAHRA Referring Unavailable FAULKNER, DMITRIY Primary Care Unavailable OLDER, ZAHRA Referring Unavailable FAULKNER, DMITRIY Primary Care Unavailable OLDER, ZAHRA Attending Unavailable OLDER, ZAHRA Referring Unavailable FAULKNER, DMITRIY Primary Care Unavailable ERIC, ALANIS Attending Unavailable ERIC, ALANIS Referring Unavailable FAULKNER, DMITRIY Primary Care Unavailable FAULKNER, DMITRIY Primary Care Unavailable ERIC, ALANIS Attending Unavailable FAULKNER, DMITRIY Primary Care Unavailable OLDER, ZAHRA Attending Unavailable FAULKNER, DMITRIY Primary Care Unavailable FAULKNER, DMITRIY Attending Unavailable OLDER, ZAHRA Referring Unavailable FAULKNER, DMITRIY Primary Care Unavailable Allergies Allergy Classification Reported Allergen(s) Allergy Type Date of Onset Reaction(s) Facility (20 sources) amLODIPine; Translations: [AMLODIPINE BESYLATE] Drug Allergy 02-08-20 05 Other: See Comments [facility] Work Phone: (20 sources) busPIRone; Translations: [BUSPIRONE HCL] Drug Allergy 07-27-19 16 Other: See Comments [facility] Work Phone: (20 sources) Chlorthalidone; Translations: [CHLORTHALIDONE] Drug Allergy 04-10-20 20 Other: See Comments [facility] Work Phone: (20 sources) FLUoxetine; Translations: [FLUOXETINE HCL] Drug Allergy 12-27-19 16 Other: See Comments [facility] Work Phone: (20 sources) hydroCHLOROthiazide / Triamterene; Translations: [TRIAMTERENE-HYDROCHLO ROTHIAZID] Drug Allergy 02-08-20 05 [facility] Work Phone: (20 sources) Indomethacin; Translations: [INDOMETHACIN SODIUM] Drug Allergy 02-08-20 05 [facility] Work Phone: [phone] (20 sources) nabumetone; Translations: [NABUMETONE] Drug Allergy 02-08-20 05 [facility] Work Phone: (20 sources) Sertraline; Translations: [SERTRALINE HCL] Drug Allergy 06-14-19 16 Intolerance [facility] (7 sources) Thiazides; Translations: [THIAZIDES] Propensity to adverse reactions 02-15-20 09 [facility] Work Phone: (20 sources) venlafaxine; Translations: [VENLAFAXINE ANALOGUES] Drug Allergy 03-27-20 16 Other: See Comments [facility] Work Phone: (20 sources) Chlorpheniramine-Pe Tannates; Translations: [CHLORPHENIRAMINE-PE TANNATES] Propensity to adverse reactions 02-08-20 05 [facility] Work Phone: (15 sources) Thiazides Propensity to adverse reactions 02-15-20 09 [facility] Work Phone: Medications Current Medications Medication Drug Class(es) Dates Sig (Normalized) Sig (Original) LORazepam 0.5 mg oral tablet (20 sources) Benzodiazepine Start: 06-20-2022 End: 12-17-2022 take 0.5 tablet by mouth once daily as needed for anxiety LORazepam (ATIVAN) 0.5 mg Indications: Panic attack Take 0.5 tablets by mouth once daily as needed (anxiety.) for up to 180 days. 30 tablet 0 06/20/2022 12/17/2022 Active Completed/Discontinued Medications Medication Drug Class(es) Dates Sig (Normalized) Sig (Original) amLODIPine 2.5 mg oral tablet (1 source) Dihydropyridine [employer] [place] Start: 02-17-2022 take 1 tablet by mouth once daily amLODIPine (NORVASC) 2.5 mg tablet Indications: Hypertension goal BP (blood pressure) Take 1 tablet by mouth once daily. 30 tablet 1 02/17/2022 Active Problems Active Problems Problem Classification Problem Date Documented Date Episodic/Chronic Anxiety disorders (20 sources) Panic attack; Translations: [Panic disorder [episodic paroxysmal anxiety]] Onset: 12-27-2015 09-03-2016 Chronic Chronic kidney disease (10 sources) Chronic kidney disease stage 3A ; Translations: [Stage 3a chronic kidney disease (HCC)] Onset: 02-17-2022 Chronic Chronic kidney disease (1 source) Chronic kidney disease; Translations: [Stage 3a chronic kidney disease (HCC)] Onset: 02-17-2022 Disorders of lipid metabolism (20 sources) Hyperlipidemia; Translations: [Hyperlipidemia, unspecified] Onset: 02-07-2005 Chronic Esophageal disorders (20 sources) Gastroesophageal reflux disease; Translations: [Gastro-esophageal reflux disease without esophagitis] Onset: 02-07-2005 02-07-2005 Chronic Essential hypertension (20 sources) Hypertensive disorder; Translations: [Essential (primary) hypertension] Onset: 02-07-2005 04-28-2018 Chronic Osteoarthritis (20 sources) Osteoarthritis of left hip joint; Translations: [Unilateral primary osteoarthritis, left hip] Onset: 09-25-1996 01-05-2017 Chronic Other diseases of kidney and ureters (2 sources) Renal impairment; Translations: [Disorder of kidney and ureter, unspecified] Episodic Other upper respiratory disease (20 sources) Allergic rhinitis; Translations: [Allergic rhinitis, unspecified] Onset: 02-07-2005 01-05-2017 Chronic Spondylosis; intervertebral disc disorders; other back problems (11 sources) Degeneration of lumbosacral intervertebral disc; Translations: [Other intervertebral disc degeneration, lumbosacral region] Onset: 02-17-2022 Chronic Past or Other Problems Problem Classification Problem Date Documented Da te Episodic/Chronic Cardiac dysrhythmias (2 sources) Bradycardia; Translations: [Bradycardia, unspecified] Onset: 06-27-2022 Episodic Diabetes mellitus without complication (20 sources) Impaired fasting glycemia; Translations: [Impaired fasting glucose] Onset: 12-04-2011 03-27-2016 Episodic Fluid and electrolyte disorders (2 sources) Hyperkalemia; Translations: [Hyperkalemia] Onset: 01-21-2022 Episodic Other and unspecified benign neoplasm (20 sources) Serrated polyp of colon; Translations: [Polyp of colon] Onset: 08-17-2020 08-17-2020 Episodic Other diseases of kidney and ureters (1 source) Disorder of kidney and ureter, unspecified; Translations: [Renal insufficiency] Onset: 12-25-2021 Episodic Residual codes; unclassified (20 sources) Flushing; Translations: [Flushing] Onset: 12-27-2015 12-27-2015 Episodic Spondylosis; intervertebral disc disorders; other back problems (11 sources) Lumbosacral radiculitis; Translations: [Radiculopathy, lumbosacral region] Onset: 02-17-2022 Episodic Results Test Name Value Interpretation Reference Range Facil ity Vital Signs Date Time Vital Sign Value Performing Clinician Patrica donnelly 06-27-2022 11:21-0500 Diastolic blood pressure 72 mm[Hg] Alanis Eric INSTRUMENT/CONTROL TECHNICIAN.SUPERVISOR FLOOR ASSEMBLY Work Phone: [facility] 06-27-2022 11:21-0500 Heart rate 43 /min Alanis Eric INSTRUMENT/CONTROL TECHNICIAN.SUPERVISOR FLOOR ASSEMBLY Work Phone: [facility] 06-27-2022 11:21-0500 Systolic blood pressure 178 mm[Hg] Alanis Eric INSTRUMENT/CONTROL TECHNICIAN.SUPERVISOR FLOOR ASSEMBLY Work Phone: [facility] 06-27-2022 11:11-0500 Body weight 90.27 kg Alanis Eric INSTRUMENT/CONTROL TECHNICIAN.SUPERVISOR FLOOR ASSEMBLY Work Phone: [facility] 06-27-2022 11:11-0500 Respiratory rate 16 /min Alanis Eric INSTRUMENT/CONTROL TECHNICIAN.SUPERVISOR FLOOR ASSEMBLY Work Phone: [facility] 06-20-2022 13:04-0500 Diastolic blood pressure 76 mm[Hg] Alanis Eric INSTRUMENT/CONTROL TECHNICIAN.SUPERVISOR FLOOR ASSEMBLY Work Phone: [facility] 06-20-2022 13:04-0500 Systolic blood pressure 186 mm[Hg] Alanis Eric INSTRUMENT/CONTROL TECHNICIAN.SUPERVISOR FLOOR ASSEMBLY Work Phone: [facility] 06-20-2022 12:49-0500 Body weight 93.44 kg Alanis Eric INSTRUMENT/CONTROL TECHNICIAN.SUPERVISOR FLOOR ASSEMBLY Work Phone: [facility] 06-20-2022 12:49-0500 Heart rate 54 /min Alanis Eric INSTRUMENT/CONTROL TECHNICIAN.SUPERVISOR FLOOR ASSEMBLY Work Phone: [facility] 06-20-2022 12:49-0500 Respiratory rate 16 /min Alanis Eric INSTRUMENT/CONTROL TECHNICIAN.SUPERVISOR FLOOR ASSEMBLY Work Phone: [facility] 03-24-2022 14:44-0500 Diastolic blood pressure 72 mm[Hg] Zahra Older INSTRUMENT/CONTROL TECHNICIAN.COTTON [employer]AND[employer] MAKER Work Phone: [facility] 03-24-2022 14:44-0500 Heart rate 58 /min Zahra Older INSTRUMENT/CONTROL TECHNICIAN.C[employer]TON [employer]AND[employer] MAKER Work Phone: [facility] 03-24-2022 14:44-0500 Systolic blood pressure 120 mm[Hg] Zahra Older INSTRUMENT/CONTROL TECHNICIAN.C[employer] MAKER Work Phone: [facility] 03-24-2022 14:08-0500 Body weight 86.64 kg Zahra Older INSTRUMENT/CONTROL TECHNICIAN.C[employer]TON [employer] MAKER Work Phone: [facility] 03-24-2022 14:08-0500 Respiratory rate 14 /min Zahra Older INSTRUMENT/CONTROL TECHNICIAN.C[employer] MAKER Work Phone: [facility] 02-17-2022 16:03-0400 Diastolic blood pressure 68 mm[Hg] Tye Faulkner MD Work Phone: [facility] 02-17-2022 16:03-0400 Systolic blood pressure 150 mm[Hg] Tye Faulkner MD Work Phone: [facility] 02-17-2022 15:05-0400 Body weight 87.54 kg yTe Faulkner MD Work Phone: [facility] 02-17-2022 15:05-0400 Heart rate 55 /min Tye Faulkner MD Work Phone: [facility] 02-17-2022 15:05-0400 SaO2% (BldA) [Mass fraction] 96 % Tye Faulkner MD Work Phone: [facility] 12-25-2021 15:18-0400 Diastolic blood pressure 54 mm[Hg] Zahra Older INSTRUMENT/CONTROL TECHNICIAN.[employer] MAKER Work Phone: [facility] 12-25-2021 15:18-0400 Systolic blood pressure 125 mm[Hg] Zahra Older INSTRUMENT/CONTROL TECHNICIAN.[employer] MAKER Work Phone: [facility] 12-25-2021 14:54-0400 Body weight 83.92 kg Zahra Older INSTRUMENT/CONTROL TECHNICIAN.[employer] MAKER Work Phone: [facility] 12-25-2021 14:54-0400 Heart rate 52 /min Zahra Older INSTRUMENT/CONTROL TECHNICIAN.[employer] MAKER Work Phone: [facility] 12-25-2021 14:54-0400 Respiratory rate 16 /min Zahra Older INSTRUMENT/CONTROL TECHNICIAN.C[employer] MAKER Work Phone: [facility] 10-18-2021 14:58-0400 Diastolic blood pressure 79 mm[Hg] Zahra Older INSTRUMENT/CONTROL TECHNICIAN.C[employer] MAKER Work Phone: [facility] 10-18-2021 14:58-0400 Heart rate 65 /min Zahra Older INSTRUMENT/CONTROL TECHNICIAN.[employer] MAKER Work Phone: [facility] 10-18-2021 14:58-0400 Systolic blood pressure 158 mm[Hg] Zahra Older INSTRUMENT/CONTROL TECHNICIAN.C[employer] MAKER Work Phone: [facility] 10-18-2021 14:39-0400 Body weight 83.46 kg Zahra Older INSTRUMENT/CONTROL TECHNICIAN.C[employer]TON [employer] MAKER Work Phone: [facility] 10-18-2021 14:39-0400 Respiratory rate 20 /min Zahra Older INSTRUMENT/CONTROL TECHNICIAN.C[employer] MAKER Work Phone: [facility] 09-18-2021 15:57-0400 Diastolic blood pressure 80 mm[Hg] Zahra Older INSTRUMENT/CONTROL TECHNICIAN.C[employer] MAKER Work Phone: [facility] 09-18-2021 15:57-0400 Systolic blood pressure 152 mm[Hg] Zahra Older INSTRUMENT/CONTROL TECHNICIAN.C[employer] MAKER Work Phone: [facility] 09-18-2021 15:23-0400 Body weight 83.92 kg Zahra Older INSTRUMENT/CONTROL TECHNICIAN.C[employer] MAKER Work Phone: [facility] 09-18-2021 15:23-0400 Heart rate 58 /min Zahra Older INSTRUMENT/CONTROL TECHNICIAN.C[employer] MAKER Work Phone: [facility] 09-18-2021 15:23-0400 Respiratory rate 16 /min Zahra Older INSTRUMENT/CONTROL TECHNICIAN.C[employer]TON [employer]AND[employer] MAKER Work Phone: [facility] 08-01-2021 13:56-0400 Diastolic blood pressure 75 mm[Hg] Tye Faulkner MD Work Phone: [facility] 08-01-2021 13:56-0400 Heart rate 68 /min Tye Faulkner MD Work Phone: [facility] 08-01-2021 13:56-0400 Systolic blood pressure 161 mm[Hg] Tye Faulkner MD Work Phone: [facility] 08-01-2021 13:37-0400 Body height 159.4 cm Tye Faulkner MD Work Phone: [facility] 08-01-2021 13:37-0400 Body temperature 97.39 [degF] Tye Faulkner MD Work Phone: [facility] 08-01-2021 13:37-0400 Body weight 83.46 kg Tye Faulkner MD Work Phone: [facility] 08-01-2021 13:37-0400 Respiratory rate 20 /min Tye Faulkner MD Work Phone: [facility] Encounters Encounter Date Encounter Type Care Provider Facility Start: 10-15-2022 ambulatory Fatmata Blount MA [facility] Procedures Date Procedure Procedure Detail Performing Clinician Start: 08-03-2020 Colonoscopy Tye Cohn MD Work Phone: Plan of Treatment Date Care Activity Detail Author Start: 01-05-2027 Urine microalbumin profile DTAP,TDAP ,TD (1 - Tdap) [facility] Immunizations Immunization Date Immunization Notes Care Provider Fa cility 01-27-2022 influenza, injectabl e, quadrivalent, contains preservative Tye Faulkner MD Work Phone: [facility] Work Phone: 12-27-2020 influenza (aIIV4) vaccine, age 65+ yr, quadrivalent, PF (FLUAD QUADRIVALENT) Tye Faulkner MD Work Phone: [facility] Work Phone: 07-04-2020 COVID-19 vaccine, fu ll dose (MODERNA) Tye Faulkner MD Work Phone: [facility] Work Phone: 06-07-2020 COVID-19 vaccine, fu ll dose (MODERNA) Tye Faulkner MD Work Phone: [facility] Work Phone: 01-16-2020 influenza, high dose seasonal, preservative-free Tye Faulkner MD Work Phone: [facility] Work Phone: 01-29-2019 influenza, high dose seasonal, preservative-free Tye Faulkner MD Work Phone: [facility] Work Phone: 01-04-2018 Seasonal trivalent influenza vaccine, adjuvanted, preservative free Tye Faulkner MD Work Phone: [facility] Work Phone: 01-05-2017 influenza, high dose seasonal, preservative-free Tye Faulkner MD Work Phone: [facility] 01-05-2017 tetanus and diphther ia toxoids, adsorbed, preservative free, for adult use (5 Lf of tetanus toxoid and 2 Lf of diphtheria toxoid) Tye Faulkner MD Work Phone: [facility] 01-26-2016 influenza, high dose seasonal, preservative-free Tye Faulkner MD Work Phone: [facility] Work Phone: 12-28-2014 pneumococcal conjuga te vaccine, 13 valent Tye Faulkner MD Work Phone: [facility] 12-26-2014 influenza, high dose seasonal, preservative-free Tye Faulkner MD Work Phone: [facility] 12-04-2011 zoster vaccine, live Tye Faulkner MD Work Phone: [facility] 02-14-2010 influenza virus vacc ine, unspecified formulation Tye Faulkner MD Work Phone: [facility] 01-31-2009 influenza virus vacc ine, unspecified formulation Tye Faulkner MD Work Phone: [facility] Work Phone: 03-22-2008 influenza virus vacc ine, unspecified formulation Tye Faulkner MD Work Phone: [facility] 04-14-2007 influenza virus vacc ine, unspecified formulation Tye Faulkner MD Work Phone: [facility] Work Phone: 04-23-2006 influenza virus vacc ine, unspecified formulation Tye Faulkner MD Work Phone: [facility] 11-25-2005 pneumococcal polysaccharide vaccine, 23 valent Tye Faulkner MD Work Phone: [facility] Work Phone: 11-25-2005 tetanus and diphther ia toxoids, adsorbed, preservative free, for adult use (2 Lf of tetanus toxoid and 2 Lf of diphtheria toxoid) Tye Faulkner MD Work Phone: [facility] Work Phone: 03-04-2005 influenza virus vacc ine, unspecified formulation Tye Faulkner MD Work Phone: [facility] Work Phone: Payers Date Payer Category Payer Medicare [employer] MEDICARE A ETNA MEDICARE PPO [id number] 2021-Present [phone] [address] [place] [address] PPO [id number] 2021 Medicare AETNA MEDICARE A ETNA MEDICARE PPO [id number] 2021-Present [phone] [address] [place] [address] PPO [id number] 2021 Medicare [id number] 2020 Medicare AETNA MEDICARE A ETNA MEDICARE PPO [id number] 2020-Present [phone] [address] [place] [address] PPO [id number] Social History Date Type Detail Facility Start: 02-18-2011 End: 12-25-2021 Tobacco smoking status NHIS Never smoked tobacco [facility] Work Phone: Start: 11-15-2020 End: 06-20-2022 Alcohol intake Current non-drinker of alcohol (finding) [facility] Start: 1940 Sex Assigned At Not on file [facility] Start: 07-22-2021 End: 02-17-2022 Exposure to SARS-CoV-2 (event) Not sure [facility] Work Phone: Start: 02-18-2011 End: 12-25-2021 Tobacco use and exposure Smokeless tobacco non-user [facility] Clinical Notes 06-30-2020 to 10-15-2022 Fatmata Blount MA - 10/15/2022 10:07 AM EDTTelephone Encounter - Roseanne Correa LPN - 08/26/2022 5:00 PM EDTRoseanne Correa LPN - 07/25/2022 3:23 PM EDTRoseanne Correa LPN - 07/24/2022 10:35 AM EDT Note Date & Type Note Facility 10-15-2022 Note Patient Outreach (ELVER TNAV) CATINANIKI Carol ([id number]) 1940 F Date Time Provider Department 10/15/22 FATMATA BLOUNT During your visit today, we recorded the following information about you: Fatmata Blount MA 10/15/2022 10:15 AM Signed POPULATION HEALTH NAVIGATION OUTREACH Action/FYI [employer] Care Gaps 5. Discuss/Due for: Reviewed EMR/Care Everywhere Patient under the care of [facility] with [facility] Outcome: Updated PCP Field Patient Identified by Name and : NO Outreach Outcome/Action PCP field updated Navigation Signature: Fatmata Blount MA October 15, 2022 10:08 AM Allergies As of Date: 10/15/2022 Noted Allergy Reaction BUSPAR (BUSPIRONE HCL) 07/27/2015 14 - Other: See Comments CHLORTHALIDONE 04/10/2020 14 - Other: See Comments Comments: Ringing in the ears, dizziness DYAZIDE (TRIAMTERENE-HYDROCHLOROT*2004 EFFEXOR (VENLAFAXINE ANALOGUES) 03/27/2016 14 - Other: See Comments Comments: Just felt terrible HCTZ (THIAZIDES) 02/14/2009 Comments: intolerant INDOCIN (INDOMETHACIN SODIUM) 02/07/2005 NORVASC (AMLODIPINE BESYLATE) 02/07/2005 14 - Other: See Comments Comments: Face flushing and numbness PROZAC (FLUOXETINE HCL) 12/27/2015 14 - Other: See Comments Comments: Dizziness, nausea RELAFEN (NABUMETONE) 02/07/2005 RYNATAN (CHLORPHENIRAMINE-PE TANN*02/07/2005 ZOLOFT (SERTRALINE HCL) 06/14/2015 5 - Intolerance Comments: Feet sweat, short of breath Date Reviewed: 06/27/2022 Reviewed by: Sonia Lopez LPN - Fully Assessed Reason for Visit: Population Health Navigation Outreach [3910] Cmt: [employer] Care Gaps 5..23 Prescriptions as of 10/15/2022 - famotidine (PEPCID) 40 mg tablet Take 1 tablet by mouth once daily. - LORazepam (ATIVAN) 0.5 mg Take 0.5 tablets by mouth once daily as needed (anxiety.) for up to 180 days. - spironolactone (ALDACTONE) 25 mg tablet Take 0.5 tablets by mouth twice daily. - doxazosin (CARDURA) 1 mg tablet Take 1 tablet by mouth daily at bedtime. For blood pressure - lisinopril (ZESTRIL) 40 mg tablet Take 0.5 tablets by mouth twice daily. - metoprolol succinate ER (TOPROL XL) 100 mg Take 1 tablet by mouth once daily. - atorvastatin (LIPITOR) 20 mg tablet Take 1 tablet by mouth once daily. - ibuprofen (MOTRIN) 200 mg tablet Take 1-2 tablets by mouth twice daily as needed for Pain (Take with food.). - cetirizine (ZYRTEC) 10 mg tablet Take 1 tablet by mouth once daily. - Cholecalciferol, Vitamin D3, 1,000 unit cap Take 1 capsule by mouth once daily. - multivitamin tablet Take 1 tablet by mouth once daily. Problem List As Of Date 10/15/2022 Noted Resolved Hypertension goal BP (blood pressure) < 130/80 *02/07/2005 Hyperlipidemia [E78.5] 02/07/2005 OSTEOARTHROS NOS-UNSPEC [M19.90] 02/07/2005 10/12/2006 Allergic rhinitis [J30.9] 02/07/2005 ESOPHAGEAL REFLUX [K21.9] 02/07/2005 DIFFUS CYSTIC MASTOPATHY [N60.19] 02/07/2005 10/12/2006 HYPERCALCEMIA [E83.52] 02/26/2000 10/12/2006 HYPERTEN HEART DIS W/O HRT FAIL [I11.9] 10/26/1999 10/12/2006 OSTEOPOROSIS NOS [M81.0] 09/25/1996 10/12/2006 Primary osteoarthritis of left hip [M16.12] 09/25/1996 ABN FIND-STOOL CONTENTS-OCC BLOOD [R19.5] 03/30/2006 10/12/2006 COLITIS NONINFECTIOUS NON-INFECTIOUS [K5*04/23/2006 10/12/2006 Headache(784.0) [R51] 09/29/2008 12/27/2015 Impaired fasting glucose [R73.01] 12/04/2011 Panic attack [F41.0] 12/27/2015 Hot flashes [R23.2] 12/27/2015 Rash and nonspecific skin eruption [R21] 03/27/2016 01/05/2017 Primary osteoarthritis of both knees [M17.0] 07/07/2017 Occult GI bleeding [R19.5] 06/30/2020 08/17/2020 Serrated polyp of colon [K63.5] 08/17/2020 Degeneration of lumbosacral intervertebral disc*02/17/2022 Lumbosacral radiculitis [M54.17] 02/17/2022 Stage 3a chronic kidney disease (HCC) [N18.31] 02/17/2022 Encounter Status:Closed by FATMATA BLOUNT on 10/15/22 [facility] 10-15-2022 Note HNO ID: [id number] Author: Fatmata Blount MA Service: ? Author Type: Nursery Helper Type: Progress Notes Filed: 10/15/2022 10:15 AM Note Text: POPULATION HEALTH NAVIGATION OUTREACH Action/FYI [employer] Care Gaps 5 Discuss/Due for: Reviewed EMR/Care Everywhere Patient under the care of [facility] Michael Boogie with [facility] Outcome: Updated PCP Field Patient Identified by Name and : NO Outreach Outcome/Action PCP field updated Navigation Signature: Fatmata Blount MA October 15, 2022 10:08 AM [facility] 10-15-2022 History of Presen t illness Narrative POPULATION HEALTH NAVIGATION OUTREACH Action/FYI [employer] Care Gaps 5 Discuss/Due for: Reviewed EMR/Care Everywhere Patient under the care of Philipp Boogie with [facility] Outcome: Updated PCP Field Patient Identified by Name and : NO Outreach Outcome/Action PCP field updated Navigation Signature: Fatmata Blount MA October 15, 2022 10:08 AM documented in this encounter [facility] 08-26-2022 Miscellaneous Notes Pt has been discharged from [facility] 08/04/22. She is now following Dr. Boogie. documented in this encounter [facility] 07-25-2022 Note HNO ID: [id number] Author: Roseanne Correa LPN Service: ? Author Type: ? Type: Progress Notes Filed: 07/25/2022 3:23 PM Note Text: No return call from pt. [facility] 07-25-2022 History of Presen t illness Narrative No return call from pt. Message left for pt to return call to a nurse to complete TCM note. documented in this encounter [facility] 07-24-2022 Note Patient Outreach (IN TMWS) NIKI CASTELLANOS ([id number]) 1940 F Date Time Provider Department 07/24/22 TYE FAULKNER [place] During your visit today, we recorded the following information about you: Roseanne Correa LPN 07/25/2022 3:23 PM Signed Message left for pt to return call to a nurse to complete TCM note. Roseanne Correa LPN 07/25/2022 3:23 PM Signed No return call from pt. Allergies As of Date: 07/24/2022 Noted Allergy Reaction BUSPAR (BUSPIRONE HCL) 07/27/2015 14 - Other: See Comments CHLORTHALIDONE 04/10/2020 14 - Other: See Comments Comments: Ringing in the ears, dizziness DYAZIDE (TRIAMTERENE-HYDROCHLOROT*2004 EFFEXOR (VENLAFAXINE ANALOGUES) 03/27/2016 14 - Other: See Comments Comments: Just felt terrible HCTZ (THIAZIDES) 02/14/2009 Comments: intolerant INDOCIN (INDOMETHACIN SODIUM) 02/07/2005 NORVASC (AMLODIPINE BESYLATE) 02/07/2005 14 - Other: See Comments Comments: Face flushing and numbness PROZAC (FLUOXETINE HCL) 12/27/2015 14 - Other: See Comments Comments: Dizziness, nausea RELAFEN (NABUMETONE) 02/07/2005 RYNATAN (CHLORPHENIRAMINE-PE TANN*02/07/2005 ZOLOFT (SERTRALINE HCL) 06/14/2015 5 - Intolerance Comments: Feet sweat, short of breath Date Reviewed: 06/27/2022 Reviewed by: Sonia Lopez LPN - Fully Assessed Reason for Visit: Transition Of Care [4074] Prescriptions as of 07/25/2022 - famotidine (PEPCID) 40 mg tablet Take 1 tablet by mouth once daily. - LORazepam (ATIVAN) 0.5 mg Take 0.5 tablets by mouth once daily as needed (anxiety.) for up to 180 days. - spironolactone (ALDACTONE) 25 mg tablet Take 0.5 tablets by mouth twice daily. - doxazosin (CARDURA) 1 mg tablet Take 1 tablet by mouth daily at bedtime. For blood pressure - lisinopril (ZESTRIL) 40 mg tablet Take 0.5 tablets by mouth twice daily. - metoprolol succinate ER (TOPROL XL) 100 mg Take 1 tablet by mouth once daily. - atorvastatin (LIPITOR) 20 mg tablet Take 1 tablet by mouth once daily. - ibuprofen (MOTRIN) 200 mg tablet Take 1-2 tablets by mouth twice daily as needed for Pain (Take with food.). - cetirizine (ZYRTEC) 10 mg tablet Take 1 tablet by mouth once daily. - Cholecalciferol, Vitamin D3, 1,000 unit cap Take 1 capsule by mouth once daily. - multivitamin tablet Take 1 tablet by mouth once daily. Problem List As Of Date 07/24/2022 Noted Resolved Hypertension goal BP (blood pressure) < 130/80 *02/07/2005 Hyperlipidemia [E78.5] 02/07/2005 OSTEOARTHROS NOS-UNSPEC [M19.90] 02/07/2005 10/12/2006 Allergic rhinitis [J30.9] 02/07/2005 ESOPHAGEAL REFLUX [K21.9] 02/07/2005 DIFFUS CYSTIC MASTOPATHY [N60.19] 02/07/2005 10/12/2006 HYPERCALCEMIA [E83.52] 02/26/2000 10/12/2006 HYPERTEN HEART DIS W/O HRT FAIL [I11.9] 10/26/1999 10/12/2006 OSTEOPOROSIS NOS [M81.0] 09/25/1996 10/12/2006 Primary osteoarthritis of left hip [M16.12] 09/25/1996 ABN FIND-STOOL CONTENTS-OCC BLOOD [R19.5] 03/30/2006 10/12/2006 COLITIS NONINFECTIOUS NON-INFECTIOUS [K5*04/23/2006 10/12/2006 Headache(784.0) [R51] 09/29/2008 12/27/2015 Impaired fasting glucose [R73.01] 12/04/2011 Panic attack [F41.0] 12/27/2015 Hot flashes [R23.2] 12/27/2015 Rash and nonspecific skin eruption [R21] 03/27/2016 01/05/2017 Primary osteoarthritis of both knees [M17.0] 07/07/2017 Occult GI bleeding [R19.5] 06/30/2020 08/17/2020 Serrated polyp of colon [K63.5] 08/17/2020 Degeneration of lumbosacral intervertebral disc*02/17/2022 Lumbosacral radiculitis [M54.17] 02/17/2022 Stage 3a chronic kidney disease (HCC) [N18.31] 02/17/2022 Encounter Status:Closed by ROSEANNE CORREA LPN on 07/25/22 [facility] 07-24-2022 Note HNO ID: [id number] Author: Roseanne Correa LPN Service: ? Author Type: ? Type: Progress Notes Filed: 07/25/2022 3:23 PM Note Text: Message left for pt to return call to a nurse to complete TCM note. [facility] 06-27-2022 Note HNO ID: [id number] Author: Alanis Eric APRN.[employer] Service: ? Author Type: Nurse Specialist Type: Progress Notes Filed: 06/27/2022 11:49 AM Note Text: SUBJECTIVE: ADVANCE DIRECTIVE DISCUSSION due on 04/27/2022 DEPRESSION ASSESSMENT Never done HPI PCP: Tye Faulkner MD Niki Castellanos is a 81 year old female. PMH significant for ACTIVE PROBLEM LIST Hypertension Goal Bp (Blood Pressure) < 130/80 Hyperlipidemia Allergic Rhinitis Esophageal Reflux Primary Osteoarthritis of Left Hip Impaired Fasting Glucose Panic Attack Hot Flashes Primary Osteoarthritis of Both Knees Serrated Polyp of Colon Degeneration of Lumbosacral Intervertebral Disc Lumbosacral Radiculitis Stage 3a Chronic Kidney Disease (Hcc) Presents today for recheck of BP. She notes that home blood pressure readings have been in 140s systolic, heart rate in the 40s to 50s when checking at home. She reports she has been taking one half spironolactone twice daily, one half lisinopril twice daily, metoprolol once daily. Started on doxazosin at her last visit, notes feeling well with this. No longer having shortness of breath. Notes she has had dietary indiscretions eating a lot of Triscuits recently. HTN: She is without report of headache, chest pain, palpitations, dyspnea, peripheral edema, orthopnea, fatigue, and PND. She reports drinking caffeinated beverage just before arriving today. Last 3 Encounter BP Readings: Date: BP: 03/24/2022 120/72[bp sarmad average[ 02/17/2022 150/68 12/25/2021 125/54 GERD: without current complaints. Review of Systems Constitutional: Negative. Respiratory: Negative. Cardiovascular: Negative. Objective BP 178/72 Pulse (!) 43 Resp 16 Wt 90.3 kg (199 lb) BMI 35.53 kg/m? Physical Exam Vitals and nursing note reviewed. Constitutional: Appearance: Normal appearance. HENT: Head: Normocephalic and atraumatic. Eyes: Conjunctiva/sclera: Conjunctivae normal. Cardiovascular: Rate and Rhythm: Regular rhythm. Bradycardia present. Heart sounds: Normal heart sounds. Pulmonary: Effort: Pulmonary effort is normal. Breath sounds: Normal breath sounds. Abdominal: General: Bowel sounds are normal. Palpations: Abdomen is soft. Musculoskeletal: Right lower leg: No edema. Left lower leg: No edema. Skin: General: Skin is warm and dry. Neurological: General: No focal deficit present. Mental Status: She is alert and oriented to person, place, and time. ALLERGIES Allergen Reactions Buspar [Buspirone H* Other: See Comments Chlorthalidone Other: See Comments Ringing in the ears, dizziness Dyazide [Triamteren* Effexor [Venlafaxin* Other: See Comments Just felt terrible Hctz [Thiazides] intolerant Indocin [Indomethac* Norvasc [Amlodipine* Other: See Comments Face flushing and numbness Prozac [Fluoxetine * Other: See Comments Dizziness, nausea Relafen [Nabumetone] Rynatan [Chlorpheni* Zoloft [Sertraline * Intolerance Feet sweat, short of breath Medication famotidine (PEPCID) 40 mg tablet Take 1 tablet by mouth once daily. LORazepam (ATIVAN) 0.5 mg Take 0.5 tablets by mouth once daily as needed (anxiety.) for up to 180 days. spironolactone (ALDACTONE) 25 mg tablet Take 0.5 tablets by mouth twice daily. doxazosin (CARDURA) 1 mg tablet Take 1 tablet by mouth daily at bedtime. For blood pressure lisinopril (ZESTRIL) 40 mg tablet Take 0.5 tablets by mouth twice daily. metoprolol succinate ER (TOPROL XL) 100 mg Take 1 tablet by mouth once daily. atorvastatin (LIPITOR) 20 mg tablet Take 1 tablet by mouth once daily. ibuprofen (MOTRIN) 200 mg tablet Take 1-2 tablets by mouth twice daily as needed for Pain (Take with food.). cetirizine (ZYRTEC) 10 mg tablet Take 1 tablet by mouth once daily. Cholecalciferol, Vitamin D3, 1,000 unit cap Take 1 capsule by mouth once daily. multivitamin tablet Take 1 tablet by mouth once daily. PAST MEDICAL HISTORY Diagnosis Date Allergic rhinitis, cause unspecified 01/1999 Degeneration of lumbosacral intervertebral disc 02/17/2022 Dr. Taylor, Dr. Lewis Diaphragmatic hernia without mention of obstruction or gangrene 02/16/2004 Diverticulosis of colon (without mention of hemorrhage) Esophageal reflux 02/16/2004 Generalized osteoarthrosis, unspecified site 09/1996 History of transfusion Hot flashes 12/27/2015 Hypercalcemia 02/2000 Hypertension goal BP (blood pressure) < 150/90 02/07/2005 Impaired fasting glucose 12/04/2011 Internal hemorrhoids without mention of complication 03/06/2006 Lumbosacral radiculitis 02/17/2022 Other and unspecified hyperlipidemia 09/1995 Panic attack 12/27/2015 Has tried about 5 SSRI or anxiety meds, uses 1/4-1/2 tablet (1-2 x/ month -lorazepam) Serrated polyp of colon 08/17/2020 Stage 3a chronic kidney disease (HCC) 02/17/2022 Ulceration of intestine Unspecified hypertensive heart disease without heart failure 10/1999 Social History T (more content not included)... 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 PMH significant for ACTIVE PROBLEM LIST Hypertension Goal Bp (Blood Pressure) < 130/80 Hyperlipidemia Allergic Rhinitis Esophageal Reflux Primary Osteoarthritis of Left Hip Impaired Fasting Glucose Panic Attack Hot Flashes Primary Osteoarthritis of Both Knees Serrated Polyp of Colon Degeneration of Lumbosacral Intervertebral Disc Lumbosacral Radiculitis Stage 3a Chronic Kidney Disease (Hcc) Presents today for recheck of BP. She notes that home blood pressure readings have been in 140s systolic, heart rate in the 40s to 50s when checking at home. She reports she has been taking one half spironolactone twice daily, one half lisinopril twice daily, metoprolol once daily. Started on doxazosin at her last visit, notes feeling well with this. No longer having shortness of breath. Notes she has had dietary indiscretions eating a lot of Triscuits recently. HTN: She is without report of headache, chest pain, palpitations, dyspnea, peripheral edema, orthopnea, fatigue, and PND. She reports drinking caffeinated beverage just before arriving today. Last 3 Encounter BP Readings: Date: BP: 03/24/2022 120/72[bp sarmad average[ 02/17/2022 150/68 12/25/2021 125/54 GERD: without current complaints. Review of Systems Constitutional: Negative. Respiratory: Negative. Cardiovascular: Negative. Objective BP 178/72 Pulse (!) 43 Resp 16 Wt 90.3 kg (199 lb) BMI 35.53 kg/m Physical Exam Vitals and nursing note reviewed. Constitutional: Appearance: Normal appearance. HENT: Head: Normocephalic and atraumatic. Eyes: Conjunctiva/sclera: Conjunctivae normal. Cardiovascular: Rate and Rhythm: Regular rhythm. Bradycardia present. Heart sounds: Normal heart sounds. Pulmonary: Effort: Pulmonary effort is normal. Breath sounds: Normal breath sounds. Abdominal: General: Bowel sounds are normal. Palpations: Abdomen is soft. Musculoskeletal: Right lower leg: No edema. Left lower leg: No edema. Skin: General: Skin is warm and dry. Neurological: General: No focal deficit present. Mental Status: She is alert and oriented to person, place, and time. ALLERGIES Allergen Reactions Buspar [Buspirone H* Other: See Comments Chlorthalidone Other: See Comments Ringing in the ears, dizziness Dyazide [Triamteren* Effexor [Venlafaxin* Other: See Comments Just felt terrible Hctz [Thiazides] intolerant Indocin [Indomethac* Norvasc [Amlodipine* Other: See Comments Face flushing and numbness Prozac [Fluoxetine * Other: See Comments Dizziness, nausea Relafen [Nabumetone] Rynatan [Chlorpheni* Zoloft [Sertraline * Intolerance Feet sweat, short of breath Medication famotidine (PEPCID) 40 mg tablet Take 1 tablet by mouth once daily. LORazepam (ATIVAN) 0.5 mg Take 0.5 tablets by mouth once daily as needed (anxiety.) for up to 180 days. spironolactone (ALDACTONE) 25 mg tablet Take 0.5 tablets by mouth twice daily. doxazosin (CARDURA) 1 mg tablet Take 1 tablet by mouth daily at bedtime. For blood pressure lisinopril (ZESTRIL) 40 mg tablet Take 0.5 tablets by mouth twice daily. metoprolol succinate ER (TOPROL XL) 100 mg Take 1 tablet by mouth once daily. atorvastatin (LIPITOR) 20 mg tablet Take 1 tablet by mouth once daily. ibuprofen (MOTRIN) 200 mg tablet Take 1-2 tablets by mouth twice daily as needed for Pain (Take with food.). cetirizine (ZYRTEC) 10 mg tablet Take 1 tablet by mouth once daily. Cholecalciferol, Vitamin D3, 1,000 unit cap Take 1 capsule by mouth once daily. multivitamin tablet Take 1 tablet by mouth once daily. PAST MEDICAL HISTORY Diagnosis Date Allergic rhinitis, cause unspecified 01/1999 Degeneration of lumbosacral intervertebral disc 02/17/2022 Dr. Taylor, Dr. Lewis Diaphragmatic hernia without mention of obstruction or gangrene 02/16/2004 Diverticulosis of colon (without mention of hemorrhage) Esophageal reflux 02/16/2004 Generalized osteoarthrosis, unspecified site 09/1996 History of transfusion Hot flashes 12/27/2015 Hypercalcemia 02/2000 Hypertension goal BP (blood pressure) < 150/90 02/07/2005 Impaired fasting glucose 12/04/2011 Internal hemorrhoids without mention of complication 03/06/2006 Lumbosacral radiculitis 02/17/2022 Other and unspecified hyperlipidemia 09/1995 Panic attack 12/27/2015 Has tried about 5 SSRI or anxiety meds, uses 1/4-1/2 tablet (1-2 x/ month -lorazepam) Serrated polyp of colon 08/17/2020 Stage 3a chronic kidney disease (HCC) 02/17/2022 Ulceration of intestine Unspecified hypertensive heart disease without heart failure 10/1999 Social History Tobacco Use Smoking status: Never Smokeless tobacco: Never Substance Use Topics Alcohol use: No Drug use: No Component Latest Ref Rng & Units 09/11/2021 10/18/2021 12/25/2021 01/21/2022 Protein, Total 6.3 - 8.0 g/dL 6.8 Albumin 3.9 - 4.9 g/dL 4.3 Calcium 8.5 - 10.2 mg/dL 9.7 10.1 10.2 9.7 Bilirubin, Total 0.2 - 1.3 mg/dL 0.9 Alkaline Phosphatase 34 - 123 U/L 86 AST 13 - 35 U/L 17 ALT 7 - 38 U/L 12 Glucose 74 - 99 mg/dL 115 (H) 89 80 92 BUN 7 - 21 mg/dL 30 (H) 25 (H) 32 (H) 29 (H) Creatinine 0.58 - 0.96 mg/dL 1.06 (H) 1.22 (H) 1.13 (H) 1.14 (H) Sodium 136 - 144 mmol/L 140 141 142 140 Potassium 3.7 - 5.1 mmol/L 4.6 4.9 5.6 (H) 5.1 Chloride 97 - 105 mmol/L 107 (H) 108 (H) 105 105 CO2 22 - 30 mmol/L 21 (L) 22 25 25 Anion Gap 9 - 18 mmol/L 12 11 12 10 eGFR >=60 mL/min/1.73m 53 (L) 45 (L) 49 (L) 48 (L) WBC 3.70 - 11.00 k/uL 8.53 RBC 3.90 - 5.20 m/uL 4.34 Hemoglobin 11.5 - 15.5 g/dL 13.6 Hematocrit 36.0 - 46.0 % 42.9 MCV 80.0 - 100.0 fL 98.8 MCH 26.0 - 34.0 pg 31.3 MCHC 30.5 - 36.0 g/dL 31.7 RDW-CV 11.5 - 15.0 % 12.6 Platelet Count 150 - 400 k/uL 241 MPV 9.0 - 12.7 fL 10.8 Absolute nRBC <0.01 k/uL <0.01 Cholesterol, Total <200 mg/dL 131 Triglyceride <150 mg/dL 99 HDL Cholesterol >39 mg/dL 38 (L) Non HDL Cholesterol <130 mg/dL 93 Fasting Time hrs 14 VLDL Cholesterol <30 mg/dL 20 TC:HDL Ratio <5.10 3.45 LDL Cholesterol <100 mg/dL 73 LDL:HDL Ratio <2.54 1.92 ASSESSMENT/PLAN: 1. Hypertension goal BP (blood pressure) < 130/80 - ICD9: 401.9, ICD10: I10 (primary diagnosis) Improved control with addition of doxazosin at her last visit. Resolution of shortness of breath on exertion. She declines increased dose of doxazosin at this time. She will cut back on sodium intake and recheck at her next visit. Bradycardia noted, she reports chronic, would recommend EKG at her convenience, defers today and requests to complete at her next visit. EKG 2020 showed sinus bradycardia with marked sinus arrhythmia and first-degree block, PAC Recheck BP 1 mo ER for any severe or concerning symptoms. Alanis Eric APRN.CNS Medical Decision Making: Problems: Moderate: 1+ chronic illnesses with change Risk: Moderate: Drug management Medical Decision Making Level: 4 - Moderate documented in this encounter [facility] 06-20-2022 Note HNO ID: [id number] Author: Alanis Eric APRN.CNS Service: ? 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 PMH significant for ACTIVE PROBLEM LIST Hypertension Goal Bp (Blood Pressure) < 130/80 Hyperlipidemia Allergic Rhinitis Esophageal Reflux Primary Osteoarthritis of Left Hip Impaired Fasting Glucose Panic Attack Hot Flashes Primary Osteoarthritis of Both Knees Serrated Polyp of Colon Degeneration of Lumbosacral Intervertebral Disc Lumbosacral Radiculitis Stage 3a Chronic Kidney Disease (Hcc) Presents today for recheck of BP. She reports having spine injection with Dr. Segura at [facility] and either heart rate or blood pressure was out of line so presented for follow-up per his recommendation. She notes that home blood pressure readings have been in 130s to 140s systolic, heart rate in the 40s to 50s when checking at home. She reports she has been taking one half spironolactone twice daily, one half lisinopril twice daily, metoprolol once daily. Notes short of breath on her walk into the office today, notes she is deconditioned. HTN: She is without report of headache, chest pain, palpitations, dyspnea, peripheral edema, orthopnea, fatigue, and PND. She reports drinking caffeinated beverage just before arriving today. Last 3 Encounter BP Readings: Date: BP: 03/24/2022 120/72[bp sarmad average[ 02/17/2022 150/68 12/25/2021 125/54 GERD: without current complaints. Review of Systems Respiratory: Positive for shortness of breath. Objective BP 186/76 Pulse (!) 54 Resp 16 Wt 93.4 kg (206 lb) BMI 36.78 kg/m? Physical Exam Vitals and nursing note reviewed. Constitutional: Appearance: Normal appearance. HENT: Head: Normocephalic and atraumatic. Eyes: Conjunctiva/sclera: Conjunctivae normal. Cardiovascular: Rate and Rhythm: Regular rhythm. Bradycardia present. Heart sounds: Normal heart sounds. Pulmonary: Effort: Pulmonary effort is normal. Breath sounds: Normal breath sounds. Abdominal: General: Bowel sounds are normal. Palpations: Abdomen is soft. Musculoskeletal: Right lower leg: No edema. Left lower leg: No edema. Skin: General: Skin is warm and dry. Neurological: General: No focal deficit present. Mental Status: She is alert and oriented to person, place, and time. ALLERGIES Allergen Reactions Buspar [Buspirone H* Other: See Comments Chlorthalidone Other: See Comments Ringing in the ears, dizziness Dyazide [Triamteren* Effexor [Venlafaxin* Other: See Comments Just felt terrible Hctz [Thiazides] intolerant Indocin [Indomethac* Norvasc [Amlodipine* Other: See Comments Face flushing and numbness Prozac [Fluoxetine * Other: See Comments Dizziness, nausea Relafen [Nabumetone] Rynatan [Chlorpheni* Zoloft [Sertraline * Intolerance Feet sweat, short of breath Medication lisinopril (ZESTRIL) 40 mg tablet Take 0.5 tablets by mouth twice daily. spironolactone (ALDACTONE) 25 mg tablet Take 0.5 tablets by mouth once daily. metoprolol succinate ER (TOPROL XL) 100 mg Take 1 tablet by mouth once daily. atorvastatin (LIPITOR) 20 mg tablet Take 1 tablet by mouth once daily. famotidine (PEPCID) 40 mg tablet Take 1 tablet by mouth once daily. ibuprofen (MOTRIN) 200 mg tablet Take 1-2 tablets by mouth twice daily as needed for Pain (Take with food.). cetirizine (ZYRTEC) 10 mg tablet Take 1 tablet by mouth once daily. Cholecalciferol, Vitamin D3, 1,000 unit cap Take 1 capsule by mouth once daily. multivitamin tablet Take 1 tablet by mouth once daily. PAST MEDICAL HISTORY Diagnosis Date Allergic rhinitis, cause unspecified 01/1999 Degeneration of lumbosacral intervertebral disc 02/17/2022 Dr. Taylor, Dr. Lewis Diaphragmatic hernia without mention of obstruction or gangrene 02/16/2004 Diverticulosis of colon (without mention of hemorrhage) Esophageal reflux 02/16/2004 Generalized osteoarthrosis, unspecified site 09/1996 History of transfusion Hot flashes 12/27/2015 Hypercalcemia 02/2000 Hypertension goal BP (blood pressure) < 150/90 02/07/2005 Impaired fasting glucose 12/04/2011 Internal hemorrhoids without mention of complication 03/06/2006 Lumbosacral radiculitis 02/17/2022 Other and unspecified hyperlipidemia 09/1995 Panic attack 12/27/2015 Has tried about 5 SSRI or anxiety meds, uses 04/30-1/2 tablet (1-2 x/ month -lorazepam) Serrated polyp of colon 08/17/2020 Stage 3a chronic kidney disease (HCC) 02/17/2022 Ulceration of intestine Unspecified hypertensive heart disease without heart failure 10/1999 Social History Tobacco Use Smoking status: Never Smokeless tobacco: Never Substance Use Topics Alcohol use: No Drug use: No Component Latest Ref Rng AN (more content not included)... 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 PMH significant for ACTIVE PROBLEM LIST Hypertension Goal Bp (Blood Pressure) < 130/80 Hyperlipidemia Allergic Rhinitis Esophageal Reflux Primary Osteoarthritis of Left Hip Impaired Fasting Glucose Panic Attack Hot Flashes Primary Osteoarthritis of Both Knees Serrated Polyp of Colon Degeneration of Lumbosacral Intervertebral Disc Lumbosacral Radiculitis Stage 3a Chronic Kidney Disease (Hcc) Presents today for recheck of BP. She reports having spine injection with Dr. Segura at [facility] and either heart rate or blood pressure was out of line so presented for follow-up per his recommendation. She notes that home blood pressure readings have been in 130s to 140s systolic, heart rate in the 40s to 50s when checking at home. She reports she has been taking one half spironolactone twice daily, one half lisinopril twice daily, metoprolol once daily. Notes short of breath on her walk into the office today, notes she is deconditioned. HTN: She is without report of headache, chest pain, palpitations, dyspnea, peripheral edema, orthopnea, fatigue, and PND. She reports drinking caffeinated beverage just before arriving today. Last 3 Encounter BP Readings: Date: BP: 03/24/2022 120/72[bp sarmad average[ 02/17/2022 150/68 12/25/2021 125/54 GERD: without current complaints. Review of Systems Respiratory: Positive for shortness of breath. Objective BP 186/76 Pulse (!) 54 Resp 16 Wt 93.4 kg (206 lb) BMI 36.78 kg/m Physical Exam Vitals and nursing note reviewed. Constitutional: Appearance: Normal appearance. HENT: Head: Normocephalic and atraumatic. Eyes: Conjunctiva/sclera: Conjunctivae normal. Cardiovascular: Rate and Rhythm: Regular rhythm. Bradycardia present. Heart sounds: Normal heart sounds. Pulmonary: Effort: Pulmonary effort is normal. Breath sounds: Normal breath sounds. Abdominal: General: Bowel sounds are normal. Palpations: Abdomen is soft. Musculoskeletal: Right lower leg: No edema. Left lower leg: No edema. Skin: General: Skin is warm and dry. Neurological: General: No focal deficit present. Mental Status: She is alert and oriented to person, place, and time. ALLERGIES Allergen Reactions Buspar [Buspirone H* Other: See Comments Chlorthalidone Other: See Comments Ringing in the ears, dizziness Dyazide [Triamteren* Effexor [Venlafaxin* Other: See Comments Just felt terrible Hctz [Thiazides] intolerant Indocin [Indomethac* Norvasc [Amlodipine* Other: See Comments Face flushing and numbness Prozac [Fluoxetine * Other: See Comments Dizziness, nausea Relafen [Nabumetone] Rynatan [Chlorpheni* Zoloft [Sertraline * Intolerance Feet sweat, short of breath Medication lisinopril (ZESTRIL) 40 mg tablet Take 0.5 tablets by mouth twice daily. spironolactone (ALDACTONE) 25 mg tablet Take 0.5 tablets by mouth once daily. metoprolol succinate ER (TOPROL XL) 100 mg Take 1 tablet by mouth once daily. atorvastatin (LIPITOR) 20 mg tablet Take 1 tablet by mouth once daily. famotidine (PEPCID) 40 mg tablet Take 1 tablet by mouth once daily. ibuprofen (MOTRIN) 200 mg tablet Take 1-2 tablets by mouth twice daily as needed for Pain (Take with food.). cetirizine (ZYRTEC) 10 mg tablet Take 1 tablet by mouth once daily. Cholecalciferol, Vitamin D3, 1,000 unit cap Take 1 capsule by mouth once daily. multivitamin tablet Take 1 tablet by mouth once daily. PAST MEDICAL HISTORY Diagnosis Date Allergic rhinitis, cause unspecified 01/1999 Degeneration of lumbosacral intervertebral disc 02/17/2022 Dr. Taylor, Dr. Lewis Diaphragmatic hernia without mention of obstruction or gangrene 02/16/2004 Diverticulosis of colon (without mention of hemorrhage) Esophageal reflux 02/16/2004 Generalized osteoarthrosis, unspecified site 09/1996 History of transfusion Hot flashes 12/27/2015 Hypercalcemia 02/2000 Hypertension goal BP (blood pressure) < 150/90 02/07/2005 Impaired fasting glucose 12/04/2011 Internal hemorrhoids without mention of complication 03/06/2006 Lumbosacral radiculitis 02/17/2022 Other and unspecified hyperlipidemia 09/1995 Panic attack 12/27/2015 Has tried about 5 SSRI or anxiety meds, uses 04/30-1/2 tablet (1-2 x/ month -lorazepam) Serrated polyp of colon 08/17/2020 Stage 3a chronic kidney disease (HCC) 02/17/2022 Ulceration of intestine Unspecified hypertensive heart disease without heart failure 10/1999 Social History Tobacco Use Smoking status: Never Smokeless tobacco: Never Substance Use Topics Alcohol use: No Drug use: No Component Latest Ref Rng & Units 09/11/2021 10/18/2021 12/25/2021 01/21/2022 Protein, Total 6.3 - 8.0 g/dL 6.8 Albumin 3.9 - 4.9 g/dL 4.3 Calcium 8.5 - 10.2 mg/dL 9.7 10.1 10.2 9.7 Bilirubin, Total 0.2 - 1.3 mg/dL 0.9 Alkaline Phosphatase 34 - 123 U/L 86 AST 13 - 35 U/L 17 ALT 7 - 38 U/L 12 Glucose 74 - 99 mg/dL 115 (H) 89 80 92 BUN 7 - 21 mg/dL 30 (H) 25 (H) 32 (H) 29 (H) Creatinine 0.58 - 0.96 mg/dL 1.06 (H) 1.22 (H) 1.13 (H) 1.14 (H) Sodium 136 - 144 mmol/L 140 141 142 140 Potassium 3.7 - 5.1 mmol/L 4.6 4.9 5.6 (H) 5.1 Chloride 97 - 105 mmol/L 107 (H) 108 (H) 105 105 CO2 22 - 30 mmol/L 21 (L) 22 25 25 Anion Gap 9 - 18 mmol/L 12 11 12 10 eGFR >=60 mL/min/1.73m 53 (L) 45 (L) 49 (L) 48 (L) WBC 3.70 - 11.00 k/uL 8.53 RBC 3.90 - 5.20 m/uL 4.34 Hemoglobin 11.5 - 15.5 g/dL 13.6 Hematocrit 36.0 - 46.0 % 42.9 MCV 80.0 - 100.0 fL 98.8 MCH 26.0 - 34.0 pg 31.3 MCHC 30.5 - 36.0 g/dL 31.7 RDW-CV 11.5 - 15.0 % 12.6 Platelet Count 150 - 400 k/uL 241 MPV 9.0 - 12.7 fL 10.8 Absolute nRBC <0.01 k/uL <0.01 Cholesterol, Total <200 mg/dL 131 Triglyceride <150 mg/dL 99 HDL Cholesterol >39 mg/dL 38 (L) Non HDL Cholesterol <130 mg/dL 93 Fasting Time hrs 14 VLDL Cholesterol <30 mg/dL 20 TC:HDL Ratio <5.10 3.45 LDL Cholesterol <100 mg/dL 73 LDL:HDL Ratio <2.54 1.92 ASSESSMENT/PLAN: 1. Hypertension goal BP (blood pressure) < 130/80 - ICD9: 401.9, ICD10: I10 (primary diagnosis) Suboptimal control on current treatments. We will add doxazosin 1 mg at Take one(1) tablet daily at bedtime.. EKG 2020 showed sinus bradycardia with marked sinus arrhythmia and first-degree block, PAC Recheck BP 1 week ER for any severe or concerning symptoms. 2. Gastroesophageal reflux disease, unspecified whether esophagitis present - ICD9: 530.81, ICD10: K21.9 Stable, currently controlled, continue to monitor. - FAMOTIDINE 40 MG TABLET 3. Panic attack - ICD9: 300.01, ICD10: F41.0 Requests refill. Stable, currently controlled, continue to monitor. - LORAZEPAM 0.5 MG TABLET Alanis Eric APRN.RADHA Medical Decision Making: Problems: Moderate: 1+ chronic illnesses with change Risk: Moderate: Drug management Medical Decision Making Level: 4 - Moderate documented in this encounter [facility] 04-02-2022 Miscellaneous Notes Spoke with pt and information listed below given. Pt verbalizes understanding. Alayna Schneider LPN Pt called and states her pharmacy does not have the Lisinopril and requesting this be sent to [facility]. PLEASE ADVISE PT WHEN THIS HAS BEEN SENT . SHE IS OUT OF MEDICATION. Alayna Schneider LPN Patient has been identified by name and date of : Yes Patient phones for refill(s): Requested Prescriptions Pending Prescriptions Disp Refills lisinopril (ZESTRIL) 40 mg tablet 30 tablet 11 Sig: Take 0.5 tablets by mouth twice daily. Last 2 Encounter Wt Readings: Date: Wt: 03/24/2022 86.6 kg (191 lb) 02/17/2022 87.5 kg (193 lb) Previous labs/tests for medication: Blood Pressure: BUN (mg/dL) Date Value 01/21/2022 29 11/08/2020 22 Sodium (mmol/L) Date Value 01/21/2022 140 11/08/2020 142 Last 1 Encounter BP Readings: Date: BP: 03/24/2022 120/72[bp sarmad average[ Please advise. Thank you. Alayna Schneider LPN documented in this encounter [facility] 04-01-2022 Miscellaneous Notes Pt calling because her current pharmacy does not have the pills to fill her prescription. Pt requesting to have prescription sent to [facility] Please contact pt once this is done if able. Pt stated she is out of her prescription completely. Patient calling she took her last Lisinopril tablet yesterday and pharmacy has no more refills on rx. Pending rx file. Please advise Patient has been identified by name and date of : Yes Patient phones for refill(s): Requested Prescriptions Pending Prescriptions Disp Refills lisinopril (ZESTRIL) 40 mg tablet 30 tablet 11 Sig: Take 0.5 tablets by mouth twice daily. Date of last office visit in primary care: 03/24/2022, has appt 05/21/2022 Last 2 Encounter Wt Readings: Date: Wt: 03/24/2022 86.6 kg (191 lb) 02/17/2022 87.5 kg (193 lb) Previous labs/tests for medication: Blood Pressure: BUN (mg/dL) Date Value 01/21/2022 29 11/08/2020 22 Sodium (mmol/L) Date Value 01/21/2022 140 11/08/2020 142 Last 1 Encounter BP Readings: Date: BP: 03/24/2022 120/72[bp sarmad average[ Please advise. Thank you. Susie Mccollum LPN documented in this encounter [facility] 03-24-2022 Note HNO ID: [id number] Author: Zahra Ro APRN.[employer] Service: ? Author Type: Nurse Practitioner Type: Progress Notes Filed: 03/24/2022 3:07 PM Note Text: CC Patient presents with: 1 month follow up - BP HPI Niki Castellanos is a 81 year old female who presents to the office for blood pressure. Her visit today is for follow-up. Patient was last seen for this approximately 1 month ago. Medication changes: Yes she was started on Norvasc 2.5 mg daily however she had side effects and this was stopped Taking all medications as prescribed: yes Side effects: No Home BP's: Yes 120's/70's Denies: headache, chest pain, palpitations, dyspnea, and peripheral edema. Last 4 Encounter BP Readings: Date: BP: 03/24/2022 120/72 02/17/2022 150/68 12/25/2021 125/54 10/18/2021 158/79[bp true[ Last 3 Encounter Wt Readings: Date: Wt: 03/24/2022 86.6 kg (191 lb) 02/17/2022 87.5 kg (193 lb) 12/25/2021 83.9 kg (185 lb) REVIEW OF SYSTEMS See HPI PAST MEDICAL HISTORY Diagnosis Date Allergic rhinitis, cause unspecified 01/1999 Degeneration of lumbosacral intervertebral disc 02/17/2022 Dr. Taylor, Dr. Lewis Diaphragmatic hernia without mention of obstruction or gangrene 02/16/2004 Diverticulosis of colon (without mention of hemorrhage) Esophageal reflux 02/16/2004 Generalized osteoarthrosis, unspecified site 09/1996 History of transfusion Hot flashes 12/27/2015 Hypercalcemia 02/2000 Hypertension goal BP (blood pressure) < 150/90 02/07/2005 Impaired fasting glucose 12/04/2011 Internal hemorrhoids without mention of complication 03/06/2006 Lumbosacral radiculitis 02/17/2022 Other and unspecified hyperlipidemia 09/1995 Panic attack 12/27/2015 Has tried about 5 SSRI or anxiety meds, uses 04/30-1/2 tablet (1-2 x/ month -lorazepam) Serrated polyp of colon 08/17/2020 Stage 3a chronic kidney disease (HCC) 02/17/2022 Ulceration of intestine Unspecified hypertensive heart disease without heart failure 10/1999 PAST SURGICAL HISTORY Procedure Laterality Date ARTHRP ACETBLR/PROX FEM PROSTC AGRFT/ALGRFT Left 07/2006 Hip replacement, total left COLONOSCOPY - DIAGNOSTIC 08/03/2020 COLONOSCOPY FLX DX W/COLLJ SPEC WHEN PFRMD 02/2006 Colonoscopy FRACTURE SURGERY TOTAL KNEE REPLACEMENT Right 02/20/2021 Partial, R medial unicompartmental TREATMENT OF HIP DISLOCATION Left 05/29/2021 ER treatment. TUBAL LIGATION HX 1970 ALLERGIES Buspar [Buspirone Hcl], Chlorthalidone, Dyazide [Triamterene-Hydrochlorothiazid] , Effexor [Venlafaxine Analogues], Hctz [Thiazides], Indocin [Indomethacin Sodium], Norvasc [Amlodipine Besylate], Prozac [Fluoxetine Hcl], Relafen [Nabumetone], Rynatan [Chlorpheniramine-Pe Tannates], and Zoloft [Sertraline Hcl] MEDICATIONS LORazepam (ATIVAN) 0.5 mg Take 0.5 tablets by mouth once daily as needed (anxiety.) for up to 180 days. spironolactone (ALDACTONE) 25 mg tablet Take 0.5 tablets by mouth once daily. metoprolol succinate ER (TOPROL XL) 100 mg Take 1 tablet by mouth once daily. atorvastatin (LIPITOR) 20 mg tablet Take 1 tablet by mouth once daily. famotidine (PEPCID) 40 mg tablet Take 1 tablet by mouth once daily. lisinopril (ZESTRIL) 40 mg tablet Take 0.5 tablets by mouth twice daily. ibuprofen (MOTRIN) 200 mg tablet Take 1-2 tablets by mouth twice daily as needed for Pain (Take with food.). cetirizine (ZYRTEC) 10 mg tablet Take 1 tablet by mouth once daily. Cholecalciferol, Vitamin D3, 1,000 unit cap Take 1 capsule by mouth once daily. multivitamin tablet Take 1 tablet by mouth once daily. FAMILY HISTORY Problem Relation Age of Onset Stroke Mother 80 Diabetes Stroke Father 92 Breast Cancer Father cousins Social History Tobacco Use Smoking status: Never Smokeless tobacco: Never Substance Use Topics Alcohol use: No Drug use: No PHYSICAL EXAM BP 120/72 Pulse (!) 58 Resp 14 Wt 86.6 kg (191 lb) BMI 34.10 kg/m? General Appearance: well appearing, in no acute distress, alert Lungs: Lungs clear to auscultation. No wheezing, rhonchi, rales. Heart: RRR without murmur, gallop, or rubs. No ectopy DATA REVIEWED: Most recent labs ASSESSMENT/PLAN: 1. Hypertension goal BP (blood pressure) < 130/80 - ICD9: 401.9, ICD10: I10 - good control - Continue current medication(s) - Recommended regular aerobic exercise. - Recommend home blood pressure monitoring, to bring results in on next visit - Goal of BP <130/80 Prescription instructions reviewed with patient as applicable. Potential red flag symptoms discussed with the patient. Reviewed appropriate action plan to take if red flag symptoms occur. Patient agreeable to treatment plan Zahra Ro APRN.[employer] [facility] 03-24-2022 History of Presen t illness Narrative CC Patient presents with: 1 month follow up - BP HPI Niki Castellanos is a 81 year old female who presents to the office for blood pressure. Her visit today is for follow-up. Patient was last seen for this approximately 1 month ago. Medication changes: Yes she was started on Norvasc 2.5 mg daily however she had side effects and this was stopped Taking all medications as prescribed: yes Side effects: No Home BP's: Yes 120's/70's Denies: headache, chest pain, palpitations, dyspnea, and peripheral edema. Last 4 Encounter BP Readings: Date: BP: 03/24/2022 120/72 02/17/2022 150/68 12/25/2021 125/54 10/18/2021 158/79[bp true[ Last 3 Encounter Wt Readings: Date: Wt: 03/24/2022 86.6 kg (191 lb) 02/17/2022 87.5 kg (193 lb) 12/25/2021 83.9 kg (185 lb) REVIEW OF SYSTEMS See HPI PAST MEDICAL HISTORY Diagnosis Date Allergic rhinitis, cause unspecified 01/1999 Degeneration of lumbosacral intervertebral disc 02/17/2022 Dr. Taylor, Dr. Lewis Diaphragmatic hernia without mention of obstruction or gangrene 02/16/2004 Diverticulosis of colon (without mention of hemorrhage) Esophageal reflux 02/16/2004 Generalized osteoarthrosis, unspecified site 09/1996 History of transfusion Hot flashes 12/27/2015 Hypercalcemia 02/2000 Hypertension goal BP (blood pressure) < 150/90 02/07/2005 Impaired fasting glucose 12/04/2011 Internal hemorrhoids without mention of complication 03/06/2006 Lumbosacral radiculitis 02/17/2022 Other and unspecified hyperlipidemia 09/1995 Panic attack 12/27/2015 Has tried about 5 SSRI or anxiety meds, uses 14-1/2 tablet (1-2 x/ month -lorazepam) Serrated polyp of colon 08/17/2020 Stage 3a chronic kidney disease (HCC) 02/17/2022 Ulceration of intestine Unspecified hypertensive heart disease without heart failure 10/1999 PAST SURGICAL HISTORY Procedure Laterality Date ARTHRP ACETBLR/PROX FEM PROSTC AGRFT/ALGRFT Left 07/2006 Hip replacement, total left COLONOSCOPY - DIAGNOSTIC 08/03/2020 COLONOSCOPY FLX DX W/COLLJ SPEC WHEN PFRMD 02/2006 Colonoscopy FRACTURE SURGERY TOTAL KNEE REPLACEMENT Right 02/20/2021 Partial, R medial unicompartmental TREATMENT OF HIP DISLOCATION Left 05/29/2021 ER treatment. TUBAL LIGATION HX 1971 ALLERGIES Buspar [Buspirone Hcl], Chlorthalidone, Dyazide [Triamterene-Hydrochlorothiazid] , Effexor [Venlafaxine Analogues], Hctz [Thiazides], Indocin [Indomethacin Sodium], Norvasc [Amlodipine Besylate], Prozac [Fluoxetine Hcl], Relafen [Nabumetone], Rynatan [Chlorpheniramine-Pe Tannates], and Zoloft [Sertraline Hcl] MEDICATIONS LORazepam (ATIVAN) 0.5 mg Take 0.5 tablets by mouth once daily as needed (anxiety.) for up to 180 days. spironolactone (ALDACTONE) 25 mg tablet Take 0.5 tablets by mouth once daily. metoprolol succinate ER (TOPROL XL) 100 mg Take 1 tablet by mouth once daily. atorvastatin (LIPITOR) 20 mg tablet Take 1 tablet by mouth once daily. famotidine (PEPCID) 40 mg tablet Take 1 tablet by mouth once daily. lisinopril (ZESTRIL) 40 mg tablet Take 0.5 tablets by mouth twice daily. ibuprofen (MOTRIN) 200 mg tablet Take 1-2 tablets by mouth twice daily as needed for Pain (Take with food.). cetirizine (ZYRTEC) 10 mg tablet Take 1 tablet by mouth once daily. Cholecalciferol, Vitamin D3, 1,000 unit cap Take 1 capsule by mouth once daily. multivitamin tablet Take 1 tablet by mouth once daily. FAMILY HISTORY Problem Relation Age of Onset Stroke Mother 80 Diabetes Stroke Father 92 Breast Cancer Father cousins Social History Tobacco Use Smoking status: Never Smokeless tobacco: Never Substance Use Topics Alcohol use: No Drug use: No PHYSICAL EXAM BP 120/72 Pulse (!) 58 Resp 14 Wt 86.6 kg (191 lb) BMI 34.10 kg/m General Appearance: well appearing, in no acute distress, alert Lungs: Lungs clear to auscultation. No wheezing, rhonchi, rales. Heart: RRR without murmur, gallop, or rubs. No ectopy DATA REVIEWED: Most recent labs ASSESSMENT/PLAN: 1. Hypertension goal BP (blood pressure) < 130/80 - ICD9: 401.9, ICD10: I10 - good control - Continue current medication(s) - Recommended regular aerobic exercise. - Recommend home blood pressure monitoring, to bring results in on next visit - Goal of BP <130/80 Prescription instructions reviewed with patient as applicable. Potential red flag symptoms discussed with the patient. Reviewed appropriate action plan to take if red flag symptoms occur. Patient agreeable to treatment plan Zahra Ro APRN.CNP documented in this encounter [facility] 02-17-2022 Note HNO ID: [id number] Author: Tye Faulkner MD Service: ? Author Type: Physician Type: Progress Notes Filed: 02/17/2022 4:57 PM Note Text: This note was created using [email or web address]. Subjective Niki Castellanos is a 81 year old female. She was seeing Dr. Taylor and Dr. Lewis for low back pain. She was getting injections and taking Percocet only as needed. Her hypertension was persistently elevated today. She was taking her medications. She had a listed allergy to amlodipine historically but did not recall specifics. We agreed to try some amlodipine. Review of Systems Constitutional: Negative. Respiratory: Negative. Cardiovascular: Positive for leg swelling. Negative for chest pain and palpitations. Gastrointestinal: Negative. Musculoskeletal: Positive for back pain and gait problem. Neurological: Negative for dizziness and headaches. ACTIVE PROBLEM LIST Hypertension Goal Bp (Blood Pressure) < 130/80 Hyperlipidemia Allergic Rhinitis Esophageal Reflux Primary Osteoarthritis of Left Hip Impaired Fasting Glucose Panic Attack Hot Flashes Primary Osteoarthritis of Both Knees Serrated Polyp of Colon Current Outpatient Medications Medication Sig LORazepam (ATIVAN) 0.5 mg Take 0.5 tablets by mouth once daily as needed (anxiety.) for up to 180 days. spironolactone (ALDACTONE) 25 mg tablet Take 0.5 tablets by mouth once daily. metoprolol succinate ER (TOPROL XL) 100 mg Take 1 tablet by mouth once daily. atorvastatin (LIPITOR) 20 mg tablet Take 1 tablet by mouth once daily. famotidine (PEPCID) 40 mg tablet Take 1 tablet by mouth once daily. lisinopril (ZESTRIL) 40 mg tablet Take 0.5 tablets by mouth twice daily. ibuprofen (MOTRIN) 200 mg tablet Take 1-2 tablets by mouth twice daily as needed for Pain (Take with food.). cetirizine (ZYRTEC) 10 mg tablet Take 1 tablet by mouth once daily. Cholecalciferol, Vitamin D3, 1,000 unit cap Take 1 capsule by mouth once daily. multivitamin tablet Take 1 tablet by mouth once daily. No current facility-administered medications for this visit. Objective BP 150/68 (BP Site: Left Arm, BP Position: Sitting) Pulse (!) 55 Wt 87.5 kg (193 lb) SpO2 96% BMI 34.46 kg/m? Physical Exam Constitutional: General: She is not in acute distress. Appearance: She is not ill-appearing. Cardiovascular: Rate and Rhythm: Regular rhythm. Bradycardia present. Heart sounds: No murmur heard. No gallop. Pulmonary: Breath sounds: Normal breath sounds. Musculoskeletal: Right lower le+ Pitting Edema present. Left lower le+ Pitting Edema present. Neurological: General: No focal deficit present. Mental Status: She is alert. Gait: Gait abnormal. Comments: Ambulatory with cane. Psychiatric: Mood and Affect: Mood normal. Component Latest Ref Rng AND Units 01/21/2022 Glucose 74 - 99 mg/dL 92 BUN 7 - 21 mg/dL 29 (H) Creatinine 0.58 - 0.96 mg/dL 1.14 (H) Sodium 136 - 144 mmol/L 140 Potassium 3.7 - 5.1 mmol/L 5.1 Chloride 97 - 105 mmol/L 105 CO2 22 - 30 mmol/L 25 Anion Gap 9 - 18 mmol/L 10 Calcium 8.5 - 10.2 mg/dL 9.7 eGFR >=60 mL/min/1.73mA? 48 (L) Assessment and Plan 1. Hypertension goal BP (blood pressure) < 130/80 - ICD9: 401.9, ICD10: I10 (primary diagnosis) - suboptimal control - Continue current medication(s) - Add amlodipine (Norvasc) - We reviewed her allergies. Shared medical decision making was done. We agreed to try amlodipine. Discussed medication dosage, usage, goals of therapy, and side effects. - Goal of BP <130/80 - AMLODIPINE 2.5 MG TABLET 2. Degeneration of lumbosacral intervertebral disc - ICD9: 722.52, ICD10: M51.37 Problem list updated. 3. Lumbosacral radiculitis - ICD9: 724.4, ICD10: M54.17 Problem list updated. 4. Stage 3a chronic kidney disease (HCC) - ICD9: 585.3, ICD10: N18.31 - eGFR: Stable - Counseled on avoiding regular use of NSAIDs, adequate hydration, potential risk of IV dye Tye Faulkner MD [facility] 02-17-2022 History of Presen t illness Narrative This note was created using [employer]. Subjective Niki Castellanos is a 81 year old female. She was seeing Dr. Taylor and Dr. Lewis for low back pain. She was getting injections and taking Percocet only as needed. Her hypertension was persistently elevated today. She was taking her medications. She had a listed allergy to amlodipine historically but did not recall specifics. We agreed to try some amlodipine. Review of Systems Constitutional: Negative. Respiratory: Negative. Cardiovascular: Positive for leg swelling. Negative for chest pain and palpitations. Gastrointestinal: Negative. Musculoskeletal: Positive for back pain and gait problem. Neurological: Negative for dizziness and headaches. ACTIVE PROBLEM LIST Hypertension Goal Bp (Blood Pressure) < 130/80 Hyperlipidemia Allergic Rhinitis Esophageal Reflux Primary Osteoarthritis of Left Hip Impaired Fasting Glucose Panic Attack Hot Flashes Primary Osteoarthritis of Both Knees Serrated Polyp of Colon Current Outpatient Medications Medication Sig LORazepam (ATIVAN) 0.5 mg Take 0.5 tablets by mouth once daily as needed (anxiety.) for up to 180 days. spironolactone (ALDACTONE) 25 mg tablet Take 0.5 tablets by mouth once daily. metoprolol succinate ER (TOPROL XL) 100 mg Take 1 tablet by mouth once daily. atorvastatin (LIPITOR) 20 mg tablet Take 1 tablet by mouth once daily. famotidine (PEPCID) 40 mg tablet Take 1 tablet by mouth once daily. lisinopril (ZESTRIL) 40 mg tablet Take 0.5 tablets by mouth twice daily. ibuprofen (MOTRIN) 200 mg tablet Take 1-2 tablets by mouth twice daily as needed for Pain (Take with food.). cetirizine (ZYRTEC) 10 mg tablet Take 1 tablet by mouth once daily. Cholecalciferol, Vitamin D3, 1,000 unit cap Take 1 capsule by mouth once daily. multivitamin tablet Take 1 tablet by mouth once daily. No current facility-administered medications for this visit. Objective BP 150/68 (BP Site: Left Arm, BP Position: Sitting) Pulse (!) 55 Wt 87.5 kg (193 lb) SpO2 96% BMI 34.46 kg/m Physical Exam Constitutional: General: She is not in acute distress. Appearance: She is not ill-appearing. Cardiovascular: Rate and Rhythm: Regular rhythm. Bradycardia present. Heart sounds: No murmur heard. No gallop. Pulmonary: Breath sounds: Normal breath sounds. Musculoskeletal: Right lower le+ Pitting Edema present. Left lower le+ Pitting Edema present. Neurological: General: No focal deficit present. Mental Status: She is alert. Gait: Gait abnormal. Comments: Ambulatory with cane. Psychiatric: Mood and Affect: Mood normal. Component Latest Ref Rng & Units 01/21/2022 Glucose 74 - 99 mg/dL 92 BUN 7 - 21 mg/dL 29 (H) Creatinine 0.58 - 0.96 mg/dL 1.14 (H) Sodium 136 - 144 mmol/L 140 Potassium 3.7 - 5.1 mmol/L 5.1 Chloride 97 - 105 mmol/L 105 CO2 22 - 30 mmol/L 25 Anion Gap 9 - 18 mmol/L 10 Calcium 8.5 - 10.2 mg/dL 9.7 eGFR >=60 mL/min/1.73m 48 (L) Assessment and Plan 1. Hypertension goal BP (blood pressure) < 130/80 - ICD9: 401.9, ICD10: I10 (primary diagnosis) - suboptimal control - Continue current medication(s) - Add amlodipine (Norvasc) - We reviewed her allergies. Shared medical decision making was done. We agreed to try amlodipine. Discussed medication dosage, usage, goals of therapy, and side effects. - Goal of BP <130/80 - AMLODIPINE 2.5 MG TABLET 2. Degeneration of lumbosacral intervertebral disc - ICD9: 722.52, ICD10: M51.37 Problem list updated. 3. Lumbosacral radiculitis - ICD9: 724.4, ICD10: M54.17 Problem list updated. 4. Stage 3a chronic kidney disease (HCC) - ICD9: 585.3, ICD10: N18.31 - eGFR: Stable - Counseled on avoiding regular use of NSAIDs, adequate hydration, potential risk of IV dye Tye Faulkner MD documented in this encounter [facility] 01-28-2022 Miscellaneous Notes Patient notified of below results. Charissa Mason LPN ----- Message from Zahra Ro APRN.[employer] sent at 01/22/2022 10:59 AM EDT ----- Potassium normal, kidney function stable documented in this encounter [facility] 01-22-2022 Miscellaneous Notes PATIENT NOTIFIED OF SAME. TC to pt. LM to call office, ask for triage nurse to get results. See below: Potassium normal, kidney function stable Akanksha Simpson LPN documented in this encounter [facility] 01-21-2022 Miscellaneous Notes Pt called and is notified of providers results and instructions. Pt voices understanding. Eveline Morales RN Potassium was elevated. Please recheck this week Zahra Ro APRN.CNP documented in this encounter [facility] 12-25-2021 Note HNO ID: [id number] Author: Zahra Ro APRN.CNP Service: ? Author Type: Nurse Practitioner Type: Progress Notes Filed: 12/25/2021 3:30 PM Note Text: CC Patient presents with: Blood Pressure HPI Niki Castellanos is a 81 year old female who presents to the office for blood pressure. Her visit today is for follow-up. Patient was last seen for this approximately 1 month ago. Medication changes: No Taking all medications as prescribed: Yes Side effects: No Home BP's: Yes for the past two weeks her blood pressure at home has been well controlled. This morning it was 125/54. Denies: headache, chest pain, palpitations, dyspnea, and peripheral edema. Last 4 Encounter BP Readings: Date: BP: 12/25/2021 161/69[BP Sarmad average[ 10/18/2021 158/79[bp true[ 09/18/2021 152/80 08/01/2021 161/75 Last 3 Encounter Wt Readings: Date: Wt: 12/25/2021 83.9 kg (185 lb) 10/18/2021 83.5 kg (184 lb) 09/18/2021 83.9 kg (185 lb) REVIEW OF SYSTEMS See HPI PAST MEDICAL HISTORY Diagnosis Date Allergic rhinitis, cause unspecified 01/1999 Diaphragmatic hernia without mention of obstruction or gangrene 02/16/2004 Diverticulosis of colon (without mention of hemorrhage) Esophageal reflux 02/16/2004 Generalized osteoarthrosis, unspecified site 09/1996 History of transfusion Hot flashes 12/27/2015 Hypercalcemia 02/2000 Hypertension goal BP (blood pressure) < 150/90 02/07/2005 Impaired fasting glucose 12/04/2011 Internal hemorrhoids without mention of complication 03/06/2006 Other and unspecified hyperlipidemia 09/1995 Panic attack 12/27/2015 Has tried about 5 SSRI or anxiety meds, uses 04/30-1/2 tablet (1-2 x/ month -lorazepam) Serrated polyp of colon 08/17/2020 Ulceration of intestine Unspecified hypertensive heart disease without heart failure 10/1999 PAST SURGICAL HISTORY Procedure Laterality Date ARTHRP ACETBLR/PROX FEM PROSTC AGRFT/ALGRFT Left 07/2006 Hip replacement, total left COLONOSCOPY - DIAGNOSTIC 08/03/2020 COLONOSCOPY FLX DX W/COLLJ SPEC WHEN PFRMD 02/2006 Colonoscopy FRACTURE SURGERY TOTAL KNEE REPLACEMENT Right 02/20/2021 Partial, R medial unicompartmental TREATMENT OF HIP DISLOCATION Left 05/29/2021 ER treatment. TUBAL LIGATION HX 1970 ALLERGIES Buspar [Buspirone Hcl], Chlorthalidone, Dyazide [Triamterene-Hydrochlorothiazid] , Effexor [Venlafaxine Analogues], Hctz [Thiazides], Indocin [Indomethacin Sodium], Norvasc [Amlodipine Besylate], Prozac [Fluoxetine Hcl], Relafen [Nabumetone], Rynatan [Chlorpheniramine-Pe Tannates], and Zoloft [Sertraline Hcl] MEDICATIONS LORazepam (ATIVAN) 0.5 mg Take 0.5 tablets by mouth once daily as needed (anxiety.) for up to 180 days. spironolactone (ALDACTONE) 25 mg tablet Take 0.5 tablets by mouth once daily. metoprolol succinate ER (TOPROL XL) 100 mg Take 1 tablet by mouth once daily. atorvastatin (LIPITOR) 20 mg tablet Take 1 tablet by mouth once daily. famotidine (PEPCID) 40 mg tablet Take 1 tablet by mouth once daily. lisinopril (ZESTRIL) 40 mg tablet Take 0.5 tablets by mouth twice daily. ibuprofen (MOTRIN) 200 mg tablet Take 1-2 tablets by mouth twice daily as needed for Pain (Take with food.). cetirizine (ZYRTEC) 10 mg tablet Take 1 tablet by mouth once daily. Cholecalciferol, Vitamin D3, 1,000 unit cap Take 1 capsule by mouth once daily. multivitamin tablet Take 1 tablet by mouth once daily. FAMILY HISTORY Problem Relation Age of Onset Stroke Mother 80 Diabetes Stroke Father 92 Breast Cancer Father cousins Social History Tobacco Use Smoking status: Never Smokeless tobacco: Never Substance Use Topics Alcohol use: No Drug use: No PHYSICAL EXAM BP 125/54 Pulse (!) 52 Resp 16 Wt 83.9 kg (185 lb) BMI 33.03 kg/m? General Appearance: well appearing, in no acute distress, alert Lungs: Lungs clear to auscultation. No wheezing, rhonchi, rales. Heart: RRR without murmur, gallop, or rubs. No ectopy DATA REVIEWED: Most recent labs ASSESSMENT/PLAN: 1. Hypertension goal BP (blood pressure) < 130/80 - ICD9: 401.9, ICD10: I10 (primary diagnosis) - Home blood pressure readings are well controlled. Patient has had home cuff validated previously. - Continue current medication(s) - Recommended regular aerobic exercise. - Recommend home blood pressure monitoring, to bring results in on next visit - Goal of BP <130/80 2. Renal insufficiency - ICD9: 593.9, ICD10: N28.9 Worsening on last labs. Aldactone decreased to 12.5 mg. Patient also admits she has been taking at least 6 OTC ibuprofen tabs a day. Advised to switch to Tylenol and importance of adequate hydration stressed. Recheck today Prescription instructions reviewed with patient as applicable. Potential red flag symptoms discussed with the patient. Reviewed appropriate action plan to take if red flag symptoms occur. Patient agreeable to treatment plan Zahra Ro APRN.CNP [facility] 12-25-2021 Instructions Zahra Ro APRN.CNP - 12/25/2021 3:23 PM EDT Continue to check BP at home. Bring list of readings to your next appointment. Please also bring your BP machine so we can verify again. documented in this encounter [facility] 12-25-2021 History of Presen t illness Narrative CC Patient presents with: Blood Pressure HPI Niki Castellanos is a 81 year old female who presents to the office for blood pressure. Her visit today is for follow-up. Patient was last seen for this approximately 1 month ago. Medication changes: No Taking all medications as prescribed: Yes Side effects: No Home BP's: Yes for the past two weeks her blood pressure at home has been well controlled. This morning it was 125/54. Denies: headache, chest pain, palpitations, dyspnea, and peripheral edema. Last 4 Encounter BP Readings: Date: BP: 12/25/2021 161/69[BP Sarmad average[ 10/18/2021 158/79[bp true[ 09/18/2021 152/80 08/01/2021 161/75 Last 3 Encounter Wt Readings: Date: Wt: 12/25/2021 83.9 kg (185 lb) 10/18/2021 83.5 kg (184 lb) 09/18/2021 83.9 kg (185 lb) REVIEW OF SYSTEMS See HPI PAST MEDICAL HISTORY Diagnosis Date Allergic rhinitis, cause unspecified 01/1999 Diaphragmatic hernia without mention of obstruction or gangrene 02/16/2004 Diverticulosis of colon (without mention of hemorrhage) Esophageal reflux 02/16/2004 Generalized osteoarthrosis, unspecified site 09/1996 History of transfusion Hot flashes 12/27/2015 Hypercalcemia 02/2000 Hypertension goal BP (blood pressure) < 150/90 02/07/2005 Impaired fasting glucose 12/04/2011 Internal hemorrhoids without mention of complication 03/06/2006 Other and unspecified hyperlipidemia 09/1995 Panic attack 12/27/2015 Has tried about 5 SSRI or anxiety meds, uses 1/4-1/2 tablet (1-2 x/ month -lorazepam) Serrated polyp of colon 08/17/2020 Ulceration of intestine Unspecified hypertensive heart disease without heart failure 10/1999 PAST SURGICAL HISTORY Procedure Laterality Date ARTHRP ACETBLR/PROX FEM PROSTC AGRFT/ALGRFT Left 07/2006 Hip replacement, total left COLONOSCOPY - DIAGNOSTIC 08/03/2020 COLONOSCOPY FLX DX W/COLLJ SPEC WHEN PFRMD 02/2006 Colonoscopy FRACTURE SURGERY TOTAL KNEE REPLACEMENT Right 02/20/2021 Partial, R medial unicompartmental TREATMENT OF HIP DISLOCATION Left 05/29/2021 ER treatment. TUBAL LIGATION HX 1970 ALLERGIES Buspar [Buspirone Hcl], Chlorthalidone, Dyazide [Triamterene-Hydrochlorothiazid] , Effexor [Venlafaxine Analogues], Hctz [Thiazides], Indocin [Indomethacin Sodium], Norvasc [Amlodipine Besylate], Prozac [Fluoxetine Hcl], Relafen [Nabumetone], Rynatan [Chlorpheniramine-Pe Tannates], and Zoloft [Sertraline Hcl] MEDICATIONS LORazepam (ATIVAN) 0.5 mg Take 0.5 tablets by mouth once daily as needed (anxiety.) for up to 180 days. spironolactone (ALDACTONE) 25 mg tablet Take 0.5 tablets by mouth once daily. metoprolol succinate ER (TOPROL XL) 100 mg Take 1 tablet by mouth once daily. atorvastatin (LIPITOR) 20 mg tablet Take 1 tablet by mouth once daily. famotidine (PEPCID) 40 mg tablet Take 1 tablet by mouth once daily. lisinopril (ZESTRIL) 40 mg tablet Take 0.5 tablets by mouth twice daily. ibuprofen (MOTRIN) 200 mg tablet Take 1-2 tablets by mouth twice daily as needed for Pain (Take with food.). cetirizine (ZYRTEC) 10 mg tablet Take 1 tablet by mouth once daily. Cholecalciferol, Vitamin D3, 1,000 unit cap Take 1 capsule by mouth once daily. multivitamin tablet Take 1 tablet by mouth once daily. FAMILY HISTORY Problem Relation Age of Onset Stroke Mother 80 Diabetes Stroke Father 92 Breast Cancer Father cousins Social History Tobacco Use Smoking status: Never Smokeless tobacco: Never Substance Use Topics Alcohol use: No Drug use: No PHYSICAL EXAM BP 125/54 Pulse (!) 52 Resp 16 Wt 83.9 kg (185 lb) BMI 33.03 kg/m General Appearance: well appearing, in no acute distress, alert Lungs: Lungs clear to auscultation. No wheezing, rhonchi, rales. Heart: RRR without murmur, gallop, or rubs. No ectopy DATA REVIEWED: Most recent labs ASSESSMENT/PLAN: 1. Hypertension goal BP (blood pressure) < 130/80 - ICD9: 401.9, ICD10: I10 (primary diagnosis) - Home blood pressure readings are well controlled. Patient has had home cuff validated previously. - Continue current medication(s) - Recommended regular aerobic exercise. - Recommend home blood pressure monitoring, to bring results in on next visit - Goal of BP <130/80 2. Renal insufficiency - ICD9: 593.9, ICD10: N28.9 Worsening on last labs. Aldactone decreased to 12.5 mg. Patient also admits she has been taking at least 6 OTC ibuprofen tabs a day. Advised to switch to Tylenol and importance of adequate hydration stressed. Recheck today Prescription instructions reviewed with patient as applicable. Potential red flag symptoms discussed with the patient. Reviewed appropriate action plan to take if red flag symptoms occur. Patient agreeable to treatment plan Zahra Ro APRN.CNP documented in this encounter [facility] 12-13-2021 Miscellaneous Notes PDMP website checked and validated. All prescriptions have been APPROPRIATELY filled. No suspicious activity was identified. 12/13/2021 by Zahra Ro APRN.CNP Last appt with RADIATION OFFICER 10/18/21. Next appt with RADIATION OFFICER 12/18/21. In review when this was filled in July was to last until Jan. Called pt to review she reports she has one left. Normally this is no issue but her son recently and she has been using more than previously. Patient has been identified by name and date of : Yes Requested Prescriptions Pending Prescriptions Disp Refills LORazepam (ATIVAN) 0.5 mg 30 tablet 0 Sig: Take 0.5 tablets by mouth once daily as needed (anxiety.) for up to 180 days. RX INSTRUCTIONS: Patient aware RX will be sent to pharmacy. No need to notify patient. Lady Anand Pss documented in this encounter [facility] 10-18-2021 Note HNO ID: [id number] Author: Zahra Ro APRN.CNP Service: ? Author Type: Nurse Practitioner Type: Progress Notes Filed: 10/18/2021 3:32 PM Note Text: CC Patient presents with: 3 week follow up HPI Niki Castellanos is a 81 year old female who presents to the office for blood pressure. Her visit today is for follow-up. Patient was last seen for this approximately 3 weeks ago Medication changes: No Taking all medications as prescribed: Yes Side effects: No Home BP's: Yes average has been in the 120/60's to 140's/80's Denies: headache, chest pain, palpitations, dyspnea and peripheral edema. Last 4 Encounter BP Readings: Date: BP: 10/18/2021 176/86 09/18/2021 152/80 08/01/2021 161/75 01/29/2021 160/66 Last 3 Encounter Wt Readings: Date: Wt: 10/18/2021 83.5 kg (184 lb) 09/18/2021 83.9 kg (185 lb) 08/01/2021 83.5 kg (184 lb) REVIEW OF SYSTEMS See HPI PAST MEDICAL HISTORY Diagnosis Date - Allergic rhinitis, cause unspecified 01/1999 - Diaphragmatic hernia without mention of obstruction or gangrene 02/16/2004 - Diverticulosis of colon (without mention of hemorrhage) - Esophageal reflux 02/16/2004 - Generalized osteoarthrosis, unspecified site 09/1996 - History of transfusion - Hot flashes 12/27/2015 - Hypercalcemia 02/2000 - Hypertension goal BP (blood pressure) < 150/90 02/07/2005 - Impaired fasting glucose 12/04/2011 - Internal hemorrhoids without mention of complication 03/06/2006 - Other and unspecified hyperlipidemia 09/1995 - Panic attack 12/27/2015 Has tried about 5 SSRI or anxiety meds, uses /-1/2 tablet (1-2 x/ month -lorazepam) - Serrated polyp of colon 08/17/2020 - Ulceration of intestine - Unspecified hypertensive heart disease without heart failure 10/1999 PAST SURGICAL HISTORY Procedure Laterality Date - ARTHRP ACETBLR/PROX FEM PROSTC AGRFT/ALGRFT Left 07/2006 Hip replacement, total left - COLONOSCOPY - DIAGNOSTIC 08/03/2020 - COLONOSCOPY FLX DX W/COLLJ SPEC WHEN PFRMD 02/2006 Colonoscopy - FRACTURE SURGERY - TOTAL KNEE REPLACEMENT Right 02/20/2021 Partial, R medial unicompartmental - TREATMENT OF HIP DISLOCATION Left 05/29/2021 ER treatment. - TUBAL LIGATION HX 1971 ALLERGIES Buspar [Buspirone Hcl], Chlorthalidone, Dyazide [Triamterene-Hydrochlorothiazid] , Effexor [Venlafaxine Analogues], Hctz [Thiazides], Indocin [Indomethacin Sodium], Norvasc [Amlodipine Besylate], Prozac [Fluoxetine Hcl], Relafen [Nabumetone], Rynatan [Chlorpheniramine-Pe Tannates], and Zoloft [Sertraline Hcl] MEDICATIONS spironolactone (ALDACTONE) 25 mg tablet Take 1 tablet by mouth once daily. metoprolol succinate ER (TOPROL XL) 100 mg Take 1 tablet by mouth once daily. LORazepam (ATIVAN) 0.5 mg Take 0.5 tablets by mouth once daily as needed (anxiety.) for up to 180 days. atorvastatin (LIPITOR) 20 mg tablet Take 1 tablet by mouth once daily. famotidine (PEPCID) 40 mg tablet Take 1 tablet by mouth once daily. lisinopril (ZESTRIL) 40 mg tablet Take 0.5 tablets by mouth twice daily. ibuprofen (MOTRIN) 200 mg tablet Take 1-2 tablets by mouth twice daily as needed for Pain (Take with food.). cetirizine (ZYRTEC) 10 mg tablet Take 1 tablet by mouth once daily. Cholecalciferol, Vitamin D3, 1,000 unit cap Take 1 capsule by mouth once daily. multivitamin tablet Take 1 tablet by mouth once daily. FAMILY HISTORY Problem Relation Age of Onset - Stroke Mother 80 Diabetes - Stroke Father 92 - Breast Cancer Father cousins Social History Tobacco Use - Smoking status: Never Smoker - Smokeless tobacco: Never Used Substance Use Topics - Alcohol use: No - Drug use: No PHYSICAL EXAM BP 158/79 Pulse 65 Resp 20 Wt 83.5 kg (184 lb) BMI 32.85 kg/m? General Appearance: well appearing, in no acute distress, alert Lungs: Lungs clear to auscultation. No wheezing, rhonchi, rales. Heart: RRR without murmur, gallop, or rubs. No ectopy DATA REVIEWED: Most recent labs ASSESSMENT/PLAN: 1. Hypertension goal BP (blood pressure) < 130/80 - ICD9: 401.9, ICD10: I10 BP remains elevated in the office today. Home BP readings fluctuating. No alarm symptoms or exam findings. Patient attributes elevated BP to pain in her hip and her son is in the longterm on hospice. - Continue current medication(s) - Recommended regular aerobic exercise. - Recommend home blood pressure monitoring, to bring results in on next visit - Recheck in 2 months, sooner should new symptoms or problems arise. - Goal of BP <130/80 Prescription instructions reviewed with patient as applicable. Potential red flag symptoms discussed with the patient. Reviewed appropriate action plan to take if red flag symptoms occur. Patient agreeable to treatment plan Zahra Ro APRN.KENN [facility] 10-18-2021 History of Presen t illness Narrative CC Patient presents with: 3 week follow up HPI Niki Castellanos is a 81 year old female who presents to the office for blood pressure. Her visit today is for follow-up. Patient was last seen for this approximately 3 weeks ago Medication changes: No Taking all medications as prescribed: Yes Side effects: No Home BP's: Yes average has been in the 120/60's to 140's/80's Denies: headache, chest pain, palpitations, dyspnea and peripheral edema. Last 4 Encounter BP Readings: Date: BP: 10/18/2021 176/86 09/18/2021 152/80 08/01/2021 161/75 01/29/2021 160/66 Last 3 Encounter Wt Readings: Date: Wt: 10/18/2021 83.5 kg (184 lb) 09/18/2021 83.9 kg (185 lb) 08/01/2021 83.5 kg (184 lb) REVIEW OF SYSTEMS See HPI PAST MEDICAL HISTORY Diagnosis Date Allergic rhinitis, cause unspecified 01/1999 Diaphragmatic hernia without mention of obstruction or gangrene 02/16/2004 Diverticulosis of colon (without mention of hemorrhage) Esophageal reflux 02/16/2004 Generalized osteoarthrosis, unspecified site 09/1996 History of transfusion Hot flashes 12/27/2015 Hypercalcemia 02/2000 Hypertension goal BP (blood pressure) < 150/90 02/07/2005 Impaired fasting glucose 12/04/2011 Internal hemorrhoids without mention of complication 03/06/2006 Other and unspecified hyperlipidemia 09/1995 Panic attack 12/27/2015 Has tried about 5 SSRI or anxiety meds, uses 04/30-1/2 tablet (1-2 x/ month -lorazepam) Serrated polyp of colon 08/17/2020 Ulceration of intestine Unspecified hypertensive heart disease without heart failure 10/1999 PAST SURGICAL HISTORY Procedure Laterality Date ARTHRP ACETBLR/PROX FEM PROSTC AGRFT/ALGRFT Left 07/2006 Hip replacement, total left COLONOSCOPY - DIAGNOSTIC 08/03/2020 COLONOSCOPY FLX DX W/COLLJ SPEC WHEN PFRMD 02/2006 Colonoscopy FRACTURE SURGERY TOTAL KNEE REPLACEMENT Right 02/20/2021 Partial, R medial unicompartmental TREATMENT OF HIP DISLOCATION Left 05/29/2021 ER treatment. TUBAL LIGATION HX 1970 ALLERGIES Buspar [Buspirone Hcl], Chlorthalidone, Dyazide [Triamterene-Hydrochlorothiazid] , Effexor [Venlafaxine Analogues], Hctz [Thiazides], Indocin [Indomethacin Sodium], Norvasc [Amlodipine Besylate], Prozac [Fluoxetine Hcl], Relafen [Nabumetone], Rynatan [Chlorpheniramine-Pe Tannates], and Zoloft [Sertraline Hcl] MEDICATIONS spironolactone (ALDACTONE) 25 mg tablet Take 1 tablet by mouth once daily. metoprolol succinate ER (TOPROL XL) 100 mg Take 1 tablet by mouth once daily. LORazepam (ATIVAN) 0.5 mg Take 0.5 tablets by mouth once daily as needed (anxiety.) for up to 180 days. atorvastatin (LIPITOR) 20 mg tablet Take 1 tablet by mouth once daily. famotidine (PEPCID) 40 mg tablet Take 1 tablet by mouth once daily. lisinopril (ZESTRIL) 40 mg tablet Take 0.5 tablets by mouth twice daily. ibuprofen (MOTRIN) 200 mg tablet Take 1-2 tablets by mouth twice daily as needed for Pain (Take with food.). cetirizine (ZYRTEC) 10 mg tablet Take 1 tablet by mouth once daily. Cholecalciferol, Vitamin D3, 1,000 unit cap Take 1 capsule by mouth once daily. multivitamin tablet Take 1 tablet by mouth once daily. FAMILY HISTORY Problem Relation Age of Onset Stroke Mother 80 Diabetes Stroke Father 92 Breast Cancer Father cousins Social History Tobacco Use Smoking status: Never Smoker Smokeless tobacco: Never Used Substance Use Topics Alcohol use: No Drug use: No PHYSICAL EXAM BP 158/79 Pulse 65 Resp 20 Wt 83.5 kg (184 lb) BMI 32.85 kg/m General Appearance: well appearing, in no acute distress, alert Lungs: Lungs clear to auscultation. No wheezing, rhonchi, rales. Heart: RRR without murmur, gallop, or rubs. No ectopy DATA REVIEWED: Most recent labs ASSESSMENT/PLAN: 1. Hypertension goal BP (blood pressure) < 130/80 - ICD9: 401.9, ICD10: I10 BP remains elevated in the office today. Home BP readings fluctuating. No alarm symptoms or exam findings. Patient attributes elevated BP to pain in her hip and her son is in the longterm on hospice. - Continue current medication(s) - Recommended regular aerobic exercise. - Recommend home blood pressure monitoring, to bring results in on next visit - Recheck in 2 months, sooner should new symptoms or problems arise. - Goal of BP <130/80 Prescription instructions reviewed with patient as applicable. Potential red flag symptoms discussed with the patient. Reviewed appropriate action plan to take if red flag symptoms occur. Patient agreeable to treatment plan Zahra Ro APRN.KENN documented in this encounter [facility] 09-18-2021 History of Presen t illness Narrative CC Patient presents with: 6 WEEK FOLLOW UP - BP HPI Niki Castellanos is a 81 year old female who presents to the office for blood pressure. Her visit today is for follow-up. Patient was last seen for this approximately 6 weeks ago Medication changes: Yes Metoprolol increased to 100 mg daily and started on Aldactone 50 mg daily Taking all medications as prescribed: Yes Side effects: No Home BP's: No Denies: headache, chest pain, palpitations, dyspnea and peripheral edema. Last 4 Encounter BP Readings: Date: BP: 09/18/2021 152/80 08/01/2021 161/75 01/29/2021 160/66 12/10/2020 135/66[BP Sarmad[ Last 3 Encounter Wt Readings: Date: Wt: 09/18/2021 83.9 kg (185 lb) 08/01/2021 83.5 kg (184 lb) 01/29/2021 82.6 kg (182 lb) REVIEW OF SYSTEMS See HPI PAST MEDICAL HISTORY Diagnosis Date Allergic rhinitis, cause unspecified 01/1999 Diaphragmatic hernia without mention of obstruction or gangrene 02/16/2004 Diverticulosis of colon (without mention of hemorrhage) Esophageal reflux 02/16/2004 Generalized osteoarthrosis, unspecified site 09/1996 History of transfusion Hot flashes 12/27/2015 Hypercalcemia 02/2000 Hypertension goal BP (blood pressure) < 150/90 02/07/2005 Impaired fasting glucose 12/04/2011 Internal hemorrhoids without mention of complication 03/06/2006 Other and unspecified hyperlipidemia 09/1995 Panic attack 12/27/2015 Has tried about 5 SSRI or anxiety meds, uses 04/30-12 tablet (1-2 x/ month -lorazepam) Serrated polyp of colon 08/17/2020 Ulceration of intestine Unspecified hypertensive heart disease without heart failure 10/1999 PAST SURGICAL HISTORY Procedure Laterality Date ARTHRP ACETBLR/PROX FEM PROSTC AGRFT/ALGRFT Left 07/2006 Hip replacement, total left COLONOSCOPY - DIAGNOSTIC 08/03/2020 COLONOSCOPY FLX DX W/COLLJ SPEC WHEN PFRMD 02/2006 Colonoscopy FRACTURE SURGERY TOTAL KNEE REPLACEMENT Right 02/20/2021 Partial, R medial unicompartmental TREATMENT OF HIP DISLOCATION Left 05/29/2021 ER treatment. TUBAL LIGATION HX 1970 ALLERGIES Buspar [Buspirone Hcl], Chlorthalidone, Dyazide [Triamterene-Hydrochlorothiazid] , Effexor [Venlafaxine Analogues], Hctz [Thiazides], Indocin [Indomethacin Sodium], Norvasc [Amlodipine Besylate], Prozac [Fluoxetine Hcl], Relafen [Nabumetone], Rynatan [Chlorpheniramine-Pe Tannates], and Zoloft [Sertraline Hcl] MEDICATIONS spironolactone (ALDACTONE) 25 mg tablet Take 1 tablet by mouth once daily. metoprolol succinate ER (TOPROL XL) 100 mg Take 1 tablet by mouth once daily. LORazepam (ATIVAN) 0.5 mg Take 0.5 tablets by mouth once daily as needed (anxiety.) for up to 180 days. atorvastatin (LIPITOR) 20 mg tablet Take 1 tablet by mouth once daily. famotidine (PEPCID) 40 mg tablet Take 1 tablet by mouth once daily. lisinopril (ZESTRIL) 40 mg tablet Take 0.5 tablets by mouth twice daily. ibuprofen (MOTRIN) 200 mg tablet Take 1-2 tablets by mouth twice daily as needed for Pain (Take with food.). cetirizine (ZYRTEC) 10 mg tablet Take 1 tablet by mouth once daily. Cholecalciferol, Vitamin D3, 1,000 unit cap Take 1 capsule by mouth once daily. multivitamin tablet Take 1 tablet by mouth once daily. FAMILY HISTORY Problem Relation Age of Onset Stroke Mother 80 Diabetes Stroke Father 92 Breast Cancer Father cousins Social History Tobacco Use Smoking status: Never Smoker Smokeless tobacco: Never Used Substance Use Topics Alcohol use: No Drug use: No PHYSICAL EXAM BP 152/80 Pulse (!) 58 Resp 16 Wt 83.9 kg (185 lb) BMI 33.03 kg/m General Appearance: well appearing, in no acute distress, alert Lungs: Lungs clear to auscultation. No wheezing, rhonchi, rales. Heart: RRR without murmur, gallop, or rubs. No ectopy DATA REVIEWED: Most recent labs ASSESSMENT/PLAN: 1. Hypertension goal BP (blood pressure) < 130/80 - ICD9: 401.9, ICD10: I10 (primary diagnosis) - suboptimal control, patient has had a lot going on and very stressed out - Continue current medication(s) for now and recheck in 3 weeks - Recommend home blood pressure monitoring, to bring results in on next visit - Goal of BP <130/80 2. Renal insufficiency - ICD9: 593.9, ICD10: N28.9 Recheck in 2 weeks - BASIC METABOLIC PNL 3. Hyperlipidemia, unspecified hyperlipidemia type - ICD9: 272.4, ICD10: E78.5 - good control - Continue current medication. Prescription instructions reviewed with patient as applicable. Potential red flag symptoms discussed with the patient. Reviewed appropriate action plan to take if red flag symptoms occur. Patient agreeable to treatment plan Zahra Ro APRN.CNP documented in this encounter [facility] 08-01-2021 History of Presen t illness Narrative This note was created using NoteWriter. Subjective Niki Castellanos is a 81 year old female. She was recovering from left hip dislocation. Her right knee surgery went well, and her left knee will need surgery in the future. Her hypertension was not controlled. Apparently after her surgery, she was instructed to cut metoprolol to one-half tablet daily due to low blood pressure. She was out of lorazepam, used infrequently for panic attacks. Review of Systems Constitutional: Negative. HENT: Negative. Respiratory: Negative. Cardiovascular: Positive for leg swelling. Negative for chest pain. Gastrointestinal: Negative. Genitourinary: Negative. Musculoskeletal: Positive for arthralgias and gait problem. ACTIVE PROBLEM LIST Hypertension Goal Bp (Blood Pressure) < 130/80 Hyperlipidemia Allergic Rhinitis Esophageal Reflux Primary Osteoarthritis of Left Hip Impaired Fasting Glucose Panic Attack Hot Flashes Primary Osteoarthritis of Both Knees Serrated Polyp of Colon Current Outpatient Medications Medication Sig spironolactone (ALDACTONE) 25 mg tablet Take 1 tablet by mouth once daily. metoprolol succinate ER (TOPROL XL) 100 mg Take 1 tablet by mouth once daily. atorvastatin (LIPITOR) 20 mg tablet Take 1 tablet by mouth once daily. famotidine (PEPCID) 40 mg tablet Take 1 tablet by mouth once daily. lisinopril (ZESTRIL) 40 mg tablet Take 0.5 tablets by mouth twice daily. LORazepam (ATIVAN) 0.5 mg Take 0.5 tablets by mouth once daily as needed (anxiety.) for up to 180 days. ibuprofen (MOTRIN) 200 mg tablet Take 1-2 tablets by mouth twice daily as needed for Pain (Take with food.). cetirizine (ZYRTEC) 10 mg tablet Take 1 tablet by mouth once daily. Cholecalciferol, Vitamin D3, 1,000 unit cap Take 1 capsule by mouth once daily. multivitamin tablet Take 1 tablet by mouth once daily. No current facility-administered medications for this visit. Objective BP 161/75 (BP Site: Left Arm, BP Position: Sitting, BP Cuff Size: Large Adult) Pulse 68 Temp 36.3 C (97.4 F) (Temporal Artery) Resp 20 Ht 159.4 cm (5' 2.75 ) Wt 83.5 kg (184 lb) BMI 32.85 kg/m Physical Exam Constitutional: Appearance: She is obese. She is not ill-appearing. HENT: Head: Atraumatic. Eyes: General: No scleral icterus. Conjunctiva/sclera: Conjunctivae normal. Cardiovascular: Rate and Rhythm: Normal rate and regular rhythm. Heart sounds: No murmur heard. Pulmonary: Effort: Pulmonary effort is normal. Breath sounds: Normal breath sounds. No wheezing or rales. Musculoskeletal: Right lower le+ Pitting Edema present. Left lower le+ Pitting Edema present. Neurological: General: No focal deficit present. Mental Status: She is alert and oriented to person, place, and time. Gait: Gait abnormal. Comments: Ambulatory with cane. Psychiatric: Mood and Affect: Mood normal. Assessment and Plan 1. Medicare annual wellness visit, subsequent - ICD9: V70.0, ICD10: Z00.00 (primary diagnosis) See wellness note. 2. Hypertension goal BP (blood pressure) < 130/80 - ICD9: 401.9, ICD10: I10 - poor control - SPIRONOLACTONE 25 MG TABLET - METOPROLOL SUCCINATE ER 100 MG TABLET,EXTENDED RELEASE 24 HR. Resume one whole tablet. - CBC - RADIATION OFFICER follow up in 6 weeks. 3. Hyperlipidemia, unspecified hyperlipidemia type - ICD9: 272.4, ICD10: E78.5 - TBD with labs. - Continue current medication. - COMP METABOLIC PANEL - LIPID PANEL BASIC 4. Panic attack - ICD9: 300.01, ICD10: F41.0 Refilled. - LORAZEPAM 0.5 MG TABLET 5. Impaired fasting glucose - ICD9: 790.21, ICD10: R73.01 Recheck. 6. Serrated polyp of colon - ICD9: 211.3, ICD10: K63.5 Review follow up recommendations. Tye Faulkner MD Medicare Yearly Visit Medical B eligibilty date 06/25/2005 Date of last exam 02/27/2020 PAST MEDICAL HISTORY Diagnosis Date Allergic rhinitis, cause unspecified 01/1999 Diaphragmatic hernia without mention of obstruction or gangrene 02/16/2004 Diverticulosis of colon (without mention of hemorrhage) Esophageal reflux 02/16/2004 Generalized osteoarthrosis, unspecified site 09/1996 History of transfusion Hot flashes 12/27/2015 Hypercalcemia 02/2000 Hypertension goal BP (blood pressure) < 150/90 02/07/2005 Impaired fasting glucose 12/04/2011 Internal hemorrhoids without mention of complication 03/06/2006 Other and unspecified hyperlipidemia 09/1995 Panic attack 12/27/2015 Has tried about 5 SSRI or anxiety meds, uses 04/30-1/2 tablet (1-2 x/ month -lorazepam) Serrated polyp of colon 08/17/2020 Ulceration of intestine Unspecified hypertensive heart disease without heart failure 10/1999 PAST SURGICAL HISTORY Procedure Laterality Date ARTHRP ACETBLR/PROX FEM PROSTC AGRFT/ALGRFT Left 07/2006 Hip replacement, total left COLONOSCOPY - DIAGNOSTIC 08/03/2020 COLONOSCOPY FLX DX W/COLLJ SPEC WHEN PFRMD 02/2006 Colonoscopy FRACTURE SURGERY TUBAL LIGATION HX 1971 ALLERGIES: Buspar [Buspirone Hcl], Chlorthalidone, Dyazide [Triamterene-Hydrochlorothiazid] , Effexor [Venlafaxine Analogues], Hctz [Thiazides], Indocin [Indomethacin Sodium], Norvasc [Amlodipine Besylate], Prozac [Fluoxetine Hcl], Relafen [Nabumetone], Rynatan [Chlorpheniramine-Pe Tannates], and Zoloft [Sertraline Hcl] Medications reviewed: Yes FAMILY HISTORY Problem Relation Age of Onset Stroke Mother 80 Diabetes Stroke Father 92 Breast Cancer Father cousins SOCIAL HISTORY: Social History Tobacco Use Smoking status: Never Smoker Smokeless tobacco: Never Used Substance Use Topics Alcohol use: No Drug use: No Niki is more or less sedentary occasionally exercising in the form of walking. She watches her diet for sodium, low fat and low cholesterol most of the time. List of current specialists seen: Dr. Hampton, [facility]. Dr. Cannon, optometry. End of Live Planning discussed including patients advanced directive wishes: Yes I am willing to follow Niki's advanced directives. Copy needed. PHQ-2 / Depression screen She in the past two weeks denies having felt down, depressed, hopeless or with little interest or pleasure in doing things. Functional Ability/Safety Screen 1. Was the patient's timed Up and Go test unsteady or longer than 30 seconds? No 2. Does the patient need help with the phone, transportation, shopping,preparing meals, housework, laundry, medications or managing money? No 3. Does your home have rugs in the hallway, lack of grab bars in the bathroom, lack of handrails on the stairs or have poor lighting? No Hearing Evaluation: normal PHYSICAL EXAM BP 161/75 (BP Site: Left Arm, BP Position: Sitting, BP Cuff Size: Large Adult) Pulse 68 Temp 36.3 C (97.4 F) (Temporal Artery) Resp 20 Ht 159.4 cm (5' 2.75 ) Wt 83.5 kg (184 lb) BMI 32.85 kg/m Alert and oriented X 3: YES Body mass index is 32.85 kg/m . Visual acuity: OD: 20/50 OS: 20/ 50 OU: 20/30 The Mini Cog(c): Word recall=3/3 + Clock drawing=2/2=5/5. (<3 is positive). ASSESSMENT/PLAN: 81 year old female The following prevention plan was discussed during the office visit and provided to the patient: - Weight Loss - Fall avoidance - Counseling for Weight Loss and Exercise - Tye Faulkner MD documented in this encounter [facility] 08-01-2021 Instructions Tye Faulkner MD - 08/01/2021 2:13 PM EDT Fasting blood work . See medication list. documented in this encounter [facility] 07-26-2021 History of Presen t illness Narrative POPULATION HEALTH NAVIGATION OUTREACH Action/FYI: Patient's HM showing patient is overdue for FOBT. Patient was advised to follow up with General surgery after 08/03/20 Colonoscopy, however has not yet done so. Requesting patients HM be updated to reflect PCP's recommendations on timeframe/testing for Colorectal cancer screening. Thank you! Message Sent to Practice: Yes Navigation Signature: Tonia Myers Population Health Navigator July 26, 2021 4:32 PM Electronically signed by Tonia Myers [facility] at 08/13/2021 12:37 PM EDTdocumented in this encounter [facility] 07-22-2021 Miscellaneous Notes Patient has been identified by name and date of : Yes Patient phones for refill(s): Pending Prescriptions Disp Refills ATORVASTATIN 20 MG TABLET 90 tablet 3 Sig: Take 1 tablet by mouth once daily. GARRY: No Date of last office visit in primary care: 01/29/2021 Wellness: 08/01/2021 Last 2 Encounter Wt Readings: Date: Wt: 01/29/2021 82.6 kg (182 lb) 12/10/2020 83 kg (183 lb) Previous labs/tests for medication: Cholesterol: HDL Cholesterol (mg/dL) Date Value 11/30/2019 34 LDL Cholesterol (mg/dL) Date Value 11/30/2019 62 ALT (U/L) Date Value 07/23/2020 14 Non HDL Cholesterol (mg/dL) Date Value 11/30/2019 110 Please advise. Thank you. Charissa Mason LPN Patient has been identified by name and date of : Yes Pending Prescriptions Disp Refills ATORVASTATIN 20 MG TABLET 90 tablet 3 Sig: Take 1 tablet by mouth once daily. GARRY: No RX INSTRUCTIONS: Patient aware RX will be sent to pharmacy. No need to notify patient. Klaudia Figueroa documented in this encounter [facility] 05-08-2021 Miscellaneous Notes Patient has been identified by name and date of : Yes Pending Prescriptions Disp Refills SPIRONOLACTONE 25 MG TABLET 30 tablet 2 Sig: Take 1 tablet by mouth once daily. GARRY: No Aldactone qty 30 w/ 2 r/f 02/23/2021 Last OV 01/29/2021 Next OV 08/01/2021 Labs 11/08/2020 RX INSTRUCTIONS: Andreia Schneider LPN documented in this encounter [facility] documented as of this encounter (statuses as of 07/22/2021) [facility] History of Past illness Narrative* Problem Noted Date Resolved Date Occult GI bleeding 06/30/2020 08/17/2020 Rash and nonspecific skin eruption 03/27/2016 01/05/2017 Headache(784.0) 09/29/2008 12/27/2015 COLITIS NONINFECTIOUS NON-INFECTIOUS 04/2310/12/2006 Nonspecific abnormal finding in stool contents 1 05/31/2005 10/12/2006 Osteoarthrosis, unspecified whether generalized or localized, unspecified site 02/07/2005 10/12/2006 Diffuse cystic mastopathy 02/07/20052006 Hypercalcemia 02/26/2000 10/12/2006 Unspecified hypertensive heart disease without h eart failure 10/26/1999 10/12/2006 Osteoporosis, unspecified 09/25/19962006 documented as of this encounter (statuses as of 08/01/2021) [facility] History of Past illness Narrative* Problem Noted Date Resolved Date Occult GI bleeding 06/30/2020 08/17/2020 Rash and nonspecific skin eruption 03/27/2016 01/05/2017 Headache(784.0) 09/29/2008 12/27/2015 COLITIS NONINFECTIOUS NON-INFECTIOUS 04/2310/12/2006 Nonspecific abnormal finding in stool contents 1 05/31/2005 10/12/2006 Osteoarthrosis, unspecified whether generalized or localized, unspecified site 02/07/2005 10/12/2006 Diffuse cystic mastopathy 02/07/20052006 Hypercalcemia 02/26/2000 10/12/2006 Unspecified hypertensive heart disease without h eart failure 10/26/1999 10/12/2006 Osteoporosis, unspecified 09/25/19962006 documented as of this encounter (statuses as of 08/13/2021) [facility] History of Past illness Narrative* Problem Noted Date Resolved Date Occult GI bleeding 06/30/2020 08/17/2020 Rash and nonspecific skin eruption 03/27/2016 01/05/2017 Headache(784.0) 09/29/2008 12/27/2015 COLITIS NONINFECTIOUS NON-INFECTIOUS 04/2310/12/2006 Nonspecific abnormal finding in stool contents 1 05/31/2005 10/12/2006 Osteoarthrosis, unspecified whether generalized or localized, unspecified site 02/07/2005 10/12/2006 Diffuse cystic mastopathy 02/07/20052006 Hypercalcemia 02/26/2000 10/12/2006 Unspecified hypertensive heart disease without h eart failure 10/26/1999 10/12/2006 Osteoporosis, unspecified 09/25/19962006 documented as of this encounter (statuses as of 09/18/2021) [facility] History of Past illness Narrative* Problem Noted Date Resolved Date Occult GI bleeding 06/30/2020 08/17/2020 Rash and nonspecific skin eruption 03/27/2016 01/05/2017 Headache(784.0) 09/29/2008 12/27/2015 COLITIS NONINFECTIOUS NON-INFECTIOUS 04/2310/12/2006 Nonspecific abnormal finding in stool contents 1 05/31/2005 10/12/2006 Osteoarthrosis, unspecified whether generalized or localized, unspecified site 02/07/2005 10/12/2006 Diffuse cystic mastopathy 02/07/20052006 Hypercalcemia 02/26/2000 10/12/2006 Unspecified hypertensive heart disease without h eart failure 10/26/1999 10/12/2006 Osteoporosis, unspecified 09/25/19962006 documented as of this encounter (statuses as of 10/01/2021) [facility] History of Past illness Narrative* Problem Noted Date Resolved Date Occult GI bleeding 06/30/2020 08/17/2020 Rash and nonspecific skin eruption 03/27/2016 01/05/2017 Headache(784.0) 09/29/2008 12/27/2015 COLITIS NONINFECTIOUS NON-INFECTIOUS 04/2310/12/2006 Nonspecific abnormal finding in stool contents 1 05/31/2005 10/12/2006 Osteoarthrosis, unspecified whether generalized or localized, unspecified site 02/07/2005 10/12/2006 Diffuse cystic mastopathy 02/07/20052006 Hypercalcemia 02/26/2000 10/12/2006 Unspecified hypertensive heart disease without h eart failure 10/26/1999 10/12/2006 Osteoporosis, unspecified 09/25/19962006 documented as of this encounter (statuses as of 10/18/2021) [facility] History of Past illness Narrative* Problem Noted Date Resolved Date Occult GI bleeding 06/30/2020 08/17/2020 Rash and nonspecific skin eruption 03/27/2016 01/05/2017 Headache(784.0) 09/29/2008 12/27/2015 COLITIS NONINFECTIOUS NON-INFECTIOUS 04/2310/12/2006 Nonspecific abnormal finding in stool contents 1 05/31/2005 10/12/2006 Osteoarthrosis, unspecified whether generalized or localized, unspecified site 02/07/2005 10/12/2006 Diffuse cystic mastopathy 02/07/20052006 Hypercalcemia 02/26/2000 10/12/2006 Unspecified hypertensive heart disease without h eart failure 10/26/1999 10/12/2006 Osteoporosis, unspecified 09/25/19962006 documented as of this encounter (statuses as of 11/18/2021) [facility] History of Past illness Narrative* Problem Noted Date Resolved Date Occult GI bleeding 06/30/2020 08/17/2020 Rash and nonspecific skin eruption 03/27/2016 01/05/2017 Headache(784.0) 09/29/2008 12/27/2015 COLITIS NONINFECTIOUS NON-INFECTIOUS 04/2310/12/2006 Nonspecific abnormal finding in stool contents 1 05/31/2005 10/12/2006 Osteoarthrosis, unspecified whether generalized or localized, unspecified site 02/07/2005 10/12/2006 Diffuse cystic mastopathy 02/07/20052006 Hypercalcemia 02/26/2000 10/12/2006 Unspecified hypertensive heart disease without h eart failure 10/26/1999 10/12/2006 Osteoporosis, unspecified 09/25/19962006 documented as of this encounter (statuses as of 12/13/2021) [facility] History of Past illness Narrative* Problem Noted Date Resolved Date Occult GI bleeding 06/30/2020 08/17/2020 Rash and nonspecific skin eruption 03/27/2016 01/05/2017 Headache(784.0) 09/29/2008 12/27/2015 COLITIS NONINFECTIOUS NON-INFECTIOUS 04/2310/12/2006 Nonspecific abnormal finding in stool contents 1 05/31/2005 10/12/2006 Osteoarthrosis, unspecified whether generalized or localized, unspecified site 02/07/2005 10/12/2006 Diffuse cystic mastopathy 02/07/20052006 Hypercalcemia 02/26/2000 10/12/2006 Unspecified hypertensive heart disease without h eart failure 10/26/1999 10/12/2006 Osteoporosis, unspecified 09/25/19962006 documented as of this encounter (statuses as of 12/25/2021) [facility] History of Past illness Narrative* Problem Noted Date Resolved Date Occult GI bleeding 06/30/2020 08/17/2020 Rash and nonspecific skin eruption 03/27/2016 01/05/2017 Headache(784.0) 09/29/2008 12/27/2015 COLITIS NONINFECTIOUS NON-INFECTIOUS 04/2310/12/2006 Nonspecific abnormal finding in stool contents 1 05/31/2005 10/12/2006 Osteoarthrosis, unspecified whether generalized or localized, unspecified site 02/07/2005 10/12/2006 Diffuse cystic mastopathy 02/07/20052006 Hypercalcemia 02/26/2000 10/12/2006 Unspecified hypertensive heart disease without h eart failure 10/26/1999 10/12/2006 Osteoporosis, unspecified 09/25/19962006 documented as of this encounter (statuses as of 01/21/2022) [facility] History of Past illness Narrative* Problem Noted Date Resolved Date Occult GI bleeding 06/30/2020 08/17/2020 Rash and nonspecific skin eruption 03/27/2016 01/05/2017 Headache(784.0) 09/29/2008 12/27/2015 COLITIS NONINFECTIOUS NON-INFECTIOUS 04/2310/12/2006 Nonspecific abnormal finding in stool contents 1 05/31/2005 10/12/2006 Osteoarthrosis, unspecified whether generalized or localized, unspecified site 02/07/2005 10/12/2006 Diffuse cystic mastopathy 02/07/20052006 Hypercalcemia 02/26/2000 10/12/2006 Unspecified hypertensive heart disease without h eart failure 10/26/1999 10/12/2006 Osteoporosis, unspecified 09/25/19962006 documented as of this encounter (statuses as of 01/22/2022) [facility] History of Past illness Narrative* Problem Noted Date Resolved Date Occult GI bleeding 06/30/2020 08/17/2020 Rash and nonspecific skin eruption 03/27/2016 01/05/2017 Headache(784.0) 09/29/2008 12/27/2015 COLITIS NONINFECTIOUS NON-INFECTIOUS 04/2310/12/2006 Nonspecific abnormal finding in stool contents 1 05/31/2005 10/12/2006 Osteoarthrosis, unspecified whether generalized or localized, unspecified site 02/07/2005 10/12/2006 Diffuse cystic mastopathy 02/07/20052006 Hypercalcemia 02/26/2000 10/12/2006 Unspecified hypertensive heart disease without h eart failure 10/26/1999 10/12/2006 Osteoporosis, unspecified 09/25/19962006 documented as of this encounter (statuses as of 01/28/2022) [facility] History of Past illness Narrative* Problem Noted Date Resolved Date Occult GI bleeding 06/30/2020 08/17/2020 Rash and nonspecific skin eruption 03/27/2016 01/05/2017 Headache(784.0) 09/29/2008 12/27/2015 COLITIS NONINFECTIOUS NON-INFECTIOUS 04/2310/12/2006 Nonspecific abnormal finding in stool contents 1 05/31/2005 10/12/2006 Osteoarthrosis, unspecified whether generalized or localized, unspecified site 02/07/2005 10/12/2006 Diffuse cystic mastopathy 02/07/20052006 Hypercalcemia 02/26/2000 10/12/2006 Unspecified hypertensive heart disease without h eart failure 10/26/1999 10/12/2006 Osteoporosis, unspecified 09/25/19962006 documented as of this encounter (statuses as of 02/17/2022) [facility] History of Past illness Narrative* Problem Noted Date Resolved Date Occult GI bleeding 06/30/2020 08/17/2020 Rash and nonspecific skin eruption 03/27/2016 01/05/2017 Headache(784.0) 09/29/2008 12/27/2015 COLITIS NONINFECTIOUS NON-INFECTIOUS 04/2310/12/2006 Nonspecific abnormal finding in stool contents 1 05/31/2005 10/12/2006 Osteoarthrosis, unspecified whether generalized or localized, unspecified site 02/07/2005 10/12/2006 Diffuse cystic mastopathy 02/07/20052006 Hypercalcemia 02/26/2000 10/12/2006 Unspecified hypertensive heart disease without h eart failure 10/26/1999 10/12/2006 Osteoporosis, unspecified 09/25/19962006 documented as of this encounter (statuses as of 03/24/2022) [facility] History of Past illness Narrative* Problem Noted Date Resolved Date Occult GI bleeding 06/30/2020 08/17/2020 Rash and nonspecific skin eruption 03/27/2016 01/05/2017 Headache(784.0) 09/29/2008 12/27/2015 COLITIS NONINFECTIOUS NON-INFECTIOUS 04/2310/12/2006 Nonspecific abnormal finding in stool contents 1 05/31/2005 10/12/2006 Osteoarthrosis, unspecified whether generalized or localized, unspecified site 02/07/2005 10/12/2006 Diffuse cystic mastopathy 02/07/20052006 Hypercalcemia 02/26/2000 10/12/2006 Unspecified hypertensive heart disease without h eart failure 10/26/1999 10/12/2006 Osteoporosis, unspecified 09/25/19962006 documented as of this encounter (statuses as of 04/01/2022) [facility] History of Past illness Narrative* Problem Noted Date Resolved Date Occult GI bleeding 06/30/2020 08/17/2020 Rash and nonspecific skin eruption 03/27/2016 01/05/2017 Headache(784.0) 09/29/2008 12/27/2015 COLITIS NONINFECTIOUS NON-INFECTIOUS 04/2310/12/2006 Nonspecific abnormal finding in stool contents 1 05/31/2005 10/12/2006 Osteoarthrosis, unspecified whether generalized or localized, unspecified site 02/07/2005 10/12/2006 Diffuse cystic mastopathy 02/07/20052006 Hypercalcemia 02/26/2000 10/12/2006 Unspecified hypertensive heart disease without h eart failure 10/26/1999 10/12/2006 Osteoporosis, unspecified 09/25/19962006 documented as of this encounter (statuses as of 04/02/2022) [facility] History of Past illness Narrative* Problem Noted Date Resolved Date Occult GI bleeding 06/30/2020 08/17/2020 Rash and nonspecific skin eruption 03/27/2016 01/05/2017 Headache(784.0) 09/29/2008 12/27/2015 COLITIS NONINFECTIOUS NON-INFECTIOUS 04/2310/12/2006 Nonspecific abnormal finding in stool contents 1 05/31/2005 10/12/2006 Osteoarthrosis, unspecified whether generalized or localized, unspecified site 02/07/2005 10/12/2006 Diffuse cystic mastopathy 02/07/20052006 Hypercalcemia 02/26/2000 10/12/2006 Unspecified hypertensive heart disease without h eart failure 10/26/1999 10/12/2006 Osteoporosis, unspecified 09/25/19962006 documented as of this encounter (statuses as of 06/20/2022) [facility] History of Past illness Narrative* Problem Noted Date Resolved Date Occult GI bleeding 06/30/2020 08/17/2020 Rash and nonspecific skin eruption 03/27/2016 01/05/2017 Headache(784.0) 09/29/2008 12/27/2015 COLITIS NONINFECTIOUS NON-INFECTIOUS 04/2310/12/2006 Nonspecific abnormal finding in stool contents 1 05/31/2005 10/12/2006 Osteoarthrosis, unspecified whether generalized or localized, unspecified site 02/07/2005 10/12/2006 Diffuse cystic mastopathy 02/07/20052006 Hypercalcemia 02/26/2000 10/12/2006 Unspecified hypertensive heart disease without h eart failure 10/26/1999 10/12/2006 Osteoporosis, unspecified 09/25/19962006 documented as of this encounter (statuses as of 06/27/2022) [facility] History of Past illness Narrative* Problem Noted Date Resolved Date Occult GI bleeding 06/30/2020 08/17/2020 Rash and nonspecific skin eruption 03/27/2016 01/05/2017 Headache(784.0) 09/29/2008 12/27/2015 COLITIS NONINFECTIOUS NON-INFECTIOUS 04/2310/12/2006 Nonspecific abnormal finding in stool contents 1 05/31/2005 10/12/2006 Osteoarthrosis, unspecified whether generalized or localized, unspecified site 02/07/2005 10/12/2006 Diffuse cystic mastopathy 02/07/20052006 Hypercalcemia 02/26/2000 10/12/2006 Unspecified hypertensive heart disease without h eart failure 10/26/1999 10/12/2006 Osteoporosis, unspecified 09/25/19962006 documented as of this encounter (statuses as of 07/25/2022) [facility] History of Past illness Narrative* Problem Noted Date Resolved Date Occult GI bleeding 06/30/2020 08/17/2020 Rash and nonspecific skin eruption 03/27/2016 01/05/2017 Headache(784.0) 09/29/2008 12/27/2015 COLITIS NONINFECTIOUS NON-INFECTIOUS 04/2310/12/2006 Nonspecific abnormal finding in stool contents 1 05/31/2005 10/12/2006 Osteoarthrosis, unspecified whether generalized or localized, unspecified site 02/07/2005 10/12/2006 Diffuse cystic mastopathy 02/07/20052006 Hypercalcemia 02/26/2000 10/12/2006 Unspecified hypertensive heart disease without h eart failure 10/26/1999 10/12/2006 Osteoporosis, unspecified 09/25/19962006 documented as of this encounter (statuses as of 08/27/2022) [facility] History of Past illness Narrative* Problem Noted Date Resolved Date Occult GI bleeding 06/30/2020 08/17/2020 Rash and nonspecific skin eruption 03/27/2016 01/05/2017 Headache(784.0) 09/29/2008 12/27/2015 COLITIS NONINFECTIOUS NON-INFECTIOUS 04/2310/12/2006 Nonspecific abnormal finding in stool contents 1 05/31/2005 10/12/2006 Osteoarthrosis, unspecified whether generalized or localized, unspecified site 02/07/2005 10/12/2006 Diffuse cystic mastopathy 02/07/20052006 Hypercalcemia 02/26/2000 10/12/2006 Unspecified hypertensive heart disease without h eart failure 10/26/1999 10/12/2006 Osteoporosis, unspecified 09/25/19962006 documented as of this encounter (statuses as of 10/15/2022) [facility] note* Diagnosis Hyperlipidemia, unspecified hyperlipidemia type [facility] Diagnosis Medicare annual wellness visit, subsequent- Primary Routine general medical examination at a health care facility Hypertension goal BP (blood pressure) < 130/80 Unspecified essential hypertension Hyperlipidemia, unspecified hyperlipidemia type Panic attack Panic disorder without agoraphobia Impaired fasting glucose Serrated polyp of colon [facility]* Diagnosis Hypertension goal BP (blood pressure) < 130/80- Primary Unspecified essential hypertension Renal insufficiency Unspecified disorder of kidney and ureter Hyperlipidemia, unspecified hyperlipidemia type [facility]* Diagnosis Hypertension goal BP (blood pressure) < 130/80 Unspecified essential hypertension [facility] Diagnosis Hypertension goal BP (blood pressure) < 130/80- Primary Unspecified essential hypertension [facility]* Diagnosis Hypertension goal BP (blood pressure) < 130/80 Unspecified essential hypertension [facility] Diagnosis Panic attack Panic disorder without agoraphobia [facility] Diagnosis Hypertension goal BP (blood pressure) < 130/80- Primary Unspecified essential hypertension Renal insufficiency Unspecified disorder of kidney and ureter [facility] Diagnosis Hyperkalemia- Primary Hyperpotassemia [facility] Diagnosis Hypertension goal BP (blood pressure) < 130/80- Primary Unspecified essential hypertension Degeneration of lumbosacral intervertebral disc Degeneration of lumbar or lumbosacral intervertebral disc Lumbosacral radiculitis Thoracic or lumbosacral neuritis or radiculitis, unspecified Stage 3a chronic kidney disease (HCC) [facility] Diagnosis Hypertension goal BP (blood pressure) < 130/80- Primary Unspecified essential hypertension [facility] Diagnosis Hypertension goal BP (blood pressure) < 130/80- Primary Unspecified essential hypertension Gastroesophageal reflux disease, unspecified whether esophagitis present Panic attack Panic disorder without agoraphobia [facility] Diagnosis Hypertension goal BP (blood pressure) < 130/80- Primary Unspecified essential hypertension Bradycardia Other specified cardiac dysrhythmias documented in this encounter [facility] for referral (narrative)* Outpatient Procedure (Routine) - Pending Review Specialty Diagnoses / Procedures Referred By Zbigniew lara Referred To [facility] Diagnoses Hypertension goal BP (blood pressure) < 130/80 Bradycardia Procedures ECG COMPLETE ECG ROUTINE ECG W/LEAST 12 LDS W/I&R Alanis Eric APRN.SUPERVISOR [employer]LOOR [employer]SEMBL[employer] [address] [place] [address] [facility] [place] [address] [place] [address] Referral ID Status Reason Start Date Expiration Date Visits Requested Visits Authorized [id number] Pending Review Auto-Generat ed Referral 06/27/2022 06/27/2023 1 1 [facility] Advance Directives No Advanced Directives Records FoundDocuments on File Type Date Recorded 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 Advance Directive(s) 07/25/2020 3:33 PM Reason for Referral Specialty Diagnoses / Procedures Referred By Zbigniew lara Referred To Contact Diagnoses Panic attack Alanis Eric APRN.SUPERVISOR [employer] [address] [place] [address] Referral ID Status Reason Start Date Expiration Date V isits Requested Visits Authorized [id number] Authorized 05/21/2022 06/20/2023 1 1 Summary Purpose Family History No Family History Records Found Additional Source Comments Source Comments (unrecognize d section and content) In the event this informatio n is protected by the Federal Confidentiality of Alcohol and Drug Abuse Patient Records regulations: The Federal rules restrict any use of the information to criminally investigate or prosecute any alcohol or drug abuse patient.[facility] event this information is protected by the Federal Confidentiality of Alcohol and Drug Abuse Patient Records regulations: The Federal rules restrict any use of the information to criminally investigate or prosecute any alcohol or drug abuse patient.[facility] the event this information is protected by the Federal Confidentiality of Alcohol and Drug Abuse Patient Records regulations: The Federal rules restrict any use of the information to criminally investigate or prosecute any alcohol or drug abuse patient.[facility] the event this information is protected by the Federal Confidentiality of Alcohol and Drug Abuse Patient Records regulations: The Federal rules restrict any use of the information to criminally investigate or prosecute any alcohol or drug abuse patient.[facility] the event this information is protected by the Federal Confidentiality of Alcohol and Drug Abuse Patient Records regulations: The Federal rules restrict any use of the information to criminally investigate or prosecute any alcohol or drug abuse patient.[facility] the event this information is protected by the Federal Confidentiality of Alcohol and Drug Abuse Patient Records regulations: The Federal rules restrict any use of the information to criminally investigate or prosecute any alcohol or drug abuse patient.[facility] the event this information is protected by the Federal Confidentiality of Alcohol and Drug Abuse Patient Records regulations: The Federal rules restrict any use of the information to criminally investigate or prosecute any alcohol or drug abuse patient.[facility] the event this information is protected by the Federal Confidentiality of Alcohol and Drug Abuse Patient Records regulations: The Federal rules restrict any use of the information to criminally investigate or prosecute any alcohol or drug abuse patient.[facility] the event this information is protected by the Federal Confidentiality of Alcohol and Drug Abuse Patient Records regulations: The Federal rules restrict any use of the information to criminally investigate or prosecute any alcohol or drug abuse patient.[facility] the event this information is protected by the Federal Confidentiality of Alcohol and Drug Abuse Patient Records regulations: The Federal rules restrict any use of the information to criminally investigate or prosecute any alcohol or drug abuse patient.[facility] the event this information is protected by the Federal Confidentiality of Alcohol and Drug Abuse Patient Records regulations: The Federal rules restrict any use of the information to criminally investigate or prosecute any alcohol or drug abuse patient.[facility] the event this information is protected by the Federal Confidentiality of Alcohol and Drug Abuse Patient Records regulations: The Federal rules restrict any use of the information to criminally investigate or prosecute any alcohol or drug abuse patient.[facility] the event this information is protected by the Federal Confidentiality of Alcohol and Drug Abuse Patient Records regulations: The Federal rules restrict any use of the information to criminally investigate or prosecute any alcohol or drug abuse patient.[facility] the event this information is protected by the Federal Confidentiality of Alcohol and Drug Abuse Patient Records regulations: The Federal rules restrict any use of the information to criminally investigate or prosecute any alcohol or drug abuse patient.[facility] the event this information is protected by the Federal Confidentiality of Alcohol and Drug Abuse Patient Records regulations: The Federal rules restrict any use of the information to criminally investigate or prosecute any alcohol or drug abuse patient.[facility] the event this information is protected by the Federal Confidentiality of Alcohol and Drug Abuse Patient Records regulations: The Federal rules restrict any use of the information to criminally investigate or prosecute any alcohol or drug abuse patient.[facility] the event this information is protected by the Federal Confidentiality of Alcohol and Drug Abuse Patient Records regulations: The Federal rules restrict any use of the information to criminally investigate or prosecute any alcohol or drug abuse patient.[facility] the event this information is protected by the Federal Confidentiality of Alcohol and Drug Abuse Patient Records regulations: The Federal rules restrict any use of the information to criminally investigate or prosecute any alcohol or drug abuse patient.[facility] the event this information is protected by the Federal Confidentiality of Alcohol and Drug Abuse Patient Records regulations: The Federal rules restrict any use of the information to criminally investigate or prosecute any alcohol or drug abuse patient.[facility] the event this information is protected by the Federal Confidentiality of Alcohol and Drug Abuse Patient Records regulations: The Federal rules restrict any use of the information to criminally investigate or prosecute any alcohol or drug abuse patient.[facility] the event this information is protected by the Federal Confidentiality of Alcohol and Drug Abuse Patient Records regulations: The Federal rules restrict any use of the information to criminally investigate or prosecute any alcohol or drug abuse patient.[facility] Reason for Visit (unrecogniz ed section and content) Reason Comments Medicare Wellness Exam Reason Onset Date Comments Population Health Navigation Outreach 07/26/2021 [employer] Care Gaps Reason Comments 6 WEEK FOLLOW UP - BP Reason Onset Date Comments Refill Request 10/01/2021 Reason Comments 3 week follow up Reason Comments Refill Request Reason Onset Date Comments Refill Request 12/13/2021 Reason Comments Blood Pressure Reason Comments Results Reason Comments F/U 6 months Reason Comments 1 month follow up - BP Reason Onset Date Comments Refill Request 04/01/2022 Reason Onset Date Comments Refill Request 04/02/2022 Reason Comments Blood Pressure Reason Onset Date Comments Transition Of Care 07/24/2022 Reason Comments Patient Update Reason Onset Date Comments Population Health Navigation Outreach 10/15/2022 [employer] Care Gaps 5.30.23 Care Teams (unrecognized sec tion and content) 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 Relationship Specialty Start Date End Date Tye Faulkner MD [address] [place], [place] [id number] PCP - General Internal Medicine 12/23/16 Sophia Valle RPh [address] [place], [place] [id number] Pharmacist Pharmacy 05/30/20 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 Relationship Specialty Start Date End Date Tye Faulkner MD [address] [place] [address] PCP - General Internal Medicine 12/23/16 [facility] [address] [place] [address] Pharmacist Pharmacy 05/30/20 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 Relationship Specialty Start Date End Date Tye Faulkner MD [address] [place] [address] PCP - General Internal Medicine 12/23/16 [facility] [address] [facility] [place] [address] Pharmacist Pharmacy 05/30/20 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 Relationship Specialty Start Date End Date Tye Faulkner MD [address] [place] [address] PCP - General Internal Medicine 12/23/16 [facility] [address] [place] [address] Pharmacist Pharmacy 05/30/20 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 Relationship Specialty Start Date End Date Tye Faulkner MD [address] [place] [address] PCP - General Internal Medicine 12/23/16 [facility] [address] [place] [address] Pharmacist Pharmacy 05/30/20 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 Relationship Specialty Start Date End Date Tye Faulkner MD [address] [place] [address] PCP - General Internal Medicine 12/23/16 [facility] [address] [facility] [place] [address] Pharmacist Pharmacy 05/30/20 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 Relationship Specialty Start Date End Date Tye Faulkner MD [address] [place] [address] PCP - General Internal Medicine 12/23/16 [facility] [address] [place] [address] Pharmacist Pharmacy 05/30/20 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 Relationship Specialty Start Date End Date Tye Faulkner MD [address] [place] [address] PCP - General Internal Medicine 12/23/16 [facility] [address] [place] [address] Pharmacist Pharmacy 05/30/20 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 Relationship Specialty Start Date End Date Tye Faulkner MD [address] [place] [address] PCP - General Internal Medicine 12/23/16 [facility] [address] [place] [address] Pharmacist Pharmacy 05/30/20 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 Relationship Specialty Start Date End Date Tye Faulkner MD [address] [place] [address] PCP - General Internal Medicine 12/23/16 [facility] [address] [place] [address] Pharmacist Pharmacy 05/30/20 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 Relationship Specialty Start Date End Date Tye Faulkner MD [address] [place] [address] PCP - General Internal Medicine 12/23/16 SilvioSophia, [facility] [address] [place] [address] Pharmacist Pharmacy 05/30/20 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 This clinical summary was aggregated from multiple sources. Caution should be exercised in using it in the provision of clinical care. This summary normalizes information from multiple sources, and as a consequence, information in this document may materially change the coding, format and clinical context of patient data. In addition, data may be omitted in some cases. CLINICAL DECISIONS SHOULD BE BASED ON THE PRIMARY CLINICAL RECORDS. [employer] provides no warranty or guarantee of the accuracy or completeness of information in this document.
== END 2023-04-29 22:57 | disposition home or self-care (01) ==
PROVIDERS: Emergency Provider Emergency Medicine; PCP Family Medicine Geriatric Medicine; Visit Provider Emergency Medicine
DX: I10 Essential (primary) hypertension (principal); E78.5 Hyperlipidemia, unspecified; E66.9 Obesity, unspecified; I87.2 Venous insufficiency (chronic) (peripheral); K21.9 Gastro-esophageal reflux disease without esophagitis; Z95.0 Presence of cardiac pacemaker
CPT/HCPCS: 80048; 81001; 85025; 99283; A4216

== ENCOUNTER → 2023-05-20 | Outpatient (CLI) | payer MEDICARE, SELFPAY ==
[2023-05-20 14:32] LABS: Absolute Lymphocyte Count 2.04 X10^3/uL (0.83-4.51); Absolute Neutrophil Count 7.3 X10^3/uL (2.0-7.7); Basophil# 0.07 X10^3/uL; Basophil% 0.6 % (0-1); Eosinophil# 0.22 X10^3/uL; Hematocrit 37.6 % (37-47); Hemoglobin 11.1 g/dL (12.0-15.0); Lymphocyte # 2.04 X10^3/ul (0.83-4.51); Lymphocyte % 18.7 % (19-41); Mean Corp Hgb Conc 29.5 g/dL (32-36); Mean Corpuscular Hgb 25.8 pg (27.0-32.0); Mean Corpuscular Volume 87.4 fL (81-99); Mean Platelet Vol. 9.9 fl (6.2-12.0); Monocyte# 1.19 X10^3/uL; Monocyte% 10.9 % (0-10); NRBC Flagged by Analyzer 0 % (0-5); Neutrophil # 7.32 X10^3/uL (2.7-7.7); Neutrophil % 67.2 % (47-70); Platelet Count 295 K/mm3 (150-450); White Blood Count 10.9 K/mm3 (4.4-11.0)
[2023-05-20 14:49] LABS: Vitamin D,25 Hydroxy 48.3 ng/mL
[2023-05-20 14:58] LABS: ALB/GLOB Ratio 0.9 RATIO (0.9-2.4); AST(SGOT) 18 U/L (15-37); Alanine Aminotransfer ALT/SGPT 20 U/L (13-56); Albumin, Serum 3.6 g/dL (3.2-5.0); Alkaline Phosphatase 112 U/L (45-117); Anion Gap 7 (5-15); BUN 32 mg/dL (7-18); BUN/Creat Ratio 26.7 RATIO (10-20); Calcium,Total 9.1 mg/dL (8.5-10.1); Chloride 108 mmol/L (98-107); EST Glomerular Filtration Rate 46 mL/min (>60); Est Glom Filt Rate - Afr Amer 55 mL/min (>60); Globulin 3.8 g/dL (2.2-4.2); Glucose 102 mg/dL (74-106); Potassium 4.3 mmol/L (3.5-5.1); Protein, Total 7.4 g/dL (6.4-8.2); Sodium Level 137 mmol/L (136-145); Thyroid Stim Hormone (TSH) 4.05 uIU/mL (0.358-3.74)
== END | disposition home or self-care (01) ==
LOC: POLAB3 13:46
PROVIDERS: PCP Family Medicine Geriatric Medicine; Visit Provider Family Medicine Geriatric Medicine
DX: I10 Essential (primary) hypertension (principal); E55.9 Vitamin D deficiency, unspecified
CPT/HCPCS: 36415; 80053; 82306; 84443; 85025

== ENCOUNTER → 2023-08-10 | Outpatient (CLI) | payer MEDICARE, SELFPAY ==
[2023-08-10 15:21] LABS: Absolute Lymphocyte Count 1.73 X10^3/uL (0.83-4.51); Absolute Neutrophil Count 6.3 X10^3/uL (2.0-7.7); Basophil# 0.05 X10^3/uL; Basophil% 0.5 % (0-1); Eosinophil# 0.21 X10^3/uL; Eosinophils% 2.3 % (0-5); Hematocrit 36.3 % (37-47); Hemoglobin 11.3 g/dL (12.0-15.0); Lymphocyte # 1.73 X10^3/ul (0.83-4.51); Lymphocyte % 18.6 % (19-41); Mean Corp Hgb Conc 31.1 g/dL (32-36); Mean Corpuscular Hgb 29.5 pg (27.0-32.0); Mean Corpuscular Volume 94.8 fL (81-99); Mean Platelet Vol. 10.7 fl (6.2-12.0); Monocyte# 0.96 X10^3/uL; Monocyte% 10.3 % (0-10); NRBC Flagged by Analyzer 0 % (0-5); Neutrophil # 6.33 X10^3/uL (2.7-7.7); Neutrophil % 68.1 % (47-70); Platelet Count 252 K/mm3 (150-450); Red Blood Count 3.83 M/mm3 (4.2-5.4); White Blood Count 9.3 K/mm3 (4.4-11.0)
[2023-08-10 15:38] LABS: Vitamin D,25 Hydroxy 47.4 ng/mL
[2023-08-10 15:53] LABS: AST(SGOT) 16 U/L (15-37); Alanine Aminotransfer ALT/SGPT 20 U/L (13-56); Albumin, Serum 3.4 g/dL (3.2-5.0); Alkaline Phosphatase 91 U/L (45-117); Anion Gap 8 (5-15); BUN 24 mg/dL (7-18); BUN/Creat Ratio 21.2 RATIO (10-20); Calcium,Total 9.1 mg/dL (8.5-10.1); Chloride 109 mmol/L (98-107); Creatinine, Serum 1.13 mg/dL (0.55-1.02); EST Glomerular Filtration Rate 49 mL/min (>60); Est Glom Filt Rate - Afr Amer 59 mL/min (>60); Globulin 3.4 g/dL (2.2-4.2); Glucose 128 mg/dL (74-106); Potassium 4.6 mmol/L (3.5-5.1); Protein, Total 6.8 g/dL (6.4-8.2); Sodium Level 138 mmol/L (136-145); Thyroid Stim Hormone (TSH) 3.38 uIU/mL (0.358-3.74)
== END | disposition home or self-care (01) ==
LOC: POLAB3 13:13
PROVIDERS: PCP Family Medicine Geriatric Medicine; Visit Provider Family Medicine Geriatric Medicine
DX: I10 Essential (primary) hypertension (principal); E55.9 Vitamin D deficiency, unspecified
CPT/HCPCS: 36415; 80053; 82306; 84443; 85025

== ENCOUNTER 2023-08-19 07:02 | Observation (INO) | payer MEDICARE, SELFPAY ==
--- NOTE | 2023-07-30 13:08 | EKG12_ITS ---
Test Reason : PRE-OP Blood Pressure : / mmHG Vent. Rate : 085 BPM Atrial Rate : 085 BPM P-R Int : 186 ms QRS Dur : 158 ms QT Int : 438 ms P-R-T Axes : 080 -70 090 degrees QTc Int : 521 ms Atrial-sensed ventricular-paced rhythm with occasional Premature ventricular complexes Abnormal ECG Confirmed by KENDELL MA, NADEEM ([id number]), food expeditor KIRIT STRONG ([id number]) on 07/31/2023 9:16:13 AM Referred By: Rom Hampton Confirmed By:NADEEM RDZ MD
[2023-07-30 14:18] LABS: Absolute Lymphocyte Count 1.52 X10^3/uL (0.83-4.51); Absolute Neutrophil Count 5.1 X10^3/uL (2.0-7.7); Basophil# 0.03 X10^3/uL; Basophil% 0.4 % (0-1); Eosinophil# 0.18 X10^3/uL; Eosinophils% 2.4 % (0-5); Hematocrit 35.2 % (37-47); Hemoglobin 11.3 g/dL (12.0-15.0); Lymphocyte # 1.52 X10^3/ul (0.83-4.51); Lymphocyte % 20.2 % (19-41); Mean Corp Hgb Conc 32.1 g/dL (32-36); Mean Corpuscular Hgb 29.7 pg (27.0-32.0); Mean Corpuscular Volume 92.4 fL (81-99); Mean Platelet Vol. 10.3 fl (6.2-12.0); Monocyte# 0.71 X10^3/uL; Monocyte% 9.4 % (0-10); NRBC Flagged by Analyzer 0 % (0-5); Neutrophil # 5.07 X10^3/uL (2.7-7.7); Neutrophil % 67.3 % (47-70); Platelet Count 235 K/mm3 (150-450); RBC Distribution Width CV 15.4 % (11.6-14.6); RBC Distribution Width SD 52.4 fl (35.1-43.9); Red Blood Count 3.81 M/mm3 (4.2-5.4); White Blood Count 7.5 K/mm3 (4.4-11.0)
[2023-07-30 14:23] LABS: International Normalized Ratio 1.4; Prothrombin Time (Protime)PT. 17.4 SECONDS (11.7-14.9)
[2023-07-30 14:24] LABS: Partial Thromboplast Time 47.3 Seconds (24.1-36.2)
[2023-07-30 17:34] LABS: Albumin, Serum 3.3 g/dL (3.2-5.0); Anion Gap 5 (5-15); BUN 19 mg/dL (7-18); BUN/Creat Ratio 19.4 RATIO (10-20); Chloride 112 mmol/L (98-107); Creatinine, Serum 0.98 mg/dL (0.55-1.02); EST Glomerular Filtration Rate 58 mL/min (>60); Est Glom Filt Rate - Afr Amer 70 mL/min (>60); Glucose 129 mg/dL (74-106); Potassium 4.3 mmol/L (3.5-5.1); Sodium Level 139 mmol/L (136-145)
--- NOTE | 2023-08-17 21:01 | HP.PCM_ITS ---
History and Physical History and Physical? Patient Name: Niki Castellanos : 1940 From:? YOUNG GRIMALDO PA-C? DATE OF PRE-OPERATIVE EXAM: 08/12/2023 DATE OF SURGERY:? 08/19/2023 SCHEDULED PROCEDURE:? Left total knee arthroplasty HISTORY OF PRESENT ILLNESS: Preoperative history and physical exam was performed on August 12, 2023.? This is a 83-year-old female who is been having ongoing pain in her left knee.? She had a previous preoperative visit in March 2023.? At that time her surgery was canceled due to anemia with her hemoglobin at 9.6.? Patient has also been dealing with bilateral lower extremity venous stasis dermatitis.? She is currently being evaluated and seen by dermatology.? Patient has had some recent lab work done by the primary care physician.? Her pain in the knee has been intermittent, sharp and sore.? Pain is increased with going up and down stairs and walking.? Her pain can reach 8/10 at worst and on average 5/10.? She continues to have difficulty and discomfort completing daily activities such as getting dressed, housework, shopping.? She has been treated with oral iron supplements and boost drinks.? Her hemoglobin most recently on August 10, 2023 was currently 11.3.? Patient denies past history of surgery on the left knee.? She has been using a cane and walker.? She has attempted use of Tylenol with minimal relief.? After failing conservative measures and discussing all treatment options with Dr. Rom Hampton, the patient does wish to proceed with a left total knee arthroplasty.? We are obtaining repeat clearance from the primary care provider Dr. Boogie.? Patient has had previous cardiology clearance from Dr. Fowler.? Patient has medical history pertinent for hypertension, hypercholesterolemia, anxiety, gastroesophageal reflux disease, iron deficiency anemia, bilateral lower leg cellulitis, venous stasis dermatitis, atrial fibrillation currently on Eliquis, and elevated kidney function without official diagnosis of kidney disease.? She denies past history of DVT or pulmonary embolism.? She currently denies any recent chest pain, shortness of breath, fevers chills or recent infections.? Patient does have past history of right unicompartmental knee replacement by Dr. Rom Hampton on February 20, 2021.? She is doing well from that procedure.? Patient also has had pacemaker placement in July 2022. REVIEW OF SYSTEMS: Review Of Systems: Constitutional: Denies anorexia, anxiety, change in appetite, fever and weight change,hard of hearing, and vision problems. Eyes: Wears glasses. Cardiovasular: Denies chest pain, heart murmur, irregular heartbeat and peripheral vascular disease. Respiratory: Denies asthma, cough, pneumonia, sleep apnea, shortness of breath, tuberculosis and wheezing. Gastrointestinal: Reports heartburn, but denies constipation, diarrhea, nausea, bloody stools and vomiting, and difficulty swallowing. Genitourinary: Denies female genital problems. Denies incontinence. Musculoskeletal: Reports trouble walking and weakness, but denies leg swelling and limp. Skin: Denies Raynaud's, history of shingles and tattoo. Neurological: Denies ambulatory dysfunction, dizziness, numbness/tingling and tremor. Psychiatric: Denies anxiety, depression, insomnia, mental illness and stress. Hematologic/Lymphatic: Denies anemia, bleeding/bruising tendency and past transfusion. Reviewed, no changes. PAST MEDICAL HISTORY: Advance Care Plan: Other Directive, living will Effective Date: 02/06/2022 Past Medical History: Medical Problems: Arthritis, High Blood Pressure, Hypercholesterolemia, Anxiety, Reflux, Pacemaker, iron def anemia, celulitis bilateral, Afib, Venous stasis dermatitis, Kidney Disease/Renal Failure Accidents: None Surgical Hx: Foot Nerve Hip Replacement - (07/30/2006) LT THR, DR. HOPKINS, [facility] Knee Replacement Unicompartmental RT - (02/20/2021) SAW @ [facility] Hip Out Of Place - (04/28/2021) FELL ON KNEE RT KNEE? Steroid Injections In Back - (2021) DR SLAUGHTER Pacemaker - (07/2022) ? Anesthesia Complications: None Assistive Devices: None Reviewed and updated. SOCIAL HISTORY: Social History: Marital: .Occupation: Retired - [employer].Work Status: Retired.Hand Dominance: Ambidextrous. Personal Habits:? Tobacco Use: Patient has never smoked.Cigarette Use: Never.Smokeless Tobacco: Never Used Smokeless Tobacco.E-Cigarette Use: Never used.Alcohol: Denies use.Drug Use: Denies Use.Enjoy Exercising: Exercises 1-3 X/Week. Reviewed, no changes. VITALS: Ht: 63 Wt: 212lb Wt k.163 BMI: 37.6 BP: 162/78 Pulse: 98 Resp: 18 T: 98.5 T: 36.9C Pain Level: 5 O2SatR: 97 ALLERGIES: No Known Drug Allergy No Known Substance Allergies? MEDICATIONS: Acetaminophen 500 mg do not take more than 3000 mg tylenol in a 24-hour period., [facility] Oyster Shell Calcium +Vitamin D 500-125 MG-Unit po daily, Zyrtec 10 mg 1 po qday, Famotidine 40 mg 1po qday, Metoprolol Succinate ER 25 mg half tab po bid, Diltiazem HCL ER 240 mg one tab po once daily, Eliquis 5 mg 1 by mouth twice a day, Vitamin C 500mg, Vitamin B 12 500 mcg, Calcium 1200 6417-3871 MG-Unit, Omeprazole 40 mg 1 by mouth every day, Hydrochlorothiazide 12.5 mg 1 by mouth every day, Potassium Chloride Yokasta ER 20 Meq take 1/2 tab once daily, Ferrous Sulfate 325 (65 Fe) MG take 1 tablet by mouth twice a day, Folic Acid 1 mg 1 by mouth every day PRE-OP EXAM:? General appearance:NORMAL? ? ? Other: Eyes: Conjunctivae and lids: NORMAL? Pupils: ERR Ears, Nose, Mouth, and Throat: NORMAL? Other: Inspection of lips, teeth and gums: NORMAL? ?Other: Neck: Examination of neck: no masses noted. Respiratory: Assessment of respiratory effort: NORMAL? ?Other: ?Auscultation of lungs: clear to auscultation no wheezes, rhonchi or rales. Cardiovascular:? Auscultation of heart: regular rate and rhythm, no murmurs, gallops or rubs. PHYSICAL EXAMINATION: On exam patient does walk with an antalgic gait with use of cane.? Patient does not have any significant erythema surrounding the left knee.? However she does have significant thick edematous skin with venous stasis dermatitis and erythema in bilateral lower extremities.? Range of motion: Patient lacks 3 full extension to 106 flexion.? She has correctable valgus alignment.? Stable to varus/valgus stress test, stable to anterior/posterior drawer exam. IMAGING STUDIES: Previous x-rays of the left knee reveal valgus alignment with lateral joint space narrowing, subchondral sclerosis, osteophyte formation consistent with severe stage IV [id number] erosive osteoarthritis IMPRESSION: 1.? 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 Presence of right unicompartmental knee replacement 3.? Bilateral venous stasis dermatitis 4.? Hypertension 5.? History of pacemaker placement in July 2022 6.? Atrial fibrillation currently on Eliquis 7.? Anxiety 8.? Gastroesophageal reflux disease 9.? Iron deficiency anemia 10.? Hypercholesterolemia 11.? History of bilateral lower extremity cellulitis 12.? Elevated kidney function without diagnosis of kidney disease 13.? Obesity with BMI 37.6 PLAN: Dr. Rom Hampton did discuss and review with the patient all treatment options including surgical versus nonsurgical options.? Patient does wish to proceed with the above-stated procedure.? Potential risks, benefits, and complications of the procedure were discussed in detail including but not limited to , infection, nerve and blood vessel damage, persistent pain, numbness, tingling, paresthesias, blood clot, pulmonary embolism, and requirement for possible further surgery.? The patient expressed full understanding and has no further questions for the doctor.? Patient does agree to proceed with the above-stated procedure and has signed the surgery consent form. POST-OP MEDICATION PLAN: Pain Medications:? Postoperative pain regimen will be initiated by Dr. Rom Hampton in the hospital.? Patient has been instructed to stop her Eliquis 3 days prior to surgery.? She will continue with the iron and folic acid for the anemia.? She is currently on nutritional protocol.? Labs are appropriate to proceed with surgery.? We are reaching out to the primary care provider for clearance after recent lab work.? Patient will also follow up on Thursday, August 17, 2023 for skin check of bilateral lower extremities.? Patient will be evaluated by physical therapy and case management postoperatively for appropriate discharge planning.?? DVT Prophylaxis: Patient will resume her Eliquis postoperatively on postoperative day #1 for DVT prophylaxis.? She is currently on Eliquis for the atrial fibrillation. This dictation was created using voice recognition software. Phonetic and/or grammatical errors may exist. ___? I have re-examined the patient.? There are no clinical changes since date of exam. ___? See progress notes for changes. ___? Dictated on admission Date: ? ? ?Time: Signature: 08/17/23 (ThuAug 16) 08:56 PM? Basil Grimaldo Added Addendum: Patient evaluated on August 17, 2023 and seen improvements with her bilateral lower extremities.? Dr. Rom Hampton was able to evaluate the patient and okay to proceed with surgery on August 19, 2023 as long as there is no worsening symptoms prior to surgery.? Patient will plan for robotic-assisted left total knee arthroplasty with intra-articular pins.? ?New consent form has been signed.
[2023-08-19] VITALS (14 sets, daily range): BP systolic 116–154; BP diastolic 58–94; PULSE 60–89; RESP 15–18; TEMP 36.1–37.2; O2SAT 91–98; BMI 35.4
[2023-08-19] MEDS: Magnesium 1 GM over 15 mins IV (07:14)
[2023-08-19] MEDS: Gabapentin 600 MG Tablet PO (07:15)
[2023-08-19] MEDS: Lactated Ringers 1,000 ML 999 ML IV (07:15)
[2023-08-19 08:22] LABS: INR Fingerstick 1.4
[2023-08-19] MEDS: Cefazolin 2 GM in 0.9% Normal Saline (100mL Bag) 100 ML IV (08:40)
--- NOTE | 2023-08-19 08:45 | KNEE_PTH ---
PATIENT: CAROLINA DOMINIQUE LOC: MS3 U#:[id number] AGE/SX: 83/F ROOM: UT315 RE08/19/[address]: Dr. Chaitanya Skinner MD : [id number] BED: 1 DIS: 08/25/2023 SPEC #: [id number] RECD: 08/19/23 13:46 STATUS: FUNMILAYO REWilman #: [id number] NILO: 08/19/23 08:[address]: Rom Hampton DEPT: SURGICAL PATHOLOGY RECD BY: Meagan Seth ENTERED: 08/19/23 14:01 SP TYPE: TOTAL KNEE OTHR DR: DO Dr. 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 Mild synovial hyperplasia with mild chronic inflammation. Polarizable crystals consistent with pseudogout. AM: 08/25/2023 MICROSCOPIC DESCRIPTION Slides are reviewed. GROSS DESCRIPTION Received is one container designated debrided bone and soft tissue left knee. The specimen consists of multiple fragments of sargent-yellow bone measuring in aggregate 9.0 x 6.0 x 3.5 cm. Also in the specimen container are multiple fragments of yellow-white soft tissue measuring in aggregate 6.0 x 5.0 x 1.5 cm. Focal area shows chalky white deposits. A number of bony fragments contain articular surfaces consistent with tibial plateau and femoral condyle and displaying prominent osteophyte formation, eburnation and bone erosion. Musical Instruments Assembler sections are submitted in two cassettes as follows: 1 - soft tissue, 2 - bone after decalcification. / 08/19/23 TC:5 CPT: 36039, 97566
[2023-08-19] MEDS: dexAMETHasone 10 MG/ML Vial IV (08:56)
[2023-08-19] MEDS: JPS (Morphine 10mg/ml) OPERA.SITE (09:38)
[2023-08-19 09:47] LABS: Bedside Glucose 135 mg/dL (74-106)
[2023-08-19] MEDS: TRANEXAMIC ACID 2,000 MG, 0.9% Normal Saline (100mL Bag) 100 ML OPERA.SITE (10:09)
--- NOTE | 2023-08-19 10:12 | PCM.OPRPT ---
Report of Operation Date of Procedure: 08/19/23 Pre-Operative Diagnosis: Left knee primary osteoarthritis Post-Operative Diagnosis: Left knee primary osteoarthritis Surgery/Procedure Performed:: Left knee minimally invasive robotic assisted total knee replacement Description of Surgical Findings:: Stable knee with good patella tracking Surgeon: Rom Hampton field administrator: Ralph Norman Type of Anesthesia: General Anesthesiologist: Tay Swenson Special Medications: 2 g Ancef, 1 g TXA at incision, 1 g TXA closure, 10 mg Decadron, joint cocktail (5 mg Duramorph, 30 mL of 0.5% Ropivicaine, 1000 units of epinephrine, 30 mg of Toradol) Specimen's removed: Bony cuts Estimated Blood Loss (mL): 50 Fluids Replaced: 1500 L crystalloid Description of Procedure: Implants used: 1. Aishwarya size 3 triathlon cruciate retaining distal femoral cemented component 2. Aishwarya size 4 universal tibial baseplate with 12 mm x 50 mm cemented stem and cement restrictor 3. [place] X3 9 mm polyethylene 4. Aishwarya X3 32 mm asymmetric patella Brief history operative indications: 83-year-old f with history of left knee osteoarthritis with radiographic findings with loss of joint space, osteophyte formation and subchondral sclerosis. Failed conservative measures as mentioned in the H&P. Discussion of total knee arthroplasty as well as risk and benefits were discussed the patient including but not limited to blood loss, DVTs, PEs, neurovascular damage, general risk of anesthesia including loss of life, and stiffness or instability were discussed with patient. Patient demonstrated understanding and was able to sign informed consent. Procedure: On the date of procedure patient's left lower extremity was marked in the preoperative area. The patient was then taken back to the operating room where the patient was placed on the table in the supine position. All bony prominences were identified a well-padded. Anesthesia assumed control of the C-spine and airway and remained controlled throughout the remainder of the procedure. A tourniquet was placed on the left upper thigh and the leg was prepped in a sterile fashion. The surgeon then scrubbed at this time .Upon reentering the room left lower extremity was draped in a standard orthopedic fashion. A timeout was then called and everyone agreed upon the side, the site, the procedure to be performed, patient's identity and antibiotics given. Esmarch bandage was used to exsanguinate the extremity and the tourniquet was placed up to 250 mmHg with the knee in flexion. A midline skin incision was made and sharp dissection was taken down through skin subcutaneous tissue and fat. The standard medial parapatellar incision was made and the patella was subluxed laterally. An Appropriate deep MCL release was done and the fat pad was resected. Our attention was then directed to the patella. The patella was everted and a flat resection was made. The knee was then flexed up in 2 femoral pins were placed inside the incision and 2 tibial pins were placed outside the incision in the medial tibia bicortically. Once this was completed the 2 checkpoints in the femur and tibia were placed. Knee was then flexed up and the bony landmarks were registered. Once this was completed knee was taken through range of motion and manually stressed allowing us to a plan for an appropriate tibial cut. The robotic arm was brought into the field sterilely and checkpoint and saw were registered. Based on the patient's deformity the tibial cut was made in 1-1/2 degrees varus. At this time the tensioner was then placed in the joint and ligament tension was checked at 90 degrees and full extension. Based on the patient's ligamentous tension appropriate adjustments were made to the operative plan and ligament releases were done. Once we were happy with our operative plan with balanced flexion and extension gaps our attention was directed to the femur. The robot was brought into the field sterilely and registered. Posterior condylar cuts, anterior chamfer cuts and anterior cuts were appropriately made for a size 3 femur. When these were completed the saws were switched out in the distal femoral and posterior chamfer cuts were made. Protecting the soft tissue throughout this time. A size 4 tibial base plate was selected. the knee was flexed to 90 degrees and the soft tissues and posterior osteophytes were removed from the joint. 40 cc of the periarticular injection was injected into the posterior medial corner of the joint. The appropriate trials were then placed on the femur and tibia. A trial polyethylene was trialed to ensure proper balancing and stability of the knee. The appropriate tibial internal rotation was then marked with a bovie. Our attention was then directed to the patella. The lug holes were drilled and the patella trial was placed. Patellar tracking was checked and deemed appropriate. Once we were happy lug holes were drilled for the femur and trial components were removed. the tibia was subluxed and pinned into place and the keel was punched and drilled appropriately. Final components were verified and opened, and cement was mixed in a vacuum. [employer] Simplex cement was used. The wound was copiously irrigated with normal saline. When the cement was ready the components were cemented into place starting with the tibia, femur and finally cementing the patella. The trial poly component was placed and the knee was placed in full extension. All excess cement was removed in the process. Once the cement had cured the tracking, alignment and balance were verified and a size 9 mm CS polyethylene component was placed. Once the final components were placed a 3-minute dilute Betadine lavage was performed followed by an Irrisept lavage was performed and the wound was copiously irrigated with normal saline solution and the periarticular injection was given. The wound was closed in a layer washburn fashion using #1 vicryl interrupted sutures for the arthrotomy, 2-0 interrupted Vicryl suture for the subcuticular layer and juan for final skin closure. A sterile compressive dressing was then placed. The patient was then awakened from anesthesia, transferred to the [facility] and transferred to the PACU for recovery. Post op plan DVT ppx: Resume Eliquis postop day 1, thigh high compression stockings Follow up: in office in 2 weeks for wound check PT: to start POD #0 at hospital, outpatient PT should be arranged. My physician ice cream freezer assistant was a vital part of this case. He was important in appropriate retraction during the case, and protection of soft tissues during bony cuts. His intimate knowledge of the case and my steps aided in safe and expedient completion of the procedure as well as appropriate position of the leg during the case. He was also vital in assisting with closure under my direct supervision. Due to the complexity of this case robotic arm was used to assist in the surgery to improve accuracy and clinical outcomes. Complications No intraoperative complications Admit VTE Documentation VTE Present on Admission: No VTE Mechan Device Prophylaxis: SCD's and Thigh High CALVIN Hose VTE Pharm Prophylaxis ordered?: Yes
--- NOTE | 2023-08-19 11:20 | RAD_ITS ---
STUDY: X-RAY - LEFT KNEE REASON FOR EXAM: Female, 83 years old. Postop TECHNIQUE: 2 view(s) of the knee. COMPARISON: None. FINDINGS: The patient is status post left knee arthroplasty. The hardware is intact and alignment is satisfactory. There is no evidence of fracture or dislocation. There is soft tissue air noted, consistent with the patient''s recent postoperative state. There is a surgical drain in place. There are no radiodense foreign bodies. RAD/Knee 1 or 2 Views IMPRESSION: Satisfactory postoperative changes from left knee arthroplasty. No fracture or dislocation. Electronically Signed: Rom Mitchell MD at 13:14 EDT ,
[2023-08-19] MEDS: Acetaminophen 500 MG Tablet 1000 MG PO ×2 (14:32→21:05)
--- NOTE | 2023-08-19 14:35 | PN.HOSP_ITS ---
Reason for Visit Reason for Visit: Diagnoses Encounter for other preprocedural examination (08/19/23) Subjective Subjective Consult requested by Dr. Hampton for post-op medical mgmt. Currently pt is feeling dizzy. She has experienced this before with prior surgeries. No nausea, but is concerned she could if she were to stand up. Objective Data Objective Data Vital Signs: Vital Signs Temp Pulse Resp BP Pulse Ox O2 Del Method O2 Flow Rate 37.2 C 81 18 131/64 H 97 Nasal Cannula 2 08/19/23 12:43 08/19/23 12:43 08/19/23 12:43 08/19/23 12:43 08/19/23 13:45 08/19/23 13:45 08/19/23 13:45 Oxygen Flow Rate (L/min) 2 Oxygen Delivery Method Nasal Cannula Weight: 96.615 kg Body Mass Index (BMI) 35.4 Intake & Output: Intake and Output for Last 24 Hours 08/17/23 08/18/23 08/19/23 23:59 23:59 23:59 Intake Total 2212 / 2212 Balance 2212 / 2212 Lab / Micro Data 07/30/23 13:21 07/30/23 13:21 Labs: Laboratory Results - last 24 hr 08/19/23 07:13: POC Glucose 135 H 08/19/23 08:19: POC PT 15.0 H, INR 1.4 Micro: Microbiology 07/30/23 13:21 Swab (Method) Nasal Screen MRSA/MSSA - Final Radiography Diagnostic Testing: Radiology Impression Knee X-Ray 08/19/23 11:20 IMPRESSION: Satisfactory postoperative changes from left knee arthroplasty. No fracture or dislocation. Electronically Signed: Rom Mitchell MD at 13:14 EDT , Physical Exam Const alert and no apparent distress Eyes Eyes Narrative: bilateral lateral nystagmus. no icterus. Cardio regular rate, regular rhythm, S1 normal heart sound and S2 normal heart sound GI normal to inspection, nondistended, normoactive bowel sounds, soft to palpation, non-tender and non-distended Neuro Sensorium / Orientation: awake and alert Assessment & Plan Assessment/Plan (1) Dizziness: PLAN: Plan Dizziness * post-anesthesia v BPPV * PRN meclizine s/p L TKA * mgmt per ortho * VTE prophylaxis: apixaban Chronic conditions: * afib: anticoagulated w apixaban. continue diltiazem, metoprolol tartrate * GERD: continue PPI * anemia: monitor Thank you for the consult. The Hospitalist service will follow. Charges/Coding Visit Charges Inpatient E&M: 60833 Subs Hosp L2
[2023-08-19] MEDS: Cefazolin 1 GM/50 ML BAG IV (17:07)
[2023-08-19] MEDS: Ensure Surgery 237 ML LIQUID PO (17:10)
[2023-08-19] MEDS: Senna/Docusate Sodium 1 Tablet 2 TABLET PO (21:05)
[2023-08-19] MEDS: Metoprolol Tartrate 25 MG Tablet 12.5 MG PO (21:06)
[2023-08-19] MEDS: dilTIAZem CD 240 MG Capsule PO (21:06)
[2023-08-20] VITALS (11 sets, daily range): BP systolic 105–129; BP diastolic 43–66; PULSE 67–76; RESP 16–18; TEMP 36.5–37; O2SAT 93–97; BMI 35.4
[2023-08-20] MEDS: Cefazolin 1 GM/50 ML BAG IV (00:39)
[2023-08-20] MEDS: Acetaminophen 500 MG Tablet 1000 MG PO (05:04)
[2023-08-20] MEDS: oxyCODONE 5 MG Tablet PO (05:13)
[2023-08-20 07:24] LABS: Hemoglobin 9.5 g/dL (12.0-15.0); Mean Corp Hgb Conc 31.7 g/dL (32-36); Mean Corpuscular Hgb 30.5 pg (27.0-32.0); Mean Corpuscular Volume 96.5 fL (81-99); Mean Platelet Vol. 10.7 fl (6.2-12.0); Platelet Count 211 K/mm3 (150-450); RBC Distribution Width CV 14.4 % (11.6-14.6); RBC Distribution Width SD 50.5 fl (35.1-43.9); Red Blood Count 3.11 M/mm3 (4.2-5.4)
[2023-08-20 07:29] LABS: Anion Gap 8 (5-15); BUN 26 mg/dL (7-18); BUN/Creat Ratio 25.7 RATIO (10-20); Calcium,Total 8.7 mg/dL (8.5-10.1); Chloride 108 mmol/L (98-107); Creatinine, Serum 1.01 mg/dL (0.55-1.02); EST Glomerular Filtration Rate 56 mL/min (>60); Est Glom Filt Rate - Afr Amer 67 mL/min (>60); Estimated Creatinine Clearance 48.53 ml/min; Glucose 150 mg/dL (74-106); Potassium 4.9 mmol/L (3.5-5.1); Sodium Level 141 mmol/L (136-145)
[2023-08-20] MEDS: Meclizine 12.5 MG Tablet PO (08:38)
[2023-08-20] MEDS: Calcium Carb/Vitamin D 1 TABLET Tablet 2 TABLET PO (08:38)
[2023-08-20] MEDS: Multivitamins,Therapeutic Tablet 1 TABLET PO (08:38)
[2023-08-20] MEDS: Potassium Chloride Oral Tablet 10 MEQ PO (08:38)
[2023-08-20] MEDS: Iron Polysaccharide Complex 150 MG CAPSULE PO (08:39)
[2023-08-20] MEDS: Pantoprazole Sodium 40 MG Tablet PO (08:39)
[2023-08-20] MEDS: Famotidine 20 MG Tablet PO (08:39)
[2023-08-20] MEDS: APIXABAN 5 MG TABLET PO ×2 (08:39→22:35)
[2023-08-20] MEDS: Ensure Surgery 237 ML LIQUID PO ×3 (08:40→17:22)
[2023-08-20] MEDS: Senna/Docusate Sodium 1 Tablet 2 TABLET PO ×2 (08:40→22:35)
[2023-08-20] MEDS: Metoprolol Tartrate 25 MG Tablet 12.5 MG PO ×2 (08:44→22:36)
[2023-08-20] MEDS: hydroCHLOROthiazide 12.5mg 12.5 MG PO (08:44)
--- NOTE | 2023-08-20 09:23 | WOUNDNOTE ---
wound photo: left knee
--- NOTE | 2023-08-20 09:52 | PN.ORTHO_ITS ---
Subjective Subjective The patient was sitting in bed upon examination. Patient denies any chest pain, shortness of breath, lightheadedness, nausea or vomiting, or calf pain. Patient states she has dizziness associated with the oxycodone. She also thinks she has had this in the past but is not divulged that information to us preoperatively. Patient is having increased pain in her knee as the block is worn off. She also had to have the Prevena incisional wound VAC removed as the canister was completely full. Patient has history of venous stasis dermatitis and edema in the bilateral lower extremities. After removal of the incisional wound VAC she is still having some drainage at the distal incision. Case has been discussed with the wound nurse and plan for application of traditional wound VAC. Patient has resumed her Eliquis which she takes for atrial fibrillation. She also has history of iron deficiency anemia. Patient states all of her symptoms have all stemmed from after having her pacemaker placed. Since then she has had ongoing abdominal symptoms. She denies nausea right now. Patient also has elevated kid parmjit function but no official diagnosis of chronic kidney disease. Patient is also concerned about going home as she is having very difficult time with the pain and getting up and walking. Objective Data Objective Data Vital Signs: Vital Signs Temp Pulse Resp BP Pulse Ox O2 Del Method O2 Flow Rate 97.8 F 76 16 129/64 H 94 Room Air 2 08/20/23 04:56 08/20/23 08:44 08/20/23 04:56 08/20/23 08:44 08/20/23 08:15 08/20/23 08:15 08/19/23 16:10 Oxygen Flow Rate (L/min) 2 Oxygen Delivery Method Room Air Weight: 96.615 kg Body Mass Index (BMI) 35.4 Intake & Output: Intake and Output for Last 24 Hours 08/18/23 08/19/23 08/20/23 23:59 23:59 23:59 Intake Total 2962 / 2962 250 / 250 Balance 2962 / 2962 250 / 250 Lab / Micro Data 08/20/23 06:13 08/20/23 06:13 Labs: Laboratory Results - last 24 hr 08/20/23 06:13: WBC 12.0 H, RBC 3.11 L, Hgb 9.5 L, Hct 30.0 L, MCV 96.5, MCH 30.5, MCHC 31.7 L, RDW Std Deviation 50.5 H, RDW Coeff of Mari 14.4, Plt Count 21 1, MPV 10.7, Sodium 141, Potassium 4.9, Chloride 108 H, Carbon Dioxide 25.0, Anion Gap 8, BUN 26 H, Creatinine 1.01, Estim Creat Clear Calc 48.53, Est GFR (MDRD) Af Amer 67, Est GFR (MDRD) Non-Af 56 L, BUN/Creatinine Ratio 25.7 H, Glucose 150 H, Calcium 8.7 Micro: Microbiology 07/30/23 13:21 Swab (Method) Nasal Screen MRSA/MSSA - Final Radiography Diagnostic Testing: Radiology Impression Knee X-Ray 08/19/23 11:20 IMPRESSION: Satisfactory postoperative changes from left knee arthroplasty. No fracture or dislocation. Electronically Signed: Rom Mitchell MD at 13:14 EDT Reading Location ID and State: [facility] / [place] Tel , Service support , Physical Exam Narrative Vital signs stable and afebrile. SCDs and CALVIN hose are in place bilaterally Patient is able to plantarflex and dorsiflex actively. Sensation is intact to light touch to saphenous, sural, superficial and deep peroneal, and tibial distribution. Soft dressing with ABDs are in place and there is breakthrough saturation over the distal portion. There is drainage from the distal incision. The Prevena wound VAC had to be removed. Wound nurse is currently involved in placing a wound VAC Negative Homans bilaterally, negative signs and symptoms of DVT. Const alert, oriented x3 and no apparent distress Assessment & Plan Assessment/Plan (1) Status post total left knee replacement: PLAN: 1. S/P left total knee arthroplasty POD #1 2. Continue Pain Medications: Patient will be switched over to hydrocodone/acetaminophen. She has not tolerating the oxycodone as she states it is because dizziness and she just does not feel right on this medication. Oxycodone and the Tylenol orders will be discontinued. We are unable to use nonsteroidal anti-inflammatories as patient does have elevated kidney function and decreased GFR with no official diagnosis of chronic kidney disease. 3. DVT Prophylaxis: Patient is resuming her Eliquis twice daily for atrial fi brillation. This will cover her for DVT prophylaxis 4. PT/OT: I did discuss case with physical therapy. We are going to avoid flexion until the wound VAC is in place. Appreciate recommendations from physical therapy for appropriate discharge planning. There is concern for safety with patient going home as she has a fall risk. 5. H & H: 9.5/30.0, asymptomatic. Patient does have history of iron deficiency anemia. She takes at home iron complex. She will continue on this medication. I do recommend that patient follow-up with the primary care provider 3-4 weeks upon discharge for repeat lab work and continued follow-up and management. Patient's vitals are stable. She is currently asymptomatic 6. Reactive leukocytosis: 12.0, Afebrile. Patient did receive Decadron intraoperatively. No clinical signs of infection. 7. Postoperative wound drainage: Patient has significant history for bilateral lower extremity edema. She has been treated by reach truck operator and primary care provider. A Prevena incisional wound VAC was attempted however there was too much drainage in which it filled the canister. This had to be removed last night. Case was discussed with the wound nurse. We are planning on application of wound VAC with changes on Thursday and . Pressure at 125 mmHg continuous setting. 8. Continue postoperative medical management per medicine 9. Encouraged Incentive Spirometry 10. Disposition: There is concern with discharge home for patient's safety as she is a fall risk and is having difficult time with pain and walking. She will also require application of wound VAC due to the drainage postoperatively and her lower extremity edema. Case management is currently involved with appropriate discharge planning. Appreciate recommendations from physical therapy. Patient will continue on above medications. We did switch her narcotic medication from oxycodone to hydrocodone/acetaminophen. Patient states she has tolerated that medication in the past. I have reviewed the [place] Automated Rx Reporting System (OARRS) report for this patient for refill pattern and other prescriber involvement as part of the appropriate surveillance for the provision of acute and chronic controlled medications. The report was requested and reviewed on the date of this entry and was considered in the prescribing process. This dictation was created using voice recognition software. Phonetic and/or grammatical errors may exist. (2) Iron deficiency anemia, unspecified: (3) Edema leg:
--- NOTE | 2023-08-20 11:51 | CASEMGMT ---
Discharge Planning A list of SNF providers including quality and resource use data and consistent with the patient's preferred geographic region, medical needs, and insurance network was created in CarePort Guide.? This list was provided to the SW. Rebeca Duran Discharge Planning Asst.
[2023-08-20] MEDS: HYDROcodone Bitartrate/Apap 5/325 Tablet PO ×2 (12:39→20:01)
--- NOTE | 2023-08-20 14:15 | CASEMGMT ---
Care Management ? Initial Assessment Face to Face with patient for initial transition planning/care coordination assessment.? This pattern chart writer introduced self and role at [facility]. Patient lying in bed, alert and oriented. Patient willing to participate in assessment and is able to answer all questions appropriately.? Care providers, pharmacy, and demographics verified. Admitting Diagnosis: Total Knee Replacement Other diagnosis history: Per record, pacemaker placed 07/2022, Hx of AFib, HTN, anxiety. PCP: ?Dr. Boogie Specialists: [facility]/Dr. Fowelr.? Preferred Pharmacy: ?[facility] Insurance: A[employer]na [facility] Prescription Benefit:? Living Will/HPOA: Yes LNOK: ? for 9 years.? Son, who patient was the primary caregiver of and who had development disability, 3 years ago.? ?Next of kin, patient?s daughter Xi Perez.? Has a grandson Alfred.? Daughter lives in [place].? Living Arrangements: Lives alone in own home, first floor, 1 step from front door, ramped entrance from garage.?? Assistance: ?Daughter helps with groceries or patient gets via door dash; has project structural engineer and people to help mow the lawn.? Transportation: Still drives but does not drive much.? DME:? RTS, cane, handheld shower, walker, rollator, wheelchair (still in box), medical alert, BP machine, NO O2/CPAP/Bipap.? HHC: Hx but unsure of name. SNF:? Hx at [facility]. Behavioral Health: Hx of Anxiety. Patient shares still experiences grief and misses her son everyday for the last 3 years. 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 Patient tearful when talking about loss and feelings relating to not having the caregiving role anymore. Patient goals: Patient wishes to discharge to SNF, short term then to home with help from daughter and grandson.? Careport list generated for SNF choices for patient?s geographical location, insurance network, including Medicare quality and star data.?? Patient declined list but did leave the list with the patient.?? Patient reports to know to want [facility] first and then [facility] second.? CM and SW to follow for discharge planning needs that may arise. Called [facility] marketing operations coordinatorRadha.? Referral given Plan:? Pending referral at [facility].? -WARNER Lane
--- NOTE | 2023-08-20 15:40 | CASEMGMT ---
Met with pt to complete [place] form. [place] form explained to pt at this time who voiced understanding and signed form. Original form placed in pt?s chart and copy provided to the pt. Alba Solis RN CM
--- NOTE | 2023-08-20 16:05 | CASEMGMT ---
Addendum entered by Miguelina Rivera 08/20/23 16:21: Pt made aware to cancel/change this appt w/Dr Boogie if she has not discharged from SNF yet. She voices understanding. Original Note: DOTTY RAMSYE NOTE: FAVIO Rosas, requests for PCP appt to be scheduled in 3-4 weeks w/repeat lab work. Call placed to Dr Boogie's office and appt scheduled for 09/15/23 @ 11:40 AM. Pt made aware and this was placed in pt's discharge plan. Moshe ABBASI RN CM
--- NOTE | 2023-08-20 19:42 | PCM.PN.HOSP ---
Reason for Visit Reason for Visit: Diagnoses Iron deficiency anemia, unspecified (08/19/23) Dizziness and giddiness (08/19/23) Localized edema (08/19/23) Encounter for other preprocedural examination (08/19/23) Presence of left artificial knee joint (08/19/23) Subjective Subjective Patient was seen and examined today, she complains of knee pain from her surgical site, she has no complaints of any shortness of breath or chest discomfort. Objective Data Objective Data Vital Signs: Vital Signs Temp Pulse Resp BP Pulse Ox O2 Del Method O2 Flow Rate 98.3 F 69 16 105/43 L 96 Room Air 2 08/20/23 17:00 08/20/23 17:00 08/20/23 17:00 08/20/23 17:00 08/20/23 17:00 08/20/23 18:00 08/19/23 16:10 Oxygen Flow Rate (L/min) 2 Oxygen Delivery Method Room Air Weight: 96.615 kg Body Mass Index (BMI) 35.4 Intake & Output: Intake and Output for Last 24 Hours 08/18/23 08/19/23 08/20/23 23:59 23:59 23:59 Intake Total 2962 / 2962 1650 / 1650 Balance 2962 / 2962 1650 / 1650 Lab / Micro Data 08/20/23 06:13 08/20/23 06:13 Labs: Laboratory Results - last 24 hr 08/20/23 06:13: WBC 12.0 H, RBC 3.11 L, Hgb 9.5 L, Hct 30.0 L, MCV 96.5, MCH 30.5, MCHC 31.7 L, RDW Std Deviation 50.5 H, RDW Coeff of Mari 14.4, Plt Count 211, MPV 10.7, Sodium 141, Potassium 4.9, Chloride 108 H, Carbon Dioxide 25.0, Anion Gap 8, BUN 26 H, Creatinine 1.01, Estim Creat Clear Calc 48.53, Est GFR (MDRD) Af Amer 67, Est GFR (MDRD) Non-Af 56 L, BUN/Creatinine Ratio 25.7 H, Glucose 150 H, Calcium 8.7 Micro: Microbiology 07/30/23 13:21 Swab (Method) Nasal Screen MRSA/MSSA - Final Physical Exam Const alert, oriented x3 and no apparent distress General Appearance: cooperative, well kempt and well developed Orientation / Consciousness: awake, oriented to person, oriented to place and oriented to time HEENT normocephalic, head/scalp atraumatic and moist oral mucous membranes Eyes PERRL, EOMs intact bilaterally and conjunctivae normal Neck supple, no JVD, thyroid normal and no carotid bruits General: trachea midline Resp normal respiratory effort, no retractions, no use of accessory muscles and clear to auscultation bilaterally Auscultation: Negative for rales, rhonchi or wheezes Cardio regular rate, regular rhythm, S1 normal heart sound, S2 normal heart sound, no murmurs, no rub and no gallops GI normal to inspection, nondistended, normoactive bowel sounds, soft to palpation, non-tender and non-distended Skin no rashes or lesions noted Neuro oriented x3, CN's II-XII intact bilaterally, moves all extremities, no focal motor deficits and no sensory deficits noted Sensorium / Orientation: awake and alert Speech: speech normal Psych affect normal Assessment & Plan Assessment/Plan (1) PAF (paroxysmal atrial fibrillation): PLAN: Plan 1. 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 #5 use of chronic anticoagulants-patient is on Eliquis Total clinical time spent by myself addressing patient's medical issues, reviewing all of her data, and collaborating with patient's care team: 35-minute Charges/Coding Visit Charges Inpatient E&M: 06493 Subs Hosp L2
[2023-08-20] MEDS: dilTIAZem CD 240 MG Capsule PO (22:35)
[2023-08-21] VITALS (10 sets, daily range): BP systolic 121–144; BP diastolic 52–70; PULSE 60–100; RESP 16–18; TEMP 36.3–36.9; O2SAT 92–98
[2023-08-21] MEDS: HYDROcodone Bitartrate/Apap 5/325 Tablet PO ×4 (03:34→21:52)
--- NOTE | 2023-08-21 06:20 | PCM.PN.ORT ---
Subjective Subjective The patient was sitting in bed upon examination. Patient denies any chest pain, shortness of breath, dizziness, lightheadedness, nausea or vomiting, or calf pain. Patient states the dizziness has resolved today. We changed pain medications yesterday from oxycodone to hydrocodone/acetaminophen. Pain is controlled on medications. She does state that when she is up moving she has increased pain. No adverse overnight events. Normal wound VAC was placed yesterday and there is approximately 50 mL in the canister. Plan is for patient to go to [facility] transitional care unit. We are awaiting pre-CERT from insurance. Objective Data Objective Data Vital Signs: Vital Signs Temp Pulse Resp BP Pulse Ox O2 Del Method O2 Flow Rate 97.8 F 60 16 121/63 H 94 Room Air 2 08/21/23 03:29 08/21/23 03:29 08/21/23 03:08/21/23 03:08/21/23 03:08/21/23 03:08/19/23 16:10 Oxygen Flow Rate (L/min) 2 Oxygen Delivery Method Room Air Weight: 96.615 kg Body Mass Index (BMI) 35.4 Intake & Output: Intake and Output for Last 24 Hours 08/19/23 08/20/23 08/21/23 23:59 23:59 23:59 Intake Total 2962 / 2962 1850 / 1850 Balance 2962 / 2962 1850 / 1850 Lab / Micro Data 08/20/23 06:13 08/20/23 06:13 Labs: Laboratory Results - last 24 hr 08/20/23 06:13: WBC 12.0 H, RBC 3.11 L, Hgb 9.5 L, Hct 30.0 L, MCV 96.5, MCH 30.5, MCHC 31.7 L, RDW Std Deviation 50.5 H, RDW Coeff of Mari 14.4, Plt Count 211, MPV 10.7, Sodium 141, Potassium 4.9, Chloride 108 H, Carbon Dioxide 25.0, Anion Gap 8, BUN 26 H, Creatinine 1.01, Estim Creat Clear Calc 48.53, Est GFR (MDRD) Af Amer 67, Est GFR (MDRD) Non-Af 56 L, BUN/Creatinine Ratio 25.7 H, Glucose 150 H, Calcium 8.7 Micro: Microbiology 07/30/23 13:21 Swab (Method) Nasal Screen MRSA/MSSA - Final Physical Exam Narrative Vital signs stable and afebrile. SCDs and CALVIN hose are in place bilaterally Patient is able to plantarflex and dorsiflex actively. Sensation is intact to light touch to saphenous, sural, superficial and deep peroneal, and tibial distribution. Wound VAC in place with approximately 50 mL in canister Negative Homans bilaterally, negative signs and symptoms of DVT. Const alert, oriented x3 and no apparent distress Assessment & Plan Assessment/Plan (1) Status post total left knee replacement: PLAN: 1. S/P left total knee arthroplasty POD #2 2. Continue Pain Medications: Patient has been tolerating the hydrocodone/acetaminophen. She states the dizziness has resolved today. We are unable to use nonsteroidal anti-inflammatories as patient does have elevated kidney function and decreased GFR with no official diagnosis of chronic kidney disease. 3. DVT Prophylaxis: Patient is resuming her Eliquis twice daily for atrial fibrillation. This will cover her for DVT prophylaxis 4. PT/OT: Weightbearing as tolerated with walker. Appreciate recommendations from physical therapy for appropriate discharge planning. There is concern for safety with patient going home as she has a fall risk. 5. H & H: Awaiting lab results this morning. Yesterday 9.5/30.0, she is currently asymptomatic. Patient does have history of iron deficiency anemia. She takes at home iron complex. She will continue on this medication. I do recommend that patient follow-up with the primary care provider 3-4 weeks upon discharge for repeat lab work and continued follow-up and management. Patient's vitals are stable. She is currently asymptomatic 6. Reactive leukocytosis: Awaiting lab results this morning. Yesterday was 12.0, Afebrile. Patient did receive Decadron intraoperatively. No clinical signs of infection. 7. Postoperative wound drainage: Patient did have a traditional wound VAC placed by the wound nurse yesterday. We will continue with this with dressing changes on Thursday and . Continue settings with 125 mmHg at continuous setting. Patient has significant edema in the bilateral lower extremities and this is necessary for appropriate wound healing. 8. Continue postoperative medical management per medicine 9. Encouraged Incentive Spirometry 10. Disposition: There is concern with discharge home for patient's safety as she is a fall risk and is having difficult time with pain and walking. Case management is currently involved with appropriate discharge planning. Appreciate recommendations from physical therapy. Plan is for discharge to [facility] transitional care unit and we are currently awaiting pre-CERT. Patient will continue on all above medications. We did switch her narcotic medication from oxycodone to hydrocodone/acetaminophen in which she is tolerating better. She does have increased pain however when taking the medications this does help her pain. Case management also has scheduled follow-up appointments with the primary care physician for continued monitoring of her labs and anemia. We will prep for patient to be discharged to care home facility. Narcotic pain medication will be placed on chart with the med [facility]. Patient will follow-up per postoperative instructions. She has been informed to contact her office with any concerns upon discharge. I have reviewed the [place] Automated Rx Reporting System (OARRS) report for this patient for refill pattern and other prescriber involvement as part of the appropriate surveillance for the provision of acute and chronic controlled medications. The report was requested and reviewed on the date of this entry and was considered in the prescribing process. This dictation was created using voice recognition software. Phonetic and/or grammatical errors may exist. (2) Iron deficiency anemia, unspecified: (3) Edema leg:
[2023-08-21 06:23] LABS: Hematocrit 30.2 % (37-47); Hemoglobin 9.4 g/dL (12.0-15.0); Mean Corp Hgb Conc 31.1 g/dL (32-36); Mean Corpuscular Hgb 30.5 pg (27.0-32.0); Mean Corpuscular Volume 98.1 fL (81-99); Mean Platelet Vol. 10.1 fl (6.2-12.0); Platelet Count 229 K/mm3 (150-450); RBC Distribution Width CV 14.7 % (11.6-14.6); RBC Distribution Width SD 53.3 fl (35.1-43.9); Red Blood Count 3.08 M/mm3 (4.2-5.4); White Blood Count 13.6 K/mm3 (4.4-11.0)
--- NOTE | 2023-08-21 06:26 | TREXTCAR_ITS ---
Diet Diet Order/Speech Therapy: 08/20/23 04:36 Diet: Regular - General Is pt able to select menu?: Yes Routine Orders/Code Status Routine Lab Work: CBC (Repeat CBC 3-4 days) and BMP (Repeat BMP 3-4 days) Code Status: Full Code Wound(s) LEFT KNEE: Wound Type: Surgical Incision (Status post left total knee arthroplasty August 19, 2023) Dressing Change: applied KCI wound VAC (Continuous setting at 125 mmHg with dressing changes on Thursday and ) Therapies Weight Bearing: Weight bearing as tolerated (With walker) Extremity Affected:: Left Lower Physical Therapy: Eval and Treat Occupational Therapy: Eval and Treat Problem/Diagnosis (1) Status post total left knee replacement: Status: Acute Code(s): Z96.652 - Presence of left artificial knee joint Plan: 1. S/P left total knee arthroplasty POD #2 2. Continue Pain Medications: Patient has been tolerating the hydrocodone/acetaminophen. She states the dizziness has resolved today. We are unable to use nonsteroidal anti-inflammatories as patient does have elevated kidney function and decreased GFR with no official diagnosis of chronic kidney disease. 3. DVT Prophylaxis: Patient is resuming her Eliquis twice daily for atrial fibrillation. This will cover her for DVT prophylaxis 4. PT/OT: Weightbearing as tolerated with walker. Appreciate recommendations from physical therapy for appropriate discharge planning. There is concern for safety with patient going home as she has a fall risk. 5. H & H: Awaiting lab results this morning. Yesterday 9.5/30.0, she is currently asymptomatic. Patient does have history of iron deficiency anemia. She takes at home iron complex. She will continue on this medication. I do recommend that patient follow-up with the primary care provider 3-4 weeks upon discharge for repeat lab work and continued follow-up and management. Patient's vitals are stable. She is currently asymptomatic 6. Reactive leukocytosis: Awaiting lab results this morning. Yesterday was 12.0, Afebrile. Patient did receive Decadron intraoperatively. No clinical signs of infection. 7. Postoperative wound drainage: Patient did have a traditional wound VAC placed by the wound nurse yesterday. We will continue with this with dressing changes on Thursday and . Continue settings with 125 mmHg at continuous setting. Patient has significant edema in the bilateral lower extremities and this is necessary for appropriate wound healing. 8. Continue postoperative medical management per medicine 9. Encouraged Incentive Spirometry 10. Disposition: There is concern with discharge home for patient's safety as she is a fall risk and is having difficult time with pain and walking. Case management is currently involved with appropriate discharge planning. Appreciate recommendations from physical therapy. Plan is for discharge to [facility] transitional care unit and we are currently awaiting pre-CERT. Patient will continue on all above medications. We did switch her narcotic medication from oxycodone to hydrocodone/acetaminophen in which she is tolerating better. She does have increased pain however when taking the medications this does help her pain. Case management also has scheduled follow- up appointments with the primary care physician for continued monitoring of her labs and anemia. We will prep for patient to be discharged to long-term facility. Narcotic pain medication will be placed on chart with the med rec. Patient will follow-up per postoperative instructions. She has been informed to contact her office with any concerns upon discharge. I have reviewed the [place] Automated Rx Reporting System (OARRS) report for this patient for refill pattern and other prescriber involvement as part of the appropriate surveillance for the provision of acute and chronic controlled medications. The report was requested and reviewed on the date of this entry and was considered in the prescribing process. This dictation was created using voice recognition software. Phonetic and/or grammatical errors may exist. (2) Iron deficiency anemia, unspecified: Status: Acute Code(s): D50.9 - Iron deficiency anemia, unspecified (3) Edema leg: Status: Acute Code(s): R60.0 - Localized edema Allergies/Procedures Done in Hospital Allergies valsartan Allergy (Mild, Verified 08/19/23 06:55) Rash Procedures: - (Left total knee arthroplasty) Type of Care/Length of Stay Estimated LOS: Convalescent Care Less Than 30 days Type of Care Needed: Skilled Rehab Potential: Good Prognosis: Good Additional Orders/Day of Discharge Day of Discharge: 08/25/23 Discharge Plan Admission Admit Date/Time: 08/19/23 07:02 Attending Provider: Chaitanya Skinner Primary Care Provider: Philipp Boogie Chi [employer] Providers: Turner Ga; Jasen Hoyt; Rom Hampton Discharge Orders/Prescriptions Prescriptions: New hydrocodone-acetaminophen 5-325 mg Tablet 2 tab PO Q6H PRN PRN (Reason: Pain Score 1-5) 7 Days Qty: 42 0RF Rx Instructions: Take 1-2 tablets by mouth every 6 hours as needed for pain Ensure Surgery 0.08-1.4 gram-kcal/mL Liquid 237 ml PO DAILY Qty: 0 0RF sennosides-docusate sodium [Stool Softener-Stimulant Laxat] 8.6-50 mg Tablet 2 tab PO BID Qty: 0 0RF Rx Instructions: Take until first bowel movement, then as needed for constipation Continued furosemide 40 mg tablet 20 mg PO DAILY PRN PRN (Reason: edema) Patient Comments: take 1 tablet by mouth once daily metoprolol tartrate 25 mg tablet 12.5 mg PO BID diltiazem HCl 240 mg tablet extended release 24 hr 240 mg PO QHS Patient Comments: take 1 tablet by mouth at bedtime multivitamin Tablet 1 tab PO DAILY calcium carbonate-vitamin D3 500 mg(1,250mg) -125 unit Tablet 2 tab PO DAILY Eliquis 5 mg Tablet 5 mg PO BID 30 Days Qty: 60 0RF Hold Instructions: Resume on 02/19/23. hydrochlorothiazide 12.5 mg capsule 12.5 mg PO DAILY Qty: 30 0RF omeprazole 40 mg capsule,delayed release(DR/EC) 40 mg PO DAILY Patient Comments: take 1 capsule by mouth once daily polysaccharide iron complex [iFerex 150] 150 mg iron capsule 150 mg PO DAILY Patient Comments: take 1 capsule by mouth once daily potassium chloride 20 mEq tablet extended release 10 meq PO DAILY Patient Comments: take 1 tablet by mouth once daily Discontinued acetaminophen 500 mg Tablet 1,000 mg PO Q6H PRN PRN (Reason: Pain Score 1-10) Qty: 0 0RF Other Ambulatory Orders: 12 Lead EKG (Routine) Timeframe: [id number] Location: None Selected Ordered By: Dr. Rom Hampton Referrals / Follow Up: Philipp Boogie Chi, MD [Primary Care Provider] - 09/15/23 11:40 am Yifan Meyer PA-C [Med Staff - Adv Practice Prof] - 09/03/23 2:15 pm Disposition Disposition (needs filled in before D/C Order can be placed): [facility]
[2023-08-21 07:11] LABS: Anion Gap 4 (5-15); BUN 29 mg/dL (7-18); BUN/Creat Ratio 27.1 RATIO (10-20); Calcium,Total 8.5 mg/dL (8.5-10.1); Chloride 108 mmol/L (98-107); Creatinine, Serum 1.07 mg/dL (0.55-1.02); EST Glomerular Filtration Rate 52 mL/min (>60); Est Glom Filt Rate - Afr Amer 63 mL/min (>60); Estimated Creatinine Clearance 45.81 ml/min; Glucose 111 mg/dL (74-106); Sodium Level 140 mmol/L (136-145)
[2023-08-21] MEDS: Potassium Chloride Oral Tablet 10 MEQ PO (09:27)
[2023-08-21] MEDS: Ensure Surgery 237 ML LIQUID PO ×2 (09:27→16:05)
[2023-08-21] MEDS: Calcium Carb/Vitamin D 1 TABLET Tablet 2 TABLET PO (09:28)
[2023-08-21] MEDS: Multivitamins,Therapeutic Tablet 1 TABLET PO (09:28)
[2023-08-21] MEDS: hydroCHLOROthiazide 12.5mg 12.5 MG PO (09:28)
[2023-08-21] MEDS: APIXABAN 5 MG TABLET PO ×2 (09:28→21:38)
[2023-08-21] MEDS: Metoprolol Tartrate 25 MG Tablet 12.5 MG PO ×2 (09:29→21:39)
[2023-08-21] MEDS: Senna/Docusate Sodium 1 Tablet 2 TABLET PO ×2 (09:32→21:38)
[2023-08-21] MEDS: Famotidine 20 MG Tablet PO (09:32)
[2023-08-21] MEDS: Pantoprazole Sodium 40 MG Tablet PO (09:32)
--- NOTE | 2023-08-21 11:06 | NURSING ---
Pt in chair resting and calls out stating that she is not feeling well. She feels shaky and awful. Nurse noted no shaking at this time VS wnl. Pt is asked to specify what awful feeling she is feeling she is unable to state. She says that all the therapy girls are gone and she is alone states she is not anxious at this time. She has said maybe its the vicodin that is making her feel this way. Pt was notified that she has had this pain med yesterday and early am and no reported symptoms. FAVIO Rosas called and notified no new orders noted.
[2023-08-21] MEDS: Iron Polysaccharide Complex 150 MG CAPSULE PO (13:16)
--- NOTE | 2023-08-21 14:35 | CASEMGMT ---
Social Work- SW met with pt to notify her of TCU acceptance. KATHLEEN Mccollum
--- NOTE | 2023-08-21 16:50 | PN.HOSP_ITS ---
Reason for Visit Reason for Visit: Diagnoses Iron deficiency anemia, unspecified (08/19/23) Paroxysmal atrial fibrillation (08/19/23) Dizziness and giddiness (08/19/23) Localized edema (08/19/23) Encounter for other preprocedural examination (08/19/23) Presence of left artificial knee joint (08/19/23) Subjective Subjective Patient was seen and examined today, patient complains of some shortness of breath when she gets up to ambulate, she also continues to complain of surgical knee discomfort when she ambulates. Objective Data Objective Data Vital Signs: Vital Signs Temp Pulse Resp BP Pulse Ox O2 Del Method O2 Flow Rate 98.5 F 90 18 144/52 H 96 Room Air 2 08/21/23 15:10 08/21/23 15:10 08/21/23 15:10 08/21/23 15:10 08/21/23 15:10 08/21/23 15:10 08/19/23 16:10 Oxygen Flow Rate (L/min) 2 Oxygen Delivery Method Room Air Weight: 96.615 kg Body Mass Index (BMI) 35.4 Intake & Output: Intake and Output for Last 24 Hours 08/19/23 08/20/23 08/21/23 23:59 23:59 23:59 Intake Total 2962 / 2962 1850 / 1850 750 / 750 Balance 2962 / 2962 1850 / 1850 750 / 750 Lab / Micro Data 08/21/23 06:05 08/21/23 06:05 Labs: Laboratory Results - last 24 hr 08/21/23 06:05: WBC 13.6 H, RBC 3.08 L, Hgb 9.4 L, Hct 30.2 L, MCV 98.1, MCH 30.5, MCHC 31.1 L, RDW Std Deviation 53.3 H, RDW Coeff of Mari 14.7 H, Plt Count 229, MPV 10.1, Sodium 140, Potassium 4.0, Chloride 108 H, Carbon Dioxide 28.0, Anion Gap 4 L, BUN 29 H, Creatinine 1.07 H, Estim Creat Clear Calc 45.81, Est GFR (MDRD) Af Amer 63, Est GFR (MDRD) Non-Af 52 L, BUN/Creatinine Ratio 27.1 H, Glucose 111 H, Calcium 8.5 Micro: Microbiology 07/30/23 13:21 Swab (Method) Nasal Screen MRSA/MSSA - Final Physical Exam Narrative alert, oriented x3 and no apparent distress General Appearance: cooperative, well kempt and well developed Orientation / Consciousness: awake, oriented to person, oriented to place and oriented to time HEENT normocephalic, head/scalp atraumatic and moist oral mucous membranes Eyes PERRL, EOMs intact bilaterally and conjunctivae normal Neck supple, no JVD, thyroid normal and no carotid bruits General: trachea midline Resp normal respiratory effort, no retractions, no use of accessory muscles and clear to auscultation bilaterally Auscultation: Negative for rales, rhonchi or wheezes Cardio regular rate, regular rhythm, S1 normal heart sound, S2 normal heart sound, no m urmurs, no rub and no gallops GI normal to inspection, nondistended, normoactive bowel sounds, soft to palpation, non-tender and non-distended Skin no rashes or lesions noted Neuro oriented x3, CN's II-XII intact bilaterally, moves all extremities, no focal motor deficits and no sensory deficits noted Sensorium / Orientation: awake and alert Speech: speech normal Psych affect normal Assessment & Plan Assessment/Plan (1) Status post total left knee replacement: (2) PAF (paroxysmal atrial fibrillation): PLAN: Plan 1. 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 #2 essential hypertension-patient will remain on her present medication #3 osteoarthritis-complicates care, management, recovery, and prognosis #4 status post left knee minimally invasive robotic assisted total knee replacement postop day #2-patient is being seen by PT and OT, she is planning on going to TCU for rehab services, this will not happen until Thursday or Thursday of next week #5 use of chronic anticoagulants-patient is on Eliquis Total clinical time spent by myself addressing patient's medical issues, reviewing all of her data, and collaborating with patient's care team: 35-minute Charges/Coding Visit Charges Inpatient E&M: 27637 Subs Hosp L2
[2023-08-21] MEDS: Morphine 2 MG/ML Syringe IV (19:38)
[2023-08-21] MEDS: dilTIAZem CD 240 MG Capsule PO (21:39)
[2023-08-22 03:13] VITALS: BP 134/62; PULSE 78; RESP 16; TEMP 36.6; O2SAT 94
[2023-08-22] MEDS: HYDROcodone Bitartrate/Apap 5/325 Tablet PO ×3 (05:17→20:05)
[2023-08-22 08:00] VITALS: BP 134/64; PULSE 81; RESP 18; TEMP 36.2; O2SAT 96
[2023-08-22 08:06] VITALS: PULSE 81
[2023-08-22] MEDS: Famotidine 20 MG Tablet PO (08:06)
[2023-08-22] MEDS: Ensure Surgery 237 ML LIQUID PO ×2 (08:06→16:29)
[2023-08-22] MEDS: Potassium Chloride Oral Tablet 10 MEQ PO (08:06)
[2023-08-22] MEDS: Senna/Docusate Sodium 1 Tablet 2 TABLET PO ×2 (08:06→20:09)
[2023-08-22] MEDS: Calcium Carb/Vitamin D 1 TABLET Tablet 2 TABLET PO (08:06)
[2023-08-22] MEDS: Multivitamins,Therapeutic Tablet 1 TABLET PO (08:06)
[2023-08-22] MEDS: Metoprolol Tartrate 25 MG Tablet 12.5 MG PO ×2 (08:06→20:07)
[2023-08-22] MEDS: APIXABAN 5 MG TABLET PO ×2 (08:07→20:07)
[2023-08-22] MEDS: Iron Polysaccharide Complex 150 MG CAPSULE PO (08:07)
[2023-08-22] MEDS: Pantoprazole Sodium 40 MG Tablet PO (08:07)
[2023-08-22] MEDS: hydroCHLOROthiazide 12.5mg 12.5 MG PO (08:07)
--- NOTE | 2023-08-22 11:01 | PN.ORTHO_ITS ---
Subjective Subjective Patient doing well. No acute events overnight. Labs and as needed return labs remained stable. Continues to complain of pain in the operative knee. Objective Data Objective Data Vital Signs: Vital Signs Temp Pulse Resp BP Pulse Ox O2 Del Method O2 Flow Rate 97.2 F L 81 18 134/64 H 96 Room Air 2 08/22/23 08:00 08/22/23 08:06 08/22/23 08:00 08/22/23 08:00 08/22/23 08:00 08/22/23 08:00 08/19/23 16:10 Oxygen Flow Rate (L/min) 2 Oxygen Delivery Method Room Air Weight: 213 lb Body Mass Index (BMI) 35.4 Intake & Output: Intake and Output for Last 24 Hours 08/20/23 08/21/23 08/22/23 23:59 23:59 23:59 Intake Total 1850 / 1850 750 / 950 400 / 400 Balance 1850 / 1850 750 / 950 400 / 400 Lab / Micro Data 08/21/23 06:05 08/21/23 06:05 Micro: Microbiology 07/30/23 13:21 Swab (Method) Nasal Screen MRSA/MSSA - Final Physical Exam Const alert, oriented x3 and no apparent distress Extremity Extremity Narrative: Left lower extremity: Dressing is clean dry and intact Sensations intact to light touch saphenous, sural, superficial peroneal, deep peroneal, and tibial distributions Motors intact EHL, DF, PF calves are soft and supple Edema well-controlled. Assessment & Plan Assessment/Plan (1) Status post total left knee replacement: PLAN: 1. S/P left total knee arthroplasty POD #3 2. Continue Pain Medications: Patient has been tolerating the hydrocodone/acetaminophen. We are unable to use nonsteroidal anti- inflammatories as patient does have elevated kidney function and decreased GFR with no official diagnosis of chronic kidney disease. 3. DVT Prophylaxis: Patient is resuming her Eliquis twice daily for atrial fibrillation. This will cover her for DVT prophylaxis 4. PT/OT: Weightbearing as tolerated with walker. Appreciate recommendations from physical therapy for appropriate discharge planning. There is concern for safety with patient going home as she has a fall risk. Patient is walking 8 feet with contact-guard with most recent therapy assessment. Did speak with the occupational therapist today she was able to walk 15 feet to the restroom with difficulty raising from her reclining seat. 5. H & H: Labs are stable. Patient does have history of iron deficiency anemia. She takes at home iron complex. She will continue on this medication. I do recommend that patient follow-up with the primary care provider 3-4 weeks upon discharge for repeat lab work and continued follow-up and management. Patient's vitals are stable. She is currently asymptomatic 6. Reactive leukocytosis: White blood cell count 13.6 yesterday. Likely in relation to acute surgical event and Decadron administration. 7. Postoperative wound drainage: Patient did have a traditional wound VAC place d by the wound nurse yesterday. Minimal change in amount of fluid from yesterday's reported amount in the canister. We will continue with this with dressing changes on Thursday and . Continue settings with 125 mmHg at continuous setting. Patient has significant edema in the bilateral lower extremities and this is necessary for appropriate wound healing. 8. Continue postoperative medical management per medicine 9. Encouraged Incentive Spirometry 10. Disposition: There is concern with discharge home for patient's safety as she is a fall risk and is having difficult time with pain and walking. Case management is currently involved with appropriate discharge planning. Appreciate recommendations from physical therapy. Plan is for discharge to [facility] transitional care unit and we are currently awaiting pre-CERT. Based on most recent physical therapy and occupational therapy assessments this plan remains intact. Patient will continue on all above medications. She does have increased pain however when taking the medications this does help her pain. Case management also has scheduled follow-up appointments with the primary care physician for continued monitoring of her labs and anemia. We will prep for patient to be discharged to shelter facility. Narcotic pain medication will be placed on chart with the [facility]. Patient will follow-up per postoperative instructions. She has been informed to contact her office with any concerns upon discharge. I have reviewed the [place] Automated Rx Reporting System (OARRS) report for this patient for refill pattern and other prescriber involvement as part of the appropriate surveillance for the provision of acute and chronic controlled medications. The report was requested and reviewed on the date of this entry and was considered in the prescribing process. This dictation was created using voice recognition software. Phonetic and/or grammatical errors may exist. (2) Iron deficiency anemia, unspecified: (3) Edema leg:
[2023-08-22 14:16] VITALS: BP 129/63; PULSE 84; RESP 18; TEMP 36.4; O2SAT 94
[2023-08-22] MEDS: dilTIAZem CD 240 MG Capsule PO (20:06)
[2023-08-22 20:07] VITALS: BP 156/72; PULSE 99
[2023-08-22 20:25] VITALS: BP 156/72; PULSE 99; RESP 18; TEMP 36.6; O2SAT 95
[2023-08-23] MEDS: HYDROcodone Bitartrate/Apap 5/325 Tablet PO ×3 (03:09→20:20)
[2023-08-23 03:16] VITALS: BP 155/68; PULSE 89; RESP 18; TEMP 37.1; O2SAT 95
[2023-08-23] MEDS: Ensure Surgery 237 ML LIQUID PO (07:39)
[2023-08-23 07:40] VITALS: PULSE 83
[2023-08-23] MEDS: Calcium Carb/Vitamin D 1 TABLET Tablet 2 TABLET PO (07:40)
[2023-08-23] MEDS: Metoprolol Tartrate 25 MG Tablet 12.5 MG PO ×2 (07:40→20:20)
[2023-08-23] MEDS: hydroCHLOROthiazide 12.5mg 12.5 MG PO (07:40)
[2023-08-23] MEDS: APIXABAN 5 MG TABLET PO ×2 (07:40→20:20)
[2023-08-23] MEDS: Multivitamins,Therapeutic Tablet 1 TABLET PO (07:40)
[2023-08-23] MEDS: Iron Polysaccharide Complex 150 MG CAPSULE PO (07:40)
[2023-08-23] MEDS: Potassium Chloride Oral Tablet 10 MEQ PO (07:40)
[2023-08-23] MEDS: Pantoprazole Sodium 40 MG Tablet PO (07:41)
[2023-08-23] MEDS: Famotidine 20 MG Tablet PO (07:41)
[2023-08-23] MEDS: Senna/Docusate Sodium 1 Tablet 2 TABLET PO ×2 (07:41→20:21)
[2023-08-23 09:00] VITALS: BP 138/67; PULSE 83; RESP 18; TEMP 36.8; O2SAT 96
--- NOTE | 2023-08-23 12:27 | PCM.PN.ORT ---
Subjective Subjective Patient doing overall well. No acute events overnight. Does complain of some right hip pain when sits in recliner too long. Objective Data Objective Data Vital Signs: Vital Signs Temp Pulse Resp BP Pulse Ox O2 Del Method O2 Flow Rate 98.2 F 83 18 138/67 H 96 Room Air 2 08/23/23 09:00 08/23/23 09:00 08/23/23 09:00 08/23/23 09:00 08/23/23 09:00 08/23/23 09:00 08/19/23 16:10 Oxygen Flow Rate (L/min) 2 Oxygen Delivery Method Room Air Weight: 213 lb Body Mass Index (BMI) 35.4 Intake & Output: Intake and Output for Last 24 Hours 08/21/23 08/22/23 08/23/23 23:59 23:59 23:59 Intake Total 750 / 950 400 / 400 Balance 750 / 950 400 / 400 Lab / Micro Data 08/21/23 06:05 08/21/23 06:05 Micro: Microbiology 07/30/23 13:21 Swab (Method) Nasal Screen MRSA/MSSA - Final Physical Exam Const alert and oriented x3 Extremity Extremity Narrative: Right lower extremity: Wound VAC dressing is clean dry and intact no surrounding erythema. Level of drainage in canister is stable. Sensations intact to light touch saphenous, sural, superficial peroneal, deep peroneal, and tibial distributions Motors intact EHL, DF, PF calves are soft and supple Assessment & Plan Assessment/Plan (1) Status post total left knee replacement: PLAN: 1. S/P left total knee arthroplasty POD #4 2. Continue Pain Medications: Patient has been tolerating the hydrocodone/acetaminophen. We are unable to use nonsteroidal anti-inflammatories as patient does have elevated kidney function and decreased GFR with no official diagnosis of chronic kidney disease. 3. DVT Prophylaxis: Patient is resuming her Eliquis twice daily for atrial fibrillation. This will cover her for DVT prophylaxis 4. PT/OT: Weightbearing as tolerated with walker. progressed to 1 assist today for restroom ambulation. Appreciate recommendations from physical therapy for appropriate discharge planning. There is concern for safety with patient going home as she has a fall risk. Patient is walking 15 feet with assistance with most recent therapy assessment. Recommended patient alternate between bed and recliner today to minimize pressure points on hip. 5. H & H: Labs are stable. Patient does have history of iron deficiency anemia. She takes at home iron complex. She will continue on this medication. I do recommend that patient follow-up with the primary care provider 3-4 weeks upon discharge for repeat lab work and continued follow-up and management. Patient's vitals are stable. She is currently asymptomatic 6. Reactive leukocytosis: White blood cell count 13.6 most recent labs. Likely in relation to acute surgical event and Decadron administration. 7. Postoperative wound drainage: Patient did have a traditional wound VAC placed by the wound nurse yesterday. Minimal change in amount of fluid from yesterday's reported amount in the canister. We will continue with this with dressing changes on Thursday and . Continue settings with 125 mmHg at continuous setting. Patient has significant edema in the bilateral lower extremities and this is necessary for appropriate wound healing. 8. Continue postoperative medical management per medicine 9. Encouraged Incentive Spirometry 10. Disposition: There is concern with discharge home for patient's safety as she is a fall risk and is having difficult time with pain and walking as well as poor motivation. Case management is currently involved with appropriate discharge planning. Appreciate recommendations from physical therapy. Plan is for discharge to [facility] transitional care unit and we are currently awaiting pre-CERT. Based on most recent physical therapy and occupational therapy assessments this plan remains intact. Patient will continue on all above medications. She does have increased pain however when taking the medications this does help her pain. Case management also has scheduled follow-up appointments with the primary care physician for continued monitoring of her labs and anemia. We will prep for patient to be discharged to custodial facility. Narcotic pain medication will be placed [facility]. Patient will follow-up per postoperative instructions. She has been informed to contact her office with any concerns upon discharge. I have reviewed the [place] Automated Rx Reporting System (OARRS) report for this patient for refill pattern and other prescriber involvement as part of the appropriate surveillance for the provision of acute and chronic controlled medications. The report was requested and reviewed on the date of this entry and was considered in the prescribing process. This dictation was created using voice recognition software. Phonetic and/or grammatical errors may exist. (2) Iron deficiency anemia, unspecified: (3) Edema leg:
--- NOTE | 2023-08-23 13:04 | PCM.PN.HOSP ---
Reason for Visit Reason for Visit: Diagnoses Iron deficiency anemia, unspecified (08/19/23) Paroxysmal atrial fibrillation (08/19/23) Dizziness and giddiness (08/19/23) Localized edema (08/19/23) Encounter for other preprocedural examination (08/19/23) Presence of left artificial knee joint (08/19/23) Subjective Subjective Complaining of leg pain when SCDs inflate. Feel miserable overall. Objective Data Objective Data Vital Signs: Vital Signs Temp Pulse Resp BP Pulse Ox O2 Del Method O2 Flow Rate 36.8 C 83 18 138/67 H 96 Room Air 2 08/23/23 09:00 08/23/23 09:00 08/23/23 09:00 08/23/23 09:00 08/23/23 09:00 08/23/23 09:00 08/19/23 16:10 Oxygen Flow Rate (L/min) 2 Oxygen Delivery Method Room Air Weight: 96.615 kg Body Mass Index (BMI) 35.4 Intake & Output: Intake and Output for Last 24 Hours 08/21/23 08/22/23 08/23/23 23:59 23:59 23:59 Intake Total 750 / 950 400 / 400 Balance 750 / 950 400 / 400 Lab / Micro Data 08/21/23 06:05 08/21/23 06:05 Micro: Microbiology 07/30/23 13:21 Swab (Method) Nasal Screen MRSA/MSSA - Final Physical Exam Const alert Constitutional Narrative: non-toxic. afebrile. HEENT head/scalp atraumatic Resp normal respiratory effort Extremity Extremity Narrative: minimal LE edema. TTP medial right calf w/o palpable cord. I did loosen up the right SCD and she felt better. Neuro Sensorium / Orientation: awake and alert Assessment & Plan Assessment/Plan (1) Status post total left knee replacement: (2) PAF (paroxysmal atrial fibrillation): PLAN: Plan Dizziness resolved. like due to anesthesia s/p L TKA mgmt per ortho VTE prophylaxis: apixaban. can discontinue SCDs from my perspective Chronic conditions: afib: anticoagulated w apixaban. continue diltiazem, metoprolol tartrate GERD: continue PPI anemia: monitor Medically stable for discharge. Awaiting on insurance authorization. Charges/Coding Visit Charges Inpatient E&M: 08412 [facility] Hosp L1
[2023-08-23 15:00] VITALS: BP 139/70; PULSE 82; RESP 18; TEMP 36.3; O2SAT 97
[2023-08-23 20:15] VITALS: BP 133/61; PULSE 74; PULSE 82; RESP 18; TEMP 37.1; O2SAT 95
[2023-08-23 20:20] VITALS: BP 133/61; PULSE 97
[2023-08-23] MEDS: dilTIAZem CD 240 MG Capsule PO (20:20)
--- NOTE | 2023-08-23 22:23 | NURSING ---
Pt refusing to wear grippy sock on left foot. Reports R hip pain along w/ knee pain. Attempted to help patient by repositioning, pt states tressa tried that it wont work
[2023-08-24] VITALS (8 sets, daily range): BP systolic 139–143; BP diastolic 57–71; PULSE 83–89; RESP 15–18; TEMP 36.4–37.2; O2SAT 94–97
[2023-08-24] MEDS: HYDROcodone Bitartrate/Apap 5/325 Tablet PO ×3 (02:48→21:06)
--- NOTE | 2023-08-24 08:14 | WOUNDNOTE ---
wound photo: left knee
[2023-08-24] MEDS: Potassium Chloride Oral Tablet 10 MEQ PO (08:51)
[2023-08-24] MEDS: Multivitamins,Therapeutic Tablet 1 TABLET PO (08:52)
[2023-08-24] MEDS: hydroCHLOROthiazide 12.5mg 12.5 MG PO (08:52)
[2023-08-24] MEDS: Calcium Carb/Vitamin D 1 TABLET Tablet 2 TABLET PO (08:52)
[2023-08-24] MEDS: Iron Polysaccharide Complex 150 MG CAPSULE PO (08:52)
[2023-08-24] MEDS: APIXABAN 5 MG TABLET PO ×2 (08:52→21:05)
[2023-08-24] MEDS: Metoprolol Tartrate 25 MG Tablet 12.5 MG PO ×2 (08:53→21:05)
[2023-08-24] MEDS: Pantoprazole Sodium 40 MG Tablet PO (08:54)
[2023-08-24] MEDS: Senna/Docusate Sodium 1 Tablet 2 TABLET PO ×2 (08:54→21:05)
[2023-08-24] MEDS: Famotidine 20 MG Tablet PO (08:54)
--- NOTE | 2023-08-24 10:54 | PN.HOSP_ITS ---
Reason for Visit Reason for Visit: Diagnoses Iron deficiency anemia, unspecified (08/19/23) Paroxysmal atrial fibrillation (08/19/23) Dizziness and giddiness (08/19/23) Localized edema (08/19/23) Encounter for other preprocedural examination (08/19/23) Presence of left artificial knee joint (08/19/23) Subjective Subjective Patient is an 83-year-old lady who underwent left total knee arthroplasty the hospitalist service was consulted to assist with management of patient medical comorbidities Objective Data Objective Data Vital Signs: Vital Signs Temp Pulse Resp BP Pulse Ox O2 Del Method O2 Flow Rate 98.7 F 89 16 143/71 H 94 Room Air 2 08/24/23 08:15 08/24/23 08:53 08/24/23 08:15 08/24/23 08:15 08/24/23 08:15 08/24/23 08:15 08/19/23 16:10 Oxygen Flow Rate (L/min) 2 Oxygen Delivery Method Room Air Weight: 96.615 kg Body Mass Index (BMI) 35.4 Intake & Output: Intake and Output for Last 24 Hours 08/22/23 08/23/23 08/24/23 23:59 23:59 23:59 Intake Total 400 / 400 Balance 400 / 400 Lab / Micro Data 08/21/23 06:05 08/21/23 06:05 Micro: Microbiology 07/30/23 13:21 Swab (Method) Nasal Screen MRSA/MSSA - Final Physical Exam Narrative GENERAL: cooperative HEENT: Atraumatic; normocephalic EYES; Anicteric, Normal Conjunctiva NECK; supple, normal thyroid, RESPIRATORY: Diminished to auscultation CARDIOVASCULAR: Regular S1 S2, GI: soft, normoactive bowel sounds, : No Renal angle tenderness; EXTREMITIES: No edema, no clubbing, MUSCULOSKELETAL: no muscle wasting NEURO: Awake; no lateralizing signs. SKIN: No Rash PSYCH; Flat affect Assessment & Plan Assessment/Plan (1) Status post total left knee replacement: (2) PAF (paroxysmal atrial fibrillation): PLAN: Plan Patient is an 83-year-old lady who underwent left total knee arthroplasty the hospitalist service was consulted to assist with management of patient medical comorbidities 1. Status post left total knee arthroplasty ? Procedures performed on 08/19/[address] Hampton. Postoperative orders regarding pain management DVT prophylaxis as well as PT OT addressed by primary service 2. Physical deconditioning - Requested for PT OT eval and high school social science teacher to assist with discharge planning 3. Dizziness ? This was thought to be related to patient anesthesia has resolved 4. Paroxysmal A-fib ? Rate controlled. On systemic anticoagulation with apixaban did continue 6. Class II obesity with BMI of 35.4 ? Complicating care weight loss advised 7. GERD ? On PPI 8. Anemia - Secondary to chronic disorder monitoring H&H and transfuse if patient becomes symptomatic or hemoglobin falls below 7 9. DVT prophylaxis ? On apixaban Time spent in the patient's overall evaluation,decision-making process, review of diagnostic data, adjustment of management, discussion with other providers, nursing nursing and ancillary staff involved in patient's care documentation, 35 Minutes Charges/Coding Visit Charges Inpatient E&M: 52569 Subs Hosp L2
--- NOTE | 2023-08-24 11:37 | PCM.PN.ORT ---
Subjective Subjective Upon entering the room I found patient ambulating with a walker with the assistance of therapy. Patient states her knee has been painful but not well-controlled. Patient denies chest pain, shortness of breath, calf pain, nausea vomiting. Patient is anxious to be discharged to outpatient therapy. Awaiting insurance approval Objective Data Objective Data Vital Signs: Vital Signs Temp Pulse Resp BP Pulse Ox O2 Del Method O2 Flow Rate 98.7 F 89 16 143/71 H 94 Room Air 2 08/24/23 08:15 08/24/23 08:53 08/24/23 08:15 08/24/23 08:15 08/24/23 08:15 08/24/23 08:15 08/19/23 16:10 Oxygen Flow Rate (L/min) 2 Oxygen Delivery Method Room Air Weight: 96.615 kg Body Mass Index (BMI) 35.4 Intake & Output: Intake and Output for Last 24 Hours 08/22/23 08/23/23 08/24/23 23:59 23:59 23:59 Intake Total 400 / 400 Balance 400 / 400 Lab / Micro Data 08/21/23 06:05 08/21/23 06:05 Micro: Microbiology 07/30/23 13:21 Swab (Method) Nasal Screen MRSA/MSSA - Final Physical Exam Narrative Exam patient ambulating with a steady gait with use of a walker. Cranial nerves II to XII gross intact. Full range of motion the upper extremities. No respiratory distress, speaking in full sentences. The left thigh is soft mildly tender to palpation. The dressing is clean dry intact. Patient has no calf pain. Patient has full extension of the knee flexion to 85 degrees with pain. Neurovascular is otherwise intact. Const alert and oriented x3 General Appearance: cooperative HEENT normocephalic Eyes PERRL Resp normal respiratory effort Effort and Inspection: able to speak in complete sentences Extremity normal capillary refill Skin no rashes or lesions noted Neuro CN's II-XII intact bilaterally Psych mental status grossly normal and affect normal Assessment & Plan Assessment/Plan (1) Status post total left knee replacement: PLAN: 1. Continue all pain medications as prescribed 2. Continue Eliquis 5 mg 1 p.o. every 12 hours for postop DVT prophylaxis 3. Encourage incentive spirometry 4. Continue ice, CALVIN hose, SCDs 5. Continue physical therapy weight-bear as tolerated with walker 6. Waiting insurance approval for placement to [facility] 7. Discharge ECF when approved by insurance
--- NOTE | 2023-08-24 13:19 | CASEMGMT ---
Social Work SW spoke w/Radha in TCU, precert is still pending. SW let pt know, pt states understanding. SW will continue to follow. TERI Richards
--- NOTE | 2023-08-24 13:23 | CASEMGMT ---
Social Work SW spoke w/pt, let her know that [facility] did accept and started precert, and we are just waiting for the precert. Pt states understanding. TERI Richards
[2023-08-24] MEDS: Ensure Surgery 237 ML LIQUID PO (17:10)
[2023-08-24] MEDS: dilTIAZem CD 240 MG Capsule PO (21:06)
[2023-08-25 04:00] VITALS: BP 137/58; PULSE 70; RESP 15; TEMP 36.3; O2SAT 97
[2023-08-25 06:23] LABS: Absolute Lymphocyte Count 1.34 X10^3/uL (0.83-4.51); Absolute Neutrophil Count 6.6 X10^3/uL (2.0-7.7); Basophil# 0.04 X10^3/uL; Basophil% 0.4 % (0-1); Eosinophil# 0.47 X10^3/uL; Eosinophils% 4.8 % (0-5); Hematocrit 30.4 % (37-47); Hemoglobin 9.6 g/dL (12.0-15.0); Lymphocyte # 1.34 X10^3/ul (0.83-4.51); Lymphocyte % 13.7 % (19-41); Mean Corp Hgb Conc 31.6 g/dL (32-36); Mean Corpuscular Hgb 30.1 pg (27.0-32.0); Mean Corpuscular Volume 95.3 fL (81-99); Mean Platelet Vol. 10.1 fl (6.2-12.0); Monocyte# 1.28 X10^3/uL; Monocyte% 13.1 % (0-10); NRBC Flagged by Analyzer 0 % (0-5); Neutrophil # 6.62 X10^3/uL (2.7-7.7); Neutrophil % 67.6 % (47-70); Platelet Count 274 K/mm3 (150-450); RBC Distribution Width CV 13.5 % (11.6-14.6); RBC Distribution Width SD 47.9 fl (35.1-43.9); Red Blood Count 3.19 M/mm3 (4.2-5.4); White Blood Count 9.8 K/mm3 (4.4-11.0)
[2023-08-25] MEDS: Ondansetron 4 MG/2 ML Vial IV (06:53)
[2023-08-25 06:54] LABS: Anion Gap 4 (5-15); BUN 15 mg/dL (7-18); BUN/Creat Ratio 19.2 RATIO (10-20); Chloride 103 mmol/L (98-107); Creatinine, Serum 0.78 mg/dL (0.55-1.02); EST Glomerular Filtration Rate 75 mL/min (>60); Est Glom Filt Rate - Afr Amer 91 mL/min (>60); Estimated Creatinine Clearance 61.27 ml/min; Glucose 115 mg/dL (74-106); Magnesium 1.9 mg/dL (1.6-2.6); Sodium Level 136 mmol/L (136-145)
[2023-08-25 07:30] VITALS: BP 118/54; PULSE 80; RESP 16; TEMP 36.7; O2SAT 95
[2023-08-25 07:32] VITALS: RESP 16
--- NOTE | 2023-08-25 07:44 | PCM.PN.HOSP ---
Reason for Visit Reason for Visit: Diagnoses Iron deficiency anemia, unspecified (08/19/23) Paroxysmal atrial fibrillation (08/19/23) Dizziness and giddiness (08/19/23) Localized edema (08/19/23) Encounter for other preprocedural examination (08/19/23) Presence of left artificial knee joint (08/19/23) Subjective Subjective Patient seen had a relatively uneventful night awaiting transfer to alf facility pending insurance approval Objective Data Objective Data Vital Signs: Vital Signs Temp Pulse Resp BP Pulse Ox O2 Del Method O2 Flow Rate 98.1 F 80 16 118/54 L 95 Room Air 2 08/25/23 07:30 08/25/23 07:30 08/25/23 07:32 08/25/23 07:30 08/25/23 07:30 08/25/23 07:32 08/19/23 16:10 Oxygen Flow Rate (L/min) 2 Oxygen Delivery Method Room Air Weight: 96.615 kg Body Mass Index (BMI) 35.4 Intake & Output: Intake and Output for Last 24 Hours 08/23/23 08/24/23 08/25/23 23:59 23:59 23:59 Intake Total 300 / 300 Balance 300 / 300 Lab / Micro Data 08/25/23 05:44 08/25/23 05:44 Labs: Laboratory Results - last 24 hr 08/25/23 05:44: WBC 9.8, RBC 3.19 L, Hgb 9.6 L, Hct 30.4 L, MCV 95.3, MCH 30.1, MCHC 31.6 L, RDW Std Deviation 47.9 H, RDW Coeff of Mari 13.5, Plt Count 274, MPV 10.1, Immature Gran % (Auto) 0.400, Neut % (Auto) 67.6, Lymph % (Auto) 13.7 L, [place] % (Auto) 13.1 H, Eos % (Auto) 4.8, Baso % (Auto) 0.4, Absolute Neuts (auto) 6.6, Absolute Lymphs (auto) 1.34, Nucleated RBC % 0, Sodium 136, Potassium 4.0, Chloride 103, Carbon Dioxide 29.0, Anion Gap 4 L, BUN 15, Creatinine 0.78, Estim Creat Clear Calc 61.27, Est GFR (MDRD) Af Amer 91, Est GFR (MDRD) Non-Af 75, BUN/Creatinine Ratio 19.2, Glucose 115 H, Calcium 9.0, Phosphorus 4.0, Magnesium 1.9 Micro: Microbiology 07/30/23 13:21 Swab (Method) Nasal Screen MRSA/MSSA - Final Physical Exam Narrative GENERAL: cooperative HEENT: Atraumatic; normocephalic EYES; Anicteric, Normal Conjunctiva NECK; supple, normal thyroid, RESPIRATORY: Diminished to auscultation CARDIOVASCULAR: Regular S1 S2, GI: soft, normoactive bowel sounds, : No Renal angle tenderness; EXTREMITIES: No edema, no clubbing, MUSCULOSKELETAL: no muscle wasting NEURO: Awake; no lateralizing signs. SKIN: No Rash PSYCH; Flat affect Assessment & Plan Assessment/Plan (1) Status post total left knee replacement: (2) PAF (paroxysmal atrial fibrillation): PLAN: Plan Patient is an 83-year-old lady who underwent left total knee arthroplasty the hospitalist service was consulted to assist with management of patient medical comorbidities 1. Status post left total knee arthroplasty ? Procedures performed on 08/19/[address] Hampton. Postoperative orders regarding pain management DVT prophylaxis as well as PT OT addressed by primary service ? 08/25/2023; seen pain is tolerable awaiting transfer to alf facility 2. Physical deconditioning - Requested for PT OT eval and social media campaign manager to assist with discharge planning 3. Dizziness ? This was thought to be related to patient anesthesia has resolved 4. Paroxysmal A-fib ? Rate controlled. On systemic anticoagulation with apixaban did continue 6. Class II obesity with BMI of 35.4 ? Complicating care weight loss advised 7. GERD ? On PPI 8. Anemia - Secondary to chronic disorder monitoring H&H and transfuse if patient becomes symptomatic or hemoglobin falls below 7 ? 08/25/2023; hemoglobin remained stable at 9.6 9. DVT prophylaxis ? On apixaban Time spent in the patient's overall evaluation,decision-making process, review of diagnostic data, adjustment of management, discussion with other providers, nursing nursing and ancillary staff involved in patient's care documentation, 35 Minutes Charges/Coding Visit Charges Inpatient E&M: 19488 Subs Hosp L2
[2023-08-25] MEDS: Calcium Carb/Vitamin D 1 TABLET Tablet 2 TABLET PO (08:28)
[2023-08-25] MEDS: Potassium Chloride Oral Tablet 10 MEQ PO (08:28)
[2023-08-25] MEDS: Multivitamins,Therapeutic Tablet 1 TABLET PO (08:28)
[2023-08-25] MEDS: Iron Polysaccharide Complex 150 MG CAPSULE PO (09:42)
[2023-08-25] MEDS: hydroCHLOROthiazide 12.5mg 12.5 MG PO (09:42)
[2023-08-25] MEDS: APIXABAN 5 MG TABLET PO (09:42)
[2023-08-25 09:43] VITALS: PULSE 80
[2023-08-25] MEDS: Metoprolol Tartrate 25 MG Tablet 12.5 MG PO (09:43)
[2023-08-25] MEDS: Senna/Docusate Sodium 1 Tablet 2 TABLET PO (09:44)
[2023-08-25] MEDS: Pantoprazole Sodium 40 MG Tablet PO (09:44)
[2023-08-25] MEDS: Famotidine 20 MG Tablet PO (09:44)
[2023-08-25] MEDS: HYDROcodone Bitartrate/Apap 5/325 Tablet PO (11:38)
--- NOTE | 2023-08-25 11:45 | CASEMGMT ---
Social Work We did get precert for pt to admit to TCU today. SW let pt know. SW spoke w/Dr. Hampton, to let him know he needs to cosign the transfer to extended care, he will do this sometime today. SW let pt know, she is agreeable to go today, SW offered to call family, she asked for SW to call daughter. SW called daughter Laura, let her know pt is going to TCU today, she is agreeable. TERI Richards
--- NOTE | 2023-08-25 12:01 | PCM.PN.ORT ---
Subjective Subjective Patient sitting at bedside watching TV. Patient states pain has been well-managed. Patient denies chest pain, shortness of breath, calf pain, nausea vomiting. Patient states she is ready for discharge and admitted to TCU for continued therapy Objective Data Objective Data Patient sitting at bedside watching TV alert oriented. No respiratory distress speaking in full sentences. Full range of motion the upper extremities. Patient dressings clean dry intact. No calf tenderness. Neurovascular is otherwise intact. Vital Signs: Vital Signs Temp Pulse Resp BP Pulse Ox O2 Del Method O2 Flow Rate 98.1 F 80 16 118/54 L 95 Room Air 2 08/25/23 07:30 08/25/23 09:43 08/25/23 07:32 08/25/23 07:30 08/25/23 07:30 08/25/23 07:32 08/19/23 16:10 Oxygen Flow Rate (L/min) 2 Oxygen Delivery Method Room Air Weight: 96.615 kg Body Mass Index (BMI) 35.4 Intake & Output: Intake and Output for Last 24 Hours 08/23/23 08/24/23 08/25/23 23:59 23:59 23:59 Intake Total 300 / 300 Balance 300 / 300 Lab / Micro Data 08/25/23 05:44 08/25/23 05:44 Labs: Laboratory Results - last 24 hr 08/25/23 05:44: WBC 9.8, RBC 3.19 L, Hgb 9.6 L, Hct 30.4 L, MCV 95.3, MCH 30.1, MCHC 31.6 L, RDW Std Deviation 47.9 H, RDW Coeff of Mari 13.5, Plt Count 274, MPV 10.1, Immature Gran % (Auto) 0.400, Neut % (Auto) 67.6, Lymph % (Auto) 13.7 L, [place] % (Auto) 13.1 H, Eos % (Auto) 4.8, Baso % (Auto) 0.4, Absolute Neuts (auto) 6.6, Absolute Lymphs (auto) 1.34, Nucleated RBC % 0, Sodium 136, Potassium 4.0, Chloride 103, Carbon Dioxide 29.0, Anion Gap 4 L, BUN 15, Creatinine 0.78, Estim Creat Clear Calc 61.27, Est GFR (MDRD) Af Amer 91, Est GFR (MDRD) Non-Af 75, BUN/Creatinine Ratio 19.2, Glucose 115 H, Calcium 9.0, Phosphorus 4.0, Magnesium 1.9 Micro: Microbiology 07/30/23 13:21 Swab (Method) Nasal Screen MRSA/MSSA - Final Physical Exam Const alert and oriented x3 General Appearance: cooperative HEENT normocephalic Eyes PERRL Resp normal respiratory effort Effort and Inspection: able to speak in complete sentences Extremity normal capillary refill Skin no rashes or lesions noted Neuro CN's II-XII intact bilaterally Psych mental status grossly normal Assessment & Plan Assessment/Plan (1) Status post total left knee replacement: PLAN: 1. Continue all pain medications as prescribed 2. Continue Eliquis 5 mg 1 p.o. twice daily postop DVT prophylaxis 3. Encourage incentive spirometry 4. Continue ice, CALVIN hose, SCDs 5. Weight-bear as tolerated with walker 6. Patient can shower today 7. Follow-up with Dr. Hampton 2 weeks 8. Remove juan 09/02/2023
--- NOTE | 2023-08-25 12:06 | PCM.DC.BLA ---
Discharge Summary Date of Admission: 08/19/23 Date of Discharge: 08/25/23 Summary: Patient underwent a left total knee arthroplasty. Her stay was uneventful. She did very well with physical therapy. Her labs and vital signs remained stable. Physical Exam Narrative Patient's dressing was clean dry intact. Lacking 5 degrees full extension of the left knee. Flexion to 95 degrees with pain. No calf tenderness. Neurovascular is otherwise intact. Const alert and oriented x3 General Appearance: cooperative Eyes PERRL General Eye: normal appearance of both eyes Skin no rashes or lesions noted Neuro oriented x3, CN's II-XII intact bilaterally, moves all extremities, no focal motor deficits, no sensory deficits noted, deep tendon reflexes 2+ bilaterally and gait normal Psych mental status grossly normal, thought process normal, cooperative, affect normal, speech normal, activity/motor behavior normal, denies hallucinations, denies homicidal ideation and denies suicidal ideation Meaningful Use Info Meaningful Use Meaningful Use Diagnoses (Choose all that apply): None applicable AMI/Post PCI/Angioplasty Aspirin given w/in 24hrs of arrival?: Yes Ischemic Stroke Statin Dosing Therapy Reference: STATIN DOSE THERAPY REFERENCE: * Patients > 75 years receive moderate or high dose statin therapy. * Patients 75 years or YOUNGER should receive HIGH intensity statin dose unless contraindicated. You will be required to document reason for non-treatment if statin daily dose does not meet guidelines. HIGH DOSE STATIN THERAPY DAILY Atorvastatin > than or = to 40 mg Rosuvastatin > than or = to 20 mg Amlodipine + Atorvastatin > than or = to 2.5/40 mg Ezetimibe + Simvastatin 10/80 mg Simvastatin 80mg Discharge Plan Admission Admit Date/Time: 08/19/23 07:02 Attending Provider: Chaitanya Skinner Primary Care Provider: Philipp Boogie Chi Consulting Providers: Turner Ga; Jasen Hoyt; Rom Hampton Discharge Orders/Prescriptions Prescriptions: New hydrocodone-acetaminophen 5-325 mg Tablet 2 tab PO Q6H PRN PRN (Reason: Pain Score 1-5) 7 Days Qty: 42 0RF Rx Instructions: Take 1-2 tablets by mouth every 6 hours as needed for pain Ensure Surgery 0.08-1.4 gram-kcal/mL Liquid 237 ml PO DAILY Qty: 0 0RF sennosides-docusate sodium [Stool Softener-Stimulant Laxat] 8.6-50 mg Tablet 2 tab PO BID Qty: 0 0RF Rx Instructions: Take until first bowel movement, then as needed for constipation Continued furosemide 40 mg tablet 20 mg PO DAILY PRN PRN (Reason: edema) Patient Comments: take 1 tablet by mouth once daily metoprolol tartrate 25 mg tablet 12.5 mg PO BID diltiazem HCl 240 mg tablet extended release 24 hr 240 mg PO QHS Patient Comments: take 1 tablet by mouth at bedtime multivitamin Tablet 1 tab PO DAILY calcium carbonate-vitamin D3 500 mg(1,250mg) -125 unit Tablet 2 tab PO DAILY Eliquis 5 mg Tablet 5 mg PO BID 30 Days Qty: 60 0RF Hold Instructions: Resume on 02/19/23. hydrochlorothiazide 12.5 mg capsule 12.5 mg PO DAILY Qty: 30 0RF omeprazole 40 mg capsule,delayed release(DR/EC) 40 mg PO DAILY Patient Comments: take 1 capsule by mouth once daily polysaccharide iron complex [iFerex 150] 150 mg iron capsule 150 mg PO DAILY Patient Comments: take 1 capsule by mouth once daily potassium chloride 20 mEq tablet extended release 10 meq PO DAILY Patient Comments: take 1 tablet by mouth once daily Discontinued acetaminophen 500 mg Tablet 1,000 mg PO Q6H PRN PRN (Reason: Pain Score 1-10) Qty: 0 0RF Other Ambulatory Orders: 12 Lead EKG (Routine) Timeframe: [id number] Location: None Selected Ordered By: Dr. Rom Hampton Referrals / Follow Up: Philipp Boogie Chi, MD [Primary Care Provider] - 09/15/23 11:40 am Yifan Meyer PA-C [Med Staff - Adv Practice Prof] - 09/03/23 2:15 pm Disposition Disposition (needs filled in before D/C Order can be placed): [facility]
--- NOTE | 2023-08-25 14:19 | CASEMGMT ---
Social Work Pt is ready to go to TCU. All discharge paperwork complete. SW faxed to TCU, let RN know. No further needs, pt to TCU skilled today. TERI Richards
== END 2023-08-25 14:50 | disposition skilled nursing facility (03) ==
LOC: SDC 11:21 → MS3 11:21
PROVIDERS: Anesthesiology; Physician Assistant Surgical; Admitting Provider Specialist; PCP Family Medicine Geriatric Medicine; Referring Provider Specialist; Visit Provider Internal Medicine
PROC: 0SRD0JZ Replacement of Left Knee Joint with Synthetic Substitute, Open Approach (ICD-10-PCS; CPT 27447; principal; 2023-08-19 08:15)
DX: M17.12 Unilateral primary osteoarthritis, left knee (principal); I48.0 Paroxysmal atrial fibrillation; Z79.01 Long term (current) use of anticoagulants; D50.9 Iron deficiency anemia, unspecified; F41.9 Anxiety disorder, unspecified; E78.00 Pure hypercholesterolemia, unspecified; K21.9 Gastro-esophageal reflux disease without esophagitis; I87.2 Venous insufficiency (chronic) (peripheral); Z68.37 Body mass index [BMI] 37.0-37.9, adult; E66.9 Obesity, unspecified; I10 Essential (primary) hypertension; Z95.0 Presence of cardiac pacemaker; N28.9 Disorder of kidney and ureter, unspecified; Z79.899 Other long term (current) drug therapy
CPT/HCPCS: 27447; S2900; 01402; 64447; 36415; 36416; 73560; 80048; 82040; 82962; 83735; 84100; 85025; 85027; 85610; 85730; 87081; 88305; 88311; 93005; 94668; 96365; 96375; 97110; 97116; 97162; 97166; 97530; 97535; 99221; 99252; C1776; J7120; G0378; G0463; J2405; J3475

== ENCOUNTER 2023-08-25 15:05 | Inpatient (IN) | payer MEDICARE, SELFPAY ==
[2023-08-25 15:13] VITALS: BP 138/75; PULSE 73; RESP 16; TEMP 36.8; O2SAT 95; BMI 35.7
[2023-08-25] MEDS: HYDROcodone Bitartrate/Apap 5/325 Tablet PO ×2 (17:04→23:46)
--- NOTE | 2023-08-25 19:32 | HP.PCM_ITS ---
HPI - General General Date of Admission: 08/25/23 Date of Service: 08/25/23 Chief Complaint: Here for rehabilitation. HPI Narrative CAROLINA DOMINIQUE, is a 83 Female who presents with followin08/19/2023 Admit [facility]. 08/19/2023 Dr. Hampton performed left total knee replacement. Feeling dizzy postop, PRN Meclizine. Eliquis for DVT prophylaxis. Monitor anemia. 08/20/2023 Pain control. PT/OT. Wound VAC removed, too much drainage. Unable to discharge home alone. 08/20/2023 Left knee pain. PT/OT SNF. 08/21/[address] WBAT. Wound VAC in place. Pre-[facility] SNF. 08/21/2023 Dyspnea on exertion, left knee pain. PT/OT TCU. 08/22/2023 H&H stable, left knee pain. 08/23/2023 Pain with SCD's, miserable. Dizziness resolved, 2/2 anesthesia. 08/24/2023 PT/OT SNF. Transfuse if hemoglobin < 7.0. 08/24/2023 Walking with walker, during therapy session. 08/25/2023 Admit to TCU with debility, here for rehabilitation, strengthening, prior to discharge home alone. I asked resident if she is depressed, she denies, I asked her to let me know if she feels depressed. [facility] Medical History (Updated 08/25/23 @ 19:[address] Philipp Boogie MD) Ambulates with cane Anxiety disorder Arthritis Atrial flutter Cardiology follow-up encounter Cellulitis Chronic sinus bradycardia High cholesterol Hip dislocation, left History of colitis History of colon polyps History of echocardiogram History of pacemaker History of stress test Hypertension Iron deficiency anemia, unspecified Non-smoker Osteoarthritis PAF (paroxysmal atrial fibrillation) Presence of cardiac pacemaker Right knee pain Shortness of breath on exertion Walker as ambulation aid Wears glasses Home Medications calcium carbonate 500 mg-vitamin D3 3.125 mcg (125 unit) tablet 2 tab PO DAILY supplement 02/01/21 [History Last Taken 08/18/23] multivitamin 1 tab PO DAILY supplement 02/01/21 [History Last Taken 08/18/23] apixaban 5 mg tablet (Eliquis) 5 mg PO BID BLOOD THINNER 30 days #60 tabs 08/01 [Rx Last Taken 08/15/23] diltiazem HCl 240 mg tablet,extended release 24 hr 240 mg PO QHS HEART 01/23/23 [History Last Taken 08/18/23] furosemide 40 mg tablet 20 mg PO DAILY PRN PRN edema 02/27/23 [History Last Taken Unknown] metoprolol tartrate 25 mg tablet 12.5 mg PO BID HTN 02/27/23 [History Last Taken 08/19/23] hydrochlorothiazide 12.5 mg capsule 12.5 mg PO DAILY Heart #30 caps 04/29/23 [Rx Last Taken 08/18/23] omeprazole 40 mg capsule,delayed release 40 mg PO DAILY GERD 07/23/23 [History Last Taken 08/19/23] polysaccharide iron complex 150 mg iron capsule (iFerex 150) 150 mg PO DAILY Supplement 07/23/23 [History Last Taken 08/17/23] potassium chloride 20 mEq tablet,extended release 10 meq PO DAILY Supplement 07/23/23 [History Last Taken Unknown] hydrocodone-acetaminophen 5-325mg 5mg-325mg 2 tab PO Q6H PRN PRN Pain Score 1-5 7 days #42 tabs 08/21/23 [Rx Last Taken Unknown] nut.tx.comp. immune systm,reg 0.08 gram-1.4 kcal/mL oral liquid (Ensure Surgery) 237 ml PO DAILY Supplement #0 mL 08/21/23 [Rx Last Taken Unknown] sennosides 8.6 mg-docusate sodium 50 mg tablet (Stool Softener-Stimulant Laxative) 2 tab PO BID Constipation #0 tabs 08/21/23 [Rx Last Taken Unknown] Allergy/AdvReac Type Severity Reaction Status Date / Time valsartan Allergy Mild Rash Verified 08/19/23 06:55 Family History Mother Heart disease Hypertension Father CVA (cerebral vascular accident) Hypertension Surgical History (Updated 08/25/23 @ 19:[address] Philipp Boogie MD) History of esophagogastroduodenoscopy (EGD) History of permanent cardiac pacemaker placement (~07/21/22) History of right knee joint replacement History of total left knee replacement Hx of colonoscopy (~2020) Hx of foot surgery Hx of total hip arthroplasty Hx of tubal ligation Status post unicompartmental knee replacement Social History household members: none Smoking Status: Never smoker alcohol intake: never substance use type: does not use ROS Constitutional Constitutional: Reports weakness; Denies chills, fever(s) or weight gain ENT HEENT: Denies headache(s), nasal congestion or nasal discharge Cardiovascular Cardiovascular: Denies chest pain or palpitations Respiratory/Chest Respiratory/Chest: Denies cough, excessive phlegm production or shortness of breath with exertion Gastrointestinal Gastrointestinal: Denies abdominal pain, nausea or vomiting Genitourinary Genitourinary: Denies dysuria Musculoskeletal Musculoskeletal: Denies joint pain or joint swelling Integumentary Integumentary: Denies rash or wounds Neurologic Neurologic: Denies focal weakness, numbness or tingling Psychiatric Psychiatric: Denies anxiety, auditory hallucinations, depression, homicidal ideation or suicidal ideation Vital Signs Vital Signs Vital Signs: 08/25/23 15:13 08/25/23 15:54 Temperature 98.2 F Temperature Source Temporal Pulse Rate 73 Pulse Rhythm Regular Pulse Strength Normal (2+) Respiratory Rate 16 Respiratory Effort Normal Non-Labored Respiratory Depth Normal Respiratory Pattern Normal Blood Pressure 138/75 H Blood Pressure Mean 96 Blood Pressure Source Monitor Blood Pressure Position Sitting Blood Pressure Location Left Arm Pulse Ox 95 Oxygen Delivery Method Room Air Room Air Weight Weight: 94.404 kg Body Mass Index (BMI) 35.7 Physical Exam Const alert General Appearance: cooperative HEENT normocephalic Eyes PERRL and EOMs intact bilaterally Neck supple, no JVD and no carotid bruits Resp normal respiratory effort, normal air movement and clear to auscultation bilaterally Cardio regular rate and regular rhythm GI normal to inspection, nondistended, normoactive bowel sounds, non-tender and non-distended Extremity normal capillary refill Extremity Narrative: Wound VAC midline left knee incisioin. General Extremity: Negative for edema Skin no rashes or lesions noted General Skin Exam: no breakdown Psych affect normal Appearance: appropriate Assessment & Plan Assessment/Plan (1) Debility: (2) Status post total left knee replacement: (3) Edema leg: (4) Atrial fibrillation: (5) Hyperlipidemia: QUALIFIERS: Hyperlipidemia type: mixed hyperlipidemia Qualified Code(s): E78.2 - Mixed hyperlipidemia (6) GERD (gastroesophageal reflux disease): (7) Hypertension: QUALIFIERS: Hypertension type: primary hypertension Qualified Code(s): I10 - Essential (primary) hypertension (8) Morbid obesity: PLAN: Plan 83 year old female with below past medical history hospitalized for left total knee replacement 08/19/[address] Hampton, admitted to TCU with debility, here for rehabilitation, strengthening, prior to discharge home alone. * Debility - PT/OT. * Pain - [place] 5/325mg 2 tablets q6 prn pain (1-10). * Bowel - senna/colace 2 tablets bid, Golytely 1 liter po daily prn, Soap suds enema pr x 1. * Adult immunization - Administer pneumonia vaccine, covid vaccine, flu vaccine as appropriate. * DVT prophylaxis - on Eliquis. * Atrial fibrillation - Metoprolol 12.5mg bid, Diltiazem 240mg qhs, Eliquis 5mg bid. * Edema of legs - Furosemide 20mg daily. * Hypertension - Metoprolol 12.5mg bid, Diltiazem 240mg qhs, HCTZ 12.5mg daily. * Iron deficiency anemia - Ferrex 150mg daily. * GERD - Pantoprazole 40mg daily. * Hypokalemia - KCL 10meq daily. * Nutrition - Ensure Surgery 237ml daily.
[2023-08-25 22:04] VITALS: BP 133/57; PULSE 88
[2023-08-25] MEDS: dilTIAZem CD 240 MG Capsule PO (22:04)
[2023-08-25] MEDS: Metoprolol Tartrate 25 MG Tablet 12.5 MG PO (22:04)
[2023-08-25] MEDS: APIXABAN 5 MG TABLET PO (22:04)
[2023-08-25] MEDS: Senna/Docusate Sodium 1 Tablet 2 TABLET PO (22:06)
[2023-08-25] MEDS: Electrolyte Solution/Peg's 4000 ML 1000 ML PO (22:15)
[2023-08-26 05:44] LABS: Absolute Lymphocyte Count 1.68 X10^3/uL (0.83-4.51); Absolute Neutrophil Count 5.7 X10^3/uL (2.0-7.7); Basophil# 0.06 X10^3/uL; Basophil% 0.6 % (0-1); Eosinophil# 0.51 X10^3/uL; Eosinophils% 5.5 % (0-5); Hematocrit 28.5 % (37-47); Hemoglobin 8.9 g/dL (12.0-15.0); Lymphocyte # 1.68 X10^3/ul (0.83-4.51); Mean Corp Hgb Conc 31.2 g/dL (32-36); Mean Corpuscular Hgb 30.5 pg (27.0-32.0); Mean Corpuscular Volume 97.6 fL (81-99); Mean Platelet Vol. 9.7 fl (6.2-12.0); Monocyte# 1.33 X10^3/uL; Monocyte% 14.2 % (0-10); NRBC Flagged by Analyzer 0 % (0-5); Neutrophil # 5.72 X10^3/uL (2.7-7.7); Neutrophil % 61.3 % (47-70); Platelet Count 290 K/mm3 (150-450); RBC Distribution Width CV 13.5 % (11.6-14.6); RBC Distribution Width SD 48.6 fl (35.1-43.9); Red Blood Count 2.92 M/mm3 (4.2-5.4); White Blood Count 9.3 K/mm3 (4.4-11.0)
[2023-08-26 06:15] LABS: Anion Gap 4 (5-15); BUN 21 mg/dL (7-18); Calcium,Total 8.6 mg/dL (8.5-10.1); Chloride 102 mmol/L (98-107); Creatinine, Serum 0.91 mg/dL (0.55-1.02); EST Glomerular Filtration Rate 63 mL/min (>60); Est Glom Filt Rate - Afr Amer 76 mL/min (>60); Estimated Creatinine Clearance 52.19 ml/min; Glucose 111 mg/dL (74-106); Sodium Level 136 mmol/L (136-145)
[2023-08-26] MEDS: Furosemide 20 MG Tablet PO (08:12)
[2023-08-26] MEDS: APIXABAN 5 MG TABLET PO ×2 (08:12→21:05)
[2023-08-26] MEDS: hydroCHLOROthiazide 12.5mg 12.5 MG PO (08:12)
[2023-08-26] MEDS: Potassium Chloride Oral Tablet 10 MEQ PO (08:12)
[2023-08-26] MEDS: Iron Polysaccharide Complex 150 MG CAPSULE PO (08:12)
[2023-08-26 08:13] VITALS: BP 145/61; PULSE 88
[2023-08-26] MEDS: Metoprolol Tartrate 25 MG Tablet 12.5 MG PO ×2 (08:13→21:04)
[2023-08-26] MEDS: Senna/Docusate Sodium 1 Tablet 2 TABLET PO ×2 (08:14→21:05)
[2023-08-26] MEDS: Pantoprazole Sodium 40 MG Tablet PO (08:14)
--- NOTE | 2023-08-26 08:39 | PHA.CONS_ITS ---
Documented by User: Flor Cordova 08/26/23 08:55 TCU RX Drug Regimen Review Subjective/Objective Subjective/Objective: Subjective: TCU Admission. 83 YOF hospitalized for left total knee replacement 08/19/[address] Hampton. Admitted to TCU with debility for strengthening and rehabilitation. Objective: Allergies valsartan Allergy (Mild, Verified 08/19/23 06:55) Rash Current Medications Generic Name Dose Route Start Last Admin Trade Name Freq PRN Reason Stop Dose Admin Hydrocodone Bitart/Acetaminophen 2 tablet 08/25/23 15:17 08/25/23 23:46 Hydrocodone Bitartrate/Apap 5/325 Tablet PO 2 tablet Q6H PRN PRN Administration Pain Score 1-10 Apixaban 5 mg 08/25/23 22:00 08/26/23 08:12 Apixaban 5 Mg Tablet PO 5 mg BID AUGUST Administration Diltiazem HCl 240 mg 08/25/23 22:00 08/25/23 22:04 Diltiazem Cd 240 Mg Capsule PO 240 mg QHS AUGUST Administration Enteral Nutritional Formula 237 ml 08/26/23 10:00 Ensure Surgery 237 Ml Liquid PO DAILY AUGUST Furosemide 20 mg 08/26/23 10:00 08/26/23 08:12 Furosemide 20 Mg Tablet PO 20 mg DAILY AUGUST Administration Protocol Hydrochlorothiazide 12.5 mg 08/26/23 10:00 08/26/23 08:12 Hydrochlorothiazide 12.5mg PO 12.5 mg DAILY AUGUST Administration Protocol Metoprolol Tartrate 12.5 mg 08/25/23 22:00 08/26/23 08:13 Metoprolol Tartrate 25 Mg Tablet PO 12.5 mg BID AUGUST Administration Protocol Pantoprazole Sodium 40 mg 08/26/23 10:00 08/26/23 08:14 Pantoprazole Sodium 40 Mg Tablet PO 40 mg DAILY AUGUST Administration Polysaccharide Iron Complex 150 mg 08/26/23 08:00 08/26/23 08:12 Iron Polysaccharide Complex 150 Mg Capsule PO 150 mg DAILYCM AUGUST Administration Potassium Chloride 10 meq 08/26/23 08:00 08/26/23 08:12 Potassium Chloride Oral Tablet 10 Meq PO 10 meq DAILYCM AUGUST Administration Senna/Docusate Sodium 2 tablet 08/25/23 22:00 08/26/23 08:14 Senna/Docusate Sodium 1 Tablet PO 2 tablet BID AUGUST Administration Sodium Chloride 10 - 40 ml 08/25/23 15:16 0.9% Saline Lock 10 Ml Syringe IV UD PRN SALINE FLUSH Sodium Chloride/Electrolytes 1,000 ml 08/25/23 19:45 08/25/23 22:15 Electrolyte Solution/Peg's 4000 Ml PO 1,000 ml DAILY PRN Administration Constipation Tuberculin PPD 0.1 ml 09/02/23 10:00 Tuberculin,Purif.Prot.Deriv. 50 Tu/Ml Vial ID 09/02/23 10:01 X1 ONE Tuberculin PPD 0.1 ml 08/26/23 10:00 Tuberculin,Purif.Prot.Deriv. 50 Tu/Ml Vial ID 08/26/23 10:01 X1 ONE Problem List (Updated 08/25/23 @ 19:[address] Philipp Boogie MD) Morbid obesity (Acute) Atrial fibrillation (Acute) Edema leg (Acute) Status post total left knee replacement (Acute) GERD (gastroesophageal reflux disease) (Acute) Hyperlipidemia (Chronic) Hypertension (Chronic) Debility (Acute) Vital Signs Temp Pulse Resp BP Pulse Ox O2 Del Method 98.2 F 88 16 145/61 H 95 Room Air 08/25/23 15:13 08/26/23 08:13 08/25/23 15:13 08/26/23 08:13 08/25/23 15:13 08/25/23 15:54 Oxygen Delivery Method Room Air Weight: 94.404 kg Body Mass Index (BMI) 35.7 Sodium 136 mmol/L (136-145) 08/26/23 05:32 Potassium 4.0 mmol/L (3.5-5.1) 08/26/23 05:32 Chloride 102 mmol/L (98-107) 08/26/23 05:32 Carbon Dioxide 30.0 mmol/L (21.0-32.0) 08/26/23 05:32 Anion Gap 4 (5-15) L 08/26/23 05:32 BUN 21 mg/dL (7-18) H 08/26/23 05:32 Creatinine 0.91 mg/dL (0.55-1.02) 08/26/23 05:32 Est GFR (MDRD) Af Amer 76 mL/min (>60) 08/26/23 05:32 Est GFR (MDRD) Non-Af 63 mL/min (>60) 08/26/23 05:32 BUN/Creatinine Ratio 23.0 RATIO (10-20) H 08/26/23 05:32 Glucose 111 mg/dL (74-106) H 08/26/23 05:32 Assessment/Plan: 1. Pain: [place] 5/325mg 2T PO Q6H PRN pain 1-10. Resident has had 2 doses for pain of 6 and 8 in the back/hip respectively. Please continue to monitor for increased pain, PRN usage, confusion, constipation and respiratory depression. 2. Bowel: senna/docusate 2T PO BID and Nulytely 1000mL PO daily PRN constipation. Resident has had 1 dose of Nulytely. Please continue to monitor for constipation and PRN usage. No documented bowel movements this admission, receiving [place]. 4. Hypertension/atrial fibrillation: diltiazem CD 240mg PO QHS, hydrochlorothiazide 12.5mg PO daily, metoprolol tartrate 12.5mg PO BID and apixaban 5mg PO BID. Please continue to monitor BP (last 145/61), HR (last 88), potassium (last 4mmol/L), sodium (last 136mmol/L), S/S of bleeding/stroke, hemoglobin (last 8.9g/dL) and renal function. 5. Edema of legs: furosemide 20mg PO daily. Please continue to monitor for S/S of swelling, renal function and potassium (last 4 mmol/L). 6. GERD: pantoprazole 40mg PO daily. Please continue to monitor for S/S of GERD and diarrhea (BEERs medication). 7. Iron deficiency anemia: Ferrex 150mg PO DAILYCM. Please continue to monitor hemoglobin (last 8.9g/dL), dark stools, iron study (last 12/30/22) and constipation. 9. Hypokalemia: potassium chloride 10mEq PO DAILYCM. Please continue to monitor potassium. Assessment/Plan for indications treated with psychotropic medications: None Medical chart and medication regimen reviewed. The following medication irregularities or issues were identified: None Date Date of Note:: 08/26/23 Documented by User: Dr. Philipp Boogie MD 08/26/23 08:56 TCU RX Drug Regimen Review Provider Comments Provider responsibility Provider Comments to Recommendations by Pharmacy: Agree
[2023-08-26] MEDS: HYDROcodone Bitartrate/Apap 5/325 Tablet PO ×2 (09:45→17:25)
[2023-08-26] MEDS: Ensure Surgery 237 ML LIQUID PO (09:45)
[2023-08-26] MEDS: Tuberculin,Purif.prot.deriv. 50 TU/ML Vial 0.1 ML ID (09:46)
--- NOTE | 2023-08-26 11:40 | NURSING ---
Tire Building Supervisor Note; Activity Asset: Annemarie Prince is independent in her choice of daily activities. She prefers to be called Jne. Jen has a tablet and smartphone she will use for reading, tv or puzzles. Her family and samaritan family will visit with her as well. She welcomes visits with our skirt maker and therapy dog when available. Staff will remind her or weekly activities and encourage social activities and respect her right to say no.
[2023-08-26 16:00] VITALS: BP 123/67; PULSE 76; RESP 16; TEMP 36.8; O2SAT 95
[2023-08-26] MEDS: 0.9% Saline Lock 10 ML Syringe IV (17:27)
[2023-08-26] MEDS: Ensure Plus High Protein 120 ML LIQUID PO ×2 (17:33→21:05)
--- NOTE | 2023-08-26 17:38 | NURSING ---
Dr. Boogie office contacted and no record of receiving prior pneumonia vaccine. Patient made aware and she feels she did receive these at a drug store but has no record. Patient reports she will refuse to receive another pneumonia vaccine here at this time.
[2023-08-26 21:04] VITALS: BP 149/58; PULSE 90
[2023-08-26] MEDS: dilTIAZem CD 240 MG Capsule PO (21:05)
--- NOTE | 2023-08-27 02:59 | NURSING ---
patient c/o 10 abdominal pain, unable to complete golytly, hypoactive bs, abdomen firm/distended, nauseated, unable to sleep , patient reports unable to pass stool it's too hard, it's stuck. Dr. Boogie contacted via telephone, new orders received 1.) Abdominal KUB, 2.) Lactulose enema 200gm rectal now. orders repeated back
--- NOTE | 2023-08-27 03:05 | RAD_ITS ---
EXAM: XR ABDOMEN, 1 VIEW CLINICAL INDICATION: ABD PAIN TECHNIQUE: Frontal supine view of the abdomen/pelvis. COMPARISON: No relevant prior studies available. FINDINGS: LOWER THORAX: No acute pathology. GASTROINTESTINAL TRACT: Unremarkable. Non-obstructive. No bowel or stomach distention. ORGANS: Unremarkable as visualized. No organomegaly. No abnormal calcifications. BONES/JOINTS: Left hip arthroplasty. Degenerative changes and levocurvature of the lumbar spine. SOFT TISSUES: No acute pathology. RAD/Abdomen Single View (Portable) IMPRESSION: No acute findings. Electronically Signed: Luis Enrique Arredondo MD at 4:44 EDT ,
[2023-08-27] MEDS: Lactulose 20 GM/30 ML UDC 200 GM RC (03:37)
[2023-08-27 05:56] LABS: Hematocrit 31.2 % (37-47)
[2023-08-27 08:36] VITALS: BP 147/68; PULSE 85
[2023-08-27] MEDS: Metoprolol Tartrate 25 MG Tablet 12.5 MG PO ×2 (08:36→21:57)
[2023-08-27] MEDS: Potassium Chloride Oral Tablet 10 MEQ PO (08:36)
[2023-08-27] MEDS: Furosemide 20 MG Tablet PO (08:36)
[2023-08-27] MEDS: Pantoprazole Sodium 40 MG Tablet PO (08:36)
[2023-08-27] MEDS: hydroCHLOROthiazide 12.5mg 12.5 MG PO (08:37)
[2023-08-27] MEDS: Iron Polysaccharide Complex 150 MG CAPSULE PO (08:37)
[2023-08-27] MEDS: APIXABAN 5 MG TABLET PO ×2 (08:37→21:58)
--- NOTE | 2023-08-27 10:27 | WOUNDNOTE ---
wound photo: left knee
[2023-08-27] MEDS: Ensure Plus High Protein 120 ML LIQUID PO ×3 (11:44→21:56)
[2023-08-27 13:52] VITALS: BP 142/68; PULSE 82; RESP 18; TEMP 36.8; O2SAT 97
[2023-08-27] MEDS: Acetaminophen 500 MG Tablet 1000 MG PO (15:58)
[2023-08-27] MEDS: traMADol 50 MG Tablet PO (18:16)
[2023-08-27 21:57] VITALS: BP 142/58; PULSE 85
[2023-08-27] MEDS: Senna/Docusate Sodium 1 Tablet 2 TABLET PO (21:57)
[2023-08-27] MEDS: dilTIAZem CD 240 MG Capsule PO (21:58)
--- NOTE | 2023-08-28 04:38 | NURSING ---
Resident reports she would like 0600 dose of Ensure w/ breakfast. Has had intermittent confusion during the night. Did not sleep well. Notes waking up at 0300 at times at home d/t inability to sleep. Will continue to monitor.
[2023-08-28] MEDS: Ensure Plus High Protein 120 ML LIQUID PO ×3 (09:04→17:43)
[2023-08-28] MEDS: hydroCHLOROthiazide 12.5mg 12.5 MG PO (09:04)
[2023-08-28] MEDS: Furosemide 20 MG Tablet PO (09:04)
[2023-08-28] MEDS: Pantoprazole Sodium 40 MG Tablet PO (09:04)
[2023-08-28] MEDS: APIXABAN 5 MG TABLET PO ×2 (09:04→20:24)
[2023-08-28] MEDS: Iron Polysaccharide Complex 150 MG CAPSULE PO (09:04)
[2023-08-28] MEDS: Potassium Chloride Oral Tablet 10 MEQ PO (09:04)
[2023-08-28] MEDS: Polyethylene Glycol 3350 17 GM PACKET PO (09:04)
[2023-08-28 09:05] VITALS: BP 122/61; PULSE 92
[2023-08-28] MEDS: Metoprolol Tartrate 25 MG Tablet 12.5 MG PO ×2 (09:05→20:23)
[2023-08-28] MEDS: Senna/Docusate Sodium 1 Tablet 2 TABLET PO (09:05)
[2023-08-28] MEDS: Acetaminophen 500 MG Tablet 1000 MG PO ×2 (11:33→23:07)
[2023-08-28 16:00] VITALS: BP 119/59; PULSE 75; RESP 16; TEMP 36.1; O2SAT 97
[2023-08-28 20:23] VITALS: BP 149/71; PULSE 92
[2023-08-28] MEDS: traMADol 50 MG Tablet PO (20:24)
[2023-08-28] MEDS: dilTIAZem CD 240 MG Capsule PO (20:24)
--- NOTE | 2023-08-28 23:12 | NURSING ---
Patient very painful in left knee this evening. PRN medications administered as able. Will continue to monitor.
[2023-08-29 08:52] VITALS: BP 130/56; PULSE 93
[2023-08-29] MEDS: Senna/Docusate Sodium 1 Tablet 2 TABLET PO ×2 (08:52→19:46)
[2023-08-29] MEDS: Iron Polysaccharide Complex 150 MG CAPSULE PO (08:52)
[2023-08-29] MEDS: Pantoprazole Sodium 40 MG Tablet PO (08:52)
[2023-08-29] MEDS: Metoprolol Tartrate 25 MG Tablet 12.5 MG PO ×2 (08:52→19:46)
[2023-08-29] MEDS: APIXABAN 5 MG TABLET PO ×2 (08:52→19:40)
[2023-08-29] MEDS: Potassium Chloride Oral Tablet 10 MEQ PO (08:52)
[2023-08-29] MEDS: hydroCHLOROthiazide 12.5mg 12.5 MG PO (08:52)
[2023-08-29] MEDS: Ensure Plus High Protein 120 ML LIQUID PO ×3 (08:52→17:35)
[2023-08-29] MEDS: Furosemide 20 MG Tablet PO (09:59)
[2023-08-29] MEDS: Acetaminophen 500 MG Tablet 1000 MG PO (10:00)
[2023-08-29] MEDS: traMADol 50 MG Tablet PO ×2 (10:54→19:45)
[2023-08-29 16:00] VITALS: BP 144/68; PULSE 85; RESP 16; TEMP 36.4; O2SAT 97
--- NOTE | 2023-08-29 16:46 | NURSING ---
retail shift leader reported pt having muscle spasms at night, dr taylor updated new order for baclofen 10mg PRN at hs
[2023-08-29] MEDS: Baclofen 10 MG Tablet PO (19:39)
[2023-08-29] MEDS: dilTIAZem CD 240 MG Capsule PO (19:40)
[2023-08-29 19:46] VITALS: BP 141/62; PULSE 100
[2023-08-29 19:58] VITALS: BP 141/62; PULSE 100
[2023-08-29 20:00] VITALS: RESP 16
[2023-08-30] MEDS: Ensure Plus High Protein 120 ML LIQUID PO ×3 (09:03→17:41)
[2023-08-30] MEDS: Iron Polysaccharide Complex 150 MG CAPSULE PO (09:04)
[2023-08-30] MEDS: Potassium Chloride Oral Tablet 10 MEQ PO (09:05)
[2023-08-30] MEDS: APIXABAN 5 MG TABLET PO ×2 (09:06→20:20)
[2023-08-30] MEDS: Senna/Docusate Sodium 1 Tablet 2 TABLET PO ×2 (09:06→20:20)
[2023-08-30] MEDS: Furosemide 20 MG Tablet PO (09:06)
[2023-08-30] MEDS: hydroCHLOROthiazide 12.5mg 12.5 MG PO (09:07)
[2023-08-30] MEDS: Pantoprazole Sodium 40 MG Tablet PO (09:07)
[2023-08-30 09:10] VITALS: PULSE 99
[2023-08-30] MEDS: Metoprolol Tartrate 25 MG Tablet 12.5 MG PO ×2 (09:10→20:20)
[2023-08-30] MEDS: traMADol 50 MG Tablet PO ×2 (09:14→20:17)
[2023-08-30 11:46] VITALS: PULSE 78; RESP 18
--- NOTE | 2023-08-30 11:56 | NURSING ---
dr taylor notifed of pt c/o skin itching under wound vac drape/redness noted around wound. new order for vistaril 25mg PRN. pt also requesting something for anxiety/depression, pt stated pt requesting medication and that dr taylor had originally offered some on admit if needed. new order for lexapro.
[2023-08-30] MEDS: Escitalopram Oxalate 10 MG Tablet PO (12:30)
[2023-08-30] MEDS: hydrOXYzine PAM 25 MG Capsule PO (12:35)
[2023-08-30 15:08] VITALS: BP 142/66; PULSE 82; RESP 20; TEMP 36.3; O2SAT 95
[2023-08-30] MEDS: Baclofen 10 MG Tablet PO (20:17)
[2023-08-30 20:20] VITALS: BP 128/61; PULSE 84
[2023-08-30] MEDS: dilTIAZem CD 240 MG Capsule PO (20:21)
[2023-08-30 20:27] VITALS: BP 128/61; PULSE 84
--- NOTE | 2023-08-30 20:46 | NURSING ---
Addendum entered by Villa Humphrey 08/30/23 20:50: Confidential voicemail left for wound nurse requesting if wound vac can be removed due to patient complaint of itch related to drape and no drainage observed from surgical site/drainage container. Original Note: Patient c/o vistaril causing drowsiness. Continues to c/o itch to drape area wound vac. Discussed with Dr. Boogie via telephone, new order to discontinue vistaril and ask wound nurse if wound vac can be removed. Order repeated back.
[2023-08-31] MEDS: Ensure Plus High Protein 120 ML LIQUID PO ×3 (07:54→18:08)
[2023-08-31] MEDS: Potassium Chloride Oral Tablet 10 MEQ PO (07:54)
[2023-08-31] MEDS: Iron Polysaccharide Complex 150 MG CAPSULE PO (07:54)
[2023-08-31] MEDS: APIXABAN 5 MG TABLET PO ×2 (07:54→21:03)
[2023-08-31] MEDS: hydroCHLOROthiazide 12.5mg 12.5 MG PO (07:55)
[2023-08-31] MEDS: Furosemide 20 MG Tablet PO (07:55)
[2023-08-31] MEDS: Pantoprazole Sodium 40 MG Tablet PO (07:56)
[2023-08-31] MEDS: Senna/Docusate Sodium 1 Tablet 2 TABLET PO ×2 (07:57→21:03)
[2023-08-31 08:00] VITALS: BP 125/56; PULSE 78
[2023-08-31] MEDS: Metoprolol Tartrate 25 MG Tablet 12.5 MG PO ×2 (08:00→21:03)
[2023-08-31] MEDS: Cephalexin 500 MG Capsule PO (09:26)
[2023-08-31] MEDS: Doxycycline 100 MG CAPSULE PO (09:26)
--- NOTE | 2023-08-31 10:20 | WOUNDNOTE ---
wound photo: left knee
[2023-08-31] MEDS: Acetaminophen 500 MG Tablet 1000 MG PO (12:11)
--- NOTE | 2023-08-31 14:23 | NURSING ---
Patient uses call light to report she doesn't feel well at this time. This nurse goes back to assess and patient keeps saying I don't know when asked her symptoms but after asking specific symptoms she reports she feels foggy and woke up feeling confused about where she was. She also reports she feels strange in her head. This nurse comments that she reported similar symptoms when she took narcotic pain medication and asks if this feels similar and patient reports that it does. However, patient has not taken any narcotic pain medication and only took Tylenol today. This AM, patient reported similar symptoms and asked if it was due to the Vistaril or Lexapro and this nurse reports the dizziness and sleepiness could be side effects of these medications. Vistaril is already discontinued and patient request that Lexapro held this AM. Prior to taking Tylenol today, patient is more alert and reports symptoms have subsided but after Tylenol and a nap, she reports the symptoms have come back. VS 98.0 126/55 78 93% RA 16. SPO2 fluctuates between 90%-93% and this nurse asks if patient has any history of sleep apnea and maybe her oxygen is dropping with sleep but she denies and reports she doesn't think that's it. She reports her mouth just feels very dry and she feels very sleepy at this time and this nurse provides cold drinks per patient request. Patient denies further needs at this time. BS 138.
[2023-08-31 14:50] LABS: Bedside Glucose 138 mg/dL (74-106)
--- NOTE | 2023-08-31 15:13 | CASEMGMT ---
TCU admit note: Sw met with patient at bedside to complete initial assessment. Introduced self and explained sw role. Verified contacts and confirmed code status (Full code) which patient wishes to remain the same. Educated patient to [facility] benefits and copay coverage. Patient's goal is to return home where she was residing independently prior to hospitalization. Sw will remain involved throughout admission to provide support and assist with discharge planning needs. Juliana Kidd, TUBER MACHINE OPERATOR, CARTON COUNTER FEEDER
--- NOTE | 2023-08-31 15:33 | NURSING ---
Addendum entered by Brianda Malhotra 08/31/23 17:24: Wound nurse assess legs and does not believe patient has cellulitis. ATBs discontinued. Doppler done to bilateral legs and results are negative for DVT. Original Note: steam fitter noted bilateral legs are red and shiny and patient reports they are painful. Dr. Boogie made aware and NO for Doxycycline and Keflex. Patient made aware of new orders.
[2023-08-31 16:00] VITALS: BP 125/56; PULSE 78; RESP 16; TEMP 36.7; O2SAT 94
[2023-08-31] MEDS: traMADol 50 MG Tablet PO (18:11)
[2023-08-31] MEDS: Baclofen 10 MG Tablet PO (18:12)
[2023-08-31 20:00] VITALS: PULSE 86; RESP 16; O2SAT 98
[2023-08-31 21:03] VITALS: BP 128/61; PULSE 86
[2023-08-31] MEDS: dilTIAZem CD 240 MG Capsule PO (21:03)
[2023-09-01] MEDS: traMADol 50 MG Tablet PO ×2 (01:22→15:00)
[2023-09-01] MEDS: Acetaminophen 500 MG Tablet 1000 MG PO ×2 (03:31→21:35)
[2023-09-01 08:17] VITALS: BP 128/67; PULSE 86; RESP 18; TEMP 35.9; O2SAT 96
[2023-09-01 08:19] VITALS: PULSE 86
[2023-09-01] MEDS: Metoprolol Tartrate 25 MG Tablet 12.5 MG PO ×2 (08:19→19:56)
[2023-09-01] MEDS: Senna/Docusate Sodium 1 Tablet 2 TABLET PO ×2 (08:19→19:55)
[2023-09-01] MEDS: Potassium Chloride Oral Tablet 10 MEQ PO (08:21)
[2023-09-01] MEDS: Iron Polysaccharide Complex 150 MG CAPSULE PO (08:21)
[2023-09-01] MEDS: hydroCHLOROthiazide 12.5mg 12.5 MG PO (08:21)
[2023-09-01] MEDS: APIXABAN 5 MG TABLET PO ×2 (08:21→19:55)
[2023-09-01] MEDS: Escitalopram Oxalate 10 MG Tablet PO (08:21)
[2023-09-01] MEDS: Pantoprazole Sodium 40 MG Tablet PO (08:21)
[2023-09-01] MEDS: Furosemide 20 MG Tablet PO (10:09)
[2023-09-01 10:31] VITALS: BMI 34.2
[2023-09-01] MEDS: Ensure Plus High Protein 120 ML LIQUID PO ×3 (11:58→19:54)
--- NOTE | 2023-09-01 17:46 | CASEMGMT ---
Social Work SW met with patient at bedside to complete MDS. Patient BIM (01/09) and PhQ-2 () Patient informed SW that she is concerned that the pain medication is causing her to be foggy. Patient informed SW that she believes this fogginess started after surgery that took place on 08/26/2023. SW notified Physician. Speech consulted for Cog evaluation. ELIZABETH Richards
[2023-09-01] MEDS: dilTIAZem CD 240 MG Capsule PO (19:55)
[2023-09-01 19:56] VITALS: BP 123/63; PULSE 83
[2023-09-02 05:52] LABS: Absolute Lymphocyte Count 1.66 X10^3/uL (0.83-4.51); Absolute Neutrophil Count 7.6 X10^3/uL (2.0-7.7); Basophil# 0.08 X10^3/uL; Basophil% 0.7 % (0-1); Eosinophil# 0.53 X10^3/uL; Eosinophils% 4.9 % (0-5); Hematocrit 31.8 % (37-47); Hemoglobin 10.1 g/dL (12.0-15.0); Lymphocyte # 1.66 X10^3/ul (0.83-4.51); Lymphocyte % 15.3 % (19-41); Mean Corp Hgb Conc 31.8 g/dL (32-36); Mean Corpuscular Hgb 30.1 pg (27.0-32.0); Mean Corpuscular Volume 94.9 fL (81-99); Mean Platelet Vol. 9.2 fl (6.2-12.0); Monocyte# 0.92 X10^3/uL; Monocyte% 8.5 % (0-10); NRBC Flagged by Analyzer 0 % (0-5); Neutrophil # 7.62 X10^3/uL (2.7-7.7); Platelet Count 417 K/mm3 (150-450); RBC Distribution Width CV 13.1 % (11.6-14.6); RBC Distribution Width SD 45.2 fl (35.1-43.9); Red Blood Count 3.35 M/mm3 (4.2-5.4); White Blood Count 10.9 K/mm3 (4.4-11.0)
[2023-09-02 06:15] LABS: Anion Gap 7 (5-15); BUN 29 mg/dL (7-18); BUN/Creat Ratio 26.6 RATIO (10-20); Calcium,Total 8.9 mg/dL (8.5-10.1); Chloride 99 mmol/L (98-107); Creatinine, Serum 1.09 mg/dL (0.55-1.02); EST Glomerular Filtration Rate 51 mL/min (>60); Est Glom Filt Rate - Afr Amer 62 mL/min (>60); Estimated Creatinine Clearance 42.56 ml/min; Glucose 105 mg/dL (74-106); Sodium Level 134 mmol/L (136-145)
[2023-09-02] MEDS: Potassium Chloride Oral Tablet 10 MEQ PO (08:43)
[2023-09-02] MEDS: Iron Polysaccharide Complex 150 MG CAPSULE PO (08:43)
[2023-09-02] MEDS: Pantoprazole Sodium 40 MG Tablet PO (08:44)
[2023-09-02] MEDS: Escitalopram Oxalate 10 MG Tablet PO (08:44)
[2023-09-02] MEDS: APIXABAN 5 MG TABLET PO ×2 (08:44→20:51)
[2023-09-02] MEDS: hydroCHLOROthiazide 12.5mg 12.5 MG PO (08:44)
[2023-09-02 08:45] VITALS: BP 153/79; PULSE 67
[2023-09-02] MEDS: Metoprolol Tartrate 25 MG Tablet 12.5 MG PO ×2 (08:45→20:52)
[2023-09-02] MEDS: Senna/Docusate Sodium 1 Tablet 2 TABLET PO ×2 (08:46→20:51)
--- NOTE | 2023-09-02 09:00 | NURSING ---
Mathematics Improvement Teacher Note; MDS for 09/01/2023 Complete
[2023-09-02] MEDS: Furosemide 20 MG Tablet PO (10:07)
[2023-09-02] MEDS: Tuberculin,Purif.prot.deriv. 50 TU/ML Vial 0.1 ML ID (10:07)
--- NOTE | 2023-09-02 11:06 | CASEMGMT ---
Social Work IDT met with patient at bedside and daughterLaura via phone to complete care plan meeting. Discussed patient progress with therapy (PT/OT/ST), nursing, activities, and dietary. Per speech, patient scored 33/50 on B-cat. Patient's daughter expressed concerns for patient's cognitions due to medication. Patient will continue to be assessed by ST. Patient continues to progress with PT/OT. Patient is SBA/ contact guard; ambulating 170ft with walker. Patient's daughterLaura anticipates participating in therapy training for transfers on 09/02 at 1245P. SW educated patient and daughter of [facility] Medicare insurance; next review date 09/06. SW informed patient and family that continued stay is not guaranteed. Patient's daughter inquired about home health care. SW discussed home health care services and increased family supervision in home due to cognitive concerns. Patient's daughter would like information for private pay. SW will continue to follow up with discharge plan. ELIZABETH Richards
--- NOTE | 2023-09-02 12:11 | NURSING ---
Offered covid vaccine, VIS provided. Patient refused at this time.
[2023-09-02 12:38] VITALS: BP 140/62; PULSE 74
[2023-09-02 12:40] VITALS: PULSE 78; RESP 18; TEMP 36.5; O2SAT 97
[2023-09-02] MEDS: Ensure Plus High Protein 120 ML LIQUID PO ×3 (13:12→20:51)
[2023-09-02] MEDS: Acetaminophen 500 MG Tablet 1000 MG PO ×2 (13:12→20:51)
[2023-09-02] MEDS: dilTIAZem CD 240 MG Capsule PO (20:51)
[2023-09-02 20:52] VITALS: BP 150/72; PULSE 70
[2023-09-03] MEDS: Acetaminophen 500 MG Tablet 1000 MG PO ×3 (05:32→20:29)
[2023-09-03] MEDS: Ensure Plus High Protein 120 ML LIQUID PO ×3 (05:33→17:27)
[2023-09-03 08:46] VITALS: BP 130/65; PULSE 91
[2023-09-03] MEDS: Pantoprazole Sodium 40 MG Tablet PO (08:46)
[2023-09-03] MEDS: Metoprolol Tartrate 25 MG Tablet 12.5 MG PO ×2 (08:46→20:30)
[2023-09-03] MEDS: hydroCHLOROthiazide 12.5mg 12.5 MG PO (08:46)
[2023-09-03] MEDS: APIXABAN 5 MG TABLET PO ×2 (08:46→20:28)
[2023-09-03] MEDS: Potassium Chloride Oral Tablet 10 MEQ PO (08:47)
[2023-09-03] MEDS: Iron Polysaccharide Complex 150 MG CAPSULE PO (08:47)
[2023-09-03] MEDS: Furosemide 20 MG Tablet PO (08:47)
--- NOTE | 2023-09-03 13:32 | NURSING ---
Pt off unit with daughter at Doctors appt.
[2023-09-03 15:46] VITALS: BP 143/80; PULSE 79; RESP 16; TEMP 36.6; O2SAT 96
--- NOTE | 2023-09-03 15:51 | NURSING ---
Returned from Appt with Dr. Hampton No new orders F/U in [address] Hampton.
[2023-09-03] MEDS: dilTIAZem CD 240 MG Capsule PO (20:28)
[2023-09-03 20:30] VITALS: BP 128/83; PULSE 99; RESP 16
[2023-09-03] MEDS: Senna/Docusate Sodium 1 Tablet 2 TABLET PO (20:31)
[2023-09-03 20:36] VITALS: BP 128/83; PULSE 99
[2023-09-04 05:40] VITALS: RESP 16
[2023-09-04] MEDS: Acetaminophen 500 MG Tablet 1000 MG PO ×3 (05:42→20:02)
[2023-09-04 09:27] VITALS: BP 133/67; PULSE 96; RESP 16; TEMP 36.9; O2SAT 97
[2023-09-04] MEDS: Iron Polysaccharide Complex 150 MG CAPSULE PO (09:29)
[2023-09-04] MEDS: Ensure Plus High Protein 120 ML LIQUID PO ×3 (09:29→17:57)
[2023-09-04] MEDS: APIXABAN 5 MG TABLET PO ×2 (09:29→20:02)
[2023-09-04] MEDS: Potassium Chloride Oral Tablet 10 MEQ PO (09:29)
[2023-09-04 09:30] VITALS: PULSE 97
[2023-09-04] MEDS: Metoprolol Tartrate 25 MG Tablet 12.5 MG PO ×2 (09:30→20:01)
[2023-09-04] MEDS: Senna/Docusate Sodium 1 Tablet 2 TABLET PO ×2 (09:30→20:01)
[2023-09-04] MEDS: Pantoprazole Sodium 40 MG Tablet PO (09:30)
[2023-09-04] MEDS: Furosemide 20 MG Tablet PO (09:30)
[2023-09-04] MEDS: hydroCHLOROthiazide 12.5mg 12.5 MG PO (09:31)
[2023-09-04] MEDS: Baclofen 10 MG Tablet PO (11:27)
[2023-09-04 20:01] VITALS: BP 132/73; PULSE 94
[2023-09-04] MEDS: dilTIAZem CD 240 MG Capsule PO (20:02)
[2023-09-04 20:16] VITALS: BP 132/73; PULSE 94
[2023-09-05] MEDS: Acetaminophen 500 MG Tablet 1000 MG PO ×3 (06:12→22:05)
[2023-09-05 06:26] VITALS: RESP 16
[2023-09-05] MEDS: Ensure Plus High Protein 120 ML LIQUID PO ×3 (09:34→18:02)
[2023-09-05] MEDS: Iron Polysaccharide Complex 150 MG CAPSULE PO (09:35)
[2023-09-05] MEDS: APIXABAN 5 MG TABLET PO ×2 (09:35→22:05)
[2023-09-05] MEDS: Potassium Chloride Oral Tablet 10 MEQ PO (09:35)
[2023-09-05] MEDS: hydroCHLOROthiazide 12.5mg 12.5 MG PO (09:36)
[2023-09-05] MEDS: Furosemide 20 MG Tablet PO (09:36)
[2023-09-05] MEDS: Pantoprazole Sodium 40 MG Tablet PO (09:37)
[2023-09-05 09:38] VITALS: BP 152/62; PULSE 95
[2023-09-05] MEDS: Metoprolol Tartrate 25 MG Tablet 12.5 MG PO ×2 (09:38→22:05)
[2023-09-05 14:36] VITALS: BP 109/65; PULSE 81; RESP 18; TEMP 37.5; O2SAT 96
[2023-09-05 22:05] VITALS: BP 136/57; PULSE 90
[2023-09-05] MEDS: dilTIAZem CD 240 MG Capsule PO (22:05)
[2023-09-06] MEDS: traMADol 50 MG Tablet 25 MG PO (00:49)
[2023-09-06] MEDS: Baclofen 10 MG Tablet PO (00:50)
[2023-09-06] MEDS: Acetaminophen 500 MG Tablet 1000 MG PO ×3 (06:19→20:54)
[2023-09-06 09:30] VITALS: BP 124/64; PULSE 80; RESP 16; TEMP 36.8; O2SAT 95
[2023-09-06 09:34] VITALS: PULSE 80
[2023-09-06] MEDS: Metoprolol Tartrate 25 MG Tablet 12.5 MG PO ×2 (09:34→21:04)
[2023-09-06] MEDS: Iron Polysaccharide Complex 150 MG CAPSULE PO (09:34)
[2023-09-06] MEDS: Pantoprazole Sodium 40 MG Tablet PO (09:34)
[2023-09-06] MEDS: Potassium Chloride Oral Tablet 10 MEQ PO (09:34)
[2023-09-06] MEDS: Furosemide 20 MG Tablet PO (09:35)
[2023-09-06] MEDS: APIXABAN 5 MG TABLET PO ×2 (09:35→20:55)
[2023-09-06] MEDS: hydroCHLOROthiazide 12.5mg 12.5 MG PO (09:35)
[2023-09-06] MEDS: Ensure Plus High Protein 120 ML LIQUID PO ×3 (09:36→17:58)
[2023-09-06] MEDS: Senna/Docusate Sodium 1 Tablet 2 TABLET PO (20:55)
[2023-09-06 21:04] VITALS: BP 114/71; PULSE 85
[2023-09-06] MEDS: dilTIAZem CD 240 MG Capsule PO (21:04)
[2023-09-06 22:00] VITALS: RESP 16
[2023-09-07] MEDS: Acetaminophen 500 MG Tablet 1000 MG PO ×3 (05:42→22:20)
[2023-09-07] MEDS: Iron Polysaccharide Complex 150 MG CAPSULE PO (09:50)
[2023-09-07] MEDS: Potassium Chloride Oral Tablet 10 MEQ PO (09:50)
[2023-09-07] MEDS: hydroCHLOROthiazide 12.5mg 12.5 MG PO (09:50)
[2023-09-07] MEDS: APIXABAN 5 MG TABLET PO ×2 (09:50→22:19)
[2023-09-07] MEDS: Pantoprazole Sodium 40 MG Tablet PO (09:50)
[2023-09-07] MEDS: Furosemide 20 MG Tablet PO (09:50)
[2023-09-07 09:51] VITALS: PULSE 85
[2023-09-07] MEDS: Metoprolol Tartrate 25 MG Tablet 12.5 MG PO ×2 (09:51→22:20)
[2023-09-07 09:55] VITALS: BP 128/73; PULSE 85; RESP 16; TEMP 36.8; O2SAT 95
[2023-09-07 11:31] VITALS: RESP 18
--- NOTE | 2023-09-07 13:17 | MDS.RN ---
Information for the MDS was obtained from review of the clinical record, interview of resident, staff, and direct observation of resident?s care.
[2023-09-07] MEDS: Ensure Plus High Protein 120 ML LIQUID PO ×2 (13:40→16:45)
[2023-09-07 22:00] VITALS: BP 141/67; PULSE 80
[2023-09-07] MEDS: dilTIAZem CD 240 MG Capsule PO (22:19)
[2023-09-07] MEDS: MELATONIN 10 MG TABLET PO (22:19)
[2023-09-07 22:20] VITALS: BP 141/67; PULSE 80
[2023-09-08] MEDS: Baclofen 10 MG Tablet PO (01:53)
[2023-09-08] MEDS: Acetaminophen 500 MG Tablet 1000 MG PO ×3 (05:58→20:39)
[2023-09-08] MEDS: Ensure Plus High Protein 120 ML LIQUID PO ×3 (05:58→16:39)
[2023-09-08] MEDS: Iron Polysaccharide Complex 150 MG CAPSULE PO (07:49)
[2023-09-08] MEDS: APIXABAN 5 MG TABLET PO ×2 (07:49→20:37)
[2023-09-08] MEDS: Potassium Chloride Oral Tablet 10 MEQ PO (07:49)
[2023-09-08] MEDS: hydroCHLOROthiazide 12.5mg 12.5 MG PO (07:49)
[2023-09-08 07:50] VITALS: BP 134/64; PULSE 74
[2023-09-08] MEDS: Pantoprazole Sodium 40 MG Tablet PO (07:50)
[2023-09-08] MEDS: Metoprolol Tartrate 25 MG Tablet 12.5 MG PO ×2 (07:50→20:37)
[2023-09-08] MEDS: Furosemide 20 MG Tablet PO (07:50)
[2023-09-08 14:59] VITALS: BMI 33.7
[2023-09-08 15:26] VITALS: BP 134/64; PULSE 74; RESP 18; TEMP 36.5; O2SAT 98
[2023-09-08] MEDS: Senna/Docusate Sodium 1 Tablet 2 TABLET PO (20:36)
[2023-09-08 20:37] VITALS: BP 135/66; PULSE 76
[2023-09-08] MEDS: dilTIAZem CD 240 MG Capsule PO (20:39)
[2023-09-08 20:43] VITALS: BP 135/66; PULSE 76
--- NOTE | 2023-09-09 01:47 | NURSING ---
Patient put call light on. Told INSTRUMENT MAKER AND REPAIRER that she didn't feel right. Denied SOB, dizziness, chest pain. VS WNL, BP 125/53, P 63 and regular. She stated that she just woke up suddenly and felt weird, but she stated she was starting to feel better. Will continue to monitor.
[2023-09-09] MEDS: Acetaminophen 500 MG Tablet 1000 MG PO ×3 (05:59→21:03)
[2023-09-09] MEDS: Ensure Plus High Protein 120 ML LIQUID PO ×3 (06:01→18:09)
[2023-09-09 06:05] LABS: Absolute Neutrophil Count 5.5 X10^3/uL (2.0-7.7); Basophil# 0.07 X10^3/uL; Basophil% 0.8 % (0-1); Eosinophil# 0.41 X10^3/uL; Eosinophils% 4.7 % (0-5); Hematocrit 34.5 % (37-47); Lymphocyte % 20.7 % (19-41); Mean Corp Hgb Conc 31.9 g/dL (32-36); Mean Corpuscular Hgb 29.6 pg (27.0-32.0); Mean Corpuscular Volume 92.7 fL (81-99); Mean Platelet Vol. 9.3 fl (6.2-12.0); Monocyte# 0.86 X10^3/uL; Monocyte% 9.9 % (0-10); NRBC Flagged by Analyzer 0 % (0-5); Neutrophil # 5.52 X10^3/uL (2.7-7.7); Neutrophil % 63.6 % (47-70); Platelet Count 390 K/mm3 (150-450); RBC Distribution Width CV 12.9 % (11.6-14.6); RBC Distribution Width SD 43.8 fl (35.1-43.9); Red Blood Count 3.72 M/mm3 (4.2-5.4); White Blood Count 8.7 K/mm3 (4.4-11.0)
[2023-09-09 06:50] LABS: Anion Gap 7 (5-15); BUN 35 mg/dL (7-18); BUN/Creat Ratio 33.7 RATIO (10-20); Calcium,Total 9.2 mg/dL (8.5-10.1); Chloride 103 mmol/L (98-107); Creatinine, Serum 1.04 mg/dL (0.55-1.02); EST Glomerular Filtration Rate 54 mL/min (>60); Est Glom Filt Rate - Afr Amer 65 mL/min (>60); Estimated Creatinine Clearance 44.47 ml/min; Glucose 104 mg/dL (74-106); Sodium Level 137 mmol/L (136-145)
[2023-09-09 08:13] VITALS: BP 131/64; PULSE 71
[2023-09-09] MEDS: hydroCHLOROthiazide 12.5mg 12.5 MG PO (08:13)
[2023-09-09] MEDS: APIXABAN 5 MG TABLET PO ×2 (08:13→21:02)
[2023-09-09] MEDS: Iron Polysaccharide Complex 150 MG CAPSULE PO (08:13)
[2023-09-09] MEDS: Furosemide 20 MG Tablet PO (08:13)
[2023-09-09] MEDS: Pantoprazole Sodium 40 MG Tablet PO (08:13)
[2023-09-09] MEDS: Potassium Chloride Oral Tablet 10 MEQ PO (08:13)
[2023-09-09] MEDS: Metoprolol Tartrate 25 MG Tablet 12.5 MG PO ×2 (08:13→21:01)
[2023-09-09 16:00] VITALS: BP 129/66; PULSE 91; RESP 16; TEMP 36.4; O2SAT 95
[2023-09-09 21:01] VITALS: BP 129/61; PULSE 87
[2023-09-09] MEDS: Senna/Docusate Sodium 1 Tablet 2 TABLET PO (21:01)
[2023-09-09] MEDS: dilTIAZem CD 240 MG Capsule PO (21:03)
[2023-09-10] MEDS: Acetaminophen 500 MG Tablet 1000 MG PO ×3 (06:04→21:29)
[2023-09-10 08:32] VITALS: BP 122/54; PULSE 72; RESP 16; TEMP 36.3; O2SAT 96
[2023-09-10 08:34] VITALS: PULSE 72
[2023-09-10] MEDS: Pantoprazole Sodium 40 MG Tablet PO (08:34)
[2023-09-10] MEDS: Metoprolol Tartrate 25 MG Tablet 12.5 MG PO ×2 (08:34→21:30)
[2023-09-10] MEDS: Senna/Docusate Sodium 1 Tablet 2 TABLET PO ×2 (08:34→21:30)
[2023-09-10] MEDS: APIXABAN 5 MG TABLET PO ×2 (08:34→21:28)
[2023-09-10] MEDS: hydroCHLOROthiazide 12.5mg 12.5 MG PO (08:35)
[2023-09-10] MEDS: Iron Polysaccharide Complex 150 MG CAPSULE PO (08:35)
[2023-09-10] MEDS: Potassium Chloride Oral Tablet 10 MEQ PO (08:35)
[2023-09-10] MEDS: Furosemide 20 MG Tablet PO (08:35)
[2023-09-10] MEDS: Ensure Plus High Protein 120 ML LIQUID PO ×2 (12:08→17:11)
--- NOTE | 2023-09-10 15:05 | CASEMGMT ---
Social Work SW received [employer] Notice of Medicare Non-Coverage for current nursing home facility effective date 09/12/2023; anticipated discharge on 09/13/2023 SW met with patient at bedside to review NOMNC and notify patient of her Medicare rights to appeal discharge decision. Patient informed SW that she is agreeable to discharge on 09/13/2023. Patient informed SW that she will contact her daughter to discuss discharge. Patient signed NOMNC and a copy was left at bedside. SW discussed therapy recommendations for home health care services. Patient informed SW that she is agreeable to home health care services. SW provided patient with a printed [facility] provider list within patients preferred geographic area, medical needs, and insurance network via [employer] Guide. SW discussed home health care services. Patient informed SW that she does not have a preference for agency. Patient previously had home health care, but she cannot remember name of provider. Patient would like PT/OT/SN services; patient declined ST. SW submitted referral via [employer]port Discharge: Home with Home Health PT/OT/SN ELIZABETH Richards
--- NOTE | 2023-09-10 18:48 | DS.PCM_ITS ---
Providers Date of Admission: 08/25/23 Primary Care Physician: Dr. 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 Routine Comment: Reason For Visit: TOTAL KNEE REPLACEMENT ROBOTIC ARM Diagnosis Discharge Diagnosis (1) Debility: Status: Acute Code(s): R53.81 - Other malaise (2) Status post total left knee replacement: Status: Acute Code(s): Z96.652 - Presence of left artificial knee joint (3) Edema leg: Status: Acute Code(s): R60.0 - Localized edema (4) Atrial fibrillation: Status: Acute Code(s): I48.91 - Unspecified atrial fibrillation (5) Hyperlipidemia: Status: Chronic Code(s): E78.5 - Hyperlipidemia, unspecified Qualifiers: Hyperlipidemia type: mixed hyperlipidemia Qualified Code(s): E78.2 - Mixed hyperlipidemia (6) GERD (gastroesophageal reflux disease): Status: Acute Code(s): K21.9 - Gastro-esophageal reflux disease without esophagitis (7) Hypertension: Status: Chronic Code(s): I10 - Essential (primary) hypertension Qualifiers: Hypertension type: primary hypertension Qualified Code(s): I10 - Essential (primary) hypertension (8) Morbid obesity: Status: Acute Code(s): E66.01 - Morbid (severe) obesity due to excess calories Plan 83 year old female with below past medical history hospitalized for left total knee replacement 08/19/[address] Hampton, admitted to TCU with debility, here for rehabilitation, strengthening, prior to discharge home alone. * Debility - PT/OT. * Pain - [place] 5/325mg 2 tablets q6 prn pain (1-10). * Bowel - senna/colace 2 tablets bid, Golytely 1 liter po daily prn, Soap suds enema pr x 1. * Adult immunization - Administer pneumonia vaccine, covid vaccine, flu vaccine as appropriate. * DVT prophylaxis - on Eliquis. * Atrial fibrillation - Metoprolol 12.5mg bid, Diltiazem 240mg qhs, Eliquis 5mg bid. * Edema of legs - Furosemide 20mg daily. * Hypertension - Metoprolol 12.5mg bid, Diltiazem 240mg qhs, HCTZ 12.5mg daily. * Iron deficiency anemia - Ferrex 150mg daily. * GERD - Pantoprazole 40mg daily. * Hypokalemia - KCL 10meq daily. * Nutrition - Ensure Surgery 237ml daily. Medications at Discharge Home Medications apixaban 5 mg tablet (Eliquis) 5 mg PO BID BLOOD THINNER 30 days #60 tabs 08/01/22 diltiazem HCl 240 mg tablet,extended release 24 hr 240 mg PO QHS HEART 01/23/23 metoprolol tartrate 25 mg tablet 12.5 mg PO BID HTN 02/27/23 hydrochlorothiazide 12.5 mg capsule 12.5 mg PO DAILY Heart #30 caps 04/29/23 omeprazole 40 mg capsule,delayed release 40 mg PO DAILY GERD 07/23/23 potassium chloride 20 mEq tablet,extended release 10 meq PO DAILY Supplement 07/23/23 acetaminophen 500 mg tablet 1,000 mg (2 x 500 mg) PO Q8 #0 tabs 09/10/23 baclofen 10 mg tablet 10 mg PO QHS PRN Muscle Spasm 30 days #30 tabs 09/10/23 furosemide 20 mg tablet 20 mg PO DAILY #0 tabs 09/10/23 polysaccharide iron complex 150 mg iron capsule (Ferrex) 150 mg PO DAILYCM 30 days #30 caps 09/10/23 Hospital Course Operations total knee replacement (Left.) Procedures None Summary of Care Provided Minutes Spent on Discharge: 35 Hospital Course: 83 year old female with below past medical history hospitalized for left total knee replacement 08/19/[address] Hampton, admitted to TCU with debility, here for rehabilitation, strengthening, prior to discharge home alone. Discharge home alone 09/13/2023, [facility] PT/OT/SN. Physical Exam Const alert General Appearance: cooperative HEENT normocephalic Eyes PERRL and EOMs intact bilaterally Neck supple, no JVD and no carotid bruits Resp normal respiratory effort, normal air movement and clear to auscultation bilaterally Cardio regular rate and regular rhythm GI normal to inspection, nondistended, normoactive bowel sounds, non-tender and non-distended Extremity normal capillary refill General Extremity: Negative for edema Skin no rashes or lesions noted General Skin Exam: no breakdown Psych affect normal Appearance: appropriate Weight / BMI Weight Weight: 89.766 kg Body Mass Index (BMI) 33.7 ABG / Lab / Microbiology Data 09/09/23 05:41 09/09/23 05:41 D/C Instructions Discharge Diet: No restrictions Discharge Activity: Return to Normal Activity, May Shower and Use Walker Weight Bearing Status: Weight bearing as tolerated Call your doctor if you observe: Fever of 101 or Higher, Inability to urinate, Inability to have a bowel movement, Shortness of breath, Dizziness, Fainting spells, Swelling in the ankles, Chest pain and Uncontrolled pain Additional Instructions: Discharge home alone 09/13/2023, [facility] PT/OT/SN. Please Follow Up With: Rom Hampton MD When: As scheduled. Meaningful Use Info Meaningful Use Meaningful Use Diagnoses (Choose all that apply): None applicable Ischemic Stroke Statin Dosing Therapy Reference: STATIN DOSE THERAPY REFERENCE: * Patients > 75 years receive moderate or high dose statin therapy. * Patients 75 years or YOUNGER should receive HIGH intensity statin dose unless contraindicated. You will be required to document reason for non-treatment if statin daily dose does not meet guidelines. HIGH DOSE STATIN THERAPY DAILY Atorvastatin > than or = to 40 mg Rosuvastatin > than or = to 20 mg Amlodipine + Atorvastatin > than or = to 2.5/40 mg Ezetimibe + Simvastatin 10/80 mg Simvastatin 80mg Discharge Plan Admission Admit Date/Time: 08/25/23 15:05 Primary Reason for Your Visit: Debility. Attending Provider: Philipp Boogie Chi Primary Care Provider: Philipp Boogie Chi Instructions Additional Instructions / Restrictions: Discharge home alone 09/13/2023, [facility] PT/OT/SN. Discharge Orders/Prescriptions Prescriptions: New acetaminophen 500 mg Tablet 1,000 mg PO Q8 Qty: 0 0RF polysaccharide iron complex [Ferrex 150] 150 mg iron Capsule 150 mg PO DAILYCM 30 Days Qty: 30 0RF baclofen 10 mg Tablet 10 mg PO QHS PRN (Reason: Muscle Spasm) 30 Days Qty: 30 0RF furosemide 20 mg Tablet 20 mg PO DAILY Qty: 0 0RF Continued metoprolol tartrate 25 mg tablet 12.5 mg PO BID diltiazem HCl 240 mg tablet extended release 24 hr 240 mg PO QHS Patient Comments: take 1 tablet by mouth at bedtime Eliquis 5 mg Tablet 5 mg PO BID 30 Days Qty: 60 0RF hydrochlorothiazide 12.5 mg capsule 12.5 mg PO DAILY Qty: 30 0RF omeprazole 40 mg capsule,delayed release(DR/EC) 40 mg PO DAILY Patient Comments: take 1 capsule by mouth once daily potassium chloride 20 mEq tablet extended release 10 meq PO DAILY Patient Comments: take 1 tablet by mouth once daily Discontinued furosemide 40 mg tablet 20 mg PO DAILY PRN PRN (Reason: edema) Patient Comments: take 1 tablet by mouth once daily multivitamin Tablet 1 tab PO DAILY calcium carbonate-vitamin D3 500 mg(1,250mg) -125 unit Tablet 2 tab PO DAILY polysaccharide iron complex [iFerex 150] 150 mg iron capsule 150 mg PO DAILY Patient Comments: take 1 capsule by mouth once daily hydrocodone-acetaminophen 5-325 mg Tablet 2 tab PO Q6H PRN PRN (Reason: Pain Score 1-5) 7 Days Qty: 42 0RF Rx Instructions: Take 1-2 tablets by mouth every 6 hours as needed for pain Ensure Surgery 0.08-1.4 gram-kcal/mL Liquid 237 ml PO DAILY Qty: 0 0RF sennosides-docusate sodium [Stool Softener-Stimulant Laxat] 8.6-50 mg Tablet 2 tab PO BID Qty: 0 0RF Rx Instructions: Take until first bowel movement, then as needed for constipation Referrals / Follow Up: Rom Hampton MD [Med Staff - Active Staff] - 10/05/23 9:00 am Philipp Boogie Chi, MD [Primary Care Provider] - Within 1 Week Disposition Disposition (needs filled in before D/C Order can be placed): Home Health Service
[2023-09-10 21:30] VITALS: BP 139/71; PULSE 92; RESP 16
[2023-09-10] MEDS: dilTIAZem CD 240 MG Capsule PO (21:30)
[2023-09-10 21:33] VITALS: BP 139/71; PULSE 92
[2023-09-11] MEDS: Acetaminophen 500 MG Tablet 1000 MG PO ×3 (06:38→21:11)
[2023-09-11 07:59] VITALS: BP 144/79; PULSE 90; RESP 16; TEMP 36.6; O2SAT 96
[2023-09-11] MEDS: Ensure Plus High Protein 120 ML LIQUID PO ×3 (08:01→17:41)
[2023-09-11] MEDS: Iron Polysaccharide Complex 150 MG CAPSULE PO (08:03)
[2023-09-11] MEDS: Potassium Chloride Oral Tablet 10 MEQ PO (08:03)
[2023-09-11 08:04] VITALS: PULSE 90
[2023-09-11] MEDS: Metoprolol Tartrate 25 MG Tablet 12.5 MG PO ×2 (08:04→21:11)
[2023-09-11] MEDS: APIXABAN 5 MG TABLET PO ×2 (08:04→21:12)
[2023-09-11] MEDS: hydroCHLOROthiazide 12.5mg 12.5 MG PO (08:04)
[2023-09-11] MEDS: Furosemide 20 MG Tablet PO (08:04)
[2023-09-11] MEDS: Senna/Docusate Sodium 1 Tablet 2 TABLET PO ×2 (08:05→21:10)
[2023-09-11] MEDS: Pantoprazole Sodium 40 MG Tablet PO (08:05)
--- NOTE | 2023-09-11 09:40 | CASEMGMT ---
Social Work MARGE received a call from [facility], Ara Tovar who informed MARGE that patient has been accepted for home health care PT/OT/SN services with potential start of care on Thursday09/14/2023 MARGE reviewed [facility] referral: [facility] is able to accept and [facility] is unable to accept patient. MARGE notified patient that choice for home health care is required. Patient is currently with therapy. SW is awaiting patient choice. Patient anticipates discharge on 09/13/2023 Home health PT/OT/SN ELIZABETH Richards
[2023-09-11 11:41] VITALS: PULSE 94; RESP 16; O2SAT 97
--- NOTE | 2023-09-11 12:43 | MDS.RN ---
Pain interview for MDS completed.
--- NOTE | 2023-09-11 15:15 | CASEMGMT ---
Social Work SW met with patient at bedside to review discharge planning. SW discussed accepting home health care provider with patient. Patient informed SW that she would like to arrange home health care via [facility] PT/OT/SN. Patient scheduled for home health care appointment on 09/14/2023 at 9AM Patient informed SW that she will have son in law provide transportation to home at 2PM on 09/13/2023 MARGE complete discharge MDS with patient. BIM () and PhQ-2 () Discharge 09/13/2023: [facility] PT/OT/SN - SOC 09/14/2023 ELIZABETH Richards
[2023-09-11 21:11] VITALS: BP 139/68; PULSE 96
[2023-09-11] MEDS: dilTIAZem CD 240 MG Capsule PO (21:12)
[2023-09-12] MEDS: Acetaminophen 500 MG Tablet 1000 MG PO ×3 (05:48→21:58)
[2023-09-12 08:13] VITALS: BP 122/77; PULSE 99; RESP 17; TEMP 36.8; O2SAT 95
[2023-09-12] MEDS: Iron Polysaccharide Complex 150 MG CAPSULE PO (08:18)
[2023-09-12] MEDS: Ensure Plus High Protein 120 ML LIQUID PO (08:18)
[2023-09-12] MEDS: Potassium Chloride Oral Tablet 10 MEQ PO (08:18)
[2023-09-12] MEDS: hydroCHLOROthiazide 12.5mg 12.5 MG PO (08:18)
[2023-09-12] MEDS: APIXABAN 5 MG TABLET PO ×2 (08:18→22:02)
[2023-09-12 08:19] VITALS: PULSE 99
[2023-09-12] MEDS: Furosemide 20 MG Tablet PO (08:19)
[2023-09-12] MEDS: Metoprolol Tartrate 25 MG Tablet 12.5 MG PO ×2 (08:19→21:58)
[2023-09-12] MEDS: Pantoprazole Sodium 40 MG Tablet PO (08:19)
[2023-09-12] MEDS: Senna/Docusate Sodium 1 Tablet 2 TABLET PO ×2 (08:20→21:57)
[2023-09-12 19:56] VITALS: RESP 16
[2023-09-12] MEDS: dilTIAZem CD 240 MG Capsule PO (21:57)
[2023-09-12 21:58] VITALS: BP 129/63; PULSE 99
[2023-09-13 06:18] VITALS: RESP 16
[2023-09-13] MEDS: Acetaminophen 500 MG Tablet 1000 MG PO ×2 (06:25→13:17)
[2023-09-13] MEDS: Potassium Chloride Oral Tablet 10 MEQ PO (10:48)
[2023-09-13 10:49] VITALS: BP 127/78; PULSE 98
[2023-09-13] MEDS: Metoprolol Tartrate 25 MG Tablet 12.5 MG PO (10:49)
[2023-09-13] MEDS: APIXABAN 5 MG TABLET PO (10:51)
[2023-09-13] MEDS: hydroCHLOROthiazide 12.5mg 12.5 MG PO (10:52)
[2023-09-13] MEDS: Pantoprazole Sodium 40 MG Tablet PO (10:52)
[2023-09-13] MEDS: Furosemide 20 MG Tablet PO (10:52)
[2023-09-13] MEDS: Iron Polysaccharide Complex 150 MG CAPSULE PO (10:53)
--- NOTE | 2023-09-13 13:59 | NURSING ---
Discharge packet and medication list discussed with patient. Patient verbalized understanding and denies questions/concerns. Patient exited the unit @1410 with son and grandson.
== END 2023-09-13 14:10 | disposition home health service (06) | DRG 560 ==
PROVIDERS: Admitting Provider Family Medicine Geriatric Medicine; PCP Family Medicine Geriatric Medicine; Referring Provider Family Medicine Geriatric Medicine; Visit Provider Family Medicine Geriatric Medicine
DX: Z47.1 Aftercare following joint replacement surgery (principal); L03.116 Cellulitis of left lower limb; E66.01 Morbid (severe) obesity due to excess calories; I48.0 Paroxysmal atrial fibrillation; D50.9 Iron deficiency anemia, unspecified; I10 Essential (primary) hypertension; E78.2 Mixed hyperlipidemia; K21.9 Gastro-esophageal reflux disease without esophagitis; E87.6 Hypokalemia; Z96.652 Presence of left artificial knee joint; Z79.01 Long term (current) use of anticoagulants; R60.0 Localized edema; Z68.35 Body mass index [BMI] 35.0-35.9, adult; Z79.899 Other long term (current) drug therapy
CPT/HCPCS: 36415; 74018; 80048; 82962; 85014; 85018; 85025; 92507; 92523; 97110; 97116; 97129; 97130; 97162; 97166; 97530; 97535; 97802; A4216

== ENCOUNTER → 2023-08-31 | Outpatient (CLI) | payer MEDICARE, SELFPAY ==
--- NOTE | 2023-08-31 08:36 | VDLE_ITS ---
Reason For Study: Left leg swelling RIGHT LEFT CFV is compressible, spontaneous, phasic, GSV is normal. competent and demonstrates normal CFV is compressible, spontaneous, phasic, augmentation. competent, and demonstrates normal Procedure augmentation. This is a venous duplex using B-mode, color FV is compressible, spontaneous, phasic, flow and spectral Doppler. competent and demonstrates normal Exam performed in department. augmentation. A preliminary report was called and/or faxed POP V is compressible, spontaneous, phasic, to TCU. competent and demonstrates normal augmentation. T/P Trunk is compressible. PTV is compressible. LT PerV is compressible. Nonvascularized structure is noted in the left popliteal space that measures 0.73 x 2.42 x 1.34 cm. VL/Venous Duplex US, Unilateral Interpretation Summary There is no evidence of left lower extremity deep vein thrombosis. Left great s aphenous vein appears patent and compressible segmentally. Left popliteal fossa 0.73 x 2.42 x 1.34 cm nonvascular structure. Clinical correlation would be appropriate. Normal flow patterns right common femoral vein Ordering Physician: Philipp Boogie Chi Referring Physician: Philipp Boogie Chi Performed By: Katherine Linder RVT
== END | disposition home or self-care (01) ==
PROVIDERS: PCP Family Medicine Geriatric Medicine; Referring Provider Family Medicine Geriatric Medicine; Visit Provider Family Medicine Geriatric Medicine
DX: M79.89 Other specified soft tissue disorders (principal); R22.42 Localized swelling, mass and lump, left lower limb
CPT/HCPCS: 93971

== ENCOUNTER 2023-10-19 10:51 | Emergency (ER) | payer MEDICARE, SELFPAY ==
[2023-10-19 10:51] VITALS: BP 142/77; PULSE 87; RESP 20; TEMP 36.3; O2SAT 96
--- NOTE | 2023-10-19 11:10 | EKG12_ITS ---
Test Reason : SOB Blood Pressure : / mmHG Vent. Rate : 076 BPM Atrial Rate : 067 BPM P-R Int : 196 ms QRS Dur : 158 ms QT Int : 444 ms P-R-T Axes : 085 -69 093 degrees QTc Int : 499 ms AV dual-paced rhythm with frequent Premature ventricular complexes Abnormal ECG Confirmed by Doroteo Hamilton ([id number]), newspaper editor JAKI TIMMONS ([id number]) on 10/20/2023 8:05:29 AM Referred By: Confirmed By:Doroteo Hamilton
--- NOTE | 2023-10-19 11:11 | EDS_ITS ---
HPI History of Present Illness Chief Complaint: Shortness of Breath Informant: patient and family Associated Symptoms cough Chest Pain: Positive for None Narrative Narrative: Patient presents with dyspnea on exertion and some lightheadedness with exertion for the last 3 days as well as a new/acute cough that is occasionally productive of sputum, the time that she saw that it did not appear discolored or bloody. She denies any chest pain. She has had some subjective warmth and chills but unknown if any fevers. When she rests her symptoms get better. No presyncope or syncope. She had a left total knee done in June, she is currently going through therapy and she is very concerned that she is missing her therapy on Thursday and today because of the symptoms, but she states otherwise her knee has been doing very well and she denies any acute leg pains or swellings, she does have chronic swelling of both of them and they are similar to prior. No history of blood clots but she does have a history of A-fib for which she has a pacemaker and is on Eliquis because of all that. [facility] Medical History (Updated 10/19/23 @ 14:[address] Berry Ibrahim MD) History of stress test Walker as ambulation aid Shortness of breath on exertion Non-smoker Cellulitis History of echocardiogram History of pacemaker Cardiology follow-up encounter History of colitis History of colon polyps Iron deficiency anemia, unspecified PAF (paroxysmal atrial fibrillation) Atrial flutter Presence of cardiac pacemaker Chronic sinus bradycardia Hip dislocation, left Right knee pain Osteoarthritis Wears glasses Ambulates with cane Arthritis High cholesterol Hypertension Anxiety disorder Home Medications ?Medication ?Instructions ?Recorded ?Last Taken ?Type apixaban 5 mg tablet (Eliquis) 5 mg PO BID BLOOD THINNER 30 days 08/01/22 08/15/23 Rx #60 tabs diltiazem HCl 240 mg 240 mg PO QHS HEART 01/23/23 08/18/23 History tablet,extended release 24 hr metoprolol tartrate 25 mg tablet 12.5 mg PO BID HTN 02/27/23 08/19/23 History hydrochlorothiazide 12.5 mg capsule 12.5 mg PO DAILY Heart #30 caps 04/29/23 08/18/23 Rx omeprazole 40 mg capsule,delayed 40 mg PO DAILY GERD 07/23/23 08/19/23 History release potassium chloride 20 mEq 10 meq PO DAILY Supplement 07/23/23 Unknown History tablet,extended release acetaminophen 500 mg tablet 1,000 mg (2 x 500 mg) PO Q8 #0 tabs 09/10/23 Unknown Rx baclofen 10 mg tablet 10 mg PO QHS PRN Muscle Spasm 30 09/10/23 Unknown Rx days #30 tabs furosemide 20 mg tablet 20 mg PO DAILY #0 tabs 09/10/23 Unknown Rx polysaccharide iron complex 150 mg 150 mg PO DAILYCM 30 days #30 caps 09/10/23 Unknown Rx iron capsule (Ferrex) albuterol sulfate 90 mcg/actuation 1 - 2 puff inhalation Q4H PRN PRN 10/19/23 Unknown Rx aerosol inhaler (Ventolin HFA) Wheezing ##1 azithromycin 250 mg tablet See Rx Instructions PO .COMPLEX #6 10/19/23 Unknown Rx (Zithromax) tabs Allergy/AdvReac Type Severity Reaction Status Date / Time valsartan Allergy Mild Rash Verified 10/19/23 10:51 Family History Mother Heart disease Hypertension Father CVA (cerebral vascular accident) Hypertension Surgical History History of total left knee replacement History of esophagogastroduodenoscopy (EGD) History of permanent cardiac pacemaker placement (~07/21/22) History of right knee joint replacement Status post unicompartmental knee replacement Hx of colonoscopy (~2020) Hx of tubal ligation Hx of foot surgery Hx of total hip arthroplasty Social History household members: none Smoking Status: Never smoker alcohol intake: never substance use type: does not use ROS ROS ED Constitutional Constitutional ED: Reports chills and fatigue; Denies fever(s) or headache(s) Eyes Eyes: Denies change in vision or diplopia ENT ENT ED: Denies rhinorrhea or sore throat Cardiovascular Cardiovascular: Denies chest pain or palpitations Respiratory/Chest Respiratory/Chest: Reports cough, dyspnea on exertion and sputum Gastrointestinal Gastrointestinal: Reports diarrhea; Denies abdominal pain, nausea or vomiting Genitourinary Genitourinary ED: Denies dysuria or hematuria Musculoskeletal Musculoskeletal: Denies back pain or neck pain Integumentary Denies abscess or rash Neurologic Neurologic: Denies headache(s), paresthesias or weakness Psychiatric Psychiatric: Denies suicidal thoughts EXAM Physical Exam Const Vital Signs: 10/19/23 10:51 10/19/23 11:10 10/19/23 11:21 Temperature 97.3 F L Temperature Source Temporal Pulse Rate 87 79 Respiratory Rate 20 H 16 Respiratory Depth Respiratory Pattern Normal Blood Pressure 142/77 H Blood Pressure Mean 98 Pulse Ox 96 Oxygen Delivery Method Room Air Room Air 10/19/23 11:30 10/19/23 12:51 Temperature Temperature Source Pulse Rate 82 Respiratory Rate 17 Respiratory Depth Normal Respiratory Pattern Normal Blood Pressure 124/44 H Blood Pressure Mean 70 Pulse Ox 96 Oxygen Delivery Method Room Air Room Air Positive well nourished and well developed General Appearance ED: well developed and NAD HEENT Reports moist mucous membranes normocephalic and atraumatic Eyes PERRL and EOMs intact bilaterally Neck full ROM, supple and no JVD Resp normal respiratory effort Resp Narrative: Few right basilar rhonchi, slight end expiratory left basilar wheeze, otherwise clear. Effort and Inspection: able to speak in complete sentences Cardio regular rate, regular rhythm and no murmurs Rate: Negative for tachycardic GI non-tender and non-distended Auscultation: normoactive bowel sounds Palpation: soft Back/Spine no CVA tenderness General Back: other FROM Extremity normal to inspection and no calf tenderness Extremity Narrative: Well-healed bilateral knee anterior TKA surgical incisions General Extremety ED: Yes edema; Negative for pulses abnormal or tenderness General Extremity: edema bilateral lower extremity Details: moderate; Negative for pulses abnormal Neuro oriented x3, CN's II-XII intact bilaterally and no sensory deficits noted Sensorium / Orientation: awake and alert Motor Exam: strength 5/5 throughout Skin no rashes or lesions noted and no wounds MDM MDM MDM Narrative Medical decision making narrative: More concerned about the possibility of pneumonia here than blood clot since she is already anticoagulated due to chronic A-fib/a flutter. Also sent a COVID/influenza/RSV swab and in the meantime, treated her with a duo nebulizer treatment. This did help some. 2 view chest x-ray my interpretation negative for pneumonia radiology was in agreement. Lab work was noted, slightly depressed lymphocyte level but otherwise unremarkable differential. EKG and troponin are unremarkable, she has pacemaker functioning as a demand pacemaker appropriately with good capture. Her COVID/influenza/RSV swab is negative. I am going to prescribe her Z-Robert to cover for atypicals given that I feel this is most likely infectious certainly could be viral as she understands. Lab Data Attestation: I reviewed the patient's lab results. Labs: Laboratory Results - last 24 hr 10/19/23 11:10 WBC 10.3 RBC 3.43 L Hgb 10.0 L Hct 32.4 L MCV 94.5 MCH 29.2 MCHC 30.9 L RDW Std Deviation 50.2 H RDW Coeff of Mari 14.6 Plt Count 296 MPV 10.0 Immature Gran % (Auto) 0.400 Neut % (Auto) 69.5 Lymph % (Auto) 15.5 L [place] % (Auto) 11.3 H Eos % (Auto) 2.7 Baso % (Auto) 0.6 Absolute Neuts (auto) 7.2 Absolute Lymphs (auto) 1.60 Nucleated RBC % 0 Sodium 137 Potassium 4.3 Chloride 108 H Carbon Dioxide 21.0 Anion Gap 8 BUN 19 H Creatinine 1.16 H Est GFR (MDRD) Af Amer 57 L Est GFR (MDRD) Non-Af 47 L BUN/Creatinine Ratio 16.4 Glucose 103 Calcium 9.2 Troponin I High Sens 7 Radiography Diagnostic Testing: Clinical Impression(s) from Imaging Studies Chest X-Ray 10/19/23 11:30 IMPRESSION: Cardiomegaly. The lungs are clear. Electronically Signed: Pradeep Barba MD at 12:25 EDT , Rhythm Strip Rhythm Strip: paced Rate: 75 Ectopy: None EKG Initial EKG: Attestation: I personally reviewed and interpreted this EKG as follows: Interpretation: Sinus Rhythm and Paced (Demand pace & capture) Discharge Plan Triage Chief Complaint: Shortness of Breath ED Provider: Berry Ibrahim Dx/Rx/DC Orders Clinical Impression: Acute bronchitis Instructions: Acute Bronchitis Prescriptions: New azithromycin [Zithromax] 250 mg tablet See Rx Instructions .ROUTE .COMPLEX Qty: 6 0RF Rx Instructions: For 250 mg dose pack: take 500 mg today (day 1), then 250 mg for 4 days (days 2-5) albuterol sulfate [Ventolin HFA] 90 mcg/actuation HFA aerosol inhaler 1 - 2 puff inhalation Q4H PRN PRN (Reason: Wheezing) Qty: 1 0RF No Action metoprolol tartrate 25 mg tablet 12.5 mg PO BID diltiazem HCl 240 mg tablet extended release 24 hr 240 mg PO QHS Patient Comments: take 1 tablet by mouth at bedtime Eliquis 5 mg Tablet 5 mg PO BID 30 Days Qty: 60 0RF hydrochlorothiazide 12.5 mg capsule 12.5 mg PO DAILY Qty: 30 0RF omeprazole 40 mg capsule,delayed release(DR/EC) 40 mg PO DAILY Patient Comments: take 1 capsule by mouth once daily potassium chloride 20 mEq tablet extended release 10 meq PO DAILY Patient Comments: take 1 tablet by mouth once daily acetaminophen 500 mg Tablet 1,000 mg PO Q8 Qty: 0 0RF polysaccharide iron complex [Ferrex 150] 150 mg iron Capsule 150 mg PO DAILYCM 30 Days Qty: 30 0RF baclofen 10 mg Tablet 10 mg PO QHS PRN (Reason: Muscle Spasm) 30 Days Qty: 30 0RF furosemide 20 mg Tablet 20 mg PO DAILY Qty: 0 0RF Primary Care Provider: Philipp Boogie Chi Referrals: Philipp Boogie Chi, MD [Primary Care Provider] - 1 Week if not improving Print Language: Upper Sorbian Disposition Disposition: Home, Self Care
[2023-10-19 11:20] LABS: Absolute Neutrophil Count 7.2 X10^3/uL (2.0-7.7); Basophil# 0.06 X10^3/uL; Basophil% 0.6 % (0-1); Eosinophil# 0.28 X10^3/uL; Eosinophils% 2.7 % (0-5); Hematocrit 32.4 % (37-47); Lymphocyte % 15.5 % (19-41); Mean Corp Hgb Conc 30.9 g/dL (32-36); Mean Corpuscular Hgb 29.2 pg (27.0-32.0); Mean Corpuscular Volume 94.5 fL (81-99); Monocyte# 1.17 X10^3/uL; Monocyte% 11.3 % (0-10); NRBC Flagged by Analyzer 0 % (0-5); Neutrophil # 7.16 X10^3/uL (2.7-7.7); Neutrophil % 69.5 % (47-70); Platelet Count 296 K/mm3 (150-450); RBC Distribution Width CV 14.6 % (11.6-14.6); RBC Distribution Width SD 50.2 fl (35.1-43.9); Red Blood Count 3.43 M/mm3 (4.2-5.4); White Blood Count 10.3 K/mm3 (4.4-11.0)
[2023-10-19] MEDS: Ipratropium/Albuterol Sulfate 3 ML AMPUL.NEB INHALATION (11:20)
[2023-10-19 11:21] VITALS: PULSE 79; RESP 16
[2023-10-19 11:30] VITALS: O2SAT 96
--- NOTE | 2023-10-19 11:30 | RAD_ITS ---
STUDY: X-RAY CHEST REASON FOR EXAM: Female, 83 years old. Cough sob TECHNIQUE: PA and lateral views of the chest. COMPARISON: Comparison is made with prior study dated September 27, 2022. FINDINGS: EKG electrodes are seen. The lungs are clear and expanded. Scattered calcified granulomas. There is no demonstrated pleural abnormality. There is moderate cardiac enlargement. A left-sided dual-chamber pacemaker is seen. Normal mediastinum and tonja. Normal visualized pulmonary arteries. There is atherosclerotic calcification of the aortic arch with tortuosity. There is demineralization of the osseous structures. Mild dextroscoliosis. Normal visualized ribs, clavicles, and shoulders. Hiatal hernia. RAD/Chest PA and Lateral IMPRESSION: Cardiomegaly. The lungs are clear. Electronically Signed: Pradeep Barba MD at 12:25 EDT ,
[2023-10-19 11:40] LABS: Anion Gap 8 (5-15); BUN 19 mg/dL (7-18); BUN/Creat Ratio 16.4 RATIO (10-20); Calcium,Total 9.2 mg/dL (8.5-10.1); Chloride 108 mmol/L (98-107); Creatinine, Serum 1.16 mg/dL (0.55-1.02); EST Glomerular Filtration Rate 47 mL/min (>60); Est Glom Filt Rate - Afr Amer 57 mL/min (>60); Glucose 103 mg/dL (74-106); Potassium 4.3 mmol/L (3.5-5.1); Sodium Level 137 mmol/L (136-145); Troponin-I HS 7 pg/mL (3.0-54.0)
[2023-10-19 12:51] VITALS: BP 124/44; PULSE 82; RESP 17; O2SAT 96
[2023-10-19 14:00] VITALS: BP 136/53; PULSE 89; RESP 20; O2SAT 97
== END 2023-10-19 14:39 | disposition home or self-care (01) ==
PROVIDERS: Emergency Provider Emergency Medicine; PCP Family Medicine Geriatric Medicine; Visit Provider Emergency Medicine
DX: J20.9 Acute bronchitis, unspecified (principal); I48.20 Chronic atrial fibrillation, unspecified; Z96.652 Presence of left artificial knee joint; Z95.0 Presence of cardiac pacemaker; Z79.01 Long term (current) use of anticoagulants; I10 Essential (primary) hypertension; E78.00 Pure hypercholesterolemia, unspecified
CPT/HCPCS: 71046; 80048; 84484; 85025; 87631; 93005; 94640; 99284; A4216

== ENCOUNTER → 2023-11-12 | Outpatient (CLI) | payer MEDICARE, SELFPAY ==
[2023-11-12 14:52] LABS: Absolute Lymphocyte Count 2.35 X10^3/uL (0.83-4.51); Absolute Neutrophil Count 6.7 X10^3/uL (2.0-7.7); Basophil# 0.06 X10^3/uL; Basophil% 0.6 % (0-1); Eosinophil# 0.23 X10^3/uL; Eosinophils% 2.2 % (0-5); Hematocrit 34.4 % (37-47); Hemoglobin 10.4 g/dL (12.0-15.0); Lymphocyte # 2.35 X10^3/ul (0.83-4.51); Lymphocyte % 22.6 % (19-41); Mean Corp Hgb Conc 30.2 g/dL (32-36); Mean Corpuscular Hgb 28.6 pg (27.0-32.0); Mean Corpuscular Volume 94.5 fL (81-99); Mean Platelet Vol. 10.2 fl (6.2-12.0); Monocyte# 1.05 X10^3/uL; Monocyte% 10.1 % (0-10); NRBC Flagged by Analyzer 0 % (0-5); Neutrophil # 6.67 X10^3/uL (2.7-7.7); Neutrophil % 64.1 % (47-70); Platelet Count 337 K/mm3 (150-450); RBC Distribution Width CV 13.4 % (11.6-14.6); RBC Distribution Width SD 46.7 fl (35.1-43.9); Red Blood Count 3.64 M/mm3 (4.2-5.4); White Blood Count 10.4 K/mm3 (4.4-11.0)
[2023-11-12 15:08] LABS: Vitamin D,25 Hydroxy 38.6 ng/mL
[2023-11-12 15:13] LABS: ALB/GLOB Ratio 0.9 RATIO (0.9-2.4); AST(SGOT) 16 U/L (15-37); Alanine Aminotransfer ALT/SGPT 16 U/L (13-56); Albumin, Serum 3.6 g/dL (3.2-5.0); Alkaline Phosphatase 105 U/L (45-117); Anion Gap 13 (5-15); BUN 25 mg/dL (7-18); BUN/Creat Ratio 18.9 RATIO (10-20); Calcium,Total 9.2 mg/dL (8.5-10.1); Chloride 104 mmol/L (98-107); Creatinine, Serum 1.32 mg/dL (0.55-1.02); EST Glomerular Filtration Rate 41 mL/min (>60); Est Glom Filt Rate - Afr Amer 49 mL/min (>60); Globulin 4.1 g/dL (2.2-4.2); Glucose 122 mg/dL (74-106); Potassium 3.8 mmol/L (3.5-5.1); Protein, Total 7.7 g/dL (6.4-8.2); Sodium Level 139 mmol/L (136-145)
== END | disposition home or self-care (01) ==
LOC: POLAB3 13:08
PROVIDERS: PCP Family Medicine Geriatric Medicine; Visit Provider Family Medicine Geriatric Medicine
DX: I10 Essential (primary) hypertension (principal); E55.9 Vitamin D deficiency, unspecified
CPT/HCPCS: 36415; 80053; 82306; 84443; 85025

== ENCOUNTER → 2023-12-09 | Outpatient (CLI) | payer MEDICARE, SELFPAY ==
--- NOTE | 2023-12-09 14:25 | RAD_ITS ---
STUDY: X-RAY CHEST REASON FOR EXAM: Female, 83 years old. LEDESMA TECHNIQUE: PA and lateral views of the chest. COMPARISON: 10/19/2023 FINDINGS: Left subclavian pacemaker which is unchanged. The lungs are clear and expanded. There is no demonstrated pleural abnormality. There is moderate cardiac enlargement. Normal mediastinum and tonja. Normal visualized pulmonary arteries. Normal visualized aortic arch and descending thoracic aorta. There is a dextroscoliosis of the thoracic spine. Normal visualized ribs, clavicles, and shoulders. There is no demonstrated abnormality of the visualized soft tissue structures of the upper abdomen. RAD/Chest PA and Lateral IMPRESSION: No active disease. Cardiomegaly. Electronically Signed: Kareem Sears MD at 13:06 EDT ,
[2023-12-09 15:23] LABS: Absolute Lymphocyte Count 1.45 X10^3/uL (0.83-4.51); Absolute Neutrophil Count 6.3 X10^3/uL (2.0-7.7); Basophil# 0.04 X10^3/uL; Basophil% 0.5 % (0-1); Eosinophils% 1.1 % (0-5); Hematocrit 33.2 % (37-47); Hemoglobin 10.1 g/dL (12.0-15.0); Lymphocyte # 1.45 X10^3/ul (0.83-4.51); Lymphocyte % 16.5 % (19-41); Mean Corp Hgb Conc 30.4 g/dL (32-36); Mean Corpuscular Hgb 28.1 pg (27.0-32.0); Mean Corpuscular Volume 92.2 fL (81-99); Mean Platelet Vol. 9.9 fl (6.2-12.0); Monocyte# 0.89 X10^3/uL; Monocyte% 10.1 % (0-10); NRBC Flagged by Analyzer 0 % (0-5); Neutrophil # 6.29 X10^3/uL (2.7-7.7); Neutrophil % 71.5 % (47-70); Platelet Count 311 K/mm3 (150-450); RBC Distribution Width CV 13.7 % (11.6-14.6); RBC Distribution Width SD 46.5 fl (35.1-43.9); White Blood Count 8.8 K/mm3 (4.4-11.0)
[2023-12-09 15:46] LABS: Anion Gap 9 (5-15); BUN 37 mg/dL (7-18); Calcium,Total 9.1 mg/dL (8.5-10.1); Chloride 102 mmol/L (98-107); Creatinine, Serum 1.48 mg/dL (0.55-1.02); EST Glomerular Filtration Rate 36 mL/min (>60); Est Glom Filt Rate - Afr Amer 43 mL/min (>60); Glucose 108 mg/dL (74-106); Potassium 4.1 mmol/L (3.5-5.1); Sodium Level 137 mmol/L (136-145)
[2023-12-09 15:48] LABS: BNP,B-Type NATRIURETIC PEPTIDE 56.5 pg/mL (0-100)
== END | disposition home or self-care (01) ==
LOC: RAD 14:19
PROVIDERS: PCP Family Medicine Geriatric Medicine; Referring Provider Nurse Practitioner Gerontology; Visit Provider Nurse Practitioner Gerontology
DX: R06.09 Other forms of dyspnea (principal)
CPT/HCPCS: 36415; 71046; 80048; 83880; 85025

== ENCOUNTER → 2024-01-05 | Outpatient (CLI) | payer MEDICARE, SELFPAY ==
--- NOTE | 2024-01-05 12:48 | ECHOD_ITS ---
Version 2 Reason For Study: LEDESMA Procedure This was a 2D Doppler, Color Flow transthoracic echocardiogram. Exam performed in department. Left Ventricle Normal LV size. Sigmoid septum. Left ventricular systolic function is normal. The left ventricular ejection fraction is 60 %. Stage 1 diastolic dysfunction. No regional wall motion abnormalities noted. Right Ventricle Normal RV size. ICD or pacer leads identified within the right ventricle. Normal systolic function. Atria Normal left atrium. Normal right atrium. Mitral Valve Normal mitral valve. Tricuspid Valve Normal tricuspid valve. Mild (1+) tricuspid valve insufficiency. Pulmonary artery systolic pressure is 37 mmHg. Aortic Valve Trisinus/trileaflet aortic valve. Pulmonic Valve Normal pulmonic valve. Great Vessels Normal aortic root. The pulmonary artery is normal size. Normal inferior vena cava. Pericardium/Pleural No pericardial effusion. MMode/2D Measurements & Calculations LVIDd: 4.3 cm IVSd: 1.7 cm LVOT diam: 1.9 cm LVIDs: 2.8 cm LVPWd: 1.1 cm LVOT area: 2.9 cm2 RVDd: 3.6 cm FS: 34.1 % Ao root diam: 3.6 cm asc Aorta Diam: 3.5 cm LAV(MOD-bp): 40.0 ml LAV(MOD-bp) Indexed: 20.0 ml/m2 LAV(MOD-sp2): 37.6 ml LAV(MOD-sp4): 32.9 ml TAPSE: 1.8 cm LA A4 area: 16.0 cm2 RA A4 area: 13.4 cm2 Time Measurements MV dec time: 0.22 sec Doppler Measurements & Calculations MV E max rolando: 29.8 cm/sec Lat Peak E' Rolando: 4.6 cm/sec MV V2 max: 102.5 cm/sec MV A max rolando: 103.0 cm/sec E/E' lat: 6.5 MV max P.2 mmHg MV E/A: 0.29 MV V2 mean: 52.5 cm/sec MV mean P.3 mmHg MV V2 VTI: 26.1 cm MVA(VTI): 2.1 cm2 MV P1/2t max rolando: 70.4 cm/sec Ao V2 max: 139.7 cm/sec LV V1 max: 95.9 cm/sec MV P1/2t: 103.3 msec Ao max P.9 mmHg LV V1 max P.7 mmHg Ao V2 mean: 97.8 cm/sec LV V1 mean P.2 mmHg MV dec slope: 199.7 cm/sec2 Ao mean P.3 mmHg LV V1 mean: 68.5 cm/sec MVA(P1/2t): 2.1 cm2 Ao V2 VTI: 24.4 cm LV V1 VTI: 18.5 cm AV (velocity ratio): 0.76 CHRISTINA(I,D): 2.2 cm2 CHRISTINA(V,D): 2.0 cm2 MR max rolando: 640.2 cm/sec SV(LVOT): 54.1 ml PA V2 max: 101.7 cm/sec MR max P.9 mmHg PA max PG (full): 2.0 mmHg MR mean rolando: 477.9 cm/sec MR mean P.6 mmHg MR VTI: 179.2 cm TR max rolando: 289.0 cm/sec TR max P.4 mmHg ECHO/Echo Complete Interpretation Summary Normal LV size. Left ventricular systolic function is normal. The left ventricular ejection fraction is 60 %. Sigmoid septum. Pulmonary artery systolic pressure is 37 mmHg. Stage 1 diastolic dysfunction. Ordering Physician: Sherrill Shields Referring Physician: Sherrill Shields Performed By: Moustapha Mishra and Student
== END | disposition home or self-care (01) ==
PROVIDERS: PCP Family Medicine Geriatric Medicine; Referring Provider Nurse Practitioner Gerontology; Visit Provider Nurse Practitioner Gerontology
DX: R06.09 Other forms of dyspnea (principal)
CPT/HCPCS: 93005; 93306

== ENCOUNTER → 2024-02-11 | Outpatient (CLI) | payer MEDICARE, SELFPAY ==
[2024-02-11 15:23] LABS: Absolute Lymphocyte Count 2.06 X10^3/uL (0.83-4.51); Absolute Neutrophil Count 8.1 X10^3/uL (2.0-7.7); Basophil# 0.07 X10^3/uL; Basophil% 0.6 % (0-1); Eosinophil# 0.13 X10^3/uL; Eosinophils% 1.1 % (0-5); Hematocrit 32.7 % (37-47); Hemoglobin 10.2 g/dL (12.0-15.0); Lymphocyte # 2.06 X10^3/ul (0.83-4.51); Lymphocyte % 17.9 % (19-41); Mean Corp Hgb Conc 31.2 g/dL (32-36); Mean Corpuscular Hgb 29.4 pg (27.0-32.0); Mean Corpuscular Volume 94.2 fL (81-99); Mean Platelet Vol. 10.4 fl (6.2-12.0); Monocyte# 1.17 X10^3/uL; Monocyte% 10.2 % (0-10); NRBC Flagged by Analyzer 0 % (0-5); Neutrophil # 8.05 X10^3/uL (2.7-7.7); Neutrophil % 69.9 % (47-70); Platelet Count 279 K/mm3 (150-450); RBC Distribution Width CV 14.8 % (11.6-14.6); RBC Distribution Width SD 51.6 fl (35.1-43.9); Red Blood Count 3.47 M/mm3 (4.2-5.4); White Blood Count 11.5 K/mm3 (4.4-11.0)
[2024-02-11 15:41] LABS: ALB/GLOB Ratio 0.9 RATIO (0.9-2.4); AST(SGOT) 15 U/L (15-37); Alanine Aminotransfer ALT/SGPT 17 U/L (13-56); Albumin, Serum 3.4 g/dL (3.2-5.0); Alkaline Phosphatase 99 U/L (45-117); Anion Gap 7 (5-15); BUN 33 mg/dL (7-18); BUN/Creat Ratio 25.8 RATIO (10-20); Calcium,Total 9.4 mg/dL (8.5-10.1); Chloride 106 mmol/L (98-107); Creatinine, Serum 1.28 mg/dL (0.55-1.02); EST Glomerular Filtration Rate 42 mL/min (>60); Est Glom Filt Rate - Afr Amer 51 mL/min (>60); Globulin 3.6 g/dL (2.2-4.2); Glucose 92 mg/dL (74-106); Potassium 4.2 mmol/L (3.5-5.1); Sodium Level 137 mmol/L (136-145)
[2024-02-12 10:58] LABS: Vitamin D,25 Hydroxy 40.2 ng/mL
== END | disposition home or self-care (01) ==
PROVIDERS: PCP Family Medicine Geriatric Medicine; Visit Provider Family Medicine Geriatric Medicine
DX: I10 Essential (primary) hypertension (principal); E55.9 Vitamin D deficiency, unspecified
CPT/HCPCS: 36415; 80053; 82306; 84443; 85025

== ENCOUNTER → 2024-05-26 | Outpatient (CLI) | payer MEDICARE, SELFPAY ==
[2024-05-26 13:53] LABS: Absolute Lymphocyte Count 2.09 X10^3/uL (0.83-4.51); Absolute Neutrophil Count 7.1 X10^3/uL (2.0-7.7); Basophil# 0.05 X10^3/uL; Basophil% 0.5 % (0-1); Eosinophil# 0.17 X10^3/uL; Eosinophils% 1.6 % (0-5); Hematocrit 33.5 % (37-47); Hemoglobin 10.3 g/dL (12.0-15.0); Lymphocyte # 2.09 X10^3/ul (0.83-4.51); Lymphocyte % 19.9 % (19-41); Mean Corp Hgb Conc 30.7 g/dL (32-36); Mean Corpuscular Hgb 27.9 pg (27.0-32.0); Mean Corpuscular Volume 90.8 fL (81-99); Mean Platelet Vol. 10.4 fl (6.2-12.0); Monocyte# 1.11 X10^3/uL; Monocyte% 10.6 % (0-10); NRBC Flagged by Analyzer 0 % (0-5); Neutrophil # 7.06 X10^3/uL (2.7-7.7); Platelet Count 317 K/mm3 (150-450); RBC Distribution Width CV 13.7 % (11.6-14.6); RBC Distribution Width SD 44.9 fl (35.1-43.9); Red Blood Count 3.69 M/mm3 (4.2-5.4); White Blood Count 10.5 K/mm3 (4.4-11.0)
[2024-05-26 14:10] LABS: Vitamin D,25 Hydroxy 45.3 ng/mL
[2024-05-26 14:16] LABS: AST(SGOT) 21 U/L (15-37); Alanine Aminotransfer ALT/SGPT 20 U/L (13-56); Albumin, Serum 3.6 g/dL (3.2-5.0); Alkaline Phosphatase 93 U/L (45-117); Anion Gap 12 (5-15); BUN 25 mg/dL (7-18); BUN/Creat Ratio 18.4 RATIO (10-20); Calcium,Total 9.6 mg/dL (8.5-10.1); Chloride 103 mmol/L (98-107); Creatinine, Serum 1.36 mg/dL (0.55-1.02); EST Glomerular Filtration Rate 39 mL/min (>60); Est Glom Filt Rate - Afr Amer 48 mL/min (>60); Globulin 3.6 g/dL (2.2-4.2); Glucose 113 mg/dL (74-106); Protein, Total 7.2 g/dL (6.4-8.2); Sodium Level 138 mmol/L (136-145)
== END | disposition home or self-care (01) ==
LOC: LAB.FUTURE 13:21 → POLAB3 13:22
PROVIDERS: PCP Family Medicine Geriatric Medicine; Visit Provider Family Medicine Geriatric Medicine
DX: I10 Essential (primary) hypertension (principal); E55.9 Vitamin D deficiency, unspecified; E05.90 Thyrotoxicosis, unspecified without thyrotoxic crisis or storm
CPT/HCPCS: 36415; 80053; 82306; 84443; 85025

== ENCOUNTER 2024-06-09 08:14 | Emergency (ER) | payer MEDICARE, SELFPAY ==
--- NOTE | 2024-06-09 08:03 | RAD_ITS ---
PROCEDURE: CHEST 1 VIEW (PORTABLE) REASON FOR EXAM: Chest pain. TECHNIQUE: Single frontal image including the chest and abdomen. COMPARISON: Chest x-ray of 12/09/2019. RAD/Chest 1 View (Portable) IMPRESSION: Probable hiatal hernia. Left thoracic transvenous pacemaker with atrial and ventricular leads appear st able. Stable mild cardiomegaly. No evidence of pulmonary edema. Lungs appear clear of acute disease. No pleural effusion or pneumothorax is no abbie. Asymmetric right glenohumeral joint degenerative changes, also with loose intra -articular body, projecting at the subcoracoid recess, again present. No acute osseous process is seen. Reading Location: [id number]
[2024-06-09 08:15] VITALS: BP 147/97; PULSE 83; RESP 15; TEMP 36.5; O2SAT 97; BMI 37.7
--- NOTE | 2024-06-09 08:27 | EKG12_ITS ---
Test Reason : SOB Blood Pressure : */* mmHG Vent. Rate : 82 BPM Atrial Rate : 82 BPM P-R Int : 196 ms QRS Dur : 166 ms QT Int : 464 ms P-R-T Axes : 79 -71 90 degrees QTcB Int : 542 ms Atrial-sensed ventricular-paced rhythm with occasional Premature ventricular complexes Abnormal ECG Confirmed by CHRISTOPHER MA, SUSAN ([id number]), food editor KIRIT STRONG ([id number]) on 06/13/2024 8:03:58 AM Referred By: Confirmed By: SUSAN WHITE MD
--- NOTE | 2024-06-09 08:28 | EX.ED.DYSGE1 ---
HPI History of Present Illness Chief Complaint: Shortness of Breath Detail of Chief Complaint: Not feeling well Informant: patient Narrative Narrative: Patient presents to the emergency department via EMS from home with complaint of not feeling well this morning. She states that she woke up and went to the bathroom and had come back to her room and was sitting on the edge of the bed when she started not feeling right. She felt very shaky and she think she may have had some mild chest discomfort. She called her daughter who told her to call EMS. Patient was concerned she might be having a heart attack. She denies any nausea or vomiting. She denies diaphoresis. She has a hard time expressing how she did not feel well but feels like a sudden wave of something came over her. She denies recent illness. She denies fever or cough. She denies vomiting or diarrhea. She does have a pacemaker. She has remote history of anxiety but states that the pacemaker resolved that. Currently does not take anxiety medication. Currently she is feels a little bit shaky. [facility] Medical History History of stress test Walker as ambulation aid Shortness of breath on exertion Non-smoker Cellulitis History of echocardiogram History of pacemaker Cardiology follow-up encounter History of colitis History of colon polyps Iron deficiency anemia, unspecified PAF (paroxysmal atrial fibrillation) Atrial flutter Presence of cardiac pacemaker Chronic sinus bradycardia Hip dislocation, left Right knee pain Osteoarthritis Wears glasses Ambulates with cane Arthritis High cholesterol Hypertension Anxiety disorder Home Medications ?Medication ?Instructions ?Recorded ?Last Taken ?Type apixaban 5 mg tablet (Eliquis) 5 mg PO BID BLOOD THINNER 30 days 08/01/22 08/15/23 Rx #60 tabs diltiazem HCl 240 mg 240 mg PO QHS HEART 01/23/23 08/18/23 History tablet,extended release 24 hr metoprolol tartrate 25 mg tablet 12.5 mg PO BID HTN 02/27/23 08/19/23 History hydrochlorothiazide 12.5 mg capsule 12.5 mg PO DAILY Heart #30 caps 04/29/23 08/18/23 Rx omeprazole 40 mg capsule,delayed 40 mg PO DAILY GERD 07/23/23 08/19/23 History release potassium chloride 20 mEq 10 meq PO DAILY Supplement 07/23/23 Unknown History tablet,extended release acetaminophen 500 mg tablet 1,000 mg (2 x 500 mg) PO Q8 #0 tabs 09/10/23 Unknown Rx baclofen 10 mg tablet 10 mg PO QHS PRN Muscle Spasm 30 09/10/23 Unknown Rx days #30 tabs furosemide 20 mg tablet 20 mg PO DAILY #0 tabs 09/10/23 Unknown Rx polysaccharide iron complex 150 mg 150 mg PO DAILYCM 30 days #30 caps 09/10/23 Unknown Rx iron capsule (Ferrex) albuterol sulfate 90 mcg/actuation 1 - 2 puff inhalation Q4H PRN PRN 10/19/23 Unknown Rx aerosol inhaler (Ventolin HFA) Wheezing ##1 lorazepam 0.5 mg tablet (Ativan) 0.5 mg PO TID PRN anxiety #10 tabs 06/09/24 Unknown Rx Allergy/AdvReac Type Severity Reaction Status Date / Time valsartan Allergy Mild Rash Verified 06/09/24 08:20 Family History Mother Heart disease Hypertension Father CVA (cerebral vascular accident) Hypertension Surgical History History of total left knee replacement History of esophagogastroduodenoscopy (EGD) History of permanent cardiac pacemaker placement (~07/21/22) History of right knee joint replacement Status post unicompartmental knee replacement Hx of colonoscopy (~2020) Hx of tubal ligation Hx of foot surgery Hx of total hip arthroplasty Social History household members: none Smoking Status: Never smoker alcohol intake: never substance use type: does not use ROS ROS ED ROS Narrative Feeling shaky Review of Systems ROS Unobtainable: other Constitutional Constitutional ED: Reports lethargy; Denies chills, fever(s), sweats or weight loss Eyes Eyes: Denies blurry vision, change in vision or diplopia ENT ENT ED: Denies rhinorrhea or sore throat Cardiovascular Cardiovascular: Reports chest pain; Denies orthopnea or racing heartbeat Respiratory/Chest Respiratory/Chest: Denies cough, dyspnea, dyspnea on exertion, orthopnea or sputum Gastrointestinal Gastrointestinal: Denies abdominal pain, diarrhea, nausea or vomiting Genitourinary Genitourinary ED: Denies dysuria, hematuria or urinary frequency Musculoskeletal Musculoskeletal: Denies arthralgias, back pain, myalgias or neck pain Integumentary Denies abscess, Abrasions or rash Neurologic Neurologic: Denies headache(s) or weakness Psychiatric Psychiatric: Denies anxiety, depression or suicidal thoughts Endocrine Endocrinology: Denies polydipsia, polyphagia or polyuria Hematologic/Lymphatic Hematologic/Lymphatic: Denies easy bleeding, easy bruising or lymphadenopathy Allergic/Immunologic Allergic/Immunologic ED: Denies mouth swelling, tongue swelling or urticaria EXAM Physical Exam Const Vital Signs: 06/09/24 08:15 06/09/24 08:22 06/09/24 08:27 Temperature 97.7 F L Temperature Source Oral Pulse Rate 83 Pulse Rate [Lying] Pulse Rate [Sitting (for 1 minute prior to obtaining)] Pulse Rate [Standing (for 1 minute prior to obtaining)] Respiratory Rate 15 Respiratory Effort Short of Breath Respiratory Depth Normal Respiratory Pattern Normal Blood Pressure 147/97 H Blood Pressure [Lying] Blood Pressure [Sitting (for 1 minute prior to obtaining)] Blood Pressure [Standing (for 1 minute prior to obtaining)] Blood Pressure Mean 113 Blood Pressure Mean [Lying] Blood Pressure Mean [Sitting (for 1 minute prior to obtaining)] Blood Pressure Mean [Standing (for 1 minute prior to obtaining)] Pulse Ox 97 Oxygen Delivery Method Room Air Room Air Room Air 06/09/24 09:13 06/09/24 09:16 06/09/24 09:55 Temperature Temperature Source Pulse Rate 69 Pulse Rate [Lying] 67 Pulse Rate [Sitting (for 1 minute prior to obtaining)] 69 Pulse Rate [Standing (for 1 minute prior to obtaining)] 86 Respiratory Rate 18 Respiratory Effort Respiratory Depth Respiratory Pattern Blood Pressure 120/63 149/78 H Blood Pressure [Lying] 132/69 H Blood Pressure [Sitting (for 1 minute prior to obtaining)] 131/80 H Blood Pressure [Standing (for 1 minute prior to obtaining)] 125/73 H Blood Pressure Mean 82 101 Blood Pressure Mean [Lying] 90 Blood Pressure Mean [Sitting (for 1 minute prior to obtaining)] 97 Blood Pressure Mean [Standing (for 1 minute prior to obtaining)] 90 Pulse Ox 96 Oxygen Delivery Method Room Air 06/09/24 11:00 Temperature Temperature Source Pulse Rate 77 Pulse Rate [Lying] Pulse Rate [Sitting (for 1 minute prior to obtaining)] Pulse Rate [Standing (for 1 minute prior to obtaining)] Respiratory Rate Respiratory Effort Respiratory Depth Respiratory Pattern Blood Pressure 123/49 H Blood Pressure [Lying] Blood Pressure [Sitting (for 1 minute prior to obtaining)] Blood Pressure [Standing (for 1 minute prior to obtaining)] Blood Pressure Mean 73 Blood Pressure Mean [Lying] Blood Pressure Mean [Sitting (for 1 minute prior to obtaining)] Blood Pressure Mean [Standing (for 1 minute prior to obtaining)] Pulse Ox 98 Oxygen Delivery Method Room Air Positive well nourished and well developed General Appearance ED: well developed and NAD HEENT Reports TM's clear and moist mucous membranes normocephalic and atraumatic; Negative for trauma or tenderness Tympanic Membrane ED: Yes TM's clear Eyes PERRL and EOMs intact bilaterally General Eye ED: Negative for pale conjunctiva or scleral icterus Neck no lymphadenopathy, supple and no JVD General: Negative for tenderness Chest Wall inspection of chest normal and palpation of chest normal Chest: Negative for tenderness Resp normal respiratory effort and clear to auscultation bilaterally Effort and Inspection: Negative for respiratory distress or pain with movement Auscultation: Negative for rhonchi, wheezes or diminished lung sounds Cardio regular rate, regular rhythm, S1 normal heart sound, S2 normal heart sound and no murmurs Peripheral Pulses: pulses 2+ throughout GI normal to inspection, nondistended, normoactive bowel sounds, soft to palpation, non-tender, non-distended and no masses Back/Spine no CVA tenderness and no thoracic nor lumbar tenderness Extremity normal to inspection General Extremety ED: Negative for edema General Extremity: Negative for edema Neuro oriented x3, CN's II-XII intact bilaterally, no sensory deficits noted and gait normal Sensorium / Orientation: awake, alert, oriented to person, oriented to place and oriented to time Motor Exam: strength 5/5 throughout and strength abnormal Psych mental status grossly normal Skin no rashes or lesions noted and no wounds MDM MDM MDM Narrative Medical decision making narrative: Patient presents with an episode this morning of not feeling well after getting up to use the restroom. She felt shaky. May be some nondescript chest discomfort that she really cannot describe. Currently denies any chest pain. She does still feel shaky. Clinically she looks well. She does have a pacemaker. EKG obtained on arrival showed atrially sensed and ventricularly paced rhythm with rate of of 82 bpm. CBC with differential, 9.3 with hemoglobin 10.4 and platelet count of 294. Chemistries unremarkable. BUN 26 and creatinine 1.2. Initial troponin was 6. We did have the pacemaker interrogated and spoke with the rep who states that there were no significant rhythm abnormalities that occurred today that would explain her symptomatology. No concerns on the monitoring/pacemaker. Will obtain a delta troponin will check a urine. Delta troponin also was normal at 8. I do not feel she is having acute coronary syndrome. Unclear if she may have had a vagal type episode or anxiety episode. Patient will be discharged to home and advised to follow-up with her primary care physician 3 to 5 days. Symptomatically she feels markedly improved. Discussed all results with patient and her son-in-law that is with her. Son-in-law thinks this may all just be anxiety. Patient believes that could be the case. She did want something for anxiety as needed and I did her first as needed. Lab Data Attestation: I reviewed the patient's lab results. Labs: Laboratory Results - last 24 hr 06/09/24 06/09/24 06/09/24 08:05 10:02 10:55 WBC 9.3 RBC 3.78 L Hgb 10.4 L Hct 34.8 L MCV 92.1 MCH 27.5 MCHC 29.9 L RDW Std Deviation 45.9 H RDW Coeff of Mari 13.6 Plt Count 294 MPV 10.4 Immature Gran % (Auto) 0.400 Neut % (Auto) 57.9 Lymph % (Auto) 27.8 Kimball % (Auto) 10.1 H Eos % (Auto) 3.3 Baso % (Auto) 0.5 Absolute Neuts (auto) 5.4 Absolute Lymphs (auto) 2.59 Nucleated RBC % 0 Sodium 139 Potassium 4.0 Chloride 105 Carbon Dioxide 25.0 Anion Gap 9 BUN 26 H Creatinine 1.20 H Estim Creat Clear Calc 40.77 Est GFR (MDRD) Af Amer 55 L Est GFR (MDRD) Non-Af 46 L BUN/Creatinine Ratio 21.7 H Glucose 111 H Calcium 9.5 Troponin I High Sens 6 8 Urine Color Straw Urine Clarity Clear Urine pH 6.5 Ur Specific [place] 1.010 Urine Protein Negative Urine Glucose (UA) Normal Urine Ketones Negative Urine Occult Blood 10 H Urine Nitrite Negative Urine Bilirubin Negative Urine Urobilinogen Normal Ur Leukocyte Esterase Negative Urine RBC 0-5 SEEN Urine WBC 0 SEEN Ur Squamous Epith Cells 0-5 SEEN Urine Bacteria 0 SEEN Urine Mucus 0 SEEN Radiography Diagnostic Testing: Clinical Impression(s) from Imaging Studies Chest X-Ray 06/09/24 08:03 IMPRESSION: Probable hiatal hernia. Left thoracic transvenous pacemaker with atrial and ventricular leads appear stable. Stable mild cardiomegaly. No evidence of pulmonary edema. Lungs appear clear of acute disease. No pleural effusion or pneumothorax is noted. Asymmetric right glenohumeral joint degenerative changes, also with loose intra-articular body, projecting at the subcoracoid recess, again present. No acute osseous process is seen. Reading Location: [address] EKG Initial EKG: Attestation: I personally reviewed and interpreted this EKG as follows: Comments: Atrially sensed and ventricularly paced rhythm with rate of 82 bpm Discharge Plan Triage Chief Complaint: Shortness of Breath ED Provider: Autumn Harden Dx/Rx/DC Orders Clinical Impression: Anxiety, Chest pain Instructions: ED Anxiety Reaction, ED Chest Pain, Uncertain Cause Prescriptions: New lorazepam [Ativan] 0.5 mg tablet 0.5 mg PO TID PRN (Reason: anxiety) Qty: 10 0RF No Action metoprolol tartrate 25 mg tablet 12.5 mg PO BID diltiazem HCl 240 mg tablet extended release 24 hr 240 mg PO QHS Patient Comments: take 1 tablet by mouth at bedtime Eliquis 5 mg Tablet 5 mg PO BID 30 Days Qty: 60 0RF hydrochlorothiazide 12.5 mg capsule 12.5 mg PO DAILY Qty: 30 0RF omeprazole 40 mg capsule,delayed release(DR/EC) 40 mg PO DAILY Patient Comments: take 1 capsule by mouth once daily potassium chloride 20 mEq tablet extended release 10 meq PO DAILY Patient Comments: take 1 tablet by mouth once daily acetaminophen 500 mg Tablet 1,000 mg PO Q8 Qty: 0 0RF polysaccharide iron complex [Ferrex 150] 150 mg iron Capsule 150 mg PO DAILYCM 30 Days Qty: 30 0RF baclofen 10 mg Tablet 10 mg PO QHS PRN (Reason: Muscle Spasm) 30 Days Qty: 30 0RF furosemide 20 mg Tablet 20 mg PO DAILY Qty: 0 0RF albuterol sulfate [Ventolin HFA] 90 mcg/actuation HFA aerosol inhaler 1 - 2 puff inhalation Q4H PRN PRN (Reason: Wheezing) Qty: 1 0RF Primary Care Provider: Philipp Boogie Chi Referrals: Philipp Boogie Chi, MD [Primary Care Provider] - 3-5 Days Print Language: Spanish Disposition Disposition: Home, Self Care
[2024-06-09] MEDS: Aspirin 81 MG TAB.CHEW 324 MG PO (08:33)
[2024-06-09 08:37] LABS: Absolute Lymphocyte Count 2.59 X10^3/uL (0.83-4.51); Absolute Neutrophil Count 5.4 X10^3/uL (2.0-7.7); Basophil# 0.05 X10^3/uL; Basophil% 0.5 % (0-1); Eosinophil# 0.31 X10^3/uL; Eosinophils% 3.3 % (0-5); Hematocrit 34.8 % (37-47); Hemoglobin 10.4 g/dL (12.0-15.0); Lymphocyte # 2.59 X10^3/ul (0.83-4.51); Lymphocyte % 27.8 % (19-41); Mean Corp Hgb Conc 29.9 g/dL (32-36); Mean Corpuscular Hgb 27.5 pg (27.0-32.0); Mean Corpuscular Volume 92.1 fL (81-99); Mean Platelet Vol. 10.4 fl (6.2-12.0); Monocyte# 0.94 X10^3/uL; Monocyte% 10.1 % (0-10); NRBC Flagged by Analyzer 0 % (0-5); Neutrophil % 57.9 % (47-70); Platelet Count 294 K/mm3 (150-450); RBC Distribution Width CV 13.6 % (11.6-14.6); RBC Distribution Width SD 45.9 fl (35.1-43.9); Red Blood Count 3.78 M/mm3 (4.2-5.4); White Blood Count 9.3 K/mm3 (4.4-11.0)
[2024-06-09 08:56] LABS: Anion Gap 9 (5-15); BUN 26 mg/dL (7-18); BUN/Creat Ratio 21.7 RATIO (10-20); Calcium,Total 9.5 mg/dL (8.5-10.1); Chloride 105 mmol/L (98-107); EST Glomerular Filtration Rate 46 mL/min (>60); Est Glom Filt Rate - Afr Amer 55 mL/min (>60); Estimated Creatinine Clearance 40.77 ml/min; Glucose 111 mg/dL (74-106); Sodium Level 139 mmol/L (136-145); Troponin-I HS (w/2H Reflex) 6 pg/mL (3.0-54.0)
[2024-06-09 09:13] VITALS: BP 120/63; PULSE 69; RESP 18; O2SAT 96
[2024-06-09 09:16] VITALS: BP 125/73; BP 131/80; BP 132/69; PULSE 67; PULSE 69; PULSE 86
[2024-06-09 09:55] VITALS: BP 149/78
[2024-06-09 10:07] LABS: Bacteria 0 SEEN /hpf (None Seen); Mucous, Urine 0 SEEN /hpf (<or=2+)
[2024-06-09 10:08] LABS: Color, Urine Straw (Yellow); Glucose, Dipstick Normal (Normal); Ketone-Dipstick Negative (Negative); Leukocyte Esterase-Dipstick Negative /ul (Negative); Nitrite-Dipstick Negative (Negative); Occult Blood-Urine 10 /ul (Negative); Protein-Dipstick Negative (Negative); Urine Bilirubin Dipstick Negative (Negative); Urine Clarity Clear (Clear); Urine Urobilinogen Normal (Normal); Urine pH 6.5 (5.0 - 8.0)
[2024-06-09 10:15] LABS: Red Blood Cells-Urine 0-5 SEEN /hpf (0-5); Squamous Epithelial Cells - UA 0-5 SEEN /hpf (5-10); White Blood Cells 0 SEEN /hpf (0-5)
[2024-06-09 10:34] LABS: Reflex Troponin-HS? (from REC) Y
[2024-06-09 11:00] VITALS: BP 123/49; PULSE 77; O2SAT 98
[2024-06-09 11:29] LABS: Troponin-I HS 8 pg/mL (3.0-54.0)
[2024-06-09 11:47] VITALS: BP 142/59; PULSE 69; RESP 21; TEMP 36.5; O2SAT 97
== END 2024-06-09 11:57 | disposition home or self-care (01) ==
PROVIDERS: Emergency Provider Emergency Medicine; PCP Family Medicine Geriatric Medicine; Visit Provider Emergency Medicine
DX: R07.89 Other chest pain (principal); R06.02 Shortness of breath; R00.1 Bradycardia, unspecified; D50.9 Iron deficiency anemia, unspecified; F41.9 Anxiety disorder, unspecified; I10 Essential (primary) hypertension; E78.00 Pure hypercholesterolemia, unspecified; Z95.0 Presence of cardiac pacemaker; Z79.899 Other long term (current) drug therapy
CPT/HCPCS: 71045; 80048; 81001; 84484; 85025; 93005; 99285

== ENCOUNTER → 2024-07-05 | Outpatient (CLI) | payer MEDICARE, SELFPAY ==
[2024-07-05 17:07] LABS: Anion Gap 14 (5-15); BUN 29 mg/dL (4-19); BUN/Creat Ratio 23.8 RATIO (10-20); Calcium,Total 9.7 mg/dL (7.6-11.0); Carbon Dioxide 21.3 mmol/L (21.0-32.0); Chloride 104 mmol/L (98-108); EST Glomerular Filtration Rate 45 (>60); Glucose 98 mg/dL (70-99); Potassium 4.4 mmol/L (3.3-5.1); Sodium Level 139 mmol/L (133-145)
== END | disposition home or self-care (01) ==
LOC: POLAB3 14:36
PROVIDERS: PCP Family Medicine Geriatric Medicine; Visit Provider Family Medicine Geriatric Medicine
DX: I10 Essential (primary) hypertension (principal)
CPT/HCPCS: 36415; 80048

== ENCOUNTER → 2024-07-19 | Outpatient (CLI) | payer MEDICARE, SELFPAY ==
[2024-07-19 22:42] LABS: Anion Gap 12 (5-15); BUN 33 mg/dL (4-19); BUN/Creat Ratio 26.4 RATIO (10-20); Calcium,Total 9.2 mg/dL (7.6-11.0); Carbon Dioxide 22.5 mmol/L (21.0-32.0); Chloride 104 mmol/L (98-108); Creatinine, Serum 1.25 mg/dL (0.70-1.20); EST Glomerular Filtration Rate 43 (>60); Glucose 96 mg/dL (70-99); Potassium 4.2 mmol/L (3.3-5.1); Sodium Level 139 mmol/L (133-145)
== END | disposition home or self-care (01) ==
LOC: LAB 15:19
PROVIDERS: PCP Family Medicine Geriatric Medicine; Referring Provider Family Medicine Geriatric Medicine; Visit Provider Family Medicine Geriatric Medicine
DX: N18.31 Chronic kidney disease, stage 3a (principal)
CPT/HCPCS: 36415; 80048

== ENCOUNTER → 2024-07-29 | Outpatient (CLI) | payer MEDICARE, SELFPAY ==
--- NOTE | 2024-07-29 14:50 | RAD_ITS ---
PROCEDURE: CHEST PA AND LATERAL 07/29/2024 REASON FOR EXAM: SOB TECHNIQUE: Frontal and lateral views of the chest. COMPARISON: 06/09/2024 FINDINGS: Suggestion of mild vascular congestion and possible mild interstitial edema, clinically correlate. No focal consolidation or pleural effusion. Dual lead pacemaker again noted. Cardiac silhouette appears unchanged. Again note of moderate appearing hiatal hernia. Atherosclerotic changes at the aortic arch. Ovoid possible intra-articular osseous body right glenohumeral joint again noted. S shaped partially imaged thoracolumbar scoliosis again noted. RAD/Chest PA and Lateral IMPRESSION: Suggestion of mild vascular congestion and possible mild interstitial edema, cl inically correlate. No focal consolidation or pleural effusion. Again note of moderate appearing hiatal hernia. Reading Location: [id number]
[2024-07-29 15:45] LABS: Absolute Lymphocyte Count 1.75 X10^3/uL (0.83-4.51); Absolute Neutrophil Count 7.1 X10^3/uL (2.0-7.7); Basophil# 0.06 X10^3/uL; Basophil% 0.6 % (0-1); Eosinophil# 0.12 X10^3/uL; Eosinophils% 1.2 % (0-5); Hematocrit 32.2 % (37-47); Hemoglobin 9.6 g/dL (12.0-15.0); Lymphocyte # 1.75 X10^3/ul (0.83-4.51); Lymphocyte % 17.7 % (19-41); Mean Corp Hgb Conc 29.8 g/dL (32-36); Mean Corpuscular Hgb 27.3 pg (27.0-32.0); Mean Corpuscular Volume 91.5 fL (81-99); Mean Platelet Vol. 11.1 fl (6.2-12.0); Monocyte# 0.88 X10^3/uL; Monocyte% 8.9 % (0-10); NRBC Flagged by Analyzer 0 % (0-5); Neutrophil # 7.07 X10^3/uL (2.7-7.7); Neutrophil % 71.3 % (47-70); Platelet Count 305 K/mm3 (150-450); RBC Distribution Width CV 13.5 % (11.6-14.6); RBC Distribution Width SD 45.6 fl (35.1-43.9); Red Blood Count 3.52 M/mm3 (4.2-5.4); White Blood Count 9.9 K/mm3 (4.4-11.0)
[2024-07-29 16:13] LABS: Anion Gap 16 (5-15); BUN 35 mg/dL (4-19); BUN/Creat Ratio 24.1 RATIO (10-20); Calcium,Total 9.6 mg/dL (7.6-11.0); Carbon Dioxide 20.4 mmol/L (21.0-32.0); Chloride 105 mmol/L (98-108); Creatinine, Serum 1.45 mg/dL (0.70-1.20); EST Glomerular Filtration Rate 36 (>60); Glucose 92 mg/dL (70-99); Potassium 4.6 mmol/L (3.3-5.1); Sodium Level 142 mmol/L (133-145)
== END | disposition home or self-care (01) ==
PROVIDERS: PCP Family Medicine Geriatric Medicine; Referring Provider Internal Medicine Cardiovascular Disease; Visit Provider Internal Medicine Cardiovascular Disease
DX: R06.09 Other forms of dyspnea (principal)
CPT/HCPCS: 36415; 71046; 80048; 85025

== ENCOUNTER → 2024-08-10 | Outpatient (CLI) | payer MEDICARE, SELFPAY ==
[2024-08-10 15:25] LABS: Absolute Lymphocyte Count 1.28 X10^3/uL (0.83-4.51); Absolute Neutrophil Count 8.2 X10^3/uL (2.0-7.7); Basophil# 0.04 X10^3/uL; Basophil% 0.4 % (0-1); Eosinophil# 0.12 X10^3/uL; Eosinophils% 1.1 % (0-5); Hematocrit 30.5 % (37-47); Hemoglobin 9.1 g/dL (12.0-15.0); Lymphocyte # 1.28 X10^3/ul (0.83-4.51); Lymphocyte % 12.1 % (19-41); Mean Corp Hgb Conc 29.8 g/dL (32-36); Mean Corpuscular Volume 90.5 fL (81-99); Mean Platelet Vol. 10.8 fl (6.2-12.0); Monocyte# 0.96 X10^3/uL; NRBC Flagged by Analyzer 0 % (0-5); Neutrophil # 8.16 X10^3/uL (2.7-7.7); Neutrophil % 76.9 % (47-70); Platelet Count 287 K/mm3 (150-450); RBC Distribution Width CV 13.9 % (11.6-14.6); RBC Distribution Width SD 45.3 fl (35.1-43.9); Red Blood Count 3.37 M/mm3 (4.2-5.4); White Blood Count 10.6 K/mm3 (4.4-11.0)
[2024-08-10 17:13] LABS: ALB/GLOB Ratio 1.5 RATIO (0.9-2.4); AST(SGOT) 15 U/L (<=31); Alanine Aminotransfer ALT/SGPT 10 U/L (<=34); Alkaline Phosphatase 94 U/L (35-104); Anion Gap 14 (5-15); BUN 29 mg/dL (4-19); BUN/Creat Ratio 23.4 RATIO (10-20); Calcium,Total 9.2 mg/dL (7.6-11.0); Carbon Dioxide 23.2 mmol/L (21.0-32.0); Chloride 104 mmol/L (98-108); Creatinine, Serum 1.25 mg/dL (0.70-1.20); EST Glomerular Filtration Rate 43 (>60); Globulin 2.8 g/dL (2.2-4.2); Glucose 86 mg/dL (70-99); Potassium 4.2 mmol/L (3.3-5.1); Protein, Total 6.8 g/dL (5.9-8.4); Sodium Level 140 mmol/L (133-145); Total Bilirubin 0.26 mg/dL (0.00-1.30)
== END | disposition home or self-care (01) ==
LOC: LAB 13:59
PROVIDERS: PCP Family Medicine Geriatric Medicine; Referring Provider Family Medicine Geriatric Medicine; Visit Provider Family Medicine Geriatric Medicine
DX: I10 Essential (primary) hypertension (principal); E55.9 Vitamin D deficiency, unspecified
CPT/HCPCS: 36415; 80053; 82306; 84443; 85025

== ENCOUNTER 2024-08-15 08:30 | Day surgery (SDC) | payer MEDICARE, SELFPAY ==
[2024-08-12 07:51] VITALS: BMI 36.6
--- NOTE | 2024-08-15 10:12 | CL.D_ITS ---
Patient Name: CAROLINA DOMINIQUE Study Date: 08/15/2024 Performing: Sudhir Fowler MD Ht: 64 inches 162.56 cm : 1940 Wt: 213.01 lbs 96.62 kg Age: 84 Gender: female BSA: 2.01 PROCEDURE(S) PERFORMED [id number])LHC/COR/LV CLINICAL PROFILE AND INDICATIONS Indications: Other Heart Failure: None Stress/Imaging Stress/Image Study Performed: No CAD Presentations: Other: sob CONCLUSIONS Normal coronary arteries Normal LV size, wall motion,and systolic function RECOMMENDATIONS Medical therapy DESCRIPTION OF PROCEDURE The patient arrived to the procedure lab. The risks and benefits of the procedure as well as a full description of our services here and current unavailability of surgical backup were fully explained to the patient and/or their significant other prior to the catheterization. The Timeout was completed, verifying the correct patient and procedure. The patient's procedural site was prepped and draped in the usual fashion. Local anesthetic was given subcutaneously to right radial region with Lidocaine 2%. Using a modified Seldinger technique, arterial access was obtained via the right radial artery, a 6Fr sheath was inserted. Left Coronary Artery selective angiography was performed in multiple views using a 5 Fr. JL3.5 catheter. Right Coronary Artery selective angiography was then performed in multiple views using a 5 Fr. JR 5 catheter.The arterial sheath was pulled and a TR Band was applied for hemostasis CORONARY ANGIOGRAPHY DOMINANCE: Left Dominant LEFT HEART ASSESSMENT Left Ventricular Ejection Fraction: by Echo 65 % Normal LV wall motion Normal Left Ventricular systolic function LEFT MAIN: Angiographically normal LEFT ANTERIOR DESCENDING ARTERY: No significant disease noted CIRCUMFLEX ARTERY: Angiographically normal RIGHT CORONARY ARTERY: Non-obstructive COMPLICATIONS No Complications PROCEDURE MEDICATIONS Fentanyl 25 mcg IV Versed 0.5 mg IV Versed 0.5 mg IV Fentanyl 25 mcg IV Aspirin (325mg) 1 Tabs PO @ 08/15/2024 09:05:33 Heparin given IA 08/15/2024 09:38:27 Verapamil 2.5mg, Ntg 100mcgs, 3000 units of Heparin given IA 08/15/2024 09:38:27 SUMMARY OF HEMODYNAMIC DATA Time AIR REST ECG 08:56:44 AO 138/72 (97) SA 09:41:53 10:10:06 Signed By Sudhir Fowler MD On 08/15/2024 10:11:50 Sudhir Fowler MD
== END 2024-08-15 12:00 | disposition home or self-care (01) ==
PROVIDERS: PCP Family Medicine Geriatric Medicine; Referring Provider Internal Medicine Cardiovascular Disease; Visit Provider Internal Medicine Cardiovascular Disease
DX: R06.09 Other forms of dyspnea (principal); I48.0 Paroxysmal atrial fibrillation; I10 Essential (primary) hypertension; E78.2 Mixed hyperlipidemia; Z95.0 Presence of cardiac pacemaker; Z79.01 Long term (current) use of anticoagulants; Z79.899 Other long term (current) drug therapy; R93.1 Abnormal findings on diagnostic imaging of heart and coronary circulation
CPT/HCPCS: 82274; 93454; 93458; 99152; 99153; C1894; Q9967; C1769

== ENCOUNTER → 2024-11-17 | Outpatient (CLI) | payer MEDICARE, SELFPAY ==
[2024-11-17 15:15] LABS: Hematocrit 33.9 % (37-47); Hemoglobin 10.3 g/dL (12.0-15.0); Immature Granulocytes Count 0.020 X10^3/uL (0.0-0.0); Mean Corp Hgb Conc 30.4 g/dL (32-36); Mean Corpuscular Volume 89.9 fL (81-99); Mean Platelet Vol. 10.5 fl (6.2-12.0); NRBC Flagged by Analyzer 0 % (0-5); Platelet Count 313 K/mm3 (150-450); RBC Distribution Width CV 15.7 % (11.6-14.6); RBC Distribution Width SD 51.8 fl (35.1-43.9); Red Blood Count 3.77 M/mm3 (4.2-5.4); White Blood Count 11.0 K/mm3 (4.4-11.0)
[2024-11-17 16:06] LABS: AST(SGOT) 17 U/L (<=31); Alanine Aminotransfer ALT/SGPT 13 U/L (<=34); Albumin, Serum 4.0 g/dL (3.4-4.8); Alkaline Phosphatase 105 U/L (35-104); Anion Gap 17 (5-15); BUN 27 mg/dL (4-19); BUN/Creat Ratio 20.5 RATIO (10-20); Calcium,Total 9.4 mg/dL (7.6-11.0); Carbon Dioxide 21.1 mmol/L (21.0-32.0); Chloride 100 mmol/L (98-108); Globulin 3.0 g/dL (2.2-4.2); Glucose 101 mg/dL (70-99); Potassium 4.6 mmol/L (3.3-5.1); Vitamin D,25 Hydroxy 37.9 ng/mL (30-100)
[2024-11-17 22:35] LABS: Xtra Tube Kwok EXTRA TUBE
== END | disposition home or self-care (01) ==
LOC: POLAB3 14:30
PROVIDERS: PCP Family Medicine Geriatric Medicine; Visit Provider Family Medicine Geriatric Medicine
DX: I10 Essential (primary) hypertension (principal); E55.9 Vitamin D deficiency, unspecified
CPT/HCPCS: 36415; 80053; 82306; 84443; 85025

== ENCOUNTER → 2025-02-14 | Outpatient (CLI) | payer MEDICARE, SELFPAY ==
[2025-02-14 22:50] LABS: Hematocrit 29.7 % (37-47); Hemoglobin 8.1 g/dL (12.0-15.0); Immature Granulocytes Count 0.050 X10^3/uL (0.0-0.0); Mean Corp Hgb Conc 27.3 g/dL (32-36); Mean Corpuscular Volume 92.2 fL (81-99); Mean Platelet Vol. 10.8 fl (6.2-12.0); NRBC Flagged by Analyzer 0 % (0-5); Platelet Count 397 K/mm3 (150-450); RBC Distribution Width CV 14.3 % (11.6-14.6); RBC Distribution Width SD 48.2 fl (35.1-43.9); Red Blood Count 3.22 M/mm3 (4.2-5.4); White Blood Count 11.8 K/mm3 (4.4-11.0)
[2025-02-14 22:51] LABS: AST(SGOT) 10 U/L (<=31); Alanine Aminotransfer ALT/SGPT 9 U/L (<=34); Albumin, Serum 4.2 g/dL (3.4-4.8); Alkaline Phosphatase 87 U/L (35-104); Anion Gap 16 (5-15); BUN 27 mg/dL (4-19); BUN/Creat Ratio 20.2 RATIO (10-20); Calcium,Total 9.5 mg/dL (7.6-11.0); Carbon Dioxide 23.2 mmol/L (21.0-32.0); Chloride 100 mmol/L (98-108); Globulin 3.1 g/dL (2.2-4.2); Glucose 115 mg/dL (70-99); Potassium 4.0 mmol/L (3.3-5.1); Vitamin D,25 Hydroxy 40.8 ng/mL (30-100)
== END | disposition home or self-care (01) ==
PROVIDERS: PCP Family Medicine Geriatric Medicine; Referring Provider Family Medicine Geriatric Medicine; Visit Provider Family Medicine Geriatric Medicine
DX: I10 Essential (primary) hypertension (principal); E55.9 Vitamin D deficiency, unspecified
CPT/HCPCS: 36415; 80053; 82306; 84443; 85025

== ENCOUNTER → 2025-02-21 | Outpatient (CLI) | payer MEDICARE, SELFPAY ==
[2025-02-21 16:16] LABS: Hematocrit 27.8 % (37-47); Hemoglobin 8.0 g/dL (12.0-15.0); Immature Granulocytes Count 0.060 X10^3/uL (0.0-0.0); Mean Corp Hgb Conc 28.8 g/dL (32-36); Mean Corpuscular Volume 86.6 fL (81-99); Mean Platelet Vol. 10.4 fl (6.2-12.0); NRBC Flagged by Analyzer 0 % (0-5); Platelet Count 289 K/mm3 (150-450); RBC Distribution Width CV 14.8 % (11.6-14.6); RBC Distribution Width SD 46.5 fl (35.1-43.9); Red Blood Count 3.21 M/mm3 (4.2-5.4); Reticulocyte Count 4.05 % (0.5-1.5); White Blood Count 9.8 K/mm3 (4.4-11.0)
[2025-02-21 16:20] LABS: Immature Reticulocyte Fraction 33.20 % (3.00-15.90)
[2025-02-21 17:32] LABS: FOLATES,SERUM (FOLIC ACID) 35.30 ng/mL (4.60-34.80)
[2025-02-21 18:01] LABS: Ferritin 16 ng/mL (22-378); Iron 22 ug/dL (50-170); Iron Binding Capacity,Total 442 ug/dL (250-450); Iron Binding Capacity,Unsat 420 ug/dL (228-428); Vitamin B12 1149 pg/mL (180-914)
[2025-02-21 23:46] LABS: Xtra Tube Kwok EXTRA TUBE
== END | disposition home or self-care (01) ==
LOC: POLAB3 15:46
PROVIDERS: PCP Family Medicine Geriatric Medicine; Visit Provider Family Medicine Geriatric Medicine
DX: I10 Essential (primary) hypertension (principal); D50.9 Iron deficiency anemia, unspecified
CPT/HCPCS: 36415; 82607; 82728; 82746; 83540; 83550; 85025; 85045

== ENCOUNTER → 2025-02-27 | Outpatient (CLI) | payer MEDICARE, SELFPAY | END | disposition home or self-care (01) | LOC: MTLAB 10:29 | PROVIDERS: PCP Family Medicine Geriatric Medicine; Referring Provider Family Medicine Geriatric Medicine; Visit Provider Family Medicine Geriatric Medicine | DX: D64.9 Anemia, unspecified (principal) | CPT/HCPCS: 82274 ==